=== PATIENT | male | born 1975 | race Caucasian/White ===

== ENCOUNTER 2021-07-21 09:05 | Emergency (ER) | payer SELFPAY ==
[2021-07-21 09:07] VITALS: BP 169/110; PULSE 72; RESP 16; TEMP 36.7; O2SAT 97; BMI 38.5
[2021-07-21 09:29] LABS: POC Glucose,Bedside 108 (70-110)
--- NOTE | 2021-07-21 09:37 | HMH.EDGENADL ---
ED Disposition Clinical Impression: Diabetes mellitus Qualifiers: Diabetes mellitus type: type 2 Diabetes mellitus intermediate insulin use: without intermediate use Diabetes mellitus complication status: without complication Qualified Code(s): E11.9 - Type 2 diabetes mellitus without complications Disposition: Home, Self-Care Condition on Discharge: Good Instructions: DI for Hyperglycemia -- Adult Additional Instructions: Obtain PCP for further diabetic management. Return emerge department for hypoglycemia, hyperglycemia, nausea vomiting Referrals: Provider,Referral, MD [Primary Care Provider] - 3 days Time of Disposition: 09:41 - Critical Care Critical Care Time: No Attestation: On , the high probability of a clinically significant, sudden or life threatening deterioration of the following system(s) required my full and direct attention, intervention and personal management. The time I documented below is in addition to time spent performing reported procedures but includes the following listed in this critical care notation. Medical Decision Making - Medical Records Medical records reviewed: Yes: I reviewed the patient's medical records. - Gomez Inquiry Pt receiving controlled substance: No Vital Signs: 07/21/21 09:07 Temperature 98.0 F Temperature Source Oral Pulse Rate [Right Radial] 72 Respiratory Rate 16 Blood Pressure [Right Arm] 169/110 H Blood Pressure Mean [Right Arm] 129 Blood Pressure Source [Right Arm] Automatic Cuff Blood Pressure Position [Right Arm] Sitting 02 Sat by Pulse Oximetry 97 Oxygen Delivery Method Room Air - Lab Data Lab results reviewed: Yes: I reviewed the patient's lab results. Lab Results 07/21/21 09:16: POC Glucose 108 Medical Decision Narrative: Discussed diabetic medications with the patient. Instructed him to hold his glyburide and continue frequent fingerstick glucose measurements. If he notices his blood sugar consistently 175 or higher, take half a glyburide daily. Patient reports he gets health insurance in August. Provided him with a list of PCPs upon discharge. General Adult HPI - General Chief complaint: Hyper/Hypoglycemia Stated complaint: diabetic, glucose low Time Seen by Provider: 07/21/21 09:38 Mode of Arrival: Ambulatory Limitations: No Limitations Description of Symptoms (Recalled from ER Triage Doc. by RN): pt reports his glucose has been dropping in the middle of night for approx 3 weeks. Pt reports he is a type 2 diabetic, take po medication. Pt reports he has been eating better and trying to lose weight for approx 4 weeks. pt reports he feels disoriented when his glucose drops. fsbs 108 upon presentation to ER - History of Present Illness HPI narrative: 46yo M past medical history of type 2 diabetes presents emergency department secondary to hypoglycemia. Patient reports his blood sugar drops while he is at work. He works [employer]. He reports his blood sugars have been as low as 45. He has had no blood sugars greater than 200 except for one time when his blood sugar dropped significantly he was trying to raise it. He reports he is significantly improved his diet and cut out all soft drinks. He reports he has lost weight with his dietary change. He has not been seen by a doctor to change his medications after his dietary change. He denies any other concerns at this time. - Related Data Allergies Allergy/AdvReac Type Severity Reaction Status Date / Time No Known Allergies Allergy Verified 07/21/21 09:28 [facility] History - Hepatitis A Screen Drug use history?: No High risk sexual behaviors?: No History of sexually transmitted infection?: No Currently employed?: No Childcare worker?: No Do you have indoor plumbing?: Yes Do you have electricity?: Yes Attestation statement:: This patient has been screened for Hepatitis A risk factors. I have reviewed the patient's past medical history: Yes Medical History: Reports:: Diabet
[2021-07-21 10:08] VITALS: BP 139/88; PULSE 69; RESP 16; TEMP 36.8; O2SAT 98
== END 2021-07-21 10:13 | disposition home or self-care (01) ==
LOC: ER 09:55
PROVIDERS: Emergency Provider Family Medicine
DX: E11.649 Type 2 diabetes mellitus with hypoglycemia without coma (principal); Z79.84 Long term (current) use of oral hypoglycemic drugs
CPT/HCPCS: 82962; 99281

== ENCOUNTER → 2022-07-16 11:49 | Outpatient (CLI) | payer BC, SELFPAY ==
[2022-07-16 12:28] LABS: Hemoglobin A1C 7.4 % (4.0-6.0)
[2022-07-16 12:38] LABS: Basophils # 0.1 K/mm3 (0-0.2); Basophils % 1.1 % (0.1-2.0); Eosinophils # 0.1 K/mm3 (0.0-0.4); Eosinophils % 0.9 % (0.1-12.0); Hematocrit 48.8 % (42.0-52.0); Hemoglobin 15.5 g/dL (14.1-18.0); Lymphocytes % 28.8 % (10-50); Mean Corpuscular HGB Conc 31.8 g/dL (31.8-35.4); Mean Corpuscular Hemoglobin 29.5 pg (27.0-31.2); Mean Corpuscular Volume 92.6 fl (80-94); Mean Platelet Volume 9.9 fl (7.4-10.4); Monocytes # 0.6 K/mm3 (0.1-1.0); Neutrophils # 6.7 K/mm3 (1.8-7.8); Neutrophils % 63.2 % (37.0-80.0); Platelet Count 242 K/mm3 (142-424); Red Blood Count 5.27 M/mm3 (4.60-6.20); Red Cell Distribution Width 14.4 % (11.5-17.5); White Blood Count 10.5 K/mm3 (4.8-10.8)
[2022-07-16 12:49] LABS: Alanine Aminotransferase 53 U/L (12-78); Albumin Level 4.1 g/dl (3.5-5.0); Albumin/Globulin Ratio 1.5 (1.1-1.8); Alkaline Phosphatase 95 U/L (38-126); Anion Gap 14.2 mEq/L (5-15); Aspartate Amino Transferase 41 U/L (17-59); Bilirubin,Total 0.3 mg/dl (0.2-1.3); Blood Urea Nitrogen 8 mg/dl (9-20); Calcium 8.9 mg/dl (8.4-10.2); Carbon Dioxide 28 mmol/L (22.0-30.0); Chloride 101 mmol/L (98-107); Chol/HDL Ratio 3.6 (1-3.5); Cholesterol 135 mg/dl (140-200); Estimated Glomerular Filt Rate 144 ml/min (>60); GFR (African American) 174 ML/MIN (>60); Globulin 2.8 g/dL (1.3-3.2); Glucose 112 mg/dl (74-100); HDL Cholesterol 38 mg/dl (40-60); Potassium 4.2 mmoL/L (3.5-5.1); Sodium 139 mmol/L (136-145); Total Protein,Serum 6.9 g/dl (6.3-8.2); Triglycerides 76 mg/dl (30-150); VLDL Cholesterol 15 mg/dL (0-40)
[2022-07-16 13:00] LABS: Direct LDL Cholesterol 85.23 mg/dL (100-129)
[2022-07-16 13:20] LABS: Prostate Specific Ag Screen 0.7 ng/ml (0.0-4.0)
== END ==
PROVIDERS: Family Medicine
DX: E11.9 Type 2 diabetes mellitus without complications (principal); Z12.5 Encounter for screening for malignant neoplasm of prostate
CPT/HCPCS: 36415; 80053; 80061; 82043; 83036; 85025; G0103

== ENCOUNTER → 2022-12-15 15:41 | Outpatient (CLI) | payer BC, SELFPAY ==
[2022-12-15 18:13] LABS: Hemoglobin A1C 8.3 % (4.0-6.0)
== END ==
PROVIDERS: Visit Provider Family Medicine
DX: E11.9 Type 2 diabetes mellitus without complications (principal)
CPT/HCPCS: 36415; 83036

== ENCOUNTER → 2023-01-04 16:50 | Outpatient (CLI) | payer BC, SELFPAY ==
[2023-01-04 18:40] LABS: Alanine Aminotransferase 73 U/L (12-78); Albumin Level 4.4 g/dl (3.5-5.0); Albumin/Globulin Ratio 1.4 (1.1-1.8); Alkaline Phosphatase 95 U/L (38-126); Anion Gap 14.1 mEq/L (5-15); Aspartate Amino Transferase 57 U/L (17-59); Bilirubin,Total 0.5 mg/dl (0.2-1.3); Blood Urea Nitrogen 12 mg/dl (9-20); Calcium 8.7 mg/dl (8.4-10.2); Carbon Dioxide 26 mmol/L (22.0-30.0); Chloride 102 mmol/L (98-107); Chol/HDL Ratio 3.7 (1-3.5); Cholesterol 146 mg/dl (140-200); Estimated Glomerular Filt Rate 144 ml/min (>60); GFR (African American) 174 ML/MIN (>60); Globulin 3.1 g/dL (1.3-3.2); Glucose 145 mg/dl (74-100); HDL Cholesterol 40 mg/dl (40-60); Potassium 4.1 mmoL/L (3.5-5.1); Sodium 138 mmol/L (136-145); Total Protein,Serum 7.5 g/dl (6.3-8.2); Triglycerides 132 mg/dl (30-150); VLDL Cholesterol 26 mg/dL (0-40)
[2023-01-04 18:41] LABS: Basophils # 0.1 K/mm3 (0-0.2); Basophils % 0.9 % (0.1-2.0); Eosinophils # 0.1 K/mm3 (0.0-0.4); Eosinophils % 0.8 % (0.1-12.0); Hematocrit 46.1 % (42.0-52.0); Hemoglobin 14.9 g/dL (14.1-18.0); Lymphocytes # 3.5 K/mm3 (0.7-4.5); Lymphocytes % 30.9 % (10-50); Mean Corpuscular HGB Conc 32.3 g/dL (31.8-35.4); Mean Corpuscular Hemoglobin 28.8 pg (27.0-31.2); Mean Corpuscular Volume 89.1 fl (80-94); Mean Platelet Volume 10.7 fl (7.4-10.4); Monocytes # 0.8 K/mm3 (0.1-1.0); Monocytes % 6.9 % (1.7-9.3); Neutrophils # 6.9 K/mm3 (1.8-7.8); Neutrophils % 60.4 % (37.0-80.0); Platelet Count 218 K/mm3 (142-424); Red Blood Count 5.18 M/mm3 (4.60-6.20); Red Cell Distribution Width 14.1 % (11.5-17.5); White Blood Count 11.4 K/mm3 (4.8-10.8)
[2023-01-04 18:50] LABS: Direct LDL Cholesterol 88.89 mg/dL (100-129)
[2023-01-06 11:13] LABS: Insulin Level Total 66.9 uIU/mL (2.6-24.9)
== END ==
PROVIDERS: PCP Family Medicine; Visit Provider Family Medicine
DX: E11.9 Type 2 diabetes mellitus without complications (principal); Z79.84 Long term (current) use of oral hypoglycemic drugs
CPT/HCPCS: 80053; 80061; 82043; 83525; 85025

== ENCOUNTER → 2023-01-25 23:17 | Outpatient (CLI) | payer BC, SELFPAY ==
[2023-01-25 19:37] LABS: Basophils # 0.1 K/mm3 (0-0.2); Basophils % 0.5 % (0.1-2.0); Eosinophils # 0.1 K/mm3 (0.0-0.4); Eosinophils % 0.7 % (0.1-12.0); Hematocrit 48.4 % (42.0-52.0); Hemoglobin 15.7 g/dL (14.1-18.0); Lymphocytes # 3.2 K/mm3 (0.7-4.5); Lymphocytes % 27.1 % (10-50); Mean Corpuscular HGB Conc 32.4 g/dL (31.8-35.4); Mean Corpuscular Hemoglobin 29.1 pg (27.0-31.2); Mean Corpuscular Volume 89.7 fl (80-94); Mean Platelet Volume 10.6 fl (7.4-10.4); Monocytes # 0.7 K/mm3 (0.1-1.0); Monocytes % 5.8 % (1.7-9.3); Neutrophils # 7.7 K/mm3 (1.8-7.8); Neutrophils % 65.9 % (37.0-80.0); Platelet Count 207 K/mm3 (142-424); Red Cell Distribution Width 13.8 % (11.5-17.5); White Blood Count 11.7 K/mm3 (4.8-10.8)
[2023-01-25 20:02] LABS: Alanine Aminotransferase 68 U/L (12-78); Albumin Level 4.5 g/dl (3.5-5.0); Albumin/Globulin Ratio 1.6 (1.1-1.8); Alkaline Phosphatase 93 U/L (38-126); Anion Gap 10.8 mEq/L (5-15); Aspartate Amino Transferase 54 U/L (17-59); Bilirubin,Total 0.5 mg/dl (0.2-1.3); Blood Urea Nitrogen 13 mg/dl (9-20); Calcium 9.1 mg/dl (8.4-10.2); Carbon Dioxide 29 mmol/L (22.0-30.0); Chloride 102 mmol/L (98-107); Estimated Glomerular Filt Rate 144 ml/min (>60); GFR (African American) 174 ML/MIN (>60); Globulin 2.8 g/dL (1.3-3.2); Glucose 85 mg/dl (74-100); Potassium 3.8 mmoL/L (3.5-5.1); Sodium 138 mmol/L (136-145); Total Protein,Serum 7.3 g/dl (6.3-8.2)
[2023-01-25 20:21] LABS: 25-OH Vitamin D, Total 20.4 ng/mL (30-100)
[2023-01-25 20:34] LABS: Thyroid Stimulating Hormone 1.46 uIU/mL (0.465-4.68)
[2023-01-27 10:33] LABS: Testosterone,Total 466 ng/dL (264-916)
== END ==
PROVIDERS: PCP Family Medicine; Visit Provider Family Medicine
DX: R53.83 Other fatigue (principal); E11.9 Type 2 diabetes mellitus without complications; I10 Essential (primary) hypertension; E55.9 Vitamin D deficiency, unspecified; Z79.84 Long term (current) use of oral hypoglycemic drugs
CPT/HCPCS: 80053; 82306; 84403; 84443; 85025

== ENCOUNTER → 2023-03-15 17:00 | Outpatient (CLI) | payer BC, SELFPAY ==
[2023-03-15 19:07] LABS: Hemoglobin A1C 7.2 % (4.0-6.0)
== END ==
PROVIDERS: PCP Family Medicine; Visit Provider Family Medicine
DX: E11.40 Type 2 diabetes mellitus with diabetic neuropathy, unspecified (principal); Z79.84 Long term (current) use of oral hypoglycemic drugs
CPT/HCPCS: 83036

== ENCOUNTER 2023-04-15 07:26 | Day surgery (SDC) | payer BC, SELFPAY ==
[2023-04-14 09:30] VITALS: BMI 39.4
[2023-04-15 07:46] VITALS: BP 129/63; PULSE 57; RESP 18; TEMP 36.1; O2SAT 96
--- NOTE | 2023-04-15 08:00 | P.PN_ITS ---
[facility] Disclaimer: The information contained in this section may have been updated after the patient was seen, as this information can be updated by other users. Medical History Carpal tunnel syndrome Diabetes mellitus, type 2 GERD (gastroesophageal reflux disease) History of cataract Hypertension Kidney disease Left shoulder pain Sleep apnea Surgical History History of surgery Family History Mother Diabetes Coronary artery disease Father Coronary artery disease Brother Coronary artery disease Bleeding disorder Family/Other Coronary artery disease Social History Smoking Status: Never smoker alcohol intake: current substance use type: denies use current occupational status: employed Travel in the last 8 weeks: None [facility] Anesthesia Checklist Patient Identification Patient Identification: Arm Band and Verbal (Name & ) Structural Data Admitted From: Home Planned Operative Procedure/s: Colonoscopy Consent for Planned Operative Procedure(s) Verified: Yes NPO Status Verified Time NPO: 00:00 Airway Assessment C-Spine Mobility Assessed: Yes TMJ Mobility Assessed: Yes Dentition: Good Dentition Neurological Assessment Level of Consciousness: Awake Hx Seizures: No Numbness or tingling in extremities: No Anesthesia Plan Anesthesia Risk discussed: Yes Anesthesia Plan: Verified ASA Class: III Anesthesia Type: MAC
--- NOTE | 2023-04-15 09:17 | HMH.SCOPE ---
Procedure: Date: 04/15/23 Patient Date of :: 1975 Procedure Performed:: Total colonoscopy to terminal ileum with biopsies and numerous polypectomy Indications:: Patient is a 48-year-old male. Primary care provider is Dr. Rome. Patient was scheduled for initial screening colonoscopy at his request. No family history. Reportedly no symptoms. Performing Provider:: Filippo Smiley MD Referring Provider:: Chris Rome MD Sedation:: MAC sedation Procedure:: Patient history was obtained and appropriate physical examination was performed. Patient's medications and allergies were reviewed. Informed consent was obtained after explaining the benefits, alternatives, and risks of the procedure including, but not limited to, bleeding, perforation, missed lesions, and adverse reaction to anesthesia medications. Patient was transported to endoscopy procedure room. Patient was connected to monitoring devices. Throughout the procedure the patient's blood pressure, pulse, and oxygen saturations were monitored continuously. Patient identification and planned procedure were verified by the staff. Patient was positioned in lateral decubitus position. Digital anorectal exam was performed. Variable stiffness Olympus colonoscope was inserted and advanced under direct visualization to the cecum. Adequacy of the colonic preparation was noted. The colonoscope was advanced a short distance into the terminal ileum. The colonoscope was then slowly withdrawn while carefully examining the color, texture, anatomy, and integrity of the mucosoa circumferentially. Within the rectum retroflexion was performed. Colonoscope was then withdrawn. . . . Colonoscope was advanced to the cecum. There was some particulate liquid stool which was cleared. Terminal ileum appeared unremarkable. Within the cecum there was an unusual appearing somewhat exudative indurated lesion which was very ill-defined. Consideration was given initially for piecemeal removal using hot snare and hot snare was used with some cautery but then this was aborted due to the fact that the lesion was rather ill-defined. Multiple biopsies were obtained. There were a couple of areas which bled rather easily and Hemoclip was deployed x3 at these areas for hemostasis assurance. The nature of the lesion was difficult to determine and could be inflammatory or neoplastic. . As the colonoscope was withdrawn through the remainder of the colon in the ascending colon there was a small polyp removed with biopsy. In the distal ascending colon there was a polyp removed with cold snare. Proximal transverse colon polyp removed with cold snare. Distal transverse polyp removed with cold snare with residual tissue removed with biopsy forceps. In the descending colon there was a small polyp removed with cold snare. The proximal sigmoid colon there were a couple polyps 1 removed with snare and 1 with a biopsy. In the sigmoid region there was a small polyp removed with cold snare. There were several hyperplastic appearing rectosigmoid polyps removed with cold biopsy forceps. Findings:: Polyps as noted above. Approximately 11 polyps removed via variety of technique Most notable cecal lesion, exudative and indurated, ill-defined, unclear etiology possible neoplastic or inflammatory, multiple biopsies obtained Recommendations:: Follow-up colonoscopy pending pathology. Most notable be results of the cecal lesion Complications:: None immediate Estimated blood obtained (mL): 5 Colonoscopy Component Colonoscopy Component Was a colonoscopy performed during today's procedure?: Yes Recommended follow up colonoscopy of at least 10 years?: No If no, follow up colonoscopy recommended in ___ years?: Unclear Reason for not recommending >/= 10 yr follow-up interval?: Pending pathology
[2023-04-15 09:18] VITALS: BP 122/75; PULSE 70; RESP 18; TEMP 36.5; O2SAT 94
--- NOTE | 2023-04-15 09:18 | SUR.PHASEII ---
Pt arrived to post-op with oral airway, VSS
[2023-04-15 09:28] VITALS: BP 135/80; PULSE 68; RESP 18; O2SAT 94
[2023-04-15 09:38] VITALS: BP 137/76; PULSE 68; RESP 18; O2SAT 95
[2023-04-15 09:44] VITALS: BP 134/73; PULSE 72; RESP 18; O2SAT 95
[2023-04-16 09:12] LABS: POC Glucose,Bedside 102 (70-110)
== END 2023-04-15 09:45 | disposition home or self-care (01) ==
PROVIDERS: PCP Family Medicine; Visit Provider Surgery
PROC: 0DJD8ZZ Inspection of Lower Intestinal Tract, Via Natural or Artificial Opening Endoscopic (ICD-10-PCS; CPT 45380; principal; 2023-04-15 08:30)
DX: Z12.11 Encounter for screening for malignant neoplasm of colon (principal); D12.0 Benign neoplasm of cecum; D12.2 Benign neoplasm of ascending colon; D12.3 Benign neoplasm of transverse colon; D12.4 Benign neoplasm of descending colon; D12.5 Benign neoplasm of sigmoid colon; E11.9 Type 2 diabetes mellitus without complications
CPT/HCPCS: 45380; 45385; 82962; J2704

== ENCOUNTER 2023-05-27 12:21 | Day surgery (SDC) | payer BC, SELFPAY ==
[2023-05-25 12:51] VITALS: BMI 39.4
[2023-05-27 12:36] VITALS: BP 145/67; PULSE 61; RESP 18; TEMP 36.2; O2SAT 97
--- NOTE | 2023-05-27 12:59 | EXP.GEN.HP ---
HPI HPI HPI: Patient presents for repeat colonoscopy. He underwent iinitial screening colonoscopy on 04/15/2023. Patient was found to have unusual appearing somewhat exudative indurated ill-defined lesion in the cecum. Consideration with given initially for possible piecemeal removal using hot snare but due to the indeterminate nature of the lesion and ill-defined nature multiple biopsies were obtained. Hemoclip was deployed for hemostasis assurance as the area was somewhat oozing. Additional polyps were removed and the remainder of the colon. He had a total of 6 additional tubular adenomas removed. Biopsy of the lesion in the cecum returned as tubular adenoma as well.I informed the patient of the biopsy findings. I did inform him however that this could be a sampling error and there could be possibly cancerous component. However, I would not advocate immediate colon resection. At this time I would advocate early follow-up colonoscopy in a few weeks to reassess this area and possibly remove these 2 areas in the cecum using hot snare. If no cancerous component noted then would merely need follow-up early interval colonoscopy. However, if there is cancerous component he could require resection. Also obviously if he develops perforation resection would be indicated as well. Plan will be for repeat colonoscopy [facility] Disclaimer: The information contained in this section may have been updated after the patient was seen, as this information can be updated by other users. Medical History Carpal tunnel syndrome Diabetes mellitus, type 2 GERD (gastroesophageal reflux disease) History of cataract Hypertension Kidney disease Left shoulder pain Sleep apnea Surgical History History of colonoscopy History of surgery Family History Mother Diabetes Coronary artery disease Father Coronary artery disease Brother Coronary artery disease Bleeding disorder Family/Other Coronary artery disease Social History Smoking Status: Never smoker alcohol intake: current substance use type: denies use current occupational status: employed Travel in the last 8 weeks: None caffeine: Yes Review of Systems Review of Systems Review of systems:: pertinent systems reviewed and negative unless documented below Meds Home Medications and Allergies Home Medications Medication Instructions Recorded Confirmed Type atorvastatin 10 mg tablet 10 mg PO DAILY Cholesterol 01/04/23 05/27/23 History blood sugar diagnostic (OneTouch #10 ea 01/04/23 05/27/23 History Verio test strips) glyburide micronized 3 mg tablet 3 mg PO BID Diabetes 01/04/23 05/27/23 History metformin 850 mg tablet 850 mg PO BID Diabetes 01/04/23 05/27/23 History metoprolol tartrate 100 mg tablet 100 mg PO BID bp 01/04/23 05/27/23 History naproxen 500 mg tablet (Naprosyn) 500 mg PO BID PRN pain #60 tabs 03/15/23 05/27/23 Rx losartan 25 mg tablet 25 mg PO DAILY bp 04/15/23 05/27/23 History omeprazole 20 mg capsule,delayed 20 mg PO DAILY gerd 04/15/23 05/27/23 History release New Prescriptions to Start Prescriptions: Allergies Allergy/AdvReac Type Severity Reaction Status Date / Time No Known Allergies Allergy Verified 05/27/23 12:30 Exam Data for Last 24 hours Vital signs and Labs for Last 24 Hours: Temp Pulse Resp BP Pulse Ox O2 Del Method 97.2 F L 61 18 145/67 H 97 Room Air 05/27/23 12:36 05/27/23 12:36 05/27/23 12:36 05/27/23 12:36 05/27/23 12:36 05/27/23 12:36 I & O for Last 24 hours: Intake & Output 05/25/23 05/26/23 05/27/23 05/28/23 11:59 11:59 11:59 11:59 Weight 275 lb Constitutional Constitutional: no acute distress *Routine HEENT Exam Head: Present n
[2023-05-27 13:10] VITALS: O2SAT 100
--- NOTE | 2023-05-27 13:48 | HMH.SCOPE ---
Procedure: Date: 05/27/23 Patient Date of :: 1975 Procedure Performed:: Colonoscopy to cecum with multiple biopsies of cecal mass using hot snare and biopsy forceps, polypectomy using biopsy forceps and cold snare, random biopsies Indications:: Patient presents for repeat colonoscopy. He underwent iinitial screening colonoscopy on 04/15/2023. Patient was found to have unusual appearing somewhat exudative indurated ill-defined lesion in the cecum. Consideration with given initially for possible piecemeal removal using hot snare but due to the indeterminate nature of the lesion and ill-defined nature multiple biopsies were obtained. Hemoclip was deployed for hemostasis assurance as the area was somewhat oozing. Additional polyps were removed and the remainder of the colon. He had a total of 6 additional tubular adenomas removed. Biopsy of the lesion in the cecum returned as tubular adenoma as well.I informed the patient of the biopsy findings. I did inform him however that this could be a sampling error and there could be possibly cancerous component. However, I would not advocate immediate colon resection. At this time I would advocate early follow-up colonoscopy in a few weeks to reassess this area and possibly remove these 2 areas in the cecum using hot snare. If no cancerous component noted then would merely need follow-up early interval colonoscopy. However, if there is cancerous component he could require resection. Also obviously if he develops perforation resection would be indicated as well. Plan will be for repeat colonoscopy Performing Provider:: Filippo Smiley MD Referring Provider:: Chris Rome Sedation:: MAC sedation Procedure:: Patient history was obtained and appropriate physical examination was performed. Patient's medications and allergies were reviewed. Informed consent was obtained after explaining the benefits, alternatives, and risks of the procedure including, but not limited to, bleeding, perforation, missed lesions, and adverse reaction to anesthesia medications. Patient was transported to endoscopy procedure room. Patient was connected to monitoring devices. Throughout the procedure the patient's blood pressure, pulse, and oxygen saturations were monitored continuously. Patient identification and planned procedure were verified by the staff. Patient was positioned in lateral decubitus position. Digital anorectal exam was performed. Variable stiffness Olympus colonoscope was inserted and advanced under direct visualization to the cecum. Adequacy of the colonic preparation was noted. The colonoscope was advanced a short distance into the terminal ileum. The colonoscope was then slowly withdrawn while carefully examining the color, texture, anatomy, and integrity of the mucosoa circumferentially. Within the rectum retroflexion was performed. Colonoscope was then withdrawn. . Within the cecum there was a rather large firm indurated somewhat ulcerated sessile mass almost within the appendiceal orifice. It was firm but he had friable. Several biopsies were taken using hot snare. Additional biopsies were obtained using cold biopsy forceps. This lesion was definitely not amenable to endoscopic removal. He did have some prominent mucosal folds throughout the colon and multiple right and left colon biopsies were obtained. In the descending colon there was a small polyp removed with cold snare. Rectosigmoid colon there was a hyperplastic appearing polyp removed with biopsy forceps. . Findings:: Cecal mass as described above Polyps Prominent mucosal folds Recommendations:: I will follow-up on the pathology. Will need right colon resection. I will discuss the options with him. Complications:: None immediately apparent Estimated blood obtained (mL): 5 Colonoscopy Component Colonoscopy Component Was a colonoscopy performed during today's procedure?: Yes Recommended follow up colonoscopy of at
[2023-05-27 13:52] VITALS: BP 164/98; PULSE 79; RESP 16; TEMP 36.6; O2SAT 97
[2023-05-27 14:02] VITALS: BP 159/97; PULSE 62; RESP 17; O2SAT 97
[2023-05-27 14:12] VITALS: BP 172/95; PULSE 63; RESP 18; O2SAT 98
[2023-05-28 05:02] LABS: POC Glucose,Bedside 82 (70-110)
== END 2023-05-27 14:24 | disposition home or self-care (01) ==
PROVIDERS: PCP Family Medicine; Visit Provider Surgery
PROC: 0DJD8ZZ Inspection of Lower Intestinal Tract, Via Natural or Artificial Opening Endoscopic (ICD-10-PCS; CPT 45385; principal; 2023-05-27 13:30)
DX: D12.6 Benign neoplasm of colon, unspecified (principal); D12.0 Benign neoplasm of cecum; D12.2 Benign neoplasm of ascending colon; K62.1 Rectal polyp; E11.9 Type 2 diabetes mellitus without complications
CPT/HCPCS: 45385; 45380; 82962; J2704

== ENCOUNTER 2023-06-30 11:21 | Inpatient (IN) | payer BC, SELFPAY ==
[2023-06-29 10:44] VITALS: BMI 39.4
[2023-06-30] VITALS (25 sets, daily range): BP systolic 119–177; BP diastolic 63–101; PULSE 61–101; RESP 13–18; TEMP 36.2–43; O2SAT 92–99
[2023-06-30 06:40] LABS: Basophils # 0.1 K/mm3 (0-0.2); Basophils % 0.7 % (0.1-2.0); Eosinophils # 0.1 K/mm3 (0.0-0.4); Eosinophils % 1.1 % (0.1-12.0); Hematocrit 48.3 % (42.0-52.0); Hemoglobin 15.3 g/dL (14.1-18.0); Lymphocytes # 2.8 K/mm3 (0.7-4.5); Lymphocytes % 27.2 % (10-50); Mean Corpuscular HGB Conc 31.7 g/dL (31.8-35.4); Mean Corpuscular Hemoglobin 28.5 pg (27.0-31.2); Mean Corpuscular Volume 89.9 fl (80-94); Mean Platelet Volume 9.2 fl (7.4-10.4); Monocytes # 0.8 K/mm3 (0.1-1.0); Monocytes % 7.4 % (1.7-9.3); Neutrophils # 6.6 K/mm3 (1.8-7.8); Neutrophils % 63.6 % (37.0-80.0); Platelet Count 205 K/mm3 (142-424); Red Blood Count 5.38 M/mm3 (4.60-6.20); Red Cell Distribution Width 14.4 % (11.5-17.5); White Blood Count 10.3 K/mm3 (4.8-10.8)
[2023-06-30 06:52] LABS: Alanine Aminotransferase 60 U/L (12-78); Albumin Level 4.3 g/dl (3.5-5.0); Albumin/Globulin Ratio 1.3 (1.1-1.8); Alkaline Phosphatase 90 U/L (38-126); Anion Gap 15.5 mEq/L (5-15); Aspartate Amino Transferase 45 U/L (17-59); Bilirubin,Total 0.7 mg/dl (0.2-1.3); Blood Urea Nitrogen 13 mg/dl (9-20); Calcium 8.7 mg/dl (8.4-10.2); Carbon Dioxide 26 mmol/L (22.0-30.0); Chloride 102 mmol/L (98-107); Creatinine Clearance Estimated 263 mL/min (50-200); Estimated Glomerular Filt Rate 143 ml/min (>60); GFR (African American) 173 ML/MIN (>60); Globulin 3.2 g/dL (1.3-3.2); Glucose 143 mg/dl (74-100); Potassium 3.5 mmoL/L (3.5-5.1); Sodium 140 mmol/L (136-145); Total Protein,Serum 7.5 g/dl (6.3-8.2)
--- NOTE | 2023-06-30 06:57 | EXP.GEN.HP ---
HPI HPI HPI: Patient presents for colon resection. He is a 48-year-old male whom I had seen and performed initial screening colonoscopy on him on 04/15/2023. Patient had no symptoms. Somewhat surprisingly he was noted to have multiple polyps. Approximately 11 polyps were noted. However most notable was a lesion in the cecum which was exudative and indurated and ill-defined. Numerous biopsies were obtained. It was friable and easily bled. He had a total of 6 tubular adenomas removed but most notable is his lesion in the cecum which biopsies revealed merely tubular adenoma. Patient was seen back in the office and the options were discussed with him. Plan was for a follow-up repeat colonoscopy which was done on 05/27/2023. He did have some additional polyps noted and this mass in the cecum was once again noted. This was a rather large firm indurated somewhat ulcerated sessile friable mass. Multiple biopsies were obtained using hot snare and cold biopsy forceps. This was not amenable to endoscopic removal. Interestingly once again results of the biopsy reveals tubular adenoma. He did have an additional tubular adenoma in the ascending colon as well as several hyperplastic polyps. Right and left biopsies were normal. I discussed the options with the patient. I felt that this was going to need resection given its nature on both colonoscopies. I discussed possible open procedure versus referral for laparoscopic procedure. I also explained to him that the final pathology may be precancerous. He wished to proceed with open procedure locally. Arrangements were made for open right hemicolectomy. [facility] Disclaimer: The information contained in this section may have been updated after the patient was seen, as this information can be updated by other users. Medical History Carpal tunnel syndrome Diabetes mellitus, type 2 GERD (gastroesophageal reflux disease) History of cataract Hypertension Kidney disease Left shoulder pain Sleep apnea Surgical History History of colonoscopy History of surgery RIGHT ELBOW Family History Mother Diabetes Coronary artery disease Father Coronary artery disease Brother Coronary artery disease Bleeding disorder Family/Other Coronary artery disease Social History (Updated 06/30/23 @ 06:17 by Umer E Brueggen, RN) Smoking Status: Never smoker alcohol intake: never substance use type: denies use current occupational status: employed Travel in the last 8 weeks: None caffeine: Yes Meds Home Medications and Allergies Home Medications Medication Instructions Recorded Confirmed Type atorvastatin 10 mg tablet 10 mg PO DAILY Cholesterol 01/04/23 06/02/23 History blood sugar diagnostic (ZabrinaTouch #10 ea 01/04/23 06/02/23 History Verio test strips) glyburide micronized 3 mg tablet 3 mg PO BID Diabetes 01/04/23 06/02/23 History metformin 850 mg tablet 850 mg PO BID Diabetes 01/04/23 06/02/23 History metoprolol tartrate 100 mg tablet 100 mg PO BID bp 01/04/23 06/02/23 History losartan 25 mg tablet 25 mg PO DAILY bp 04/15/23 06/02/23 History omeprazole 20 mg capsule,delayed 20 mg PO DAILY gerd 04/15/23 06/02/23 History release naproxen 500 mg tablet See Rx Instructions .Route 06/30/23 History .COMPLEX Pain New Prescriptions to Start Prescriptions: Allergies Allergy/AdvReac Type Severity Reaction Status Date / Time No Known Allergies Allergy Verified 06/30/23 06:33 Exam Data for Last 24 hours Vital signs and Labs for Last 24 Hours: Temp Pulse Resp BP Pulse Ox O2 Del Method 97.1 F L 61 18 119/68 99 Room Air 06/30/23 06:25 06/30/23 06:25 06/30/23 06:25 06/30/23 06:25 06/30/23 06:25 06/30/23 06:25 Laboratory Results - l
--- NOTE | 2023-06-30 07:07 | EXP.ANES.CKL ---
[facility] Disclaimer: The information contained in this section may have been updated after the patient was seen, as this information can be updated by other users. Medical History Carpal tunnel syndrome Diabetes mellitus, type 2 GERD (gastroesophageal reflux disease) History of cataract Hypertension Kidney disease Left shoulder pain Sleep apnea Surgical History History of colonoscopy History of surgery RIGHT ELBOW Family History Mother Diabetes Coronary artery disease Father Coronary artery disease Brother Coronary artery disease Bleeding disorder Family/Other Coronary artery disease Social History (Updated 06/30/23 @ 06:17 by Umer Smart RN) Smoking Status: Never smoker alcohol intake: never substance use type: denies use current occupational status: employed Travel in the last 8 weeks: None caffeine: Yes [facility] Anesthesia Checklist Patient Identification Patient Identification: Arm Band Structural Data Admitted From: Home Planned Operative Procedure/s: Right Hemicolectomy Consent for Planned Operative Procedure(s) Verified: Yes Verified Documents: Surgical Consent and History and Physical NPO Status Verified Time NPO: 00:00 Additional verifications Anesthesia Reactions: No Hx Blood Transfusions: No Blood Transfusion Reaction: No Airway Assessment Mallampati Score:: Class II C-Spine Mobility Assessed: Yes TMJ Mobility Assessed: Yes Dentition: Good Dentition Neurological Assessment Level of Consciousness: Awake and Alert Anesthesia Plan Anesthesia Risk discussed: Yes Anesthesia Plan: Verified ASA Class: III Anesthesia Type: General
--- NOTE | 2023-06-30 07:15 | ECG_ITS ---
APPROVED REPORT Exam: Resting ECG HR:58 bpm ECG Measurements Heart Rate 58 AXES NJ 156 P 23 QRSd 122 QRS 54 QT 480 T 34 QTc 476 Conclusion SINUS BRADYCARDIA MODERATE INTRAVENTRICULAR CONDUCTION DELAY [110+ ms QRS DURATION] PROLONGED QT INTERVAL ABNORMAL ECG UNCONFIRMED REPORT Electronically signed by : Chris Shaffer MD 07/01/2023 16:04:28
--- NOTE | 2023-06-30 09:57 | EXP.OP.NOTE ---
Date of procedure: 06/30/23 Pre-op Diagnosis:: Cecal mass Post-op Diagnosis:: Same Procedure performed:: Right colon resection with ileocolic anastomosis Surgeon:: Filippo Smiley MD POLICE ACADEMY INSTRUCTOR:: Dmitry Velásquez Anesthesia: GETA Estimated blood loss (mL): 50 Clinical Note:: Patient presents for colon resection. He is a 48-year-old male whom I had seen and performed initial screening colonoscopy on him on 04/15/2023. Patient had no symptoms. Somewhat surprisingly he was noted to have multiple polyps. Approximately 11 polyps were noted. However most notable was a lesion in the cecum which was exudative and indurated and ill-defined. Numerous biopsies were obtained. It was friable and easily bled. He had a total of 6 tubular adenomas removed but most notable is his lesion in the cecum which biopsies revealed merely tubular adenoma. Patient was seen back in the office and the options were discussed with him. Plan was for a follow-up repeat colonoscopy which was done on 05/27/2023. He did have some additional polyps noted and this mass in the cecum was once again noted. This was a rather large firm indurated somewhat ulcerated sessile friable mass. Multiple biopsies were obtained using hot snare and cold biopsy forceps. This was not amenable to endoscopic removal. Interestingly once again results of the biopsy reveals tubular adenoma. He did have an additional tubular adenoma in the ascending colon as well as several hyperplastic polyps. Right and left biopsies were normal. I discussed the options with the patient. I felt that this was going to need resection given its nature on both colonoscopies. I discussed possible open procedure versus referral for laparoscopic procedure. I also explained to him that the final pathology may be precancerous. He wished to proceed with open procedure locally. Arrangements were made for open right hemicolectomy. Operative findings:: Small but firm palpable mass in the cecum Operative note:: Patient was taken to the operating room. He was positioned in a supine position. Coreas catheter was placed. Abdomen was prepped and draped in the standard surgical fashion. Midline laparotomy incision was made. Dissection was carried down through subcutaneous tissues and fascia using electrocautery. Peritoneum was elevated and incised. Peritoneal cavity was entered. To allow for exposure incision was extended superiorly. Ultimately incision was approximately 29 cm. Exposure was achieved. The cecum was identified. The lesion was palpable in the cecum. Distal ileum was divided with a MARY KATE 75 type stapling device. Dissection was carried out mobilizing the right colon by incising the peritoneum along the white line of [place]. Hepatic flexure was taken down using electrocautery along with the Enseal device. Proximal transverse colon was divided with a MARY KATE 75 type linear cutting stapling device. Right colon was mobilized on its mesentery. Duodenum was observed to be without injury. Mesentery was scored with electrocautery for wide resection. The colonic mesentery was divided with the Enseal device and the larger branching vascular pedicles were doubly ligated with 0 Nurolon ties. Ultimately terminal ileum with colon was passed off as a specimen. A [id number] anastomosis was created with a MARY KATE 75 type stapling device. At the confluence of staple lines 3-0 Surgilon seromuscular suture was placed. Staple line was oversewn with a 3-0 Surgilon running locking suture. 3-0 Surgilon was placed at the anastomotic staple line angle. Anastomosis was patent and intact. Mesenteric defect was closed with a running 2-0 Vicryl. Enteric contents were returned to the normal anatomic position. Nasogastric tube was palpated to be in a good position. Peritoneal cavity was thoroughly irrigated and aspirated until clear. Fascia was closed with running #2 Novafil x2. Subcutaneous tissues were irrigated. Skin incision was closed with ailyn.
--- NOTE | 2023-06-30 10:09 | EXP.ANES.I ---
[facility] Anesthesia Record Part I Anesthesia Record I Intake, IV Amount: 2,200 Hydration: Adequate Estimated blood loss (mL): 50 Urine output (mL): 100 Blood Products used (#): none Blood Pressure: 150/63 SaO2: 95 Pulse Rate: 100 Airway Patency: Patent Respiratory Rate: 16 Temperature: 97.9 F Patient is:: Drowsy and Stable Stable to PACU at:: 10:00
[2023-06-30 10:23] LABS: POC Glucose,Bedside 194 (70-110)
--- NOTE | 2023-06-30 10:55 | SUR.PHASEI ---
1000- pt arrived in PACU- report from Lainey VILLA- OR nurse- pt has coude cath w/ 100ml out, NG tube left nare taped at 65-wall suction 20 cont pt dressing- ailyn, Telfa and tegaderm- CDI from sternum midline down to almost pubic symphysis . Pt would awaken and look at me then go back to sleep. VSS. 1030-changed patient into cotton gown . tolerated well 1045-empty cath bag 150ml out. 1050-called report to Janey Hedrick RN rm [phone] . Nurse to call me back after she passes report.
--- NOTE | 2023-06-30 11:30 | SUR.PHASEI ---
1125-pt transporting to floor myself and Rachana VILLA . pt in rm 219 monitor/O2/ wall suction attached. Catheter bag hung on bed frame below mattress. Family at BS, Janey Hedrick RN @ . Showed dressing. Pt stated he was comfortable and call light at right hand. Pain @ 12/24
--- NOTE | 2023-06-30 12:05 | HMH.PHAINT1 ---
Pharmacy Intervention Comments: Medication history complete, medications confirmed with fill history. - Hui Rodgers, PharmD Candidate 2023
[2023-06-30 14:38] LABS: Microscopic,Cath URINE MICROSCOPIC (MICROSCOPIC)
[2023-06-30 14:53] LABS: Appearance,Urine/Cath CLEAR (Clear); Bilirubin,Cath Negative (Negative); Blood, Urine/Cath Negative (Negative); Color,Urine/Cath YELLOW (Yellow); Glucose,Urine/Cath (UA) Negative (Negative); Ketones,Urine/Cath Negative (Negative); Leukocyte Esterase,Cath Negative (Negative); Nitrate,Cath Negative (Negative); PH,Urine/Cath 6.5 (5.0-8.5); Protein,Urine/Cath 2+ (Negative); Specific Gravity, Urine/Cath 1.025 (1.005-1.030); Urobilinogen,Cath 0.2 EU/dl (0.2)
[2023-06-30 16:09] LABS: POC Glucose,Bedside 218 (70-110)
[2023-06-30 16:13] LABS: Bacteria,Urine/Cath 1+ /lpf; RBC,Urine/Cath Occasional # /hpf (0-3); Squamous Epithelial Ur./Cath Occasional #/hpf (0-5)
--- NOTE | 2023-06-30 16:36 | EXP.MED.CON ---
History of Present Illness *Admission Date: 06/30/23 *Reason for visit:: Right hemicolectomy *History of present illness: Patient presents for colon resection. He is a 48-year-old male whom I had seen and performed initial screening colonoscopy on him on 04/15/2023. Patient had no symptoms. Somewhat surprisingly he was noted to have multiple polyps. Approximately 11 polyps were noted. However most notable was a lesion in the cecum which was exudative and indurated and ill-defined. Numerous biopsies were obtained. It was friable and easily bled. He had a total of 6 tubular adenomas removed but most notable is his lesion in the cecum which biopsies revealed merely tubular adenoma. Patient was seen back in the office and the options were discussed with him. Plan was for a follow-up repeat colonoscopy which was done on 05/27/2023. He did have some additional polyps noted and this mass in the cecum was once again noted. This was a rather large firm indurated somewhat ulcerated sessile friable mass. Multiple biopsies were obtained using hot snare and cold biopsy forceps. This was not amenable to endoscopic removal. Interestingly once again results of the biopsy reveals tubular adenoma. He did have an additional tubular adenoma in the ascending colon as well as several hyperplastic polyps. Right and left biopsies were normal. I discussed the options with the patient. I felt that this was going to need resection given its nature on both colonoscopies. I discussed possible open procedure versus referral for laparoscopic procedure. I also explained to him that the final pathology may be precancerous. He wished to proceed with open procedure locally. Arrangements were made for open right hemicolectomy. [facility] Medical History Carpal tunnel syndrome Diabetes mellitus, type 2 GERD (gastroesophageal reflux disease) History of cataract Hypertension Kidney disease Left shoulder pain Sleep apnea Surgical History History of colonoscopy History of surgery RIGHT ELBOW Family History Mother Diabetes Coronary artery disease Father Coronary artery disease Brother Coronary artery disease Bleeding disorder Family/Other Coronary artery disease Social History Smoking Status: Never smoker alcohol intake: never substance use type: denies use current occupational status: employed Travel in the last 8 weeks: None caffeine: Yes Review of Systems Review of Systems Review of systems:: pertinent systems reviewed and negative unless documented below Exam Data for Last 24 hours Vital signs and Labs for Last 24 Hours: Temp Pulse Resp BP Pulse Ox O2 Del Method O2 Flow Rate 98.0 F 94 H 14 177/95 H 93 L Nasal Cannula 2 06/30/23 13:40 06/30/23 15:10 06/30/23 15:10 06/30/23 15:10 06/30/23 15:10 06/30/23 15:10 06/30/23 15:10 Laboratory Results - last 24 hr 06/30/23 06:30: WBC 10.3, RBC 5.38, Hgb 15.3, Hct 48.3, MCV 89.9, MCH 28.5, MCHC 31.7 L, RDW 14.4, Plt Count 205, MPV 9.2, Neut % (Auto) 63.6, Lymph % (Auto) 27.2, [place] % (Auto) 7.4, Eos % (Auto) 1.1, Baso % (Auto) 0.7, Neut # (Auto) 6.6, Lymph # (Auto) 2.8, [place] # (Auto) 0.8, Eos # (Auto) 0.1, Baso # (Auto) 0.1, Sodium 140, Potassium 3.5, Chloride 102, Carbon Dioxide 26, Anion Gap 15.5 H, BUN 13, Creatinine 0.60 L, Estimated Creat Clear 263, Estimated GFR 143, Est GFR ( Amer) 173, Glucose 143 H, Calcium 8.7, Total Bilirubin 0.7, AST 45, ALT 60, Alkaline Phosphatase 90, Total Protein 7.5, Albumin 4.3, Globulin 3.2, Albumin/Globulin Ratio 1.3, Blood Type O Positive, Antibody Screen Negative 06/30/23 08:40: Urine Color Yellow, Urine Appearance Clear, Urine pH 6.5, Ur Specific [place] 1.025, Urine
--- NOTE | 2023-06-30 18:44 | PC.NURSE ---
7 mg cleared off of RURAL CARRIER ASSOCIATE pump
--- NOTE | 2023-06-30 19:13 | PC.NURSE ---
IS placed at bedside, pt educated on use and verbalized understanding
[2023-06-30 21:44] LABS: POC Glucose,Bedside 174 (70-110)
[2023-07-01] VITALS (14 sets, daily range): BP systolic 137–168; BP diastolic 67–124; PULSE 79–110; RESP 12–20; TEMP 36.4–37.2; O2SAT 93–97; BMI 42.0
[2023-07-01 04:20] LABS: POC Glucose,Bedside 144 (70-110)
[2023-07-01 06:09] LABS: Basophils % 0.2 % (0.1-2.0); Eosinophils % 0.2 % (0.1-12.0); Hematocrit 45.5 % (42.0-52.0); Hemoglobin 14.1 g/dL (14.1-18.0); Lymphocytes # 1.7 K/mm3 (0.7-4.5); Lymphocytes % 10.3 % (10-50); Mean Corpuscular HGB Conc 30.9 g/dL (31.8-35.4); Mean Corpuscular Hemoglobin 27.9 pg (27.0-31.2); Mean Corpuscular Volume 90.2 fl (80-94); Mean Platelet Volume 9.4 fl (7.4-10.4); Monocytes # 1.6 K/mm3 (0.1-1.0); Monocytes % 9.8 % (1.7-9.3); Neutrophils # 12.8 K/mm3 (1.8-7.8); Neutrophils % 79.6 % (37.0-80.0); Platelet Count 200 K/mm3 (142-424); Red Blood Count 5.04 M/mm3 (4.60-6.20); Red Cell Distribution Width 14.5 % (11.5-17.5); White Blood Count 16.1 K/mm3 (4.8-10.8)
[2023-07-01 06:12] LABS: MANUAL DIFFERENTIAL MANUAL DIFFERENTIAL (MANUAL DIFF)
[2023-07-01 06:19] LABS: Anion Gap 12.1 mEq/L (5-15); Blood Urea Nitrogen 10 mg/dl (9-20); Calcium 8.6 mg/dl (8.4-10.2); Carbon Dioxide 28 mmol/L (22.0-30.0); Chloride 101 mmol/L (98-107); Creatinine Clearance Estimated 154 mL/min (50-200); Estimated Glomerular Filt Rate 143 ml/min (>60); GFR (African American) 173 ML/MIN (>60); Glucose 150 mg/dl (74-100); Potassium 4.1 mmoL/L (3.5-5.1); Sodium 137 mmol/L (136-145)
--- NOTE | 2023-07-01 06:36 | EXP.SURG.PN ---
Subjective Narrative: Patient resting Exam Data for Last 24 hours Vital signs and Labs for Last 24 Hours: Temp Pulse Resp BP Pulse Ox O2 Del Method O2 Flow Rate 98.8 F 90 12 141/76 H 96 Nasal Cannula 2 07/01/23 04:00 07/01/23 04:00 07/01/23 02:00 07/01/23 02:00 07/01/23 04:00 07/01/23 05:00 07/01/23 05:00 Laboratory Results - last 24 hr 06/30/23 06:30: WBC 10.3, RBC 5.38, Hgb 15.3, Hct 48.3, MCV 89.9, MCH 28.5, MCHC 31.7 L, RDW 14.4, Plt Count 205, MPV 9.2, Neut % (Auto) 63.6, Lymph % (Auto) 27.2, [place] % (Auto) 7.4, Eos % (Auto) 1.1, Baso % (Auto) 0.7, Neut # (Auto) 6.6, Lymph # (Auto) 2.8, [place] # (Auto) 0.8, Eos # (Auto) 0.1, Baso # (Auto) 0.1, Sodium 140, Potassium 3.5, Chloride 102, Carbon Dioxide 26, Anion Gap 15.5 H, BUN 13, Creatinine 0.60 L, Estimated Creat Clear 263, Estimated GFR 143, Est GFR ( Amer) 173, Glucose 143 H, Calcium 8.7, Total Bilirubin 0.7, AST 45, ALT 60, Alkaline Phosphatase 90, Total Protein 7.5, Albumin 4.3, Globulin 3.2, Albumin/Globulin Ratio 1.3, Blood Type O Positive, Antibody Screen Negative 06/30/23 08:40: Urine Color Yellow, Urine Appearance Clear, Urine pH 6.5, Ur Specific [place] 1.025, Urine Protein 2+, Urine Glucose (UA) Negative, Urine Ketones Negative, Urine Blood Negative, Urine Nitrate Negative, Urine Bilirubin Negative, Urine Urobilinogen 0.2, Ur Leukocyte Esterase Negative, Urine RBC Occasional, Urine WBC 3-5, Ur Squamous Epith Cells Occasional, Urine Bacteria 1+ 06/30/23 10:16: POC Glucose 194 H 06/30/23 16:02: POC Glucose 218 H 06/30/23 21:37: POC Glucose 174 H 07/01/23 04:14: POC Glucose 144 H 07/01/23 05:43: WBC 16.1 H D, RBC 5.04, Hgb 14.1, Hct 45.5, MCV 90.2, MCH 27.9, MCHC 30.9 L, RDW 14.5, Plt Count 200, MPV 9.4, Neut % (Auto) 79.6, Lymph % (Auto) 10.3, [place] % (Auto) 9.8 H, Eos % (Auto) 0.2, Baso % (Auto) 0.2, Neut # (Auto) 12.8 H, Lymph # (Auto) 1.7, [place] # (Auto) 1.6 H, Eos # (Auto) 0.0, Baso # (Auto) 0.0, Sodium 137, Potassium 4.1, Chloride 101, Carbon Dioxide 28, Anion Gap 12.1, BUN 10, Creatinine 0.60 L, Estimated Creat Clear 154, Estimated GFR 143, Est GFR ( Amer) 173, Glucose 150 H, Calcium 8.6 I & O for Last 24 hours: Intake & Output 06/28/23 06/29/23 06/30/23 07/01/23 11:59 11:59 11:59 11:59 Intake Total 2200 / 2200 1901 / 1901 Output Total 1575 / 1575 Balance 2200 / 2200 326 / 326 Weight 275 lb 294 lb Constitutional Constitutional: no acute distress Progress Note: A&P Assessment and plan (1) Cecum mass: Status: Acute Assessment and plan: Will place NG tube to gravity and possibly DC later. Coreas catheter out today. (2) Tubular adenoma of colon: Status: Acute (3) Diabetes mellitus: Status: Acute (4) Hypertension: Status: Acute
[2023-07-01 06:51] LABS: POC Glucose,Bedside 153 (70-110)
--- NOTE | 2023-07-01 07:45 | PC.NURSE ---
pt FINANCIAL ADVISOR TRAINEE pump cleared, 10mg Morphine given throughout shift. Pt educated on importance of moving in bed and using IS to prevent pneumonia, pt states it hurts too much to move. Re educated every hour on IS, and every 2 hours on turning. Pt still refused.
[2023-07-01 07:50] LABS: Lymphocytes % 7 % (10-50); Monocytes % 14 % (2-9); Neutrophils % 79 % (42-76); Platelet Estimate Normal; RBC Morphology Normal; Total Cells Counted 100
--- NOTE | 2023-07-01 08:16 | EXP.ANES.II ---
[facility] Anesthesia Record Part II Anesthesia Record Part II Discharge Time: 11:00 Destination: Medical Surgical Department PACU nurse assessment reviewed?: Yes Patient Condition:: Good Anesthesia Complications:: None Swallowing reflex intact?: Yes Airway Patency: Patent Cyanosis?: No Blood Pressure: 160/84 SaO2: 95 Respiratory Rate: 18 Pulse Rate: 94 Temperature: 97.5 F Mental Status: Alert & Oriented Pain level:: 5 Nausea and/or vomitting:: None Intake, IV Amount: 0 Hydration: Adequate
[2023-07-01 11:55] LABS: CEA 3.2 ng/mL (0.0-4.7)
[2023-07-01 12:33] LABS: POC Glucose,Bedside 122 (70-110)
--- NOTE | 2023-07-01 13:49 | PC.NURSE ---
Spoke with yazmin Garcia to transfer pt out of stepdown
--- NOTE | 2023-07-01 15:09 | PC.NURSE ---
Dr. Baljit melo to remove NG tube.
[2023-07-01 16:43] LABS: POC Glucose,Bedside 142 (70-110)
--- NOTE | 2023-07-01 16:56 | PC.NURSE ---
went in to check on patient, patient stated that he feels like he has stuff in his chest that he could not cough up, Dr. Addison made aware, new order received, went back to bedside and educated patient on the importance of using the incentive spirometer, patient demonstrated appropriate use and verbalized understanding of the importance of using IS
--- NOTE | 2023-07-01 17:07 | EXP.PN ---
Subjective *Date: 07/01/23 *Time: 17:07 Interval history: The patient is seen and examined today. I am accompanied by nursing staff. They report that he remains afebrile with stable vital signs and saturating appropriately on supplemental oxygen 2 L via nasal cannula. His NG tube has been removed. He continues with EVENING OR NIGHT NURSE SUPERVISOR pump therapy for pain control. Incentive spirometry is at his bedside. His morning CBC identifies a postsurgical leukocytosis with normal hemoglobin and platelets and hematocrit. His morning electrolytes are normal as well as his BUN and creatinine. Exam Data for Last 24 hours Vital signs and Labs for Last 24 Hours: Temp Pulse Resp BP Pulse Ox O2 Del Method O2 Flow Rate 99.0 F 110 H 18 153/124 H 93 L Nasal Cannula 2 07/01/23 16:07 07/01/23 16:07 07/01/23 16:07 07/01/23 16:07 07/01/23 16:07 07/01/23 16:11 07/01/23 16:11 Laboratory Results - last 24 hr 06/30/23 06:30: POC Glucose 153 H, Carcinoembryonic Ag 3.2 06/30/23 21:37: POC Glucose 174 H 07/01/23 04:14: POC Glucose 144 H 07/01/23 05:43: WBC 16.1 H D, RBC 5.04, Hgb 14.1, Hct 45.5, MCV 90.2, MCH 27.9, MCHC 30.9 L, RDW 14.5, Plt Count 200, MPV 9.4, Neut % (Auto) 79.6, Lymph % (Auto) 10.3, [place] % (Auto) 9.8 H, Eos % (Auto) 0.2, Baso % (Auto) 0.2, Neut # (Auto) 12.8 H, Lymph # (Auto) 1.7, [place] # (Auto) 1.6 H, Eos # (Auto) 0.0, Baso # (Auto) 0.0, Total Counted 100, Neutrophils % (Manual) 79 H, Lymphocytes % (Manual) 7 L, Monocytes % (Manual) 14 H, Platelet Estimate Normal, RBC Morphology Normal, Sodium 137, Potassium 4.1, Chloride 101, Carbon Dioxide 28, Anion Gap 12.1, BUN 10, Creatinine 0.60 L, Estimated Creat Clear 154, Estimated GFR 143, Est GFR ( Amer) 173, Glucose 150 H, Calcium 8.6 07/01/23 11:58: POC Glucose 122 H 07/01/23 16:24: POC Glucose 142 H Temp Pulse Resp BP Pulse Ox O2 Del Method O2 Flow Rate 98.0 F 94 H 14 177/95 H 93 L Nasal Cannula 2 06/30/23 13:40 06/30/23 15:10 06/30/23 15:10 06/30/23 15:10 06/30/23 15:10 06/30/23 15:10 06/30/23 15:10 Laboratory Results - last 24 hr 06/30/23 06:30: WBC 10.3, RBC 5.38, Hgb 15.3, Hct 48.3, MCV 89.9, MCH 28.5, MCHC 31.7 L, RDW 14.4, Plt Count 205, MPV 9.2, Neut % (Auto) 63.6, Lymph % (Auto) 27.2, [place] % (Auto) 7.4, Eos % (Auto) 1.1, Baso % (Auto) 0.7, Neut # (Auto) 6.6, Lymph # (Auto) 2.8, [place] # (Auto) 0.8, Eos # (Auto) 0.1, Baso # (Auto) 0.1, Sodium 140, Potassium 3.5, Chloride 102, Carbon Dioxide 26, Anion Gap 15.5 H, BUN 13, Creatinine 0.60 L, Estimated Creat Clear 263, Estimated GFR 143, Est GFR ( Amer) 173, Glucose 143 H, Calcium 8.7, Total Bilirubin 0.7, AST 45, ALT 60, Alkaline Phosphatase 90, Total Protein 7.5, Albumin 4.3, Globulin 3.2, Albumin/Globulin Ratio 1.3, Blood Type O Positive, Antibody Screen Negative 06/30/23 08:40: Urine Color Yellow, Urine Appearance Clear, Urine pH 6.5, Ur Specific [place] 1.025, Urine Protein 2+, Urine Glucose (UA) Negative, Urine Ketones Negative, Urine Blood Negative, Urine Nitrate Negative, Urine Bilirubin Negative, Urine Urobilinogen 0.2, Ur Leukocyte Esterase Negative, Urine RBC Occasional, Urine WBC 3-5, Ur Squamous Epith Cells Occasional, Urine Bacteria 1+ 06/30/23 10:16: POC Glucose 194 H 06/30/23 16:02: POC Glucose 218 H I & O for Last 24 hours: Intake & Output 06/28/23 06/29/23 06/30/23 07/01/23 23:59 23:59 23:59 23:59 Intake Total 2932 / 4101 1169 / 1169 Output Total 950 / 950 1175 / 1175 Balance 1981 / 1 -6 / -6 Weight 124.738 kg 133 kg Intake & Output 06/27/23 06/28/23 06/29/23 06/30/23 23:59 23:59 23:59 23:59 Intake Total 2200 / 2200 Output Total 0 / 0 Balance 2200 / 2200 Weight 124.738 kg Constitutional Constitutional: no acute distress, morbidly obese and cooperative *Routine HEENT Exam Head: Present normocephalic Eye: Present EOMI and PERRL ENT: Present mucous membranes moist *Routine Neck Exam Neck: Present supple, full ROM and trachea midline *Routine Respiratory E
--- NOTE | 2023-07-01 18:51 | PC.NURSE ---
SUPERINTENDENT cleared at shift change. 16.9 mg delivered and zero denied.
[2023-07-01 20:35] LABS: POC Glucose,Bedside 170 (70-110)
[2023-07-02] VITALS (10 sets, daily range): BP systolic 127–166; BP diastolic 73–103; PULSE 96–120; RESP 16–20; TEMP 36.7–37.6; O2SAT 91–96; BMI 41.5
[2023-07-02 05:49] LABS: POC Glucose,Bedside 142 (70-110)
[2023-07-02 08:33] LABS: Basophils # 0.1 K/mm3 (0-0.2); Basophils % 0.3 % (0.1-2.0); Eosinophils % 0.3 % (0.1-12.0); Hematocrit 44.4 % (42.0-52.0); Hemoglobin 13.8 g/dL (14.1-18.0); Lymphocytes # 2.1 K/mm3 (0.7-4.5); Lymphocytes % 12.6 % (10-50); Mean Corpuscular HGB Conc 31.1 g/dL (31.8-35.4); Mean Corpuscular Hemoglobin 28.4 pg (27.0-31.2); Mean Corpuscular Volume 91.1 fl (80-94); Mean Platelet Volume 10.1 fl (7.4-10.4); Monocytes # 1.8 K/mm3 (0.1-1.0); Monocytes % 10.8 % (1.7-9.3); Neutrophils # 12.6 K/mm3 (1.8-7.8); Platelet Count 190 K/mm3 (142-424); Red Blood Count 4.87 M/mm3 (4.60-6.20); Red Cell Distribution Width 14.5 % (11.5-17.5); White Blood Count 16.6 K/mm3 (4.8-10.8)
[2023-07-02 08:41] LABS: MANUAL DIFFERENTIAL MANUAL DIFFERENTIAL (MANUAL DIFF)
[2023-07-02 12:02] LABS: POC Glucose,Bedside 158 (70-110)
--- NOTE | 2023-07-02 13:27 | EXP.PN ---
Subjective *Date: 07/02/23 *Time: 13:27 Interval history: Patient is seen and examined today. His spouse is at bedside. I am accompanied by his nurse who reports that he remains afebrile with some tachycardic heart rates and increasing blood pressure. He is saturating appropriately on 2 L of oxygen. He reports no flatus or bowel movement. His morning CBC identifies a stable hemoglobin. Exam Data for Last 24 hours Vital signs and Labs for Last 24 Hours: Temp Pulse Resp BP Pulse Ox O2 Del Method O2 Flow Rate 99.3 F 112 H 18 166/90 H 96 Nasal Cannula 2 07/02/23 11:44 07/02/23 12:30 07/02/23 11:44 07/02/23 11:44 07/02/23 12:30 07/02/23 12:30 07/02/23 12:30 Laboratory Results - last 24 hr 07/01/23 16:24: POC Glucose 142 H 07/01/23 20:28: POC Glucose 170 H 07/02/23 05:29: POC Glucose 142 H 07/02/23 07:21: WBC 16.6 H, RBC 4.87, Hgb 13.8 L, Hct 44.4, MCV 91.1, MCH 28.4, MCHC 31.1 L, RDW 14.5, Plt Count 190, MPV 10.1, Neut % (Auto) 76.0, Lymph % (Auto) 12.6, [place] % (Auto) 10.8 H, Eos % (Auto) 0.3, Baso % (Auto) 0.3, Neut # (Auto) 12.6 H, Lymph # (Auto) 2.1, [place] # (Auto) 1.8 H, Eos # (Auto) 0.0, Baso # (Auto) 0.1 07/02/23 11:53: POC Glucose 158 H Temp Pulse Resp BP Pulse Ox O2 Del Method O2 Flow Rate 98.0 F 94 H 14 177/95 H 93 L Nasal Cannula 2 06/30/23 13:40 06/30/23 15:10 06/30/23 15:10 06/30/23 15:10 06/30/23 15:10 06/30/23 15:10 06/30/23 15:10 Laboratory Results - last 24 hr 06/30/23 06:30: WBC 10.3, RBC 5.38, Hgb 15.3, Hct 48.3, MCV 89.9, MCH 28.5, MCHC 31.7 L, RDW 14.4, Plt Count 205, MPV 9.2, Neut % (Auto) 63.6, Lymph % (Auto) 27.2, [place] % (Auto) 7.4, Eos % (Auto) 1.1, Baso % (Auto) 0.7, Neut # (Auto) 6.6, Lymph # (Auto) 2.8, [place] # (Auto) 0.8, Eos # (Auto) 0.1, Baso # (Auto) 0.1, Sodium 140, Potassium 3.5, Chloride 102, Carbon Dioxide 26, Anion Gap 15.5 H, BUN 13, Creatinine 0.60 L, Estimated Creat Clear 263, Estimated GFR 143, Est GFR ( Amer) 173, Glucose 143 H, Calcium 8.7, Total Bilirubin 0.7, AST 45, ALT 60, Alkaline Phosphatase 90, Total Protein 7.5, Albumin 4.3, Globulin 3.2, Albumin/Globulin Ratio 1.3, Blood Type O Positive, Antibody Screen Negative 06/30/23 08:40: Urine Color Yellow, Urine Appearance Clear, Urine pH 6.5, Ur Specific [place] 1.025, Urine Protein 2+, Urine Glucose (UA) Negative, Urine Ketones Negative, Urine Blood Negative, Urine Nitrate Negative, Urine Bilirubin Negative, Urine Urobilinogen 0.2, Ur Leukocyte Esterase Negative, Urine RBC Occasional, Urine WBC 3-5, Ur Squamous Epith Cells Occasional, Urine Bacteria 1+ 06/30/23 10:16: POC Glucose 194 H 06/30/23 16:02: POC Glucose 218 H I & O for Last 24 hours: Intake & Output 06/29/23 06/30/23 07/01/23 07/02/23 23:59 23:59 23:59 23:59 Intake Total 2932 / 4101 1169 / 1169 1300 / 1300 Output Total 950 / 950 1175 / 1175 0 / 0 Balance 1981 -6 / -6 1300 / 1300 Weight 124.738 kg 133 kg 131.57 kg Intake & Output 06/27/23 06/28/23 06/29/23 06/30/23 23:59 23:59 23:59 23:59 Intake Total 2200 / 2199 Output Total 0 / 0 Balance 2199 / 2199 Weight 124.738 kg Constitutional Constitutional: no acute distress, morbidly obese and cooperative *Routine HEENT Exam Head: Present normocephalic Eye: Present EOMI and PERRL ENT: Present mucous membranes moist *Routine Neck Exam Neck: Present supple, full ROM and trachea midline *Routine Respiratory Exam Respiratory: Present CTA bilaterally, normal respiratory effort and symmetric chest movement *Routine Abdominal Exam Abdominal: Present soft and normoactive bowel sounds Comments: Surgical dressing *Routine Extremities Exam Extremities: Present full ROM, pulses intact and normal capillary refill; Absent edema *Routine Skin Exam Skin: Present warm; Absent rash *Routine Neurological Exam Neurological: Present alert, oriented X3, moving all extremities, vision grossly intact, hearing grossly intact and normal speech; Absent sensory deficit or motor d
--- NOTE | 2023-07-02 13:50 | EXP.SURG.PN ---
Subjective Patient reports: no new complaints, voiding w/o difficulty, no flatus and no bowel movement Narrative: He reports he is eager to try some ice chips or liquids.His pain is incompletely controlled with SALES MERCHANDISING SPECIALIST. He is ambulated in the room to the bathroom twice today, but has not ambulated in the halls. I observed incentive spirometry effort with encouragement, and he can only pull a volume of 750-1000 mL. Exam Data for Last 24 hours Vital signs and Labs for Last 24 Hours: Temp Pulse Resp BP Pulse Ox O2 Del Method O2 Flow Rate 99.3 F 112 H 18 166/90 H 96 Nasal Cannula 2 07/02/23 11:44 07/02/23 12:30 07/02/23 11:44 07/02/23 11:44 07/02/23 12:30 07/02/23 12:30 07/02/23 12:30 Laboratory Results - last 24 hr 07/01/23 16:24: POC Glucose 142 H 07/01/23 20:28: POC Glucose 170 H 07/02/23 05:29: POC Glucose 142 H 07/02/23 07:21: WBC 16.6 H, RBC 4.87, Hgb 13.8 L, Hct 44.4, MCV 91.1, MCH 28.4, MCHC 31.1 L, RDW 14.5, Plt Count 190, MPV 10.1, Neut % (Auto) 76.0, Lymph % (Auto) 12.6, [place] % (Auto) 10.8 H, Eos % (Auto) 0.3, Baso % (Auto) 0.3, Neut # (Auto) 12.6 H, Lymph # (Auto) 2.1, [place] # (Auto) 1.8 H, Eos # (Auto) 0.0, Baso # (Auto) 0.1 07/02/23 11:53: POC Glucose 158 H I & O for Last 24 hours: Intake & Output 06/29/23 06/30/23 07/01/23 07/02/23 23:59 23:59 23:59 23:59 Intake Total 2932 / 4101 1169 / 1169 1300 / 1300 Output Total 950 / 950 1175 / 1175 0 / 0 Balance 1982 / 3150 -6 / -6 1300 / 1300 Weight 275 lb 293 lb 3.437 oz 290 lb 1 oz Constitutional Constitutional: no acute distress *Routine Abdominal Exam Abdominal: Present soft, normoactive bowel sounds and obese; Absent tenderness, distended, rebound, guarding, firm or rigid Comments: Dressing of midline incision is clean and dry Progress Note: A&P Assessment and plan (1) Cecum mass: Status: Acute Assessment and plan: Postop day #2 status post right hemicolectomy for cecal mass. He has bowel sounds, and we will go ahead and try clear liquid diet. I educated the patient on importance of ambulation and pulmonary toilet to prevent postoperative complications of DVT and pneumonia. We will start Flexeril 10 mg every 8 hours scheduled, as well as IV Toradol every 6 hours scheduled. He did not have a CMP today, so we will get a stat 1. The Toradol will be held if his renal function has declined. We will order daily labs. Tomorrow, the plan is to discontinue SALES MERCHANDISING SPECIALIST and start oral narcotics with as needed IV narcotics. Continue Lovenox. (2) Tubular adenoma of colon: Status: Acute (3) Diabetes mellitus: Status: Acute (4) Hypertension: Status: Acute
[2023-07-02 14:10] LABS: Chloride 101 mmol/L (98-107); Potassium 3.6 mmoL/L (3.5-5.1); Sodium 138 mmol/L (136-145)
[2023-07-02 14:13] LABS: Alanine Aminotransferase 54 U/L (12-78); Albumin Level 3.8 g/dl (3.5-5.0); Albumin/Globulin Ratio 1.1 (1.1-1.8); Alkaline Phosphatase 91 U/L (38-126); Anion Gap 14.6 mEq/L (5-15); Aspartate Amino Transferase 73 U/L (17-59); Bilirubin,Total 1.2 mg/dl (0.2-1.3); Blood Urea Nitrogen 7 mg/dl (9-20); Calcium 8.5 mg/dl (8.4-10.2); Carbon Dioxide 26 mmol/L (22.0-30.0); Creatinine Clearance Estimated 154 mL/min (50-200); Estimated Glomerular Filt Rate 143 ml/min (>60); GFR (African American) 173 ML/MIN (>60); Globulin 3.4 g/dL (1.3-3.2); Glucose 138 mg/dl (74-100); Total Protein,Serum 7.2 g/dl (6.3-8.2)
[2023-07-02 15:42] LABS: Lymphocytes % 17 % (10-50); Monocytes % 10 % (2-9); Neutrophils % 73 % (42-76); Platelet Estimate Normal; RBC Morphology Normal; Total Cells Counted 100
[2023-07-02 20:52] LABS: POC Glucose,Bedside 127 (70-110)
[2023-07-02 22:14] LABS: POC Glucose,Bedside 127 (70-110)
[2023-07-03 04:00] VITALS: BP 130/79; PULSE 80; RESP 18; TEMP 36.8; O2SAT 96; BMI 40.6
[2023-07-03 05:06] LABS: POC Glucose,Bedside 134 (70-110)
--- NOTE | 2023-07-03 06:52 | PC.NURSE ---
DIGITAL COMMUNITY MANAGER with 7 units given throughout shift.
[2023-07-03 07:13] LABS: Basophils % 0.5 % (0.1-2.0); Eosinophils # 0.1 K/mm3 (0.0-0.4); Eosinophils % 1.4 % (0.1-12.0); Hematocrit 39.7 % (42.0-52.0); Lymphocytes # 1.9 K/mm3 (0.7-4.5); Lymphocytes % 21.1 % (10-50); Mean Corpuscular HGB Conc 31.1 g/dL (31.8-35.4); Mean Corpuscular Hemoglobin 28.4 pg (27.0-31.2); Mean Corpuscular Volume 91.2 fl (80-94); Mean Platelet Volume 9.4 fl (7.4-10.4); Monocytes # 0.8 K/mm3 (0.1-1.0); Monocytes % 8.6 % (1.7-9.3); Neutrophils # 6.2 K/mm3 (1.8-7.8); Neutrophils % 68.4 % (37.0-80.0); Platelet Count 148 K/mm3 (142-424); Red Blood Count 4.36 M/mm3 (4.60-6.20); Red Cell Distribution Width 14.3 % (11.5-17.5)
[2023-07-03 07:19] LABS: Hemoglobin 12.4 g/dL (14.1-18.0)
[2023-07-03 07:20] LABS: Alanine Aminotransferase 37 U/L (12-78); Albumin Level 3.1 g/dl (3.5-5.0); Alkaline Phosphatase 66 U/L (38-126); Anion Gap 10.5 mEq/L (5-15); Aspartate Amino Transferase 46 U/L (17-59); Bilirubin,Total 0.7 mg/dl (0.2-1.3); Blood Urea Nitrogen 10 mg/dl (9-20); Calcium 7.9 mg/dl (8.4-10.2); Carbon Dioxide 27 mmol/L (22.0-30.0); Chloride 105 mmol/L (98-107); Creatinine Clearance Estimated 325 mL/min (50-200); Estimated Glomerular Filt Rate 177 ml/min (>60); GFR (African American) 214 ML/MIN (>60); Glucose 131 mg/dl (74-100); Potassium 3.5 mmoL/L (3.5-5.1); Sodium 139 mmol/L (136-145); Total Protein,Serum 6.1 g/dl (6.3-8.2)
[2023-07-03 07:43] VITALS: BP 154/93; PULSE 94; RESP 19; TEMP 36.7; O2SAT 98
--- NOTE | 2023-07-03 09:02 | EXP.SURG.PN ---
Exam Data for Last 24 hours Vital signs and Labs for Last 24 Hours: Temp Pulse Resp BP Pulse Ox O2 Del Method O2 Flow Rate 98.1 F 94 H 19 154/93 H 98 Room Air 2 07/03/23 07:43 07/03/23 07:43 07/03/23 07:43 07/03/23 07:43 07/03/23 07:43 07/03/23 08:00 07/03/23 07:43 Laboratory Results - last 24 hr 07/02/23 07:21: Total Counted 100, Neutrophils % (Manual) 73, Lymphocytes % (Manual) 17, Monocytes % (Manual) 10 H, Platelet Estimate Normal, RBC Morphology Normal, Sodium 138, Potassium 3.6, Chloride 101, Carbon Dioxide 26, Anion Gap 14.6, BUN 7 L D, Creatinine 0.60 L, Estimated Creat Clear 154, Estimated GFR 143, Est GFR ( Amer) 173, Glucose 138 H, Calcium 8.5, Total Bilirubin 1.2, AST 73 H D, ALT 54, Alkaline Phosphatase 91, Total Protein 7.2, Albumin 3.8, Globulin 3.4 H, Albumin/Globulin Ratio 1.1 07/02/23 11:53: POC Glucose 158 H 07/02/23 16:46: POC Glucose 127 H 07/02/23 22:08: POC Glucose 127 H 07/03/23 04:59: POC Glucose 134 H 07/03/23 06:37: WBC 9.0 D, RBC 4.36 L, Hgb 12.4 L D, Hct 39.7 L, MCV 91.2, MCH 28.4, MCHC 31.1 L, RDW 14.3, Plt Count 148, MPV 9.4, Neut % (Auto) 68.4, Lymph % (Auto) 21.1, [place] % (Auto) 8.6, Eos % (Auto) 1.4, Baso % (Auto) 0.5, Neut # (Auto) 6.2, Lymph # (Auto) 1.9, [place] # (Auto) 0.8, Eos # (Auto) 0.1, Baso # (Auto) 0.0, Sodium 139, Potassium 3.5, Chloride 105, Carbon Dioxide 27, Anion Gap 10.5, BUN 10 D, Creatinine 0.50 L, Estimated Creat Clear 325 H, Estimated GFR 177, Est GFR ( Amer) 214 D, Glucose 131 H, Calcium 7.9 L, Total Bilirubin 0.7, AST 46 D, ALT 37 D, Alkaline Phosphatase 66, Total Protein 6.1 L, Albumin 3.1 L D, Globulin 3.0, Albumin/Globulin Ratio 1.0 L I & O for Last 24 hours: Intake & Output 06/30/23 07/01/23 07/02/23 07/03/23 23:59 23:59 23:59 23:59 Intake Total 2932 / 4101 1169 / 1169 1300 / 1300 940 / 940 Output Total 950 / 950 1175 / 1175 0 / 0 0 / 0 Balance 1981 / 1 -6 / -6 1300 / 1300 940 / 940 Weight 293 lb 3.437 oz 290 lb 1 oz 283 lb 6.4 oz Progress Note: A&P Assessment and plan (1) Cecum mass: Status: Acute (2) Tubular adenoma of colon: Status: Acute (3) Diabetes mellitus: Status: Acute (4) Hypertension: Status: Acute
--- NOTE | 2023-07-03 09:27 | EXP.SURG.PN ---
Subjective Narrative: No complaints. Toradol and Flexeril helped his pain. He ambulated in the ness yesterday. IS 1500, improved from yesterday. No BM or flatus. No n/v. Exam Data for Last 24 hours Vital signs and Labs for Last 24 Hours: Temp Pulse Resp BP Pulse Ox O2 Del Method O2 Flow Rate 98.1 F 94 H 19 154/93 H 98 Room Air 2 07/03/23 07:43 07/03/23 07:43 07/03/23 07:43 07/03/23 07:43 07/03/23 07:43 07/03/23 08:00 07/03/23 07:43 Laboratory Results - last 24 hr 07/02/23 07:21: Total Counted 100, Neutrophils % (Manual) 73, Lymphocytes % (Manual) 17, Monocytes % (Manual) 10 H, Platelet Estimate Normal, RBC Morphology Normal, Sodium 138, Potassium 3.6, Chloride 101, Carbon Dioxide 26, Anion Gap 14.6, BUN 7 L D, Creatinine 0.60 L, Estimated Creat Clear 154, Estimated GFR 143, Est GFR ( Amer) 173, Glucose 138 H, Calcium 8.5, Total Bilirubin 1.2, AST 73 H D, ALT 54, Alkaline Phosphatase 91, Total Protein 7.2, Albumin 3.8, Globulin 3.4 H, Albumin/Globulin Ratio 1.1 07/02/23 11:53: POC Glucose 158 H 07/02/23 16:46: POC Glucose 127 H 07/02/23 22:08: POC Glucose 127 H 07/03/23 04:59: POC Glucose 134 H 07/03/23 06:37: WBC 9.0 D, RBC 4.36 L, Hgb 12.4 L D, Hct 39.7 L, MCV 91.2, MCH 28.4, MCHC 31.1 L, RDW 14.3, Plt Count 148, MPV 9.4, Neut % (Auto) 68.4, Lymph % (Auto) 21.1, [place] % (Auto) 8.6, Eos % (Auto) 1.4, Baso % (Auto) 0.5, Neut # (Auto) 6.2, Lymph # (Auto) 1.9, [place] # (Auto) 0.8, Eos # (Auto) 0.1, Baso # (Auto) 0.0, Sodium 139, Potassium 3.5, Chloride 105, Carbon Dioxide 27, Anion Gap 10.5, BUN 10 D, Creatinine 0.50 L, Estimated Creat Clear 325 H, Estimated GFR 177, Est GFR ( Amer) 214 D, Glucose 131 H, Calcium 7.9 L, Total Bilirubin 0.7, AST 46 D, ALT 37 D, Alkaline Phosphatase 66, Total Protein 6.1 L, Albumin 3.1 L D, Globulin 3.0, Albumin/Globulin Ratio 1.0 L I & O for Last 24 hours: Intake & Output 06/30/23 07/01/23 07/02/23 07/03/23 23:59 23:59 23:59 23:59 Intake Total 2932 / 4101 1169 / 1169 1300 / 1300 940 / 940 Output Total 950 / 950 1175 / 1175 0 / 0 0 / 0 Balance 1981 -6 / -6 1300 / 1300 940 / 940 Weight 293 lb 3.437 oz 290 lb 1 oz 283 lb 6.4 oz Constitutional Constitutional: no acute distress and cooperative *Routine Abdominal Exam Abdominal: Present soft and normoactive bowel sounds; Absent tenderness or distended Comments: dressing removed, midline incision is clean and dry with ailyn and without erythema. Detailed Psychiatric Exam Comments: dysphoric Progress Note: A&P Assessment and plan (1) Cecum mass: Status: Acute Assessment and plan: POD#3. Recovery continues. Awaiting return of bowel function. Continue CLD. maintenance IVF. Replace hypokalemia IV. Continue pulmonary toilet, ambulation, Lovenox. D/c CIVIL STRUCTURAL DESIGNER, transition to Percocet 10 q4 hours with PRN IV morphine for breakthrough. Continue Toradol and Flexeril. (2) Tubular adenoma of colon: Status: Acute (3) Diabetes mellitus: Status: Acute (4) Hypertension: Status: Acute
--- NOTE | 2023-07-03 10:32 | PC.NURSE ---
VENEER DEPARTMENT MANAGER discontinued per . Wasted remaining morphine with Atul Pittman RN
--- NOTE | 2023-07-03 10:49 | EXP.PN ---
Subjective *Date: 07/03/23 *Time: 10:49 Interval history: Patient seen and examined at bedside today. I am accompanied by nursing staff. Nursing staff report that he remains afebrile with stable vital signs and saturating appropriately room air. His pain pump is being tapered. His diet has been advanced to clears. The patient reports no bowel movement but describes active bowel sounds with flatus. His morning labs have been reviewed, discussed and personally interpreted as follows: Normal electrolytes and creatinine. CBC with a normal white blood cell count and stable hemoglobin of 12. Exam Data for Last 24 hours Vital signs and Labs for Last 24 Hours: Temp Pulse Resp BP Pulse Ox O2 Del Method O2 Flow Rate 98.1 F 94 H 19 154/93 H 98 Room Air 2 07/03/23 07:43 07/03/23 07:43 07/03/23 07:43 07/03/23 07:43 07/03/23 07:43 07/03/23 08:00 07/03/23 07:43 Laboratory Results - last 24 hr 07/02/23 07:21: Total Counted 100, Neutrophils % (Manual) 73, Lymphocytes % (Manual) 17, Monocytes % (Manual) 10 H, Platelet Estimate Normal, RBC Morphology Normal, Sodium 138, Potassium 3.6, Chloride 101, Carbon Dioxide 26, Anion Gap 14.6, BUN 7 L D, Creatinine 0.60 L, Estimated Creat Clear 154, Estimated GFR 143, Est GFR ( Amer) 173, Glucose 138 H, Calcium 8.5, Total Bilirubin 1.2, AST 73 H D, ALT 54, Alkaline Phosphatase 91, Total Protein 7.2, Albumin 3.8, Globulin 3.4 H, Albumin/Globulin Ratio 1.1 07/02/23 11:53: POC Glucose 158 H 07/02/23 16:46: POC Glucose 127 H 07/02/23 22:08: POC Glucose 127 H 07/03/23 04:59: POC Glucose 134 H 07/03/23 06:37: WBC 9.0 D, RBC 4.36 L, Hgb 12.4 L D, Hct 39.7 L, MCV 91.2, MCH 28.4, MCHC 31.1 L, RDW 14.3, Plt Count 148, MPV 9.4, Neut % (Auto) 68.4, Lymph % (Auto) 21.1, [place] % (Auto) 8.6, Eos % (Auto) 1.4, Baso % (Auto) 0.5, Neut # (Auto) 6.2, Lymph # (Auto) 1.9, [place] # (Auto) 0.8, Eos # (Auto) 0.1, Baso # (Auto) 0.0, Sodium 139, Potassium 3.5, Chloride 105, Carbon Dioxide 27, Anion Gap 10.5, BUN 10 D, Creatinine 0.50 L, Estimated Creat Clear 325 H, Estimated GFR 177, Est GFR ( Amer) 214 D, Glucose 131 H, Calcium 7.9 L, Total Bilirubin 0.7, AST 46 D, ALT 37 D, Alkaline Phosphatase 66, Total Protein 6.1 L, Albumin 3.1 L D, Globulin 3.0, Albumin/Globulin Ratio 1.0 L Temp Pulse Resp BP Pulse Ox O2 Del Method O2 Flow Rate 98.0 F 94 H 14 177/95 H 93 L Nasal Cannula 2 06/30/23 13:40 06/30/23 15:10 06/30/23 15:10 06/30/23 15:10 06/30/23 15:10 06/30/23 15:10 06/30/23 15:10 Laboratory Results - last 24 hr 06/30/23 06:30: WBC 10.3, RBC 5.38, Hgb 15.3, Hct 48.3, MCV 89.9, MCH 28.5, MCHC 31.7 L, RDW 14.4, Plt Count 205, MPV 9.2, Neut % (Auto) 63.6, Lymph % (Auto) 27.2, [place] % (Auto) 7.4, Eos % (Auto) 1.1, Baso % (Auto) 0.7, Neut # (Auto) 6.6, Lymph # (Auto) 2.8, [place] # (Auto) 0.8, Eos # (Auto) 0.1, Baso # (Auto) 0.1, Sodium 140, Potassium 3.5, Chloride 102, Carbon Dioxide 26, Anion Gap 15.5 H, BUN 13, Creatinine 0.60 L, Estimated Creat Clear 263, Estimated GFR 143, Est GFR ( Amer) 173, Glucose 143 H, Calcium 8.7, Total Bilirubin 0.7, AST 45, ALT 60, Alkaline Phosphatase 90, Total Protein 7.5, Albumin 4.3, Globulin 3.2, Albumin/Globulin Ratio 1.3, Blood Type O Positive, Antibody Screen Negative 06/30/23 08:40: Urine Color Yellow, Urine Appearance Clear, Urine pH 6.5, Ur Specific [place] 1.025, Urine Protein 2+, Urine Glucose (UA) Negative, Urine Ketones Negative, Urine Blood Negative, Urine Nitrate Negative, Urine Bilirubin Negative, Urine Urobilinogen 0.2, Ur Leukocyte Esterase Negative, Urine RBC Occasional, Urine WBC 3-5, Ur Squamous Epith Cells Occasional, Urine Bacteria 1+ 06/30/23 10:16: POC Glucose 194 H 06/30/23 16:02: POC Glucose 218 H I & O for Last 24 hours: Intake & Output 06/30/23 07/01/23 07/02/23 07/03/23 23:59 23:59 23:59 23:59 Intake Total 2932 / 4101 1169 / 1169 1300 / 1300 940 / 940 Output Total 950 / 950 1175 / 1175 0 / 0 0 / 0 Balance 1981 3151 -6 / -6 130
[2023-07-03 11:21] VITALS: BP 164/84; PULSE 84; RESP 18; TEMP 37.1; O2SAT 97
[2023-07-03 12:02] LABS: POC Glucose,Bedside 124 (70-110)
[2023-07-03 15:13] VITALS: BP 137/73; PULSE 86; RESP 18; TEMP 36.8; O2SAT 95
[2023-07-03 17:15] LABS: POC Glucose,Bedside 110 (70-110)
--- NOTE | 2023-07-03 18:46 | PC.NURSE ---
pt refused shower. ambulated in ness with staff sba. encouraged increased participation with ADLS.
[2023-07-03 19:54] VITALS: BP 127/60; PULSE 94; RESP 16; TEMP 37; O2SAT 96
[2023-07-03 22:17] LABS: POC Glucose,Bedside 124 (70-110)
[2023-07-04 04:00] VITALS: BP 142/76; PULSE 68; RESP 20; TEMP 36.6; O2SAT 96; BMI 40.8
[2023-07-04 05:39] LABS: POC Glucose,Bedside 111 (70-110)
[2023-07-04 07:54] VITALS: BP 140/74; PULSE 75; RESP 18; TEMP 37; O2SAT 96
[2023-07-04 08:30] LABS: Basophils % 0.4 % (0.1-2.0); Eosinophils # 0.3 K/mm3 (0.0-0.4); Eosinophils % 3.2 % (0.1-12.0); Hematocrit 38.9 % (42.0-52.0); Lymphocytes # 1.8 K/mm3 (0.7-4.5); Lymphocytes % 22.4 % (10-50); Mean Corpuscular Hemoglobin 28.5 pg (27.0-31.2); Mean Platelet Volume 9.6 fl (7.4-10.4); Monocytes # 0.6 K/mm3 (0.1-1.0); Monocytes % 7.5 % (1.7-9.3); Neutrophils # 5.4 K/mm3 (1.8-7.8); Neutrophils % 66.5 % (37.0-80.0); Platelet Count 170 K/mm3 (142-424); Red Blood Count 4.23 M/mm3 (4.60-6.20); Red Cell Distribution Width 14.4 % (11.5-17.5); White Blood Count 8.1 K/mm3 (4.8-10.8)
[2023-07-04 08:35] LABS: Alanine Aminotransferase 41 U/L (12-78); Albumin Level 3.1 g/dl (3.5-5.0); Albumin/Globulin Ratio 1.1 (1.1-1.8); Alkaline Phosphatase 61 U/L (38-126); Anion Gap 11.6 mEq/L (5-15); Aspartate Amino Transferase 48 U/L (17-59); Bilirubin,Total 0.6 mg/dl (0.2-1.3); Blood Urea Nitrogen 8 mg/dl (9-20); Calcium 8.1 mg/dl (8.4-10.2); Carbon Dioxide 24 mmol/L (22.0-30.0); Chloride 108 mmol/L (98-107); Creatinine Clearance Estimated 327 mL/min (50-200); Estimated Glomerular Filt Rate 177 ml/min (>60); GFR (African American) 214 ML/MIN (>60); Globulin 2.9 g/dL (1.3-3.2); Glucose 118 mg/dl (74-100); Potassium 3.6 mmoL/L (3.5-5.1); Sodium 140 mmol/L (136-145)
[2023-07-04 11:15] VITALS: BP 125/74; PULSE 73; RESP 18; TEMP 36.4; O2SAT 99
[2023-07-04 11:51] LABS: POC Glucose,Bedside 166 (70-110)
--- NOTE | 2023-07-04 12:02 | EXP.ACUTE.PN ---
Subjective *Date: 07/04/23 *Time: 12:52 Interval history: Patient is afebrile and hemodynamically stable this morning. On room air. Tolerating full liquid diet. Denies any chest pain or shortness of breath. No drainage from incision site. Bowel movement last night and passing flatus this morning. Medical Exam Vital signs and Labs for Last 24 Hours: Vital Signs Temp Pulse Resp BP Pulse Ox O2 Del Method 07/04/23 11:00 Room Air 07/04/23 11:15 97.6 F 73 18 125/74 99 Room Air 07/04/23 09:00 Room Air 07/04/23 07:54 98.6 F 75 18 140/74 96 Room Air 07/04/23 07:00 Room Air 07/04/23 05:00 Room Air 07/04/23 04:00 97.8 F 68 20 142/76 H 96 Room Air 07/04/23 03:00 Room Air 07/04/23 01:00 Room Air 07/03/23 23:00 Room Air 07/03/23 20:00 Room Air 07/03/23 21:00 Room Air 07/03/23 19:00 Room Air 07/03/23 19:54 98.6 F 94 H 16 127/60 96 Room Air 07/03/23 17:00 Room Air 07/03/23 15:00 Room Air 07/03/23 13:00 Room Air 07/03/23 15:13 98.2 F 86 18 137/73 95 Room Air Intake and Output 07/03/23 07/04/23 07/04/23 23:59 07:59 15:59 Intake Total 240 / 1180 1000 / 1000 Output Total 0 / 350 350 / 350 Balance 240 / 1180 1000 / 650 -350 / 650 Intake: Intake, Oral Amount 240 / 480 Intake, Total IV Amount 1000 / 1000 0.9% NaCl w/20mEq KCL 1,000 ml 1000 / 1000 @ 100 mls/hr IV .Q10H [facility] Rx#: [id number] Output: Output, Urine Amount 0 / 350 350 / 350 Other: Number of Unmeasured Voids 0 0 Number of Bowel Movements 1 Weight 129.228 kg Patient Weight 07/04/23 23:59 Weight 129.228 kg Laboratory Results - last 24 hr 07/03/23 11:55: POC Glucose 124 H 07/03/23 17:05: POC Glucose 110 07/03/23 22:10: POC Glucose 124 H 07/04/23 05:17: POC Glucose 111 H 07/04/23 08:15: WBC 8.1, RBC 4.23 L, Hgb 12.0 L, Hct 38.9 L, MCV 92.0, MCH 28.5, MCHC 31.0 L, RDW 14.4, Plt Count 170, MPV 9.6, Neut % (Auto) 66.5, Lymph % (Auto) 22.4, [place] % (Auto) 7.5, Eos % (Auto) 3.2, Baso % (Auto) 0.4, Neut # (Auto) 5.4, Lymph # (Auto) 1.8, [place] # (Auto) 0.6, Eos # (Auto) 0.3, Baso # (Auto) 0.0, Sodium 140, Potassium 3.6, Chloride 108 H, Carbon Dioxide 24, Anion Gap 11.6, BUN 8 L, Creatinine 0.50 L, Estimated Creat Clear 327 H, Estimated GFR 177, Est GFR ( Amer) 214, Glucose 118 H, Calcium 8.1 L, Total Bilirubin 0.6, AST 48, ALT 41, Alkaline Phosphatase 61, Total Protein 6.0 L, Albumin 3.1 L, Globulin 2.9, Albumin/Globulin Ratio 1.1 07/04/23 11:45: POC Glucose 166 H I & O for Labs for Last 24 Hours: Intake & Output 07/01/23 07/02/23 07/03/23 07/04/23 23:59 23:59 23:59 23:59 Intake Total 1169 / 1169 1300 / 1300 1180 / 1180 1000 / 1000 Output Total 1175 / 1175 0 / 0 0 / 0 350 / 350 Balance -6 / -6 1300 / 1300 1180 / 1180 650 / 650 Weight 133 kg 131.57 kg 128.548 kg 129.228 kg Constitutional: Present no acute distress and morbidly obese Head: Present atraumatic and normocephalic Respiratory: Absent accessory muscle use, rhonchi, wheezes or crackles Cardiac: Present Reg Rate and Rhythm GI: Present soft and tenderness (Diffuse, worse along incision line. Midline incision clean dry and intact.); Absent distention Extremities: Present normal inspection Neuro: Present alert, awake, oriented x 3 and moves all extremities Assessment and Plan *Assessment and plan (1) Cecum mass: Status: Acute Category: Medical Code(s): K63.89 - Other specified diseases of intestine (2) Tubular adenoma of colon: Status: Acute Category: Medical Code(s): D12.6 - Benign neoplasm of colon, unspecified (3) Diabetes mellitus: Status: Acute Qualifiers: Diabetes mellitus complication status: without complication Diabetes mellitus assisted insulin use: without assisted use Diabetes mellitus type: type 2 Qualified Code(s): E11.9 - Type 2 diabetes mellitus without complications
--- NOTE | 2023-07-04 13:39 | EXP.SURG.PN ---
Subjective Narrative: Patient is taking some full liquids. He states that his pain is improving. He has had a bowel movement. Exam Data for Last 24 hours Vital signs and Labs for Last 24 Hours: Temp Pulse Resp BP Pulse Ox O2 Del Method O2 Flow Rate 97.6 F 73 18 125/74 99 Room Air 2 07/04/23 11:15 07/04/23 11:15 07/04/23 11:15 07/04/23 11:15 07/04/23 11:15 07/04/23 13:00 07/03/23 07:43 Laboratory Results - last 24 hr 07/03/23 17:05: POC Glucose 110 07/03/23 22:10: POC Glucose 124 H 07/04/23 05:17: POC Glucose 111 H 07/04/23 08:15: WBC 8.1, RBC 4.23 L, Hgb 12.0 L, Hct 38.9 L, MCV 92.0, MCH 28.5, MCHC 31.0 L, RDW 14.4, Plt Count 170, MPV 9.6, Neut % (Auto) 66.5, Lymph % (Auto) 22.4, [place] % (Auto) 7.5, Eos % (Auto) 3.2, Baso % (Auto) 0.4, Neut # (Auto) 5.4, Lymph # (Auto) 1.8, [place] # (Auto) 0.6, Eos # (Auto) 0.3, Baso # (Auto) 0.0, Sodium 140, Potassium 3.6, Chloride 108 H, Carbon Dioxide 24, Anion Gap 11.6, BUN 8 L, Creatinine 0.50 L, Estimated Creat Clear 327 H, Estimated GFR 177, Est GFR ( Amer) 214, Glucose 118 H, Calcium 8.1 L, Total Bilirubin 0.6, AST 48, ALT 41, Alkaline Phosphatase 61, Total Protein 6.0 L, Albumin 3.1 L, Globulin 2.9, Albumin/Globulin Ratio 1.1 07/04/23 11:45: POC Glucose 166 H I & O for Last 24 hours: Intake & Output 07/02/23 07/03/23 07/04/23 07/05/23 11:59 11:59 11:59 11:59 Intake Total 1300 / 1300 940 / 940 1240 / 1240 Output Total 300 / 300 0 / 0 350 / 350 Balance 1000 / 1000 940 / 940 890 / 890 Weight 290 lb 1 oz 283 lb 6.4 oz 284 lb 14.4 oz *Routine Abdominal Exam Comments: Slightly distended. Incision clean and intact. Incisional soreness. Progress Note: A&P Assessment and plan (1) Cecum mass: Status: Acute Assessment and plan: Advance diet. Continue Toradol for now. Hopeful discharge tomorrow morning. (2) Tubular adenoma of colon: Status: Acute (3) Diabetes mellitus: Status: Acute (4) Hypertension: Status: Acute
[2023-07-04 15:36] VITALS: BP 149/73; PULSE 78; RESP 18; TEMP 37.2; O2SAT 100
[2023-07-04 17:21] LABS: POC Glucose,Bedside 107 (70-110)
--- NOTE | 2023-07-04 17:41 | PC.NURSE ---
Pt is alert and oriented x4. He's been up to the chair and tolerated well. Treated x1 with prn pain meds with relief reported on reassessment. Midline incision with ailyn in place is open to air, no drainage noted. Diet advanced, pt tolerating well. Glucose was 166 and 107 at checks, treated per SSI. No questions or concerns at this tiime.
[2023-07-04 20:00] VITALS: BP 142/70; PULSE 76; RESP 18; TEMP 37.3; O2SAT 96
--- NOTE | 2023-07-04 20:05 | DIET.NUTRFU ---
Pt diet has been advanced to Soft. PO intake 50% at dinner. POC glucose 111, 166, 107. A1C 7.2%. Pt with BM last night per MD progress note. Will continue to monitor.
[2023-07-04 22:33] LABS: POC Glucose,Bedside 195 (70-110)
[2023-07-05 04:00] VITALS: BP 154/79; PULSE 74; TEMP 36.8; O2SAT 94; BMI 40.4
[2023-07-05 05:27] LABS: POC Glucose,Bedside 107 (70-110)
--- NOTE | 2023-07-05 06:31 | PC.NURSE ---
Localized rash noted to patient's abdomen, denies itching, not noted anywhere else on skin.
[2023-07-05 06:59] LABS: Basophils % 0.4 % (0.1-2.0); Eosinophils # 0.3 K/mm3 (0.0-0.4); Eosinophils % 3.4 % (0.1-12.0); Hematocrit 38.3 % (42.0-52.0); Hemoglobin 11.9 g/dL (14.1-18.0); Lymphocytes # 2.1 K/mm3 (0.7-4.5); Lymphocytes % 27.1 % (10-50); Mean Corpuscular HGB Conc 31.2 g/dL (31.8-35.4); Mean Corpuscular Hemoglobin 28.2 pg (27.0-31.2); Mean Corpuscular Volume 90.4 fl (80-94); Mean Platelet Volume 9.2 fl (7.4-10.4); Monocytes # 0.7 K/mm3 (0.1-1.0); Monocytes % 8.7 % (1.7-9.3); Neutrophils # 4.8 K/mm3 (1.8-7.8); Neutrophils % 60.3 % (37.0-80.0); Platelet Count 208 K/mm3 (142-424); Red Blood Count 4.24 M/mm3 (4.60-6.20); Red Cell Distribution Width 14.5 % (11.5-17.5); White Blood Count 7.9 K/mm3 (4.8-10.8)
[2023-07-05 07:08] LABS: Alanine Aminotransferase 45 U/L (12-78); Albumin Level 2.9 g/dl (3.5-5.0); Alkaline Phosphatase 68 U/L (38-126); Anion Gap 11.5 mEq/L (5-15); Aspartate Amino Transferase 41 U/L (17-59); Bilirubin,Total 0.5 mg/dl (0.2-1.3); Blood Urea Nitrogen 9 mg/dl (9-20); Carbon Dioxide 28 mmol/L (22.0-30.0); Chloride 105 mmol/L (98-107); Creatinine Clearance Estimated 270 mL/min (50-200); Estimated Glomerular Filt Rate 143 ml/min (>60); GFR (African American) 173 ML/MIN (>60); Globulin 2.8 g/dL (1.3-3.2); Glucose 114 mg/dl (74-100); Magnesium 1.6 mg/dl (1.6-2.3); Potassium 3.5 mmoL/L (3.5-5.1); Sodium 141 mmol/L (136-145); Total Protein,Serum 5.7 g/dl (6.3-8.2)
--- NOTE | 2023-07-05 07:26 | EXP.DC.SUM ---
General Admission date:: 06/30/23 HPI HPI HPI: Patient presents for colon resection. He is a 48-year-old male whom I had seen and performed initial screening colonoscopy on him on 04/15/2023. Patient had no symptoms. Somewhat surprisingly he was noted to have multiple polyps. Approximately 11 polyps were noted. However most notable was a lesion in the cecum which was exudative and indurated and ill-defined. Numerous biopsies were obtained. It was friable and easily bled. He had a total of 6 tubular adenomas removed but most notable is his lesion in the cecum which biopsies revealed merely tubular adenoma. Patient was seen back in the office and the options were discussed with him. Plan was for a follow-up repeat colonoscopy which was done on 05/27/2023. He did have some additional polyps noted and this mass in the cecum was once again noted. This was a rather large firm indurated somewhat ulcerated sessile friable mass. Multiple biopsies were obtained using hot snare and cold biopsy forceps. This was not amenable to endoscopic removal. Interestingly once again results of the biopsy reveals tubular adenoma. He did have an additional tubular adenoma in the ascending colon as well as several hyperplastic polyps. Right and left biopsies were normal. I discussed the options with the patient. I felt that this was going to need resection given its nature on both colonoscopies. I discussed possible open procedure versus referral for laparoscopic procedure. I also explained to him that the final pathology may be precancerous. He wished to proceed with open procedure locally. Arrangements were made for open right hemicolectomy. Hospital Course Hospital Course Hospital Course: Patient was taken to the operating room on 06/30/2023 at which time he underwent a right colon resection with ileocolic anastomosis. He was found to have a small but firm palpable mass in the cecum. Please see operative dictation for complete details. Postoperatively he was initially admitted to the stepdown unit. He did have a nasogastric tube in place. Consultation was obtained with the hospitalist service for medical management. His nasogastric tube was removed the following morning on postoperative day #1. He did have some issues with abdominal pain which was partially controlled with morphine MANAGER INVENTORY. Incentive spirometry and ambulation was encouraged. Patient was given a clear liquid diet. He was started on Toradol and muscle relaxants. This did help his pain and allow for increased ambulation and better use of incentive spirometer. His MANAGER INVENTORY was discontinued on postoperative day #3 and he was given Percocet and morphine for breakthrough. He began to pass flatus and later in the day he was advanced to a full liquid diet which she tolerated. He had a bowel movement. His IV fluids were discontinued. He was advanced to a soft diet. Exam Data for Last 24 hours Vital signs and Labs for Last 24 Hours: Temp Pulse Resp BP Pulse Ox O2 Del Method O2 Flow Rate 98.3 F 74 18 154/79 H 94 L Room Air 2 07/05/23 04:00 07/05/23 04:00 07/04/23 20:00 07/05/23 04:00 07/05/23 04:00 07/05/23 04:37 07/03/23 07:43 Laboratory Results - last 24 hr 07/04/23 08:15: WBC 8.1, RBC 4.23 L, Hgb 12.0 L, Hct 38.9 L, MCV 92.0, MCH 28.5, MCHC 31.0 L, RDW 14.4, Plt Count 170, MPV 9.6, Neut % (Auto) 66.5, Lymph % (Auto) 22.4, [place] % (Auto) 7.5, Eos % (Auto) 3.2, Baso % (Auto) 0.4, Neut # (Auto) 5.4, Lymph # (Auto) 1.8, [place] # (Auto) 0.6, Eos # (Auto) 0.3, Baso # (Auto) 0.0, Sodium 140, Potassium 3.6, Chloride 108 H, Carbon Dioxide 24, Anion Gap 11.6, BUN 8 L, Creatinine 0.50 L, Estimated Creat Clear 327 H, Estimated GFR 177, Est GFR ( Amer) 214, Glucose 118 H, Calcium 8.1 L, Total Bilirubin 0.6, AST 48, ALT 41, Alkaline Phosphatase 61, Total Protein 6.0 L, Albumin 3.1 L, Globulin 2.9, Albumin/Globulin Ratio 1.1 07/04/23 11:45: POC Glucose 166 H 07/04/23 17:14: POC Glucose 107 0
--- NOTE | 2023-07-05 07:50 | P.PN_ITS ---
Subjective Patient reports: no new complaints Narrative: Tolerating soft diet. Exam Data for Last 24 hours Vital signs and Labs for Last 24 Hours: Temp Pulse Resp BP Pulse Ox O2 Del Method O2 Flow Rate 98.3 F 74 18 154/79 H 94 L Room Air 2 07/05/23 04:00 07/05/23 04:00 07/04/23 20:00 07/05/23 04:00 07/05/23 04:00 07/05/23 04:37 07/03/23 07:43 Laboratory Results - last 24 hr 07/04/23 08:15: WBC 8.1, RBC 4.23 L, Hgb 12.0 L, Hct 38.9 L, MCV 92.0, MCH 28.5, MCHC 31.0 L, RDW 14.4, Plt Count 170, MPV 9.6, Neut % (Auto) 66.5, Lymph % (Auto) 22.4, [place] % (Auto) 7.5, Eos % (Auto) 3.2, Baso % (Auto) 0.4, Neut # (Auto) 5.4, Lymph # (Auto) 1.8, [place] # (Auto) 0.6, Eos # (Auto) 0.3, Baso # (Auto) 0.0, Sodium 140, Potassium 3.6, Chloride 108 H, Carbon Dioxide 24, Anion Gap 11.6, BUN 8 L, Creatinine 0.50 L, Estimated Creat Clear 327 H, Estimated GFR 177, Est GFR ( Amer) 214, Glucose 118 H, Calcium 8.1 L, Total Bilirubin 0.6, AST 48, ALT 41, Alkaline Phosphatase 61, Total Protein 6.0 L, Albumin 3.1 L , Globulin 2.9, Albumin/Globulin Ratio 1.1 07/04/23 11:45: POC Glucose 166 H 07/04/23 17:14: POC Glucose 107 07/04/23 22:24: POC Glucose 195 H 07/05/23 05:15: POC Glucose 107 07/05/23 06:20: WBC 7.9, RBC 4.24 L, Hgb 11.9 L, Hct 38.3 L, MCV 90.4, MCH 28.2, MCHC 31.2 L, RDW 14.5, Plt Count 208, MPV 9.2, Neut % (Auto) 60.3, Lymph % (Auto) 27.1, [place] % (Auto) 8.7, Eos % (Auto) 3.4, Baso % (Auto) 0.4, Neut # (Auto) 4.8, Lymph # (Auto) 2.1, [place] # (Auto) 0.7, Eos # (Auto) 0.3, Baso # (Auto) 0.0, Sodium 141, Potassium 3.5, Chloride 105, Carbon Dioxide 28, Anion Gap 11.5, BUN 9, Creatinine 0.60 L, Estimated Creat Clear 270, Estimated GFR 143, Est GFR ( Amer) 173, Glucose 114 H, Calcium 8.0 L, Magnesium 1.6, Total Bilirubin 0.5, AST 41, ALT 45, Alkaline Phosphatase 68, Total Protein 5.7 L, Albumin 2.9 L, Globulin 2.8, Albumin/Globulin Ratio 1.0 L I & O for Last 24 hours: Intake & Output 07/02/23 07/03/23 07/04/23 07/05/23 11:59 11:59 11:59 11:59 Intake Total 1300 / 1300 940 / 940 1240 / 1240 960 / 960 Output Total 300 / 300 0 / 0 350 / 350 0 / 0 Balance 1000 / 1000 940 / 940 890 / 890 960 / 960 Weight 290 lb 1 oz 283 lb 6.4 oz 284 lb 14.4 oz 282 lb 11.074 oz *Routine Abdominal Exam Abdominal: Present soft Comments: Somewhat of a rash in distribution of original tape. Progress Note: A&P Assessment and plan (1) Cecum mass: Status: Acute Assessment and plan: Discharge home. (2) Tubular adenoma of colon: Status: Acute (3) Diabetes mellitus: Status: Acute (4) Hypertension: Status: Acute
[2023-07-05 07:57] VITALS: BP 162/84; PULSE 93; RESP 16; TEMP 36.7; O2SAT 95
[2023-07-05 10:58] LABS: POC Glucose,Bedside 180 (70-110)
--- NOTE | 2023-07-05 13:54 | PC.NURSE ---
Every other staple removed per communication order.
--- NOTE | 2023-07-06 13:20 | CARE MANAGER ---
Contacted patient related to hospital discharge. He states he is doing well. He picked up his medication and is aware of follow up appointment. DAISY Johnson
== END 2023-07-05 15:42 | disposition home or self-care (01) | DRG 330 ==
LOC: 2ND 11:21
PROVIDERS: Family Medicine; Internal Medicine Adolescent Medicine; Surgery; Admitting Provider Surgery; PCP Family Medicine; Visit Provider Surgery
PROC: 0DBF0ZZ Excision of Right Large Intestine, Open Approach (ICD-10-PCS; principal; 2023-06-30 07:30)
DX: C18.2 Malignant neoplasm of ascending colon (principal); E66.2 Morbid (severe) obesity with alveolar hypoventilation; Z68.41 Body mass index [BMI] 40.0-44.9, adult; E11.9 Type 2 diabetes mellitus without complications; I10 Essential (primary) hypertension; K21.9 Gastro-esophageal reflux disease without esophagitis; Z79.84 Long term (current) use of oral hypoglycemic drugs
CPT/HCPCS: 44140; 36415; 80048; 80053; 81001; 82378; 82962; 83735; 85007; 85025; 86850; 93005; 94640; 94761; 96372; 96374; J0131; J2405

== ENCOUNTER → 2023-08-18 14:22 | Outpatient (CLI) | payer BC, SELFPAY ==
[2023-08-18 14:39] LABS: Basophils # 0.1 K/mm3 (0-0.2); Basophils % 0.5 % (0.1-2.0); Eosinophils # 0.1 K/mm3 (0.0-0.4); Eosinophils % 1.1 % (0.1-12.0); Hematocrit 41.1 % (42.0-52.0); Hemoglobin 13.9 g/dL (14.1-18.0); Lymphocytes % 27.1 % (10-50); Mean Corpuscular HGB Conc 33.8 g/dL (31.8-35.4); Mean Corpuscular Hemoglobin 29.6 pg (27.0-31.2); Mean Corpuscular Volume 87.6 fl (80-94); Mean Platelet Volume 9.5 fl (7.4-10.4); Monocytes # 0.8 K/mm3 (0.1-1.0); Monocytes % 6.7 % (1.7-9.3); Neutrophils # 7.2 K/mm3 (1.8-7.8); Neutrophils % 64.6 % (37.0-80.0); Platelet Count 237 K/mm3 (142-424); Red Cell Distribution Width 14.4 % (11.5-17.5); White Blood Count 11.2 K/mm3 (4.8-10.8)
[2023-08-18 15:19] LABS: Alanine Aminotransferase 74 U/L (12-78); Albumin Level 4.1 g/dl (3.5-5.0); Albumin/Globulin Ratio 1.4 (1.1-1.8); Alkaline Phosphatase 88 U/L (38-126); Anion Gap 13.4 mEq/L (5-15); Aspartate Amino Transferase 57 U/L (17-59); Bilirubin,Total 0.2 mg/dl (0.2-1.3); Blood Urea Nitrogen 13 mg/dl (9-20); Carbon Dioxide 27 mmol/L (22.0-30.0); Chloride 102 mmol/L (98-107); Estimated Glomerular Filt Rate 143 ml/min (>60); GFR (African American) 173 ML/MIN (>60); Globulin 2.9 g/dL (1.3-3.2); Glucose 177 mg/dl (74-100); Potassium 4.4 mmoL/L (3.5-5.1); Sodium 138 mmol/L (136-145)
[2023-08-18 15:30] VITALS: BMI 39.7
[2023-08-18 15:38] LABS: Creatinine Clearance Estimated 265 mL/min (50-200)
[2023-08-18 15:46] LABS: Iron 34 ug/dL (49-181)
[2023-08-18 15:56] LABS: Total Iron Binding Capacity 363 ug/dL (261-462)
[2023-08-19 10:17] LABS: CEA 3.8 ng/mL (0.0-4.7)
== END ==
PROVIDERS: PCP Family Medicine; Visit Provider Internal Medicine Medical Oncology
DX: C18.9 Malignant neoplasm of colon, unspecified (principal)
CPT/HCPCS: 36415; 80053; 82378; 82728; 83540; 83550; 85025

== ENCOUNTER → 2023-08-23 09:57 | Outpatient (CLI) | payer BC, SELFPAY ==
--- NOTE | 2023-08-23 10:02 | CT_ITS ---
FINAL REPORT TECHNIQUE: Thin section axial images were obtained from the thoracic inlet through the upper abdomen after intravenous contrast injection. Reconstruction images were obtained from the axial data. Exam was performed using dose reduction technique. CLINICAL HISTORY: colon ca, staging FINDINGS: There is no mediastinal, hilar, or axillary lymphadenopathy. There is no pleural or pericardial effusion. The lungs are clear. No acute osseous abnormality. IMPRESSION: No evidence of metastatic disease to the chest. Reviewed, Interpreted and Dictated by Caryn Singh MD Transcribed by Brianna Diaz Authenticated and [facility]
--- NOTE | 2023-08-23 10:02 | CT_ITS ---
FINAL REPORT TECHNIQUE: Thin section axial images were obtained through the abdomen after intravenous contrast. Reconstruction images were obtained from the axial data. Exam was performed using dose reduction techniques. CLINICAL HISTORY: COLON CANCER FINDINGS: There is diffuse fatty infiltration of the liver. There is no focal lesion. The gallbladder is present. The spleen, adrenal glands, and pancreas are unremarkable. There is no hydronephrosis or solid renal mass. There are postoperative changes from partial right colectomy. There are mildly prominent lymph nodes in the right upper quadrant mesentery. The largest measures 19 mm and is seen on series 5 image 62. There is no ascites. There is no retroperitoneal lymphadenopathy.. Prostate and bladder are unremarkable. The pelvic GI tract is without acute abnormality. There is no pelvic lymphadenopathy or ascites. There is abnormal attenuation within the omentum of the right lower quadrant which may be postoperative. No acute osseous abnormalities identified. IMPRESSION: Mildly enlarged right upper quadrant mesentery lymph nodes adjacent to the surgical site from right hemicolectomy. Findings could be reactive. Metastatic disease is not excluded. Close interval follow-up or PET/CT is recommended if indicated. Abnormal attenuation in the omentum of the right lower quadrant could be postoperative. Close follow-up is recommended. Reviewed, Interpreted and Dictated by Caryn Singh MD Transcribed by Brianna Diaz Authenticated and [facility]
== END ==
PROVIDERS: PCP Family Medicine; Visit Provider Internal Medicine
DX: C18.9 Malignant neoplasm of colon, unspecified (principal); Z03.89 Encounter for observation for other suspected diseases and conditions ruled out
CPT/HCPCS: 71260; 74177; Q9967

== ENCOUNTER 2024-02-07 12:34 | Outpatient (CLI) | payer BC, SELFPAY ==
--- NOTE | 2024-02-07 12:38 | XR_ITS ---
FINAL REPORT CLINICAL HISTORY: right clavicle COMPARISON: None FINDINGS: Two views of the right clavicle were obtained. There is posterior fusion hardware bridging the upper and midthoracic spine. There is a sideplate and screws securing the 3rd, 4th, and 5th right ribs. There is a sideplate and screws securing the distal right clavicle. There is no acute fracture or dislocation. There are moderate hypertrophic changes of the AC joint. There is a well corticated density measuring 1.9 cm distal to the clavicle. The shoulder appears intact without subluxation or dislocation. There is no acute soft tissue abnormality. IMPRESSION: Chronic changes without acute abnormality identified. Reviewed, Interpreted and Dictated by Antonio Franklin MD Transcribed by Sho Bennett Authenticated and . [facility]
== END 2024-02-07 23:59 | disposition home or self-care (01) ==
LOC: RAD 12:34
PROVIDERS: PCP Family Medicine; Visit Provider Orthopaedic Surgery
DX: M89.8X1 Other specified disorders of bone, shoulder (principal)
CPT/HCPCS: 73000

== ENCOUNTER 2024-04-03 12:11 | Outpatient (CLI) | payer BC, SELFPAY ==
--- NOTE | 2024-04-03 12:17 | XR_ITS ---
FINAL REPORT CLINICAL HISTORY: AFTER CARE FOLLOWING SURGERY FINDINGS: LUMBAR SPINE Three views demonstrate no acute fracture. There are postoperative changes from fixation in the entire lumbar spine extending from L1-S1. There is mild compression deformity of L4 which appears chronic. There is no malalignment. IMPRESSION: Postsurgical changes as detailed above. Reviewed, Interpreted and Dictated by Millicent Calabrese MD Transcribed by Carol Sands Authenticated and [facility]
--- NOTE | 2024-04-03 12:17 | XR_ITS ---
FINAL REPORT CLINICAL HISTORY: AFTERCARE FOLLOWING SURGERY FINDINGS: THORACIC SPINE Three views demonstrate no acute fracture. There are postoperative changes from spinal fixation in the upper thoracic spine from T2-T8. There is no malalignment. IMPRESSION: Postsurgical changes as above. Reviewed, Interpreted and Dictated by Millicent Calabrese MD Transcribed by Carol Sands Authenticated and [facility]
== END 2024-04-03 23:59 | disposition home or self-care (01) ==
LOC: RAD 12:12
PROVIDERS: PCP Family Medicine; Visit Provider Neurological Surgery
DX: Z48.89 Encounter for other specified surgical aftercare (principal)
CPT/HCPCS: 72072; 72110

== ENCOUNTER 2024-05-14 15:14 | Outpatient (CLI) | payer BC, SELFPAY ==
--- NOTE | 2024-05-14 15:15 | MR_ITS ---
FINAL REPORT CLINICAL HISTORY: pain in left shoulder joint COMPARISON: None FINDINGS: Multi planar MR imaging of the left shoulder was performed. There is heterogeneous abnormal signal in the distal supraspinatus tendon insertion, consistent with a partial full-thickness tear of the anterior aspect of the tendon insertion. There is a small amount of fluid present in the subacromial subdeltoid bursa. The anterior and posterior glenoid kale appear intact. The biceps tendon appears intact. Moderate degenerative changes present in the acromioclavicular joint. IMPRESSION: Partial full-thickness tear anterior insertion supraspinatus tendon. Small amount of fluid in the subacromial subdeltoid bursa and moderate acromioclavicular degenerative change. Reviewed, Interpreted and Dictated by Antonio Franklin MD Transcribed by Mary Blankenship Authenticated and [facility]
== END 2024-05-14 23:59 | disposition home or self-care (01) ==
LOC: RAD 15:15
PROVIDERS: PCP Family Medicine; Visit Provider Family Medicine
DX: M25.512 Pain in left shoulder (principal)
CPT/HCPCS: 73221

== ENCOUNTER 2024-05-24 08:34 | Outpatient (CLI) | payer BC, SELFPAY ==
--- NOTE | 2024-05-24 08:37 | XR_ITS ---
FINAL REPORT CLINICAL HISTORY: LT Shoulder Pain COMPARISON: None FINDINGS: LEFT SHOULDER 3 views demonstrate no acute fracture or dislocation. There is mild AC joint degenerative change. The visualized bony structures are well aligned. No soft tissue abnormality is seen. IMPRESSION: Degenerative change without acute process. Reviewed, Interpreted and Dictated by Filippo Blackwell III, MD Transcribed by Sho Bennett Authenticated and [facility]
== END 2024-05-24 23:59 | disposition home or self-care (01) ==
LOC: RAD 08:35
PROVIDERS: PCP Family Medicine; Visit Provider Physician Assistant Surgical
DX: M25.512 Pain in left shoulder (principal)
CPT/HCPCS: 73030

== ENCOUNTER 2024-08-17 10:30 | Day surgery (SDC) | payer BC, SELFPAY ==
[2024-08-14 11:51] VITALS: BMI 36.6
[2024-08-17 10:55] VITALS: BP 124/65; PULSE 57; RESP 18; TEMP 36.2; O2SAT 96
[2024-08-17] MEDS: LACTATED RINGERS 1000ML 1,000 ML 25 ML IV (11:03)
--- NOTE | 2024-08-17 11:17 | EXP.ANES.CKL ---
[facility] Disclaimer: The information contained in this section may have been updated after the patient was seen, as this information can be updated by other users. Medical History (Updated 08/17/24 @ 11:01 by Kadie Foreman RN) Hx of fracture of clavicle Hx of back injury Kidney disease Sleep apnea Diabetes mellitus, type 2 History of cataract GERD (gastroesophageal reflux disease) Left shoulder pain Carpal tunnel syndrome Hypertension Surgical History (Updated 08/17/24 @ 11:01 by Kadie Foreman RN) Hx of fracture of rib History of colonoscopy History of surgery Family History Mother Diabetes Coronary artery disease Father Coronary artery disease Brother Coronary artery disease Bleeding disorder Family/Other Coronary artery disease Social History (Updated 08/17/24 @ 11:02 by Kadie Foreman RN) Smoking Status: Never smoker alcohol intake: never substance use type: denies use current occupational status: employed Travel in the last 8 weeks: None caffeine: Yes [facility] Anesthesia Checklist Patient Identification Patient Identification: Arm Band Structural Data Admitted From: Home Planned Operative Procedure/s: Colonoscopy Consent for Planned Operative Procedure(s) Verified: Yes Verified Documents: Surgical Consent and History and Physical NPO Status Verified Time NPO: 00:00 Additional verifications Anesthesia Reactions: No Hx Blood Transfusions: No Blood Transfusion Reaction: No Airway Assessment Mallampati Score:: Class III C-Spine Mobility Assessed: Yes TMJ Mobility Assessed: Yes Dentition: Good Dentition Neurological Assessment Level of Consciousness: Awake, Alert and Appropriate Anesthesia Plan Anesthesia Risk discussed: Yes Anesthesia Plan: Verified ASA Class: II Anesthesia Type: MAC
[2024-08-17 11:18] LABS: POC Glucose,Bedside 103 (70-110)
--- NOTE | 2024-08-17 11:46 | P.PCN_ITS ---
Procedure: Date: 08/17/24 Patient Date of :: 1975 Procedure Performed:: Complete colonoscopy to ileocolonic anastomosis Indications:: Patient is a 49-year-old male. 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 It appears as though his last office appointment with oncology was August 2023. Performing Provider:: Filippo Smiley MD Referring Provider:: Chris Rome MD Sedation:: MAC sedation Procedure:: Patient history was obtained and appropriate physical examination was performed. Patient's medications and allergies were reviewed. Informed consent was obt ained after explaining the benefits, alternatives, and risks of the procedure including, but not limited to, bleeding, perforation, missed lesions, and adverse reaction to anesthesia medications. Patient was transported to endoscopy procedure room. Patient was connected to monitoring devices. Throughout the procedure the patient's blood pressure, pulse, and oxygen saturations were monitored continuously. Patient identification and planned procedure were verified by the staff. Patient was positioned in lateral decubitus position. Digital anorectal exam was performed. Variable stiffness Olympus colonoscope was inserted and advanced under direct visualization to the ileocolonic anastomosis. Adequacy of the colonic preparation was noted. The colonoscope was advanced a short distance into the terminal ileum. The colonoscope was then slowly withdrawn while carefully examining the color, texture, anatomy, and integrity of the mucosoa circumferentially. Within the rectum retroflexion was performed. Colonoscope was then withdrawn. Impression: There was a subtle possible polyp in the transverse colon removed with biopsy forceps. In the rectum there was a hyperplastic appearing polyp. Attempt was made to remove this using snare with retroflexion. However it was ultimately removed with cold biopsy forceps. Findings:: Subtle diminutive polyps as noted above Recommendations:: Repeat colonoscopy pending pathology and oncology recommendations given history of colon cancer Complications:: None immediately apparent Estimated blood obtained (mL): 1 Colonoscopy Component Colonoscopy Component Was a colonoscopy performed during today's procedure?: Yes Recommended follow up colonoscopy of at least 10 years?: No If no, follow up colonoscopy recommended in ___ years?: See above Reason for not recommending >/= 10 yr follow-up interval?: See above
[2024-08-17 11:55] VITALS: O2SAT 100
[2024-08-17 12:30] VITALS: BP 102/64; PULSE 61; RESP 18; TEMP 36.1; O2SAT 97
[2024-08-17 12:40] VITALS: BP 127/79; PULSE 65; RESP 18; O2SAT 94
[2024-08-17 12:50] VITALS: BP 126/73; PULSE 63; RESP 18; O2SAT 94
[2024-08-17 13:00] VITALS: BP 123/77; PULSE 65; RESP 18; O2SAT 97
== END 2024-08-17 13:00 | disposition home or self-care (01) ==
PROVIDERS: PCP Family Medicine; Visit Provider Surgery
PROC: 0DJD8ZZ Inspection of Lower Intestinal Tract, Via Natural or Artificial Opening Endoscopic (ICD-10-PCS; CPT 45380; principal; 2024-08-17 11:30)
DX: K63.5 Polyp of colon (principal); Z08 Encounter for follow-up examination after completed treatment for malignant neoplasm; Z85.030 Personal history of malignant carcinoid tumor of large intestine
CPT/HCPCS: 45380; 82962; J7120

== ENCOUNTER 2024-09-04 11:54 | Outpatient (CLI) | payer BC, SELFPAY ==
[2024-09-04 12:45] LABS: Basophils # 0.1 K/mm3 (0-0.2); Basophils % 0.6 % (0.1-2.0); Eosinophils # 0.1 K/mm3 (0.0-0.4); Eosinophils % 0.9 % (0.1-12.0); Lymphocytes # 2.5 K/mm3 (0.7-4.5); Lymphocytes % 24.4 % (10-50); Mean Corpuscular HGB Conc 32.5 g/dL (31.8-35.4); Mean Corpuscular Hemoglobin 28.2 pg (27.0-31.2); Mean Corpuscular Volume 86.9 fl (80-94); Mean Platelet Volume 8.9 fl (7.4-10.4); Monocytes # 0.8 K/mm3 (0.1-1.0); Monocytes % 7.5 % (1.7-9.3); Neutrophils # 6.8 K/mm3 (1.8-7.8); Neutrophils % 66.5 % (37.0-80.0); Platelet Count 215 K/mm3 (142-424); Red Blood Count 4.96 M/mm3 (4.60-6.20); White Blood Count 10.2 K/mm3 (4.8-10.8)
[2024-09-04 13:49] LABS: Alanine Aminotransferase 34 U/L (12-78); Albumin Level 4.1 g/dl (3.5-5.0); Albumin/Globulin Ratio 1.5 (1.1-1.8); Alkaline Phosphatase 83 U/L (38-126); Anion Gap 15.3 mEq/L (5-15); Aspartate Amino Transferase 32 U/L (17-59); Bilirubin,Total 0.6 mg/dl (0.2-1.3); Blood Urea Nitrogen 10 mg/dl (9-20); Carbon Dioxide 25 mmol/L (22.0-30.0); Chloride 106 mmol/L (98-107); Estimated Glomerular Filt Rate 143 ml/min (>60); GFR (African American) 173 ML/MIN (>60); Globulin 2.7 g/dL (1.3-3.2); Glucose 99 mg/dl (74-100); Potassium 4.3 mmoL/L (3.5-5.1); Sodium 142 mmol/L (136-145); Total Protein,Serum 6.8 g/dl (6.3-8.2)
[2024-09-05 13:12] LABS: CEA 3.3 ng/mL (0.0-4.7)
== END 2024-09-04 23:59 | disposition home or self-care (01) ==
LOC: LAB 11:54
PROVIDERS: PCP Family Medicine; Visit Provider Internal Medicine Medical Oncology
DX: C18.0 Malignant neoplasm of cecum (principal)
CPT/HCPCS: 36415; 80053; 82378; 85025

== ENCOUNTER 2024-09-07 10:58 | Outpatient (CLI) | payer BC, SELFPAY ==
--- NOTE | 2024-09-07 10:59 | CT_ITS ---
FINAL REPORT TECHNIQUE: Routine axial images were obtained from the lung apices to below the diaphragm following IV contrast administration. Individualized dose reduction techniques using automated exposure control or adjustment of the mA and/or kV according to the patient size were employed. CLINICAL HISTORY: colorectal cancer COMPARISON: 08/23/2023 FINDINGS: Scarring is seen in the right upper lobe. No acute lung disease is present. No pleural or pericardial effusion is seen. No adenopathy or mass lesion is present. Sideplate and screws are seen in multiple right ribs. There is also posterior fusion of the mid thoracic spine. IMPRESSION: No acute process or evidence of metastatic disease. Reviewed, Interpreted and Dictated by Antonio Franklin MD Transcribed by Julianne Frey Authenticated and [facility]
--- NOTE | 2024-09-07 10:59 | CT_ITS ---
FINAL REPORT TECHNIQUE: After the administration of intravenous contrast, axial images were obtained through the abdomen and pelvis by computed tomography. This study was performed with technique to keep radiation doses as low as reasonably achievable, (ALARA). Individualized dose reduction techniques using automated exposure control or adjustment of the MA and/or KV according to the patient's size were employed. CLINICAL HISTORY: colorectal cancer COMPARISON: 08/23/2023 FINDINGS: Abdomen: The liver is normal in size and attenuation. Gallbladder is mildly distended. The spleen is unremarkable. The adrenals are normal. The pancreas is unremarkable. The kidneys enhance appropriately. The aorta is normal in caliber. There are small mesenteric lymph nodes in the right hemiabdomen which have decreased in size from prior exam now measuring up to 9 mm. These are likely reactive. There has been interval posterior fusion from L1-S1. There is a new 50% compression deformity of L4. Pelvis: The appendix is not identified. The urinary bladder is decompressed. There is no free fluid or adenopathy. Previously seen hazy opacity in the omentum of the right lower quadrant has resolved. IMPRESSION: Interval fusion with new compression fracture at L4. Otherwise, no acute process. Reviewed, Interpreted and Dictated by Antonio Franklin MD Transcribed by Julianne Frey Authenticated and . [facility]
[2024-09-07] MEDS: IOPAMIDOL-370 (76%);100ML BOTTLE 75 ML IV (11:26)
[2024-09-07] MEDS: SODIUM CHLORIDE 0.9% 10ML SYR (RAD ONLY) 10 ML IV (11:26)
[2024-09-07] MEDS: BARIUM SULFATE(READI-CAT2);450ML BOTTLE 450 ML PO (11:27)
== END 2024-09-07 23:59 | disposition home or self-care (01) ==
LOC: RAD 10:59
PROVIDERS: PCP Family Medicine; Visit Provider Internal Medicine Medical Oncology
DX: C18.0 Malignant neoplasm of cecum (principal)
CPT/HCPCS: 71260; 74177; Q9967

== ENCOUNTER 2024-10-11 10:00 | Outpatient (RCR) | payer BC, SELFPAY ==
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
--- NOTE | 2024-03-29 14:20 | HMH.RHREAS ---
Rehab Reassessment Rehab OP Re-assessment Start: 03/02/24 10:01 Freq: Status: Active Protocol: Document 03/29/24 14:14 BEE (Rec: 03/29/24 14:19 PHORLUÍS [id number]) E-signed By Rafael Moscoso PT Dynamic Gait Index Test Protocol Gait Level Surface Mild Impairment Query Text: Instructions: Walk at your normal speed from here to the next brain (20'). Grading: Brain the lowest category that applies. Change in Gait Speed Normal Query Text: Instructions: Begin walking at your normal pace (for 5'), when I tell you go , walk as fast as you can (for 5'). When I tell you slow , walk as slowly as you can (for 5'). Grading: Brain the lowest category that applies. Gait with Horizontal Head Turns Mild Impairment Query Text: Instructions: Begin walking at your normal pace. When I tell you to look right , keep walking straight, but turn you head to the right. Keep looking to the right unit I tell you look left , then keep walking straight and turn your head to the left. Keep your head to the left until I tell you look straight , then keep walking straight, but return you head to the center. Grading: Brain the lowest category that applies. Gait with Vertical Head Turns Mild Impairment Query Text: Instructions: Begin walking at your normal pace. When I tell you to look up , keep walking staight, but tip your head up. Keep looking up until I tell you to look down , then keep walking straight and tip your head down. Keep your head down until I tell you look straight , then keep walking straight, but return your head to the center. Grading: Brain the lowest category that applies. Gait and Pivot Turn Mild Impairment Query Text: Instructions: Begin walking at your normal pace. When I tell you turn and stop , turn as quickly as you can to face the opposite direction and stop. Grading: Brain the lowest category that applies. Step Over Obstacle Mild Impairment Query Text: Instructions: Begin walking at your normal speed. When you come to the shoebox, step over it, not around it and keep walking. Grading: Brain the lowest category that applies. Step Around Obstacles Mild Impairment Query Text: Instructions: Begin walking at normal speed. When you come to the first cone (about 6' away), walk around the right side of it. When you come to the second cone (6' past first cone), walk around it to the left. Grading: Brain the lowest category that applies. Steps Mild Impairment Query Text: Instructions: Walk up these stairs as you would at home. At the top, turn around and walk down. Grading: Brain the lowest category that applies. Scoring Dynamic Gait Index Score 17 Rehab Re-assessment Subjective Subjective Pt reports, I don't feel too bad today, I'm not as stiff. I over slept and missed my appointment on Tuesday. Pain at worst 05/26. Objective Objective Notes B SHLD PROM: FLEX= 0-110, ABD= 0-95, ER= 0-35 B SHLD MMT: FLEX 3/5, ABD 3/5, ER 3/5, IR 4+/5 B LE MMT: HIP FLEX 4/5, ABD 4/ 5, KNEE FLEX 4/5, KNEE EXT 4/5 DGI: vs on IE. Assessment Progress Assessment Progressing as Expected Assessment Notes Pt has continued to steadily improve his gait ability and B UE and LE strength. He continues to have difficulty with pain and endurance to all ADL activities. He continues to need skilled therapy to return to prior level of function. Patient goals met ST/[address]/7 LT/9 Plan Plan Continue per initial POC, transition to cane for AD during ambulation. Frequency of Therapy 2 x/wk Duration of therapy 4 wks Time and Billing Re-Eval Time 12 PHYSICIAN CERTIFICATION: I certify the specified therapy services for Sang Motley are required, authorized, and reviewed every 30 days.
--- NOTE | 2024-05-01 17:44 | HMH.RHREAS ---
Rehab Reassessment Rehab OP Re-assessment Start: 03/02/24 10:01 Freq: Status: Active Protocol: Document 05/01/24 17:33 BEE (Rec: 05/01/24 17:44 PHORLUÍS [id number]) E-signed By Rafael Moscoso PT Dynamic Gait Index Test Protocol Gait Level Surface Mild Impairment Query Text: Instructions: Walk at your normal speed from here to the next brain (20'). Grading: Brain the lowest category that applies. Change in Gait Speed Normal Query Text: Instructions: Begin walking at your normal pace (for 5'), when I tell you go , walk as fast as you can (for 5'). When I tell you slow , walk as slowly as you can (for 5'). Grading: Brain the lowest category that applies. Gait with Horizontal Head Turns Mild Impairment Query Text: Instructions: Begin walking at your normal pace. When I tell you to look right , keep walking straight, but turn you head to the right. Keep looking to the right unit I tell you look left , then keep walking straight and turn your head to the left. Keep your head to the left until I tell you look straight , then keep walking straight, but return you head to the center. Grading: Brain the lowest category that applies. Gait with Vertical Head Turns Mild Impairment Query Text: Instructions: Begin walking at your normal pace. When I tell you to look up , keep walking staight, but tip your head up. Keep looking up until I tell you to look down , then keep walking straight and tip your head down. Keep your head down until I tell you look straight , then keep walking straight, but return your head to the center. Grading: Brain the lowest category that applies. Gait and Pivot Turn Mild Impairment Query Text: Instructions: Begin walking at your normal pace. When I tell you turn and stop , turn as quickly as you can to face the opposite direction and stop. Grading: Brain the lowest category that applies. Step Over Obstacle Mild Impairment Query Text: Instructions: Begin walking at your normal speed. When you come to the shoebox, step over it, not around it and keep walking. Grading: Brain the lowest category that applies. Step Around Obstacles Normal Query Text: Instructions: Begin walking at normal speed. When you come to the first cone (about 6' away), walk around the right side of it. When you come to the second cone (6' past first cone), walk around it to the left. Grading: Brain the lowest category that applies. Steps Mild Impairment Query Text: Instructions: Walk up these stairs as you would at home. At the top, turn around and walk down. Grading: Brain the lowest category that applies. Scoring Dynamic Gait Index Score 18 Rehab Re-assessment Subjective Subjective Pt reports he feels his overall mobility is much improved, but pain in his low back and L shoulder limit his ability to perform more strenuous activities. He states, I can walk pretty well for short distances, but then my back gets tired and before you know it I'm all hunched over. Objective Objective Notes B SHLD PROM: FLEX= 0-165, ABD= 0-110, ER= 0-45 ( L SHLD remains painful during ROM, but R is not) B SHLD MMT: FLEX 4/5, ABD 4/5, ER 3+/5, IR 5/5 (all within available ROM) B LE MMT: HIP FLEX 4+/5, ABD 4 +/5, KNEE FLEX 5/5, KNEE EXT 4 +/5 DGI: vs on IE. Assessment Progress Assessment Progressing as Expected Assessment Notes Pt has continued to steadily improve his gait ability and B UE and LE strength. Using straight cane almost exclusively for ambulation AD now. He continues to have difficulty with pain and endurance to all ADL activities. L shld pain anteriorly limits his ability to lift and reach. He continues to need skilled therapy to return to prior level of function. Patient goals met ST/7 LT Goals Not Met LT/9 Plan Plan Continue per initial POC, transition to cane for AD during ambulation. Frequency of Therapy 2 x/wk Duration of therapy 4 wks Time and Billing Re-Eval Time 11 Re-Eval Billing Units 1 PHYSICIAN CERTIFICATION: I certify the specified therapy services for Sang Motley are required, authorized, and reviewed every 30 days.
--- NOTE | 2024-05-29 11:49 | HMH.RHREAS ---
Rehab Reassessment Rehab OP Re-assessment Start: 03/02/24 10:01 Freq: Status: Active Protocol: Document 05/29/24 11:41 BEE (Rec: 05/29/24 11:49 PHORLUÍS [id number]) E-signed By Rafael Moscoso PT Dynamic Gait Index Test Protocol Gait Level Surface Mild Impairment Query Text: Instructions: Walk at your normal speed from here to the next brain (20'). Grading: Brain the lowest category that applies. Change in Gait Speed Normal Query Text: Instructions: Begin walking at your normal pace (for 5'), when I tell you go , walk as fast as you can (for 5'). When I tell you slow , walk as slowly as you can (for 5'). Grading: Brain the lowest category that applies. Gait with Horizontal Head Turns Normal Query Text: Instructions: Begin walking at your normal pace. When I tell you to look right , keep walking straight, but turn you head to the right. Keep looking to the right unit I tell you look left , then keep walking straight and turn your head to the left. Keep your head to the left until I tell you look straight , then keep walking straight, but return you head to the center. Grading: Brain the lowest category that applies. Gait with Vertical Head Turns Normal Query Text: Instructions: Begin walking at your normal pace. When I tell you to look up , keep walking staight, but tip your head up. Keep looking up until I tell you to look down , then keep walking straight and tip your head down. Keep your head down until I tell you look straight , then keep walking straight, but return your head to the center. Grading: Brain the lowest category that applies. Gait and Pivot Turn Mild Impairment Query Text: Instructions: Begin walking at your normal pace. When I tell you turn and stop , turn as quickly as you can to face the opposite direction and stop. Grading: Brain the lowest category that applies. Step Over Obstacle Normal Query Text: Instructions: Begin walking at your normal speed. When you come to the shoebox, step over it, not around it and keep walking. Grading: Brain the lowest category that applies. Step Around Obstacles Normal Query Text: Instructions: Begin walking at normal speed. When you come to the first cone (about 6' away), walk around the right side of it. When you come to the second cone (6' past first cone), walk around it to the left. Grading: Brain the lowest category that applies. Steps Mild Impairment Query Text: Instructions: Walk up these stairs as you would at home. At the top, turn around and walk down. Grading: Brain the lowest category that applies. Scoring Dynamic Gait Index Score 21 Rehab Re-assessment Subjective Subjective Pt reports improvement in L shoulder pain after ortho performed steroid injection. He continues to report feelings of fluid built up on R flank and between scapula . He also reports pain in B posterior hips with walking for even short distances, maybe 5 minutes and I have to stop because it hurts too much . Objective Objective Notes B SHLD PROM: FLEX= 0-165, ABD= 0-150, ER= 0-60 B SHLD MMT: FLEX 4+/5, ABD 4+/ 5, ER 4+/5, IR 5/5 (all within available ROM) B LE MMT: HIP FLEX 4+/5, ABD 4 +/5, KNEE FLEX 5/5, KNEE EXT 5 /5 DGI: vs on IE Lumbar AROM: FLEX WFL, EXT 0 DEG, R SB 0-2 DEG, L SB 0-2 DEG. Assessment Progress Assessment Progressing as Expected Assessment Notes Pt continues to steadily improve all strength in B UE and LE steadily, Lumbar AROM is significantly limited and likely source of increased stiffness and pain with functional mobility. Skilled therapy remains indicated to improve overall endurance to standing and walking activities and increase lumbar AROM to return pt to PLOF. Patient goals met ST/7 LT/9 Plan Plan Continue per initial POC, transition to gait without AD. Frequency of Therapy 2 x/wk Duration of therapy 4 wks Time and Billing Re-Eval Time 13 Re-Eval Billing Units 1 PHYSICIAN CERTIFICATION: I certify the specified therapy services for Sang Motley are required, authorized, and reviewed every 30 days.
--- NOTE | 2024-06-28 12:44 | HMH.RHREAS ---
Rehab Reassessment Rehab OP Re-assessment Start: 03/02/24 10:01 Freq: Status: Active Protocol: Document 06/28/24 12:41 BEE (Rec: 06/28/24 12:44 PHORLUÍS [id number]) E-signed By Rafael Moscoso PT Dynamic Gait Index Test Protocol Gait Level Surface Mild Impairment Query Text: Instructions: Walk at your normal speed from here to the next brain (20'). Grading: Brain the lowest category that applies. Change in Gait Speed Normal Query Text: Instructions: Begin walking at your normal pace (for 5'), when I tell you go , walk as fast as you can (for 5'). When I tell you slow , walk as slowly as you can (for 5'). Grading: Brain the lowest category that applies. Gait with Horizontal Head Turns Normal Query Text: Instructions: Begin walking at your normal pace. When I tell you to look right , keep walking straight, but turn you head to the right. Keep looking to the right unit I tell you look left , then keep walking straight and turn your head to the left. Keep your head to the left until I tell you look straight , then keep walking straight, but return you head to the center. Grading: Brain the lowest category that applies. Gait with Vertical Head Turns Normal Query Text: Instructions: Begin walking at your normal pace. When I tell you to look up , keep walking staight, but tip your head up. Keep looking up until I tell you to look down , then keep walking straight and tip your head down. Keep your head down until I tell you look straight , then keep walking straight, but return your head to the center. Grading: Brain the lowest category that applies. Gait and Pivot Turn Mild Impairment Query Text: Instructions: Begin walking at your normal pace. When I tell you turn and stop , turn as quickly as you can to face the opposite direction and stop. Grading: Brain the lowest category that applies. Step Over Obstacle Normal Query Text: Instructions: Begin walking at your normal speed. When you come to the shoebox, step over it, not around it and keep walking. Grading: Brain the lowest category that applies. Step Around Obstacles Normal Query Text: Instructions: Begin walking at normal speed. When you come to the first cone (about 6' away), walk around the right side of it. When you come to the second cone (6' past first cone), walk around it to the left. Grading: Brain the lowest category that applies. Steps Mild Impairment Query Text: Instructions: Walk up these stairs as you would at home. At the top, turn around and walk down. Grading: Brain the lowest category that applies. Scoring Dynamic Gait Index Score 21 Rehab Re-assessment Subjective Subjective Pt reports he has been unable to attend therapy this week due to illness but states he feels well overall. Pt states he feels his shoulders have greatly improved but is still limited due to tightness and some pain in his low back. Objective Objective Notes B SHLD PROM: FLEX= 0-170, ABD= 0-165, ER= 0-70 B SHLD MMT: FLEX 4+/5, ABD 4+/ 5, ER 5/5, IR 5/5 (all within available ROM) B LE MMT: HIP FLEX 4+/5, ABD 4 +/5, KNEE FLEX 5/5, KNEE EXT 5 /5 DGI: vs on IE Lumbar AROM: FLEX WFL, EXT 0-3 DEG, R SB 0-5 DEG, L SB 0-5 DEG. Assessment Progress Assessment Progressing as Expected Assessment Notes Pt continues to steadily improve all strength in B UE and LE steadily, Lumbar AROM is significantly limited and likely source of increased stiffness and pain with functional mobility. Skilled therapy remains indicated to improve overall endurance to standing and walking activities and increase lumbar AROM to return pt to PLOF. Patient goals met ST/7 LT/9 Plan Plan Continue per initial POC, transition to gait without AD. Frequency of Therapy 2 x/wk Duration of therapy 4 wks Time and Billing Re-Eval Time 11 Re-Eval Billing Units 1 PHYSICIAN CERTIFICATION: I certify the specified therapy services for Sang Motley are required, authorized, and reviewed every 30 days.
--- NOTE | 2024-07-31 13:34 | HMH.RHREAS ---
Rehab Reassessment Rehab OP Re-assessment Start: 03/02/24 10:01 Freq: Status: Active Protocol: Document 07/31/24 13:30 PHOELODIA (Rec: 07/31/24 13:34 PHORNE [id number]) E-signed By Rafael Moscoso PT Dynamic Gait Index Test Protocol Gait Level Surface Normal Query Text: Instructions: Walk at your normal speed from here to the next brain (20'). Grading: Brain the lowest category that applies. Change in Gait Speed Normal Query Text: Instructions: Begin walking at your normal pace (for 5'), when I tell you go , walk as fast as you can (for 5'). When I tell you slow , walk as slowly as you can (for 5'). Grading: Brain the lowest category that applies. Gait with Horizontal Head Turns Normal Query Text: Instructions: Begin walking at your normal pace. When I tell you to look right , keep walking straight, but turn you head to the right. Keep looking to the right unit I tell you look left , then keep walking straight and turn your head to the left. Keep your head to the left until I tell you look straight , then keep walking straight, but return you head to the center. Grading: Brain the lowest category that applies. Gait with Vertical Head Turns Normal Query Text: Instructions: Begin walking at your normal pace. When I tell you to look up , keep walking staight, but tip your head up. Keep looking up until I tell you to look down , then keep walking straight and tip your head down. Keep your head down until I tell you look straight , then keep walking straight, but return your head to the center. Grading: Brain the lowest category that applies. Gait and Pivot Turn Mild Impairment Query Text: Instructions: Begin walking at your normal pace. When I tell you turn and stop , turn as quickly as you can to face the opposite direction and stop. Grading: Brain the lowest category that applies. Step Over Obstacle Normal Query Text: Instructions: Begin walking at your normal speed. When you come to the shoebox, step over it, not around it and keep walking. Grading: Brain the lowest category that applies. Step Around Obstacles Normal Query Text: Instructions: Begin walking at normal speed. When you come to the first cone (about 6' away), walk around the right side of it. When you come to the second cone (6' past first cone), walk around it to the left. Grading: Brain the lowest category that applies. Steps Mild Impairment Query Text: Instructions: Walk up these stairs as you would at home. At the top, turn around and walk down. Grading: Brain the lowest category that applies. Scoring Dynamic Gait Index Score 22 Rehab Re-assessment Subjective Subjective Pt states he's feeling pretty good today. I have bad days and I have good days. Today's a good day. Reports he still feels that the fluid that wraps around R rib cage severely limits his ROM. Objective Objective Notes B SHLD PROM: FLEX= 0-170, ABD= 0-170, ER= 0-80 B SHLD MMT: FLEX 5/5, ABD 4+/5 , ER 5/5, IR 5/5 (all within available ROM) B LE MMT: HIP FLEX 4+/5, ABD 4 +/5, KNEE FLEX 5/5, KNEE EXT 5 /5 DGI: vs on IE Lumbar AROM: FLEX WFL, EXT 0-5 DEG, R SB 0-10 DEG, L SB 0-5 DEG. Palpable MILD edema this date in a ridge from inferior scapula around the R flank to the R breast area. Assessment Progress Assessment Progressing as Expected Assessment Notes Pt continues to steadily improve all strength in B UE and LE steadily, Lumbar AROM remains significantly limited and likely source of increased stiffness and pain with functional mobility. Pt continues to be limited with his ADLs using the R UE due to increased feelings of fluid along that R flank. Skilled therapy remains indicated to improve overall endurance to standing and walking activities and increase lumbar AROM to return pt to PLOF. Patient goals met ST/7 LT/9 Plan Plan Continue per initial POC, transition to gait without AD. Frequency of Therapy 2 x/wk Duration of therapy 4 wks Time and Billing Re-Eval Time 13 Re-Eval Billing Units 1 PHYSICIAN CERTIFICATION: I certify the specified therapy services for Sang Motley are required, authorized, and reviewed every 30 days.
--- NOTE | 2024-08-28 10:46 | HMH.RHREAS ---
Rehab Reassessment Rehab OP Re-assessment Start: 03/02/24 10:01 Freq: Status: Active Protocol: Document 08/28/24 10:41 BEE (Rec: 08/28/24 10:46 PHOELODIA [id number]) E-signed By Rafael Moscoso PT Dynamic Gait Index Test Protocol Gait Level Surface Normal Query Text: Instructions: Walk at your normal speed from here to the next brain (20'). Grading: Brain the lowest category that applies. Change in Gait Speed Normal Query Text: Instructions: Begin walking at your normal pace (for 5'), when I tell you go , walk as fast as you can (for 5'). When I tell you slow , walk as slowly as you can (for 5'). Grading: Brain the lowest category that applies. Gait with Horizontal Head Turns Normal Query Text: Instructions: Begin walking at your normal pace. When I tell you to look right , keep walking straight, but turn you head to the right. Keep looking to the right unit I tell you look left , then keep walking straight and turn your head to the left. Keep your head to the left until I tell you look straight , then keep walking straight, but return you head to the center. Grading: Brain the lowest category that applies. Gait with Vertical Head Turns Normal Query Text: Instructions: Begin walking at your normal pace. When I tell you to look up , keep walking staight, but tip your head up. Keep looking up until I tell you to look down , then keep walking straight and tip your head down. Keep your head down until I tell you look straight , then keep walking straight, but return your head to the center. Grading: Brain the lowest category that applies. Gait and Pivot Turn Normal Query Text: Instructions: Begin walking at your normal pace. When I tell you turn and stop , turn as quickly as you can to face the opposite direction and stop. Grading: Brain the lowest category that applies. Step Over Obstacle Normal Query Text: Instructions: Begin walking at your normal speed. When you come to the shoebox, step over it, not around it and keep walking. Grading: Brain the lowest category that applies. Step Around Obstacles Normal Query Text: Instructions: Begin walking at normal speed. When you come to the first cone (about 6' away), walk around the right side of it. When you come to the second cone (6' past first cone), walk around it to the left. Grading: Brain the lowest category that applies. Steps Mild Impairment Query Text: Instructions: Walk up these stairs as you would at home. At the top, turn around and walk down. Grading: Brain the lowest category that applies. Scoring Dynamic Gait Index Score 23 Rehab Re-assessment Subjective Subjective Pt reports no pain at this time, but he continues to have increased pain with prolonged standing activities >10 mins. He states, I cleaned my bathroom the other day and about 10 minutes of that really had my back hurting. Pain at worst is 5/10. He continues to c/o stiffness which is worse on the R side and worse in the evening. He also reports recent increase of L shoulder pain, I think I might need another injection in that shoulder, it's been over 3 months since the last one. Objective Objective Notes B SHLD PROM: FLEX= 0-180, ABD= 0-170, ER= 0-80 B SHLD MMT: FLEX 5/5, ABD 4+/5 , ER 5/5, IR 5/5 (all within available ROM) B LE MMT: HIP FLEX 4+/5, ABD 5 /5, KNEE FLEX 5/5, KNEE EXT 5/ 5 DGI: vs on IE Lumbar AROM: FLEX WFL, EXT 0-5 DEG, R SB 0-10 DEG, L SB 0-10 DEG. Assessment Progress Assessment Progressing as Expected Assessment Notes Pt continues to steadily improve all strength in B UE and LE steadily, Lumbar AROM remains significantly limited and likely source of increased stiffness and pain with functional mobility. Pt continues to be limited with his ADLs using the R UE due to increased feelings of fluid along that R flank. Skilled therapy remains indicated to improve overall endurance to standing and walking activities and increase lumbar AROM to return pt to PLOF. Patient goals met ST/7 LT/9 Plan Plan Continue per initial POC, transition to gait without AD. Frequency of Therapy 2 x/wk Duration of therapy 4 wks Time and Billing Re-Eval Time 11 Re-Eval Billing Units 1 Charge for PT reassessment? Yes PHYSICIAN CERTIFICATION: I certify the specified therapy services for Sang Nuno Motley are required, authorized, and reviewed every 30 days.
--- NOTE | 2024-09-25 10:56 | HMH.RHREAS ---
Rehab Reassessment Rehab OP Re-assessment Start: 03/02/24 10:01 Freq: Status: Active Protocol: Document 09/25/24 10:46 BEE (Rec: 09/25/24 10:55 PHOELODIA [id number]) E-signed By Rafael Moscoso PT Dynamic Gait Index Test Protocol Gait Level Surface Normal Query Text: Instructions: Walk at your normal speed from here to the next brain (20'). Grading: Brain the lowest category that applies. Change in Gait Speed Normal Query Text: Instructions: Begin walking at your normal pace (for 5'), when I tell you go , walk as fast as you can (for 5'). When I tell you slow , walk as slowly as you can (for 5'). Grading: Brain the lowest category that applies. Gait with Horizontal Head Turns Normal Query Text: Instructions: Begin walking at your normal pace. When I tell you to look right , keep walking straight, but turn you head to the right. Keep looking to the right unit I tell you look left , then keep walking straight and turn your head to the left. Keep your head to the left until I tell you look straight , then keep walking straight, but return you head to the center. Grading: Brain the lowest category that applies. Gait with Vertical Head Turns Normal Query Text: Instructions: Begin walking at your normal pace. When I tell you to look up , keep walking staight, but tip your head up. Keep looking up until I tell you to look down , then keep walking straight and tip your head down. Keep your head down until I tell you look straight , then keep walking straight, but return your head to the center. Grading: Brain the lowest category that applies. Gait and Pivot Turn Normal Query Text: Instructions: Begin walking at your normal pace. When I tell you turn and stop , turn as quickly as you can to face the opposite direction and stop. Grading: Brain the lowest category that applies. Step Over Obstacle Normal Query Text: Instructions: Begin walking at your normal speed. When you come to the shoebox, step over it, not around it and keep walking. Grading: Brain the lowest category that applies. Step Around Obstacles Normal Query Text: Instructions: Begin walking at normal speed. When you come to the first cone (about 6' away), walk around the right side of it. When you come to the second cone (6' past first cone), walk around it to the left. Grading: Brain the lowest category that applies. Steps Mild Impairment Query Text: Instructions: Walk up these stairs as you would at home. At the top, turn around and walk down. Grading: Brain the lowest category that applies. Scoring Dynamic Gait Index Score 23 Rehab Re-assessment Subjective Subjective Pt reports he feels he is somewhat better with his walking and standing ability. He reports minimal use of the cane throughout the day now. He continues to c/o increased stiffness and pain on the R side of the flank. Objective Objective Notes B SHLD PROM: FLEX= 0-180, ABD= 0-170, ER= 0-80 B SHLD MMT: FLEX 5/5, ABD 4+/5 , ER 5/5, IR 5/5 (all within available ROM) B LE MMT: HIP FLEX 4+/5, ABD 5 /5, KNEE FLEX 5/5, KNEE EXT 5/ 5 DGI: vs on IE Lumbar AROM: FLEX WFL, EXT 0-7 DEG, R SB 0-12 DEG, L SB 0-10 DEG. Standing: Pt can stand effectively for ~20 mins without much discomfort, but after that time he suffers increased pain in the lower back and begins to slump forward to relieve the pain. Assessment Progress Assessment Progressing as Expected Assessment Notes Pt with Lumbar AROM remaining significantly limited and likely source of increased stiffness and pain with functional mobility. Gait is overall improved, but endurance to pain-free upright activity. Pt continues to be limited with his ADLs using the R UE due to increased feelings of fluid along that R flank. Skilled therapy remains indicated to improve overall endurance to standing and walking activities and increase lumbar AROM to return pt to PLOF. Patient goals met ST/7 LT/9 Plan Plan Continue per initial POC, transition to gait without AD. Frequency of Therapy 2 x/wk Duration of therapy 4 wks Time and Billing Re-Eval Time 13 Re-Eval Billing Units 1 Charge for PT reassessment? Yes PHYSICIAN CERTIFICATION: I certify the specified therapy services for Sang Motley are required, authorized, and reviewed every 30 days.
== END 2024-10-11 23:59 | disposition home or self-care (01) ==
LOC: PT 10:00
PROVIDERS: Visit Provider Family Medicine
DX: R53.1 Weakness (principal)
CPT/HCPCS: 97010; 97014; 97110; 97140; 97163; 97164; 97530; G0283

== ENCOUNTER 2024-10-16 11:00 | Outpatient (RCR) | payer BC, SELFPAY ==
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
--- NOTE | 2024-09-18 14:12 | HMH.RHREAS ---
Rehab Reassessment Rehab OP Re-assessment Start: 08/14/24 10:41 Freq: Status: Active Protocol: Document 09/18/24 14:05 BEE (Rec: 09/18/24 14:12 PHOKassieLUÍS [id number]) E-signed By Rafael Moscoso, PT Rehab Re-assessment Subjective Subjective Pt reports he feels less stiff on his right side overall. He does note, If I miss my medicine at night, I am more stiff when I wake up. But as long as I take my meds, I feel a lot better. Objective Objective Notes Edema: R axilla edema is MILDLY fibrotic at this point. Visual appearance and palpation show generally reduced R axilla and periscapular edema. Pain: Pain with activity of the R UE is 3/10 at this time. TTP: 1/4 R axilla. Assessment Progress Assessment Progressing as Expected Assessment Notes Pt has shown improvement in overall edema throughout the R flank at this time based on palpation of tissues. Skilled therapy remains indicated to reduce overall edema and pain and return pt to PLOF. Patient goals met ST/4 LT/5 Plan Plan Continue per initial POC. Frequency of Therapy 2-3 x/wk Duration of therapy 4 wks Time and Billing Re-Eval Time 11 Re-Eval Billing Units 1 Charge for PT reassessment? Yes PHYSICIAN CERTIFICATION: I certify the specified therapy services for Sang Motley are required, authorized, and reviewed every 30 days.
== END 2024-10-16 23:59 | disposition home or self-care (01) ==
LOC: PT 11:00
PROVIDERS: PCP Family Medicine; Visit Provider Nurse Practitioner Family
DX: R60.9 Edema, unspecified (principal); M54.6 Pain in thoracic spine; R07.81 Pleurodynia
CPT/HCPCS: 97140; 97163; 97164

== ENCOUNTER 2024-10-18 10:04 | Outpatient (RCR) | payer BC, SELFPAY | END 2024-10-18 23:59 | disposition home or self-care (01) | LOC: PT 10:04 | PROVIDERS: PCP Family Medicine; Visit Provider Nurse Practitioner Family | DX: S22.41XG Multiple fractures of ribs, right side, subsequent encounter for fracture with delayed healing (principal); S22.009G Unspecified fracture of unspecified thoracic vertebra, subsequent encounter for fracture with delayed healing ==

== ENCOUNTER 2024-10-30 10:00 | Outpatient (RCR) | payer BC, SELFPAY ==
--- NOTE | 2024-10-30 11:48 | HMH.RHREAS ---
Rehab Reassessment Rehab OP Re-assessment Start: 10/18/24 10:16 Freq: Status: Active Protocol: Document 10/30/24 11:26 PHORLUÍS (Rec: 10/30/24 11:47 PHORNE [id number]) E-signed By Rafael Moscoso, PT Rehab Re-assessment Subjective Subjective Pt reports he feels much more comfortable with all ambulation and standing activity and he no longer uses his cane for assistance. He does report stiffness with increased activity, but less pain overall. He desires to return to work at his prior activity level, but is unsure if he can perform a full 8 hour day at this time. Objective Objective Notes B SHLD PROM: FLEX= 0-180, ABD= 0-170, ER= 0-80 B SHLD MMT: FLEX 5/5, ABD 4+/5 , ER 5/5, IR 5/5 (all within available ROM) B LE MMT: HIP FLEX 5/5, ABD 5/ 5, KNEE FLEX 5/5, KNEE EXT 5/5 DGI: vs on IE Lumbar AROM: FLEX WFL, EXT 0- 10 DEG, R SB 0-15 DEG, L SB 0- 15 DEG. Standing: Pt can stand effectively for ~30 mins without much discomfort. He does continue to show increased forward flexion in the lumbar spine when fatigued at times. Assessment Progress Assessment Progressing as Expected Assessment Notes Pt has shown significant improvement in all strength via MMT and ROM of both shoulders and lumbar spine. He has increased his activity levels significantly since initial evaluation. 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 Pt has met all goals set forth for therapy on his initial evaluation at this time. Patient goals met ST/7 LT/9 Plan Plan Will d/c pt to wellness program to be performed independently. Definitely recommend further work conditioning/work hardening if pt does desire to return to his previous employment. Frequency of Therapy 0 Duration of therapy 0 Time and Billing Re-Eval Time 32 Re-Eval Billing Units 1 Charge for PT reassessment? Yes PHYSICIAN CERTIFICATION: I certify the specified therapy services for Sang Nuno Motley are required, authorized, and reviewed every 30 days.
== END 2024-10-30 23:59 | disposition home or self-care (01) ==
LOC: PT 10:00
PROVIDERS: Visit Provider Family Medicine
DX: R53.1 Weakness (principal)
CPT/HCPCS: 97110; 97164

== ENCOUNTER 2024-10-31 15:54 | Outpatient (RCR) | payer BC, SELFPAY | END 2024-10-31 23:59 | disposition home or self-care (01) | LOC: PT 15:54 | PROVIDERS: Visit Provider Family Medicine | DX: M54.50 Low back pain, unspecified (principal); G89.29 Other chronic pain; S22.009G Unspecified fracture of unspecified thoracic vertebra, subsequent encounter for fracture with delayed healing; S32.009G Unspecified fracture of unspecified lumbar vertebra, subsequent encounter for fracture with delayed healing; Z87.828 Personal history of other (healed) physical injury and trauma | CPT/HCPCS: 97760 ==

== ENCOUNTER 2024-11-12 10:58 | Outpatient (CLI) | payer SELFPAY ==
[2024-11-12 18:30] LABS: Basophils # 0.1 K/mm3 (0-0.2); Basophils % 0.8 % (0.1-2.0); Eosinophils # 0.1 K/mm3 (0.0-0.4); Eosinophils % 0.9 % (0.1-12.0); Hematocrit 45.6 % (42.0-52.0); Lymphocytes # 2.6 K/mm3 (0.7-4.5); Lymphocytes % 21.4 % (10-50); Mean Corpuscular HGB Conc 30.7 g/dL (31.8-35.4); Mean Corpuscular Hemoglobin 27.1 pg (27.0-31.2); Mean Corpuscular Volume 88.4 fl (80-94); Mean Platelet Volume 12.8 fl (7.4-10.4); Monocytes # 0.9 K/mm3 (0.1-1.0); Monocytes % 7.6 % (1.7-9.3); Neutrophils # 8.2 K/mm3 (1.8-7.8); Neutrophils % 68.9 % (37.0-80.0); Platelet Count 123 K/mm3 (142-424); Red Blood Count 5.16 M/mm3 (4.60-6.20); Red Cell Distribution Width 15.9 % (11.5-17.5); White Blood Count 11.9 K/mm3 (4.8-10.8)
[2024-11-12 19:16] LABS: Albumin Level 4.2 g/dl (3.5-5.0); Chloride 101 mmol/L (98-107); Potassium 4.4 mmoL/L (3.5-5.1); Sodium 137 mmol/L (136-145)
[2024-11-12 19:18] LABS: Blood Urea Nitrogen 9 mg/dl (9-20); Estimated Glomerular Filt Rate 176 ml/min (>60); GFR (African American) 213 ML/MIN (>60)
[2024-11-12 19:19] LABS: Alanine Aminotransferase 50 U/L (12-78); Albumin/Globulin Ratio 1.5 (1.1-1.8); Alkaline Phosphatase 99 U/L (38-126); Anion Gap 16.4 mEq/L (5-15); Aspartate Amino Transferase 36 U/L (17-59); Bilirubin,Total 0.5 mg/dl (0.2-1.3); Calcium 9.1 mg/dl (8.4-10.2); Carbon Dioxide 24 mmol/L (22.0-30.0); Chol/HDL Ratio 4.5 (1-3.5); Cholesterol 134 mg/dl (140-200); Globulin 2.8 g/dL (1.3-3.2); Glucose 152 mg/dl (74-100); HDL Cholesterol 30 mg/dl (40-60); Triglycerides 107 mg/dl (30-150); VLDL Cholesterol 21 mg/dL (0-40)
[2024-11-12 19:37] LABS: Direct LDL Cholesterol 84.68 mg/dL (100-129)
[2024-11-12 20:23] LABS: Hepatitis C Ab Qual. W/ RFX NEGATIVE (Negative)
[2024-11-12 20:28] LABS: HIV Combo NEGATIVE (Negative)
[2024-11-12 21:26] LABS: Hemoglobin A1C 6.6 % (4.0-6.0)
== END 2024-11-12 23:59 | disposition home or self-care (01) ==
LOC: LAB.DROPOF 11-13 12:06
PROVIDERS: PCP Family Medicine; Visit Provider Family Medicine
DX: E11.29 Type 2 diabetes mellitus with other diabetic kidney complication (principal); R80.9 Proteinuria, unspecified; I10 Essential (primary) hypertension; Z11.59 Encounter for screening for other viral diseases; Z11.4 Encounter for screening for human immunodeficiency virus [HIV]; Z79.899 Other long term (current) drug therapy
CPT/HCPCS: 80053; 80061; 83036; 85025; 86803; 87389

== ENCOUNTER 2024-11-15 07:52 | Outpatient (CLI) | payer BC, SELFPAY ==
--- NOTE | 2024-11-15 07:52 | US_ITS ---
FINAL REPORT CLINICAL HISTORY: poss Fluid collection rt lat chest under axillary region FINDINGS: Limited sonographic images of the right lateral chest were obtained. No anechoic structures are seen at the level of the abnormality. Fat lobules are noted, may represent a lipoma however the prior CT dated 08/23/2023 do not demonstrate lipomas. IMPRESSION: Fat lobules, may represent lipomas. Consider CT or MRI. Reviewed, Interpreted and Dictated by Antonio Franklin MD Transcribed by Carol Sands Authenticated and [facility]
== END 2024-11-15 23:59 | disposition home or self-care (01) ==
LOC: RAD 07:52
PROVIDERS: PCP Family Medicine; Visit Provider Family Medicine
DX: R18.8 Other ascites (principal)
CPT/HCPCS: 76604

== ENCOUNTER 2024-12-05 09:43 | Outpatient (CLI) | payer BC, SELFPAY ==
[2024-12-05 09:58] LABS: Basophils # 0.1 K/mm3 (0-0.2); Eosinophils # 0.1 K/mm3 (0.0-0.4); Eosinophils % 0.8 % (0.1-12.0); Hematocrit 46.8 % (42.0-52.0); Hemoglobin 14.8 g/dL (14.1-18.0); Lymphocytes # 2.6 K/mm3 (0.7-4.5); Lymphocytes % 22.3 % (10-50); Mean Corpuscular HGB Conc 31.6 g/dL (31.8-35.4); Mean Corpuscular Hemoglobin 27.3 pg (27.0-31.2); Mean Corpuscular Volume 86.3 fl (80-94); Monocytes # 0.8 K/mm3 (0.1-1.0); Monocytes % 6.8 % (1.7-9.3); Neutrophils # 8.1 K/mm3 (1.8-7.8); Neutrophils % 68.2 % (37.0-80.0); Platelet Count 270 K/mm3 (142-424); Red Blood Count 5.42 M/mm3 (4.60-6.20); Red Cell Distribution Width 15.6 % (11.5-17.5); White Blood Count 11.9 K/mm3 (4.8-10.8)
[2024-12-05 10:17] LABS: Albumin Level 4.8 g/dl (3.5-5.0); Chloride 101 mmol/L (98-107); Sodium 142 mmol/L (136-145)
[2024-12-05 10:18] LABS: Potassium 4.2 mmoL/L (3.5-5.1)
[2024-12-05 10:20] LABS: Alanine Aminotransferase 47 U/L (12-78); Anion Gap 14.2 mEq/L (5-15); Aspartate Amino Transferase 34 U/L (17-59); Blood Urea Nitrogen 7 mg/dl (9-20); Carbon Dioxide 31 mmol/L (22.0-30.0); Estimated Glomerular Filt Rate 143 ml/min (>60); GFR (African American) 173 ML/MIN (>60)
[2024-12-05 10:21] LABS: Albumin/Globulin Ratio 1.5 (1.1-1.8); Alkaline Phosphatase 104 U/L (38-126); Bilirubin,Total 0.4 mg/dl (0.2-1.3); Calcium 9.3 mg/dl (8.4-10.2); Globulin 3.2 g/dL (1.3-3.2); Glucose 178 mg/dl (74-100)
[2024-12-06 08:15] LABS: CEA 4.6 ng/mL (0.0-4.7)
== END 2024-12-05 23:59 | disposition home or self-care (01) ==
LOC: LAB 09:44
PROVIDERS: PCP Family Medicine; Visit Provider Internal Medicine Medical Oncology
DX: C18.0 Malignant neoplasm of cecum (principal)
CPT/HCPCS: 36415; 80053; 82378; 85025

== ENCOUNTER 2025-03-07 15:47 | Outpatient (CLI) | payer BC, SELFPAY ==
[2025-03-07 16:10] LABS: Basophils # 0.1 K/mm3 (0-0.2); Basophils % 0.7 % (0.1-2.0); Eosinophils # 0.1 Kmm3 (0.0-0.4); Eosinophils % 0.7 % (0.1-12.0); Hematocrit 40.2 % (42.0-52.0); Immature Granulocytes # 0.07 10^3uL; Immature Granulocytes % 0.6 %; Lymphocytes # 2.4 K/mm3 (0.7-4.5); Lymphocytes % 19.6 % (10-50); Mean Corpuscular HGB Conc 32.3 g/dL (31.8-35.4); Mean Corpuscular Hemoglobin 28.2 pg (27.0-31.2); Mean Corpuscular Volume 87.2 fl (80-94); Mean Platelet Volume 11.2 fl (7.4-10.4); Monocytes % 8.4 % (1.7-9.3); Neutrophils # 8.5 K/mm3 (1.8-7.8); Nucleated Red Blood Cells # 0 10^3/uL; Nucleated Red Blood Cells % 0 %; Platelet Count 240 K/mm3 (142-424); Red Blood Count 4.61 M/mm3 (4.60-6.20); Red Cell Distribution Width 14.8 % (11.5-17.5); Red Cell Distribution Width-SD 47.5 fL; White Blood Count 12.1 K/mm3 (4.8-10.8)
[2025-03-07 16:49] LABS: Alanine Aminotransferase 32 U/L (12-78); Albumin Level 4.1 g/dl (3.5-5.0); Albumin/Globulin Ratio 1.5 (1.1-1.8); Alkaline Phosphatase 94 U/L (38-126); Anion Gap 10.9 mEq/L (5-15); Aspartate Amino Transferase 30 U/L (17-59); Bilirubin,Total 0.5 mg/dl (0.2-1.3); Blood Urea Nitrogen 11 mg/dl (9-20); Carbon Dioxide 29 mmol/L (22.0-30.0); Chloride 102 mmol/L (98-107); Estimated Glomerular Filt Rate 175 ml/min (>60); GFR (African American) 212 ML/MIN (>60); Globulin 2.7 g/dL (1.3-3.2); Glucose 128 mg/dl (74-100); Potassium 3.9 mmoL/L (3.5-5.1); Sodium 138 mmol/L (136-145); Total Protein,Serum 6.8 g/dl (6.3-8.2)
[2025-03-08 08:13] LABS: CEA 4.9 ng/mL (0.0-4.7)
== END 2025-03-07 23:59 | disposition home or self-care (01) ==
LOC: LAB 15:47
PROVIDERS: PCP Family Medicine; Visit Provider Internal Medicine Medical Oncology
DX: C18.0 Malignant neoplasm of cecum (principal)
CPT/HCPCS: 36415; 80053; 82378; 85025

== ENCOUNTER 2025-04-22 16:00 | Outpatient (CLI) | payer BC, SELFPAY ==
--- OUTSIDE RECORDS SUMMARY | 2025-04-23 07:30 | XMS_ITS | Clinical Summary ---
Author Organization Healthcare Address [address] [place] [address] Care Team Providers Care Auto Transmission Specialist Name Role Phone Edvin Rome MD Primary Care Provider [phone] Social History Tobacco Use Types Packs/Day Years Used Date Smoking Tobacco: Never Assessed Sex and Gender Information Value Date Recorded Sex Assigned at Male 05/23/2024 4:59 PM EDT Legal Sex Male 9:01 AM EST Gender Identity Male 05/23/2024 4:59 PM EDT Sexual Orientation Straight 05/23/2024 4: 59 PM EDT Plan of Treatment Health Maintenance Due Date Last Done Comments [facility]-Depression Screening 1974 [facility]-/Child/Adol SDOH Screenings 1974 [facility]- SDOH Screenings 01/28/1992 [facility]-Adult SDOH Screenings 01/28/1992 [facility]-DTaP,Tdap,and Td Vaccine s (1 - Tdap) 1993 [facility]-Hepatitis B Vaccines (1 of 3 - 19+ 3-dose series) 1993 CT Colonography 2019 Colonoscopy 2019 FIT-DNA 2019 FIT 2019 FOBT 2019 Sigmoidoscopy 2019 [facility]-Colorectal Cancer Screening 2019 [facility]-Pneumococcal Vaccine: 50 + Years (1 of 1 - PCV) 01/28/2024 [facility]-Zoster Vaccines (1 of 2) 01/28/2024 [id number] Vaccine (1 - 20 24-25 season) 2024 [facility]-Influenza Vaccine (#1) 2025 HPV Vaccines Aged Out No longer eligi ble based on patient's age to complete this topic [facility]-HIB Vaccines Aged Out No longer e ligible based on patient's age to complete this topic [facility]-Hepatitis A Vaccines Aged Out No longer eligible based on patient's age to complete this topic [facility]-IPV Vaccines Aged Out No longer e ligible based on patient's age to complete this topic [facility]-Rotavirus Vaccines Aged Out No lo nger eligible based on patient's age to complete this topic Insurance ANTH Care Teams Auto Transmission Specialist Relationship Specialty Start Date End Date Edvin Rome MD PCP - General 08/31/23
--- OUTSIDE RECORDS SUMMARY | 2025-04-23 07:30 | XMS_ITS | Patient Health Record ---
Author Organization [facility] Jet Mart[facility]nez Address [address] [place] [address] Care Team Providers Care Reinforcing Steel Worker Wire Mesh Name Role Phone Luigi Howard Primary Care Provider Reason For Referral No Information Problems Problem Type SNOMED Code ICD Code Onset Dates Problem Status W/U Status Risk Notes Problem Cough (62617613) Cough (786.2) 04/07/2012 Active confirmed Problem BENIGN ESSENTIAL HYPERTENSION (401.1) 04/07/2012 Active confirmed Plan Of Treatment No Information Insurance Providers Payer Name Payer Address Payer Phone Subscriber Number Group Number Insured Name Patient Relationship to Insured Coverage Start Date Coverage End Date [facility] [place] [address] [address] [place] [phone] [id number] HELDER ALTAMIRANO Self - patient is the insured
--- OUTSIDE RECORDS SUMMARY | 2025-04-23 07:30 | XMS_ITS | Patient Health Record ---
Author Organization [place] [facility] Address [address] [facility] [place] [address] Care Team Providers Care Production Machine Computer Operator Name Role Phone Siddhartha Huddleston D.O. Primary Care Provider Unavail able Siddhartha Huddleston Unavailable Unavailable Reason For Referral No Information Problems Problem Type SNOMED Code ICD Code Onset Dates Problem Status W/U Status Risk Notes Problem Type II diabetes mellitus without complication (454456696) Type 2 diabetes mellitus without complications (E11.9) 8 Active confirmed Problem Essential (primary) hypertension (I10) 8 Active confirmed Plan Of Treatment No Information
== END 2025-04-22 23:59 | disposition home or self-care (01) ==
LOC: LAB.DROPOF 04-23 07:28
PROVIDERS: PCP Family Medicine; Visit Provider Family Medicine
DX: Z12.5 Encounter for screening for malignant neoplasm of prostate (principal)
CPT/HCPCS: G0103

== ENCOUNTER 2025-06-06 15:44 | Outpatient (CLI) | payer BC, SELFPAY ==
--- OUTSIDE RECORDS SUMMARY | 2025-06-06 15:46 | XMS_ITS | Clinical Summary ---
Author Organization Healthcare Address [address] [place] [address] Care Team Providers Care Title Curative Specialist Name Role Phone Edvin Rome MD Primary Care Provider [phone] Social History Tobacco Use Types Packs/Day Years [...] 01/28/2024 [facility]-Zoster Vaccines (1 of 2) 01/28/2024 [id number] Vaccine (1 - 20 24-25 season) 2024 [...] complete this topic Insurance ANTH Care Teams Title Curative Specialist Relationship Specialty Start Date End Date Edvin Rome MD PCP - General 08/31/23
[2025-06-06 16:46] LABS: Hematocrit 40.0 % (42.0-52.0); Hemoglobin 13.0 g/dL (14.1-18.0); Immature Granulocytes % 0.4 %; Mean Corpuscular HGB Conc 32.5 g/dL (31.8-35.4); Mean Corpuscular Hemoglobin 28.3 pg (27.0-31.2); Mean Corpuscular Volume 87.0 fl (80-94); Nucleated Red Blood Cells % 0 %; Platelet Count 136 K/mm3 (142-424); Red Blood Count 4.60 M/mm3 (4.60-6.20); Red Cell Distribution Width-SD 46.9 fL; White Blood Count 8.4 K/mm3 (4.8-10.8)
[2025-06-06 18:38] LABS: Albumin Level 4.2 g/dl (3.5-5.0); Chloride 105 mmol/L (98-107); Potassium 4.0 mmoL/L (3.5-5.1); Sodium 142 mmol/L (136-145)
[2025-06-06 18:40] LABS: Blood Urea Nitrogen 10 mg/dl (9-20); Creatinine,Serum 0.50 mg/dl (0.66-1.25); Estimated Glomerular Filt Rate 175 ml/min (>60); GFR (African American) 212 ML/MIN (>60)
[2025-06-06 18:41] LABS: Alanine Aminotransferase 40 U/L (12-78); Albumin/Globulin Ratio 1.6 (1.1-1.8); Alkaline Phosphatase 90 U/L (38-126); Anion Gap 14.0 mEq/L (5-15); Aspartate Amino Transferase 37 U/L (17-59); Bilirubin,Total 0.4 mg/dl (0.2-1.3); Calcium 8.9 mg/dl (8.4-10.2); Carbon Dioxide 27 mmol/L (22.0-30.0); Globulin 2.7 g/dL (1.3-3.2); Glucose 121 mg/dl (74-100); Total Protein,Serum 6.9 g/dl (6.3-8.2)
[2025-06-08 04:23] LABS: CEA 4.0 ng/mL (0.0-4.7)
== END 2025-06-06 23:59 | disposition home or self-care (01) ==
LOC: LAB 15:44
PROVIDERS: PCP Family Medicine; Visit Provider Internal Medicine Medical Oncology
DX: C18.0 Malignant neoplasm of cecum (principal)
CPT/HCPCS: 36415; 80053; 82378; 85025

== ENCOUNTER 2025-06-19 17:36 | Emergency (ER) | payer BC, SELFPAY ==
[2025-06-19] VITALS (7 sets, daily range): BP systolic 108–168; BP diastolic 72–90; PULSE 76–86; RESP 16; TEMP 36.4–36.7; O2SAT 93–100; BMI 36.6
--- OUTSIDE RECORDS SUMMARY | 2025-06-19 17:53 | XMS_ITS | Patient Health Record ---
Author Organization [place] [facility] Address [address] [place] [address] Care Team Providers Care Assembler Finger Buffs Name Role Phone Siddhartha Huddleston D.O. Primary Care Provider Unavail able Siddhartha Huddleston Unavailable Unavailable Reason For Referral No Information Problems Problem Type SNOMED Code ICD Code Onset Dates Problem Status W/U Status Risk Notes Problem Type II diabetes mellitus without complication (163825466) Type 2 diabetes mellitus without complications (E11.9) 8 Active confirmed Problem Essential hypertension (11592395) Essential (primary) hypertension (I10) 8 Active confirmed Plan Of Treatment No Information
--- OUTSIDE RECORDS SUMMARY | 2025-06-19 17:53 | XMS_ITS | Patient Health Record ---
Author Organization [facility] Jet Martínez Address [address] [place] [address] Care Team Providers Care Public Information Specialist Name Role Phone Luigi Howard Primary Care Provider [phone] Reason For Referral No Information Problems Problem Type SNOMED Code ICD Code Onset Dates Problem Status W/U Status Risk Notes Problem Cough (48280638) Cough (786.2) 2 Active confirmed Problem Benign essential hypertension (5178836) BENIGN ESSENTIAL HYPERTENSION (401.1) 2 Active confirmed Plan Of Treatment No Information Insurance Providers Payer Name Payer Address Payer Phone Subscriber Number Group Number Insured Name Patient Relationship to Insured Coverage Start Date Coverage End Date [facility] [address] [address] [place] [phone] [id number] HELDER ALTAMIRANO Self - patient is the insured
--- OUTSIDE RECORDS SUMMARY | 2025-06-19 17:53 | XMS_ITS | Clinical Summary ---
Author Organization Healthcare Address [address] [place] [address] Care Team Providers Care Production Team Advisor Name Role Phone Edvin Rome MD Primary Care Provider [phone] Social History Tobacco Use Types Packs/Day Years Used Date Smoking Tobacco: Never Assessed Sex and Gender Information Value Date Recorded Sex Assigned at Male 05/23/2024 4:59 PM EDT Legal Sex Male 9:01 AM EST Gender Identity Male 05/23/2024 4:59 PM EDT Sexual Orientation Straight 05/23/2024 4: 59 PM EDT Plan of Treatment Health Maintenance Due Date Last Done Comments [facility]-Depression Screening 1974 [facility]-Infant/Child/Adol SDOH Screenings 1974 [facility]- SDOH Screenings 01/28/1992 [...] 01/28/2024 [facility]-Zoster Vaccines (1 of 2) 01/28/2024 [id number] Vaccine (1 - 20 24-25 season) 2024 [...] complete this topic Insurance ANTH Care Teams Production Team Advisor Relationship Specialty Start Date End Date Edvin Rome MD PCP - General 08/31/23
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
--- NOTE | 2025-06-19 19:03 | CT_ITS ---
PROCEDURE INFORMATION: Exam: CT Thoracic Spine Without Contrast Exam date and time: 06/19/2025 7:39 PM Age: 50 years old Clinical indication: Injury or trauma; Fall; Blunt trauma (contusions or hematomas); Additional info: Pain with trauma TECHNIQUE: Imaging protocol: Computed tomography of the thoracic spine without contrast. Radiation optimization: All CT scans at this facility use at least one of these dose optimization techniques: automated exposure control; mA and/or kV adjustment per patient size (includes targeted exams where dose is matched to clinical indication); or iterative reconstruction. COMPARISON: CR XR THORACIC SPINE 3V 04/03/2024 12:23 PM FINDINGS: Bones/joints: There is bilateral posterior mendoza and transpedicular screw stabilization of T2 through T8 that appears intact. Normal bony alignment of the thoracic spine with mild spondylosis. No acute compression fracture identified. Right posterior osteophyte formation at T9-T10. The mendoza and screw stabilization of the lumbar spine that is visualized on the medical insurance claims specialist images partially demonstrated at L1. There also is plate and screw stabilization of the right clavicle and 3 right lateral ribs demonstrated on the medical insurance claims specialist image. Soft tissues: Unremarkable. IMPRESSION: No acute thoracic spine fracture. No significant change in the appearance of the thoracic spine compared to the CT chest September 07, 2024.
--- NOTE | 2025-06-19 19:03 | CT_ITS ---
PROCEDURE INFORMATION: Exam: CT Lumbar Spine Without Contrast Exam date and time: 06/19/2025 7:42 PM Age: 50 years old Clinical indication: Injury or trauma; Fall; Blunt trauma (contusions or hematomas); Additional info: Pain with trauma TECHNIQUE: Imaging protocol: Computed tomography of the lumbar spine without contrast. Radiation optimization: All CT scans at this facility use at least one of these dose optimization techniques: automated exposure control; mA and/or kV adjustment per patient size (includes targeted exams where dose is matched to clinical indication); or iterative reconstruction. COMPARISON: CR XR LUMBAR SPINE MIN 4V 04/03/2024 12:23 PM FINDINGS: Tubes, catheters and devices: There is intact posterior mendoza and transpedicular screw stabilization bilaterally from L1 through S1. Bones/joints: There is a moderate old L4 superior vertebral body endplate compression fracture. There is a mild old L2 superior vertebral body endplate compression fracture. No acute bony abnormality is identified. The lumbar vertebral bodies are grossly aligned. There is posterior osteophyte formation that is most prominent at L1-L2. Soft tissues: Unremarkable. IMPRESSION: No acute lumbar spine fracture. Stable spinal stabilization. No significant change from the CT abdomen and pelvis September 07, 2024 or the lumbar spine series April 03, 2024 appreciated.
[2025-06-19] MEDS: ONDANSETRON 4MG/2ML VIAL 4 MG IV (19:23)
[2025-06-19] MEDS: HYDROMORPHONE 2MG/ML SYRINGE 1 MG IV (19:25)
[2025-06-19 19:30] LABS: Hematocrit 40.1 % (42.0-52.0); Hemoglobin 13.1 g/dL (14.1-18.0); Immature Granulocytes % 0.2 %; Mean Corpuscular HGB Conc 32.7 g/dL (31.8-35.4); Mean Corpuscular Hemoglobin 27.9 pg (27.0-31.2); Mean Corpuscular Volume 85.3 fl (80-94); Nucleated Red Blood Cells % 0 %; Platelet Count 177 K/mm3 (142-424); Red Blood Count 4.70 M/mm3 (4.60-6.20); Red Cell Distribution Width-SD 44.9 fL; White Blood Count 8.0 K/mm3 (4.8-10.8)
[2025-06-19 19:45] LABS: Albumin Level 4.3 g/dl (3.5-5.0); Chloride 107 mmol/L (98-107)
[2025-06-19 19:46] LABS: Potassium 3.3 mmoL/L (3.5-5.1); Sodium 142 mmol/L (136-145)
[2025-06-19 19:48] LABS: Activated Partial Thrombo Time 24.5 seconds (22.8-30.6); Alanine Aminotransferase 38 U/L (12-78); Alkaline Phosphatase 81 U/L (38-126); Anion Gap 12.3 mEq/L (5-15); Aspartate Amino Transferase 41 U/L (17-59); Bilirubin,Total 0.6 mg/dl (0.2-1.3); Blood Urea Nitrogen 9 mg/dl (9-20); Carbon Dioxide 26 mmol/L (22.0-30.0); Creatinine Clearance Estimated 357 mL/min (50-200); Creatinine,Serum 0.40 mg/dl (0.66-1.25); Estimated Glomerular Filt Rate 227 ml/min (>60); GFR (African American) 274 ML/MIN (>60); INR 1.06 (0.9-1.1); Prothrombin Time 11.7 seconds (10.1-12.5)
[2025-06-19 19:49] LABS: Albumin/Globulin Ratio 1.3 (1.1-1.8); Calcium 9.5 mg/dl (8.4-10.2); Globulin 3.4 g/dL (1.3-3.2); Glucose 139 mg/dl (74-100); Total Protein,Serum 7.7 g/dl (6.3-8.2)
--- NOTE | 2025-06-19 20:18 | PC.NURSE ---
Spoke with , awaiting a call back at this time
--- NOTE | 2025-06-19 20:46 | PC.NURSE ---
Urinal given and instructed to attempt to void for bladder scan after for post void residual.
--- NOTE | 2025-06-19 21:00 | PC.NURSE ---
Paola PA speaking with at this time.
== END 2025-06-19 21:44 | disposition short-term general hospital (02) ==
PROVIDERS: Nurse Practitioner Family; Emergency Provider Student in an Organized Health Care Education/Training Program; PCP Family Medicine
DX: N39.498 Other specified urinary incontinence (principal); S39.012A Strain of muscle, fascia and tendon of lower back, initial encounter; E87.6 Hypokalemia; W01.198A Fall on same level from slipping, tripping and stumbling with subsequent striking against other object, initial encounter; Z98.1 Arthrodesis status
CPT/HCPCS: 51798; 72128; 72131; 80053; 85025; 85610; 85730; 96374; 96375; 99284; 99285; J1171; J2405

== ENCOUNTER 2025-08-12 12:25 | Outpatient (CLI) | payer BC, SELFPAY ==
--- OUTSIDE RECORDS SUMMARY | 2025-06-19 22:20 | XMS_ITS | Encounter Summary ---
Author Organization Healthcare Address [address] [place] [address] Care Team Providers Care Charhouse Worker Name Role Phone Edvin Rome MD Primary Care Provider [phone] Reason for Referral * Consultation (Routine) - Closed Specialty Diagnoses / Procedures Referred By Contac t Referred To Contact Neurosurgery Diagnoses Closed fracture of eleventh thoracic vertebra, unspecified fracture morphology, initial encounter ([facility]) Nury Leo MD [address] [address] Phone: tel: fax: Referral ID Status Reason Start Date Expiration Date V isits Requested Visits Authorized [id number] Closed Specialty Services Required 06/20/2025 12/20/2026 1 1 Scheduling Instructions With Canelo Miner MD Reason for Visit * Reason Comments Trauma Alert Fall * Auth/Cert (Routine) Specialty Diagnoses / Procedures Referred By Contac t Referred To Contact Diagnoses Fall from slip, trip, or stumble, initial encounter cauda equina Nury Leo MD [address] [address] Phone: tel: fax: [facility] [address] [place] [address] Phone: tel: Referral ID Status Reason Start Date Expiration Date Visits Re quested Visits Authorized [id number] 1 1 Encounter Details Date Type Department Care Team (Latest Contact Info) Description 06/19/2025 10:20 PM EDT - 06/21/2025 6:20 PM EDT Hospital Encounter [facility] [address] [phone] Amy Argueta MD [address] [place] [address] Amy Cespedes MD [address] [place] [address] Nury Leo MD [address] [facility] [address] [place] [address] Fall, initial encounter (Primary Dx); Acute midline low back pain without sciatica; Closed fracture of eleventh thoracic vertebra, unspecified fracture morphology, initial encounter (CMS/HCC); Other closed fracture of eleventh thoracic vertebra, initial encounter (CMS/HCC); Other closed fracture of tenth thoracic vertebra, initial encounter (CMS/HCC) Discharge Disposition: Home or Self Care Social History Tobacco Use Types Packs/Day Years Used Date Smoking Tobacco: Never Assessed Sex and Gender Information Value Date Recorded Sex Assigned at Male 05/23/2024 4:59 PM EDT Legal Sex Male 9:01 AM EST Gender Identity Male 05/23/2024 4:59 PM EDT Sexual Orientation Straight 05/23/2024 4: 59 PM EDT documented as of this encounter Last Filed Vital Signs Vital Sign Reading Time Taken Comments Blood Pressure 127/51 06/21/2025 3:43 PM EDT Pulse 70 06/21/2025 3:43 PM EDT Temperature 36.3 C (97.4 F) 06/21/2025 3:43 PM EDT Respiratory Rate 17 06/21/2025 12:00 PM EDT Oxygen Saturation 96% 06/21/2025 3:43 PM EDT Inhaled Oxygen Concentration - - Weight 114 kg (251 lb 5.2 oz) 06/20/2025 12:49 A M EDT Height 177.8 cm (5' 10 ) 06/20/2025 12:49 AM EDT Body Mass Index 36.06 06/20/2025 12:49 AM EDT documented in this encounter Functional Status * Calculated C-SSRS Risk Score (Lifetime/Recent) Answer Date of Assessment Author No Risk Indicated 06/20/2025 7:00 AM EDT Massimo Marinelli RN * Question Answer Date of Assessment Author 1. Wish to be (Past 1 Month) No 025 7:00 AM EDT Tiny Marinelli RN 2. Non-Specific Active Suici yuli Thoughts (Past 1 Month) No 06/20/2025 7:00 AM EDT Tiny Marinelli RN 6. Suicidal Behavior (Lifetime) No 7:00 AM EDT Tiny Marinelli RN documented as of this encounter Discharge Instructions * Discharge Instructions* Hui Canales, CLIENT PROFESSIONAL, DNP - 06/21/2025 3:48 PM EDT DVT prophylaxis: None on discharge Restrictions: TLSO when out of bed x12 weeks (09/19), fit supine Incidental Findings: Age-indeterminate compression fracture of L4, likely chronic L DDD with moderate to severe neural foraminal narrowing Follow up appointments: Follow up with PCP within one week after discharge for post hospitalization visit, chronic medical conditions and incidental findings. NSGY: Please follow up in the Neurosurgery Clinic in ~4 weeks with repeat thoracic spine xrays. Referred on discharge, will be contacted on appointment date/time. Follow up with Trauma clinic as needed. [address] [place] [address] Clinic First Floor, [address] [address] [address], #[phone]. Questions or Concerns and Appointments If there are questions or concerns after discharge from the hospital, please call [phone] and ask for Blue Surgery Nurse. Working hours are Tuesday - Tuesday 8:00 AM to 4:00 PM. After hours, weekends and holidays please call [phone] and ask for the resident environmental scientists for Blue Surgery. For appointments please call [phone]. Medication requests should be made between the hours of 9:00 AM to 3:00 PM Tuesday thru Tuesday. Please note that based upon recent changes to [place] law related to prescribing opioid pain medications, our providers will not provide refills on controlled medications after your hospital discharge following a major surgery or trauma. [place], [place] 201 [id number]:260. documented in this encounter Medications at Time of Discharge atorvastatin (Lipitor) 10 MG tablet Take 1 tablet by mouth daily. gabapentin (Neurontin) 300 MG capsule Take 1 capsule by mouth daily. gabapentin (Neurontin) 600 MG tablet Take 1 tablet by mouth nightly. glyBURIDE micronized (Glynase) 3 MG tablet Take 1 tablet by mouth 2 times a day. losartan (Cozaar) 25 MG tablet Take 1 tablet by mouth daily. metFORMIN (Glucophage) 850 MG tablet Take 1 tablet by mouth 2 times a day. methocarbamol (Robaxin) 500 MG tablet Take 2 tablets by mouth 4 times a day for 14 days. 112 tablet 06/21/2025 metoprolol succinate XL (Toprol-XL) 100 MG 24 hr tablet Take 1 tablet by mouth daily. Do not crush or chew. oxyCODONE-acetam inophen (Percocet) 10-325 MG tablet Take 1 tablet by mouth every 12 hours as needed for severe pain. tolterodine LA (Detrol LA) 2 MG 24 hr capsule Take 1 capsule by mouth daily. Do not crush, chew, or split. acetaminophen (Tylenol) 325 MG tablet Take 2 tablets by mouth every 6 hours for 14 days. Under [place] law, monthly prescriptions (30 days) can be refilled at 25 days and three-month prescriptions (90 days) at 80 days. Please contact the insurance company with questions if refills are denied. 100 tablet 06/21/2025 5 ibuprofen 600 MG tablet Take 1 tablet by mouth every 6 hours for 14 days. 56 tablet 06/21/2025 5 oxyCODONE (Roxicodone) 15 MG immediate release tablet Take 1 tablet by mouth every 4 hours as needed for severe pain for up to 3 days. 18 tablet 06/21/2025 5 senna-docusate (Madyson-Colace) 8.6-50 MG tablet Take 1 tablet by mouth nightly for 7 days. 7 tablet 06/21/2025 5 documented as of this encounter Miscellaneous Notes * Discharge Summary - Hui Canales, CLIENT PROFESSIONAL, DNP - 06/21/2025 3:48 PM EDT Images from the original note were not included. Hospitalization Admit Date/Time: 06/19/2025 10:20 PM Admitting Attending: Nury Leo Discharge Date: 06/21/25 Discharge Attending Physician: Nury Leo MD PCP name and Address: Edvin Rome MD [address] [address] Referring provider name and address: Xavier Le MD [address] [place] [address] Chief Concern, Brief History of Present Illness, and Hospital Course HPI: Sang Motley is a 50 y.o. male with PMH of HTN, DM2, urge incontinence, colon cancer s/p partial colectomy ('23), prior T spine fx s/p T2-8 fusion/L1-S1 fusion presents from OSH on 06/20 after fallin grass 5 days prior. +ETOH. Injuries include: T10-11 fx Physical therapy and occupational therapy evaluated the patient during hospitalization and recommends home with assist. Past 24 hours: Patient sitting up in bed A&O. VSS. NAD. On RA, no SOA. Tolerating PO diet, no N/V, abd pain. 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 TLSO delivered today. Patient worked with PT/OT who recommend home with assist. Discussed mobility and driving/work precautions. Fax number and providers' names were also provided for possible FMLA paperwork. Will provide patient with work excuse. Pain well controlled on current regimen. Patient lives alone, has friends who can help him in the first couple days after discharge and transportation for follow up appointments. Denies tobacco use and ETOH use. Discussed plan of care with patient, who is in understanding. No further concerns per patient or nursing. At the time of discharge the patient was hemodynamically stable, tolerating PO, voiding spontaneously, normal bowel function, mobilizing appropriately, with their pain controlled with PO medication. At this time, the patient has obtained the maximum benefit from the present hospital stay, and so will be discharged home. DVT prophylaxis: None on discharge Restrictions: TLSO when out of bed x12 weeks (09/19), fit supine Incidental Findings: Age-indeterminate compression fracture of L4, likely chronic L DDD with moderate to severe neural foraminal narrowing Follow up appointments: Follow up with PCP within one week after discharge for post hospitalization visit, chronic medical conditions and incidental findings. NSGY: Please follow up in the Neurosurgery Clinic in ~4 weeks with repeat thoracic spine xrays. Referred on discharge, will be contacted on appointment date/time. Follow up with Trauma clinic as needed. [address] [place] [address] First Floor, Wing [address] [place] [address], #[phone]. Questions or Concerns and Appointments If there are questions or concerns after discharge from the hospital, please call [phone] and ask for Blue Surgery Nurse. Working hours are Tuesday - Tuesday 8:00 AM to 4:00 PM. After hours, weekends and holidays please call [phone] and ask for the resident environmental scientists for Blue Surgery. For appointments please call [phone]. Medication requests should be made between the hours of 9:00 AM to 3:00 PM Tuesday thru Tuesday. Please note that based upon recent changes to [place] law related to prescribing opioid pain medications, our providers will not provide refills on controlled medications after your hospital discharge following a major surgery or trauma. [place], [place] 201 [place]:260. TRAUMA SURGERY TERTIARY SURVEY I performed a complete tertiary exam, reviewed patient history, lab studies and all available imaging. All traumatic or incidental findings have been documented as below: Past Medical History: Active Ambulatory Problems Diagnosis Date Noted No Active Ambulatory Problems Resolved Ambulatory Problems Diagnosis Date Noted No Resolved Ambulatory Problems No Additional Past Medical History Past Surgical History: Surgical History[1] Home Medications: Prior to Admission medications Medication Sig Start Date End Date Taking? Authorizing Provider acetaminophen (Tylenol) 325 MG tablet Take 2 tablets by mouth every 6 hours for 14 days. Under [place] law, monthly prescriptions (30 days) can be refilled at 25 days and three-month prescriptions (90 days) at 80 days. Please contact the insurance company with questions if refills are denied. 06/21/25 07/05/25 Yes Hui Canales, CLIENT PROFESSIONAL, DNP atorvastatin (Lipitor) 10 MG tablet Take 1 tablet by mouth daily. Yes Provider, Historical gabapentin (Neurontin) 300 MG capsule Take 1 capsule by mouth daily. Yes Provider, Historical gabapentin (Neurontin) 600 MG tablet Take 1 tablet by mouth nightly. Yes Provider, Historical glyBURIDE micronized (Glynase) 3 MG tablet Take 1 tablet by mouth 2 times a day. Yes Provider, Historical ibuprofen 600 MG tablet Take 1 tablet by mouth every 6 hours for 14 days. 06/21/25 07/05/25 Yes Hui Canales APRN, DNP losartan (Cozaar) 25 MG tablet Take 1 tablet by mouth daily. Yes Provider, Historical metFORMIN (Glucophage) 850 MG tablet Take 1 tablet by mouth 2 times a day. Yes Provider, Historical metoprolol succinate XL (Toprol-XL) 100 MG 24 hr tablet Take 1 tablet by mouth daily. Do not crush or chew. Yes Provider, Historical oxyCODONE (Roxicodone) 15 MG immediate release tablet Take 1 tablet by mouth every 4 hours as needed for severe pain for up to 3 days. 06/21/25 06/24/25 Yes Hui Canales APRN, DNP [Paused] oxyCODONE-acetaminophen (Percocet) 10-325 MG tablet Take 1 tablet by mouth every 12 hours as needed for severe pain. Wait to take this until: June 24, 2025 Yes Provider, Historical senna-docusate (Madyson-Colace) 8.6-50 MG tablet Take 1 tablet by mouth nightly for 7 days. 06/21/25 06/28/25 Yes Hui Canales APRN, DNP tolterodine LA (Detrol LA) 2 MG 24 hr capsule Take 1 capsule by mouth daily. Do not crush, chew, orsplit. Yes Provider, Historical methocarbamol (Robaxin) 750 MG tablet Take 1 tablet by mouth 4 times a day as needed for muscle spasms. 06/21/25 Yes Provider, Historical methocarbamol (Robaxin) 500 MG tablet Take 2 tablets by mouth 4 times a day for 14 days. 06/21/25 07/05/25 Hui Canales APRN, DNP Social History: Pt has has no history on file for tobacco use, alcohol use, and drug use. (details as available below) Social History Substance and Sexual Activity Alcohol Use Not on file Social History Substance and Sexual Activity Drug Use Not on file Tobacco Use History[2] Audit-C for Alcohol Misuse Screening No results found for: ETOH Q1: How often did you have a drink containing alcohol in the past year? Never = 0 Q2: How many drinks did you have on a typical day when you were drinking in the past year? None = 0 Q3: How often did you have six or more drinks on one occasion in the past year? Never = 0 The AUDIT-C is scored on a scale of 0-12 (scores of 0 reflect no alcohol use). In men, a score of 4or more is considered positive; in women, a score of 3 or more is considered positive. Generally, the higher the AUDIT-C score, the more likely it is that the patient's drinking is affecting his/her health and safety. If screening positive (men = 4 women = 3), proceed with referral for alcohol misuse. TOTAL SCORE: 0 Brief Intervention Performed: Not indicated Referral to Treatment Made: Not indicated Tertiary exam as documented above. Are there limits on this patient's care or advanced wishes/documents available? No Medication List PAUSE taking these medications oxyCODONE-acetaminophen 10-325 MG tablet Wait to take this until: June 24, 2025 Commonly known as: Percocet Take 1 tablet by mouth every 12 hours as needed for severe pain. .. acetaminophen 325 MG tablet Commonly known as: Tylenol Take 2 tablets by mouth every 6 hours for 14 days. Under [place] law, monthly prescriptions (30 days) can be refilled at 25 days and three-month prescriptions (90 days) at 80 days. Please contact the insurance company with questions if refills are denied. atorvastatin 10 MG tablet Commonly known as: Lipitor Take 1 tablet by mouth daily. * gabapentin 300 MG capsule Commonly known as: Neurontin Take 1 capsule by mouth daily. * gabapentin 600 MG tablet Commonly known as: Neurontin Take 1 tablet by mouth nightly. glyBURIDE micronized 3 MG tablet Commonly known as: Glynase Take 1 tablet by mouth 2 times a day. ibuprofen 600 MG tablet Take 1 tablet by mouth every 6 hours for 14 days. losartan 25 MG tablet Commonly known as: Cozaar Take 1 tablet by mouth daily. metFORMIN 850 MG tablet Commonly known as: Glucophage Take 1 tablet by mouth 2 times a day. methocarbamol 500 MG tablet Commonly known as: Robaxin Take 2 tablets by mouth 4 times a day for 14 days. metoprolol succinate XL 100 MG 24 hr tablet Commonly known as: Toprol-XL Take 1 tablet by mouth daily. Do not crush or chew. oxyCODONE 15 MG immediate release tablet Commonly known as: Roxicodone Take 1 tablet by mouth every 4 hours as needed for severe pain for up to 3 days. senna-docusate 8.6-50 MG tablet Commonly known as: Madyson-Colace Take 1 tablet by mouth nightly for 7 days. tolterodine LA 2 MG 24 hr capsule Commonly known as: Detrol LA Take 1 capsule by mouth daily. Do not crush, chew, or split. * This list has 2 medication(s) that are the same as other medications prescribed for you. Read thedirections carefully, and ask your doctor or other care provider to review them with you. Where to Get Your Medications These medications were sent to [facility] - [place], [place] - [address] [facility] [address] acetaminophen 325 MG tablet ibuprofen 600 MG tablet methocarbamol 500 MG tablet oxyCODONE 15 MG immediate release tablet senna-docusate 8.6-50 MG tablet Discharge Diagnosis Medical Problems Active and Resolved Hospital Problems Hospital * (Principal) Fall from slip, trip, or stumble Current Assessment & Plan 06/19/2025 Hospital Encounter Written 06/20/2025 2:38 PM by Hui Canales APRN, DNP 06/15 while in grass Admit to [facility] Tertiary 06/21 Hypertension Diabetes type 2 Current Assessment & Plan 06/19/2025 Hospital Encounter Written 06/20/2025 2:37 PM by Hui Canales APRN, DNP [facility] finger sticks SSI Thoracic vertebral fracture (CMS/HCC) Current Assessment & Plan 06/19/2025 Hospital Encounter Edited 06/20/2025 2:48 PM by Hui Canales APRN, DNP T10 and T11 with possible disc space injury Neurosurgery consulted Nonop, pending TLSO brace Follow up in 2 to 4 week clinic with repeat imaging Obesity (BMI 30-39.9) Lumbar compression fracture (CMS/HCC) Current Assessment & Plan 06/19/2025 Hospital Encounter Written 06/20/2025 2:53 PM by Hui Canales APRN, DNP Incidental finding on imaging Age-indeterminate compression fracture of L4, likely chronic DDD (degenerative disc disease), lumbar Current Assessment & Plan 06/19/2025 Hospital Encounter Written 06/20/2025 2:53 PM by Hui Canales APRN, DNP Incidental finding on imaging L DDD with moderate to severe neural foraminal narrowing Electrolyte imbalance Current Assessment & Plan 06/19/2025 Hospital Encounter Written 06/20/2025 3:12 PM by Hui Canales APRN, DNP Replace PRN CTM Chronic back pain Current Assessment & Plan 06/19/2025 Hospital Encounter Written 06/20/2025 3:16 PM by Hui Canales APRN, DNP Previous T2-T8, L1-S1 fusions On chronic narcotics Complicates pain control Urge incontinence Current Assessment & Plan 06/19/2025 Hospital Encounter Written 06/20/2025 3:25 PM by Hui Canales APRN, DNP Bladder scan PRN Resume home meds Colon cancer ([facility]/HCC) Current Assessment & Plan 06/19/2025 Hospital Encounter Written 06/20/2025 3:26 PM by Hui Canales APRN, DNP S/p partial colectomy in 2022 Fall Outpatient Follow-Up No future appointments. Pertinent Physical Exam At Time of Discharge Physical Exam Vitals reviewed. Constitutional: General: He is not in acute distress. Appearance: He is obese. HENT: Head: Normocephalic. Nose: Nose normal. Mouth/Throat: Mouth: Mucous membranes are moist. Eyes: Extraocular Movements: Extraocular movements intact. Pupils: Pupils are equal, round, and reactive to light. Neck: Comments: No midline C spine tenderness with ROM or palpation T spine tenderness, TLSO in place Cardiovascular: Rate and Rhythm: Normal rate. Pulses: Normal pulses. Pulmonary: Effort: Pulmonary effort is normal. No respiratory distress. Abdominal: General: There is no distension. Palpations: Abdomen is soft. Tenderness: There is no abdominal tenderness. Musculoskeletal: General: No tenderness or signs of injury. Normal range of motion. Cervical back: Normal range of motion. Comments: No bony tenderness to bilateral upper/lower extremities with ROM or palpation Skin: General: Skin is warm. Capillary Refill: Capillary refill takes less than 2 seconds. Neurological: General: No focal deficit present. Mental Status: He is alert and oriented to person, place, and time. Mental status is at baseline. Sensory: No sensory deficit. Motor: No weakness. Psychiatric: Mood and Affect: Mood normal. Behavior: Behavior normal. Discharge Disposition/Condition Disposition: Home Condition: Stable (s/sx potential problems absent or manageable) I spent >30 minutes of patient care and instruction time in preparation for this discharge. [1] No past surgical history on file. [2] Social History Tobacco Use Smoking Status Not on file Smokeless Tobacco Not on file Cosigned by Nury Leo MD at 06/22/2025 7:37 AM EDT * Progress Notes - Jess Frost - 06/21/2025 2:56 PM EDT PHYSICAL THERAPY EVALUATION Patient Name Sang Motley Session Date 06/21/2025 Total Treatment Time 38 min PT Discharge Recommendations Home with assistance Equipment Recommendations Patient owns appropriate equipment HISTORY Sang Motley is 50 y.o. male admitted 06/19/2025 for work-up of Fall from slip, trip, or stumble. Hospital Course 1. Fall, initial encounter 2. Acute midline low back pain without sciatica 3. Closed fracture of eleventh thoracic vertebra, unspecified fracture morphology, initial encounter ([facility]) 4. Other closed fracture of eleventh thoracic vertebra, initial encounter ([facility]) 5. Other closed fracture of tenth thoracic vertebra, initial encounter ([facility]) Procedures (if applicable) Past Medical History Patient has no past medical history on file. Past Surgical History Patient has no past surgical history on file. PRECAUTIONS Weight Bearing Precautions (if applicable) ROM Restrictions (if applicable) Medical Precautions Medical Precautions: Spinal Spinal Precautions : TLSO >30 degrees , No bending, lifting, twisting SUBJECTIVE PARTICIPANTS IN CARE Patient/Caregiver Comments Pt agreeable to session, eager to d/c home. Visitors Present Family/Caregiver Present: No Metalsmith Apprentice (if applicable) PRESENTATION Oxygen None (Room air) (removed supplemental O2 at beginning of session and pt maintained saturations. Per pt, for sleep apnea. Left close to pt at conclusion of session to don if he was going to sleep) Lines and Tubes Peripheral IV 06/19/25 Left Antecubital (Active) Pre-Session Supine, Head of bed elevated, Lines intact Post-Session Sitting in chair, Call light in reach, RN notified, Lines intact Bracing (if applicable) Orthoses: TLSO HOME LIVING/SET-UP Lives With Alone Home Type Mobile home Home Equipment Rolling walker Home Layout Stairs to enter with rails (1 stair up to the bathroom) Number of Stairs: 2 Bathroom Layout Bathroom: Tub/Shower: Walk-in shower Additional Comments PRIOR LEVEL OF FUNCTION Assist at Home No assist required prior to admission Level of Mobility Ambulatory- community Mobility [place] Independent gait without device History of Falls No Overall ADL Performance Independent Additional ADL Performance Detail PATIENT/FAMILY GOALS to return home OBJECTIVE PAIN Pt reports mild back pain, not formally rated. Positioned for comfort at end of session. DELIRIUM SCREENING RASS: Alert and calm Confusion Assessment Method-ICU (CAM-ICU/PCAM-ICU) Feature 3: Altered Level of Consciousness: Negative COGNITION Overall Cognitive Status Within Functional Limits Arousal/Alertness Appropriate responses to stimuli Mood/Behavior Alert Orientation Oriented x4 Command Following Single Step Commands: Consistently Method of Communication Verbal Additional Observations VISION Baseline Vision Current Vision (if different) Patient Visual Report: wearing glasses throughout session- no acute vision changes RIGHT UPPER EXTREMITY EXAMINATION Range of Motion Within Functional Limits Manual Muscle Testing Within functional limits Light Touch Sensation Intact LEFT UPPER EXTREMITY EXAMINATION Range of Motion Within Functional Limits Manual Muscle Testing Within functional limits Light Touch Sensation Intact RIGHT LOWER EXTREMITY EXAMINATION Range of Motion Within Functional Limits Manual Muscle Testing Within functional limits Light Touch Sensation Intact LEFT LOWER EXTREMITY EXAMINATION Range of Motion Within Functional Limits Manual Muscle Testing Within functional limits Light Touch Sensation Intact BED MOBILITY Level of [place] Physical/Non- physical Assist Adaptive Equipment Utilized Rolling/ Turning Stand-by assist Supervision, Verbal Cues Scooting/ Bridging Stand-by assist Supine to Sit Stand-by assist Verbal Cues, Supervision Sit to Supine Interventions Rolled R<>L x1 each direction to adjust TLSO to improve overall fit. Cued to bend LE and reach across midline with UE to initiate roll. Pt required verbal cues for initiation and sequencing of sup>sit transfer utilizing log roll technique to maintain spinal precautions with transitional movement, good carry over. Denies dizziness with positional change. TRANSFERS Level of [place] Physical/Non- physical Assist Adaptive Equipment Utilized Sit to Stand Stand-by assist (no AD) Stand to sit Stand-by assist (No AD) BALANCE Postural Appearance Posture: Within Functional Limits Level of [place] Balance Support Interventions Static Sit Independent Feet supported Dynamic Sit Independent Feet supported Dynamic Sitting-Balance: Lateral weight shifts, Anterior/Posterior weight shifts Static Stand Standby assist No upper extremity supported Dynamic Stand Standby assist No upper extremity support Lateral weight shifts, Anterior/Posterior weight shifts THERAPEUTIC ACTIVITY Treatment Minutes 8 Interventions Pt participated in bed mobility, transfers, and balance tasks as seen above to improve tolerance to upright activity and increase overall independence with functional mobility. Vitals stable throughout session. Pt educated on TLSO wear schedule, appropriate donning/doffing technique, spinal precautions, and general safety tips. Pt with questions regarding return to work and driving,educated within PT protocol, but deferred to CM and 1st call provider to provide more extensive education. GAIT TRAINING Treatment Minutes 15 Interventions Pt demonstrates ability to perform higher level dynamic balance tasks such as stop/go, changes in gait speed, horizontal/vertical head turns, backwards steps, and obstacle navigation without LOB throughout. Educated pt on energy conservation techniques and home safety tips to maximizesafety at d/c. Level of [place] Distance Adaptive Equipment Utilized Gait Standby assist >350 ft without rest No device Gait Analysis Pt demonstrates slow gait speed, but otherwise normal gait mechanics. Stairs SBA 3 steps Bilateral No device Stair Training Pt ascended/descended x3 steps with BUE support to hand rails. Pt demonstrates recipricol gait pattern to ascend and step to gait pattern with LLE leading to descend. Verbal cues for self pacing and sequencing. No LOB throughout. STANDARDIZED ASSESSMENTS [facility] 6-Clicks Mobility Assessment Difficulty patient has turning over in bed (including adjusting bedclothes, sheets, and blankets)?:None Difficulty patient has sitting down on and standing up from a chair with arms (wheelchair, bedside commode, etc.)?: None Difficulty patient has moving from lying on back to sitting on the side of the bed?: None How much help does the patient need moving to and from a bed to a chair (including a wheelchair)?: None How much help does the patient need to walk in hospital room?: None How much help does the patient need climbing 3-5 steps with a railing?: None [facility] 6-Clicks Mobility Assessment Total : 24 ASSESSMENT Pt demonstrated ability to safely perform all functional mobility this date independently/SBA for safety 2/2 to unfamiliar environment and new brace. Due to patient's current presentation and lack ofimpairments, pt no longer requires skilled PT throughout hospital stay. PT will sign off at this time. Please re- consult if there is a change in medical status or a physical decline. Pt reports feeling comfortable about going home and has no further concerns. PT FINDINGS Impairments (if identified) Decreased endurance, ventilation, and/or gas exchange, Pain Activity Limitations (if identified) Participation Restrictions (if identified) Work Barriers to Discharge (if identified) Lack of family support Additional Observations Activity Tolerance: Walking Evaluation/Treatment Tolerance: (n/a) EVAL COMPLEXITY History Profile 1 - 2 personal factors and/or comorbidities Clinical Presentation Stable and/or uncomplicated characteristics Clinical Decision Making Low complexity PT RECOMMENDATIONS Discharge Destination Home with assistance Discharge Equipment Patient owns appropriate equipment Additional Recommendations (if applicable) PLAN Patient no longer demonstrates need for inpatient physical therapy services. Patient to be discharged from physical therapy. Written by Jess Frost on 06/21/25 at 3:08 PM. * Progress Notes - Lexii Zayas - 06/21/2025 2:53 PM EDT Occupational Therapy Evaluation Patient Name: Sang Motley Today's Date: 06/21/2025 OT Discharge Recommendations: Home with assistance Equipment Recommended: None History Sang Motley is 50 y.o. male admitted 06/19/2025 for work-up of Fall from slip, trip, or stumble. Problem List Active Hospital Problems Diagnosis Date Noted Fall 06/21/2025 Fall from slip, trip, or stumble 06/20/2025 Hypertension 06/20/2025 Diabetes type 2 06/20/2025 Thoracic vertebral fracture (CMS/HCC) 06/20/2025 Obesity (BMI 30-39.9) 06/20/2025 Lumbar compression fracture (CMS/HCC) 06/20/2025 DDD (degenerative disc disease), lumbar 06/20/2025 Electrolyte imbalance 06/20/2025 Chronic back pain 06/20/2025 Urge incontinence 06/20/2025 Colon cancer (CMS/HCC) 06/20/2025 Past Medical History Patient has no past medical history on file. Past Surgical History Patient has no past surgical history on file. Precautions Medical Precautions: Spinal Spinal Precautions : TLSO >30 degrees , No bending, lifting, twisting Subjective Pt reports that per materials supervisor he is able to don/doff brace without assistance needed. Encouraged ptto find assistance with brace donning/doffing to improve adherence to bending/lifting/twisting precautions. Participants in Care Family/Caregiver Present: No Metalsmith Apprentice: Not Applicable Presentation Oxygen Therapy: None (Room air) (removed supplemental O2 at beginning of session and pt maintained saturations. Per pt, for sleep apnea. Left close to pt at conclusion of session to don if he was going to sleep) Pre-Session: Supine, Head of bed elevated, Lines intact Post-Session: Sitting in chair, Call light in reach, RN notified, Lines intact Orthoses: TLSO Home Living/Set-up Lives With: Alone Home Type: Mobile home Home Adaptive Equipment: Rolling walker Home Layout: Stairs to enter with rails (1 stair up to the bathroom) Number of Stairs: 2 Bathroom: Tub/Shower: Walk-in shower Prior Level of Function Receives Help From: No assist required prior to admission Level of Mobility: Ambulatory- community Mobility [place]: Independent gait without device History of Falls: No ADL Performance: Independent Patient/Family Goals Statement To discharge home. Objective Pain Pt without reports of pain. Positioned for comfort at conclusion of session. Delirium Screening RASS: Alert and calm Confusion Assessment Method-ICU (CAM-ICU/PCAM-ICU) Feature 3: Altered Level of Consciousness: Negative Cognition Overall Cognitive Status: Within Functional Limits Arousal/Alertness: Appropriate responses to stimuli Mood/Behavior: Alert Orientation Level: Oriented X4 Single Step Commands: Consistently Multi-Step Commands: Consistently Method of Communication: Verbal Vision - Basic Assessment Patient Visual Report: wearing glasses throughout session- no acute vision changes Right Upper Extremity Examination RUE ROM Assessment RUE Assessment: Within Functional Limits Manual Muscle Testing - RUE: Within functional limits Sensation Light Touch: Right Upper Extremity: Intact Left Upper Extremity Examination LUE ROM Assessment LUE Assessment: Within Functional Limits Manual Muscle Testing - LUE: Within functional limits Sensation Light Touch: Left Upper Extremity: Intact Bed Mobility Bed Mobility Exam: Rolling/Turning Level of [place]: Stand-by assist Bed Mobility Exam: Scooting/Bridging Level of [place]: Stand-by assist (in sitting to scoot to EOB) Bed Mobility Exam: Supine to Sit Level of [place]: Stand-by assist Transfers Transfer Exam: Sit to stand Level of [place]: Stand-by assist Transfer Exam: Stand to Sit Level of [place]: Stand-by assist Balance Postural Appearance Posture: Within Functional Limits Static Sitting Balance Static Sitting-Balance Support: Feet supported Static Sitting-Level of Assistance: Independent Dynamic Sitting Balance Dynamic Sitting-Balance Support: Feet supported Level of Assistance: Independent Static Standing Balance Static Standing-Balance Support: No upper extremity supported Static Standing-Level of Assistance: Standby assist Dynamic Standing Balance Dynamic Standing-Balance Support: No upper extremity support Dynamic Standing Level of Assistance: Standby assist Self-Care Interventions Self Care/Home Management (ADLs) Time Entry: 28 While seated EOB, pt was able to don shoes when they were placed in front of him. Shoes were slip-on and no additional assistance needed. In addition to self-care completion, pt functionally mobilized household distance with CGA x1. Thiswas encouraged to simulate sequential activity tolerance which is often present during functional tasks (I.e. bathing followed by dressing). Throughout functional mobility performance pt provided information regarding UB dressing in supine prior to TLSO donning while adhering to b/l/t including donning over his head and UE while in supine and then completing log roll to pull shirt down. In sitting, pt encouraged to demonstrate functional reach to b/l distal LE in which he was unable to reach distal to knees. Pt prompted to purchase finisher tailor apprentice and sock aide as per rehabilitation departmental guidelines they cannot be provided while inpatient unless no other option exists. Pt reported that he was already familiar with finisher tailor apprentice and sock aide and did not need demonstration. Lower Extremity Dressing Sock Level of Assistance: Setup LE Dressing Where Assessed: Edge of bed Standardized Assessments Sandra Index Feeding: Independent Bathing: Independent (or in Shower) Grooming: Independent face/hair/teeth/shaving (implements provided) Dressing: Needs help but can do about half unaided (encouraged pt to purchase finisher tailor apprentice/sock aide) Bowels: Continent Bladder: Continent Toilet Use: Independent (on and off, dressing, wiping) Transfers (Bed to Chair and Back): Independent Mobility (on Level Surfaces): Independent (but may use any aid - for example, stick) > 50 yards Stairs: Independent Total Score: 95 Assessment Pt on this date presents with reduced activity tolerance and spinal precautions s/p fall. Although these factors impact independence and efficiency with self- care completion, pt was able to complete household+ distance functional mobility and components of LB dressing largely unassisted. At this time, pt is appropriate for discharge home with assistance but would benefit from finisher tailor apprentice, sock aide, and tub bench to optimize independence. Pt provided education regarding purchasing these items. Pt is appropriate for discharge home with assistance. Pt reported his home environment is conducivewith current functional status and he will aim to find assistance upon discharge. As limitations are due to brace wear with pt understanding compensatory techniques- no additional skilled OT needs have been identified. OT will sign off at this time. OT Findings: Impaired ADL performance, Impaired IADL performance, Impaired functional mobility Barriers to Discharge: Comorbidities Eval Complexity Occupational Profile: Expanded review of medical/therapy records and additional review of physical,cognitive, or psychosocial history Performance Deficits: Activities of daily living (ADLs), Instrumental activities of daily living (IADLs), Work, Leisure, Body functions, Body structures, Motor skills, Process skills, Habits, Routines, Roles, Personal, Physical Clinical Decision Making: Moderate Overall Eval complexity: Moderate OT Recommendations Discharge Destination: Home with assistance Discharge Equipment: None Plan Patient no longer demonstrates need for inpatient occupational therapy services. Patient to be discharged from occupational therapy. Written by Lexii Zayas on 06/21/25 at 3:11 PM. * Consults - Vicki Acevedo - 06/21/2025 1:53 PM EDT TLSO Brace: Rigid Bi-valve TLSO - Custom (L0486) Bracing Notes: I fit the patient with a custom rigid bi-valve TLSO (L0486) as ordered by [facility]/Heidi/Kelly. I fit the patient in the supine position. I educated the patient and family on compliance and use, donning and doffing. The patient must wear the TLSO at all times when up and out of bed for the next 3 months. The brace is for spine stabilization, comfort and pain control. The patient must sponge bathe either laying flat in bed or standing up in front of a sink while wearing the brace. The patient'slifting restrictions are 10 pounds or until the rules are changed by the Neurosurgery Team. Please contact me with questions or concerns. ROOPA Mendes [place] Licensed Mortgage Protection Sales [facility] [phone] * Care Plan - Xavier Arrington RN - 06/21/2025 10:56 AM EDT Problem: Fall Injury Risk Goal: Absence of Fall and Fall-Related Injury Outcome: Ongoing, Progressing Intervention: Identify and Manage Contributors Flowsheets (Taken 06/21/2025 034 by Trisha Jones, RN) Medication Review/Management: medications reviewed Self-Care Promotion: independence encouraged BADL personal objects within reach adaptive equipment use encouraged Intervention: Promote Injury-Free Environment Flowsheets (Taken 06/21/2025 034 by Trisha Jones, RN) Safety Promotion/Fall Prevention: activity supervised Problem: Adult Inpatient Plan of Care Goal: Plan of Care Review Outcome: Ongoing, Progressing Flowsheets (Taken 06/21/2025 034 by Trisha Jones, RN) Progress: no change Plan of Care Reviewed With: patient Goal: Patient-Specific Goal (Individualized) Outcome: Ongoing, Progressing Flowsheets (Taken 06/21/2025 0700) Patient/Family-Specific Goals (Include Timeframe): pt will remain free of injury during shift Individualized Care Needs: safety Anxieties, Fears or Concerns: pain control Goal: Absence of Hospital-Acquired Illness or Injury Outcome: Ongoing, Progressing Intervention: Identify and Manage Fall Risk Flowsheets (Taken 06/21/2025 034 by Trisha Jones, RN) Safety Promotion/Fall Prevention: activity supervised Intervention: Prevent Skin Injury Flowsheets Taken 06/21/2025 1054 Skin Protection: transparent dressing maintained Taken 06/21/2025 0700 Body Position: supine, legs elevated Intervention: Prevent and Manage VTE (Venous Thromboembolism) Risk Flowsheets (Taken 06/21/2025 0800) VTE Prevention/Management: bilateral SCDs (sequential compression devices) off education provided Intervention: Prevent Infection Flowsheets (Taken 06/21/2025 1054) Infection Prevention: hand hygiene promoted Goal: Optimal Comfort and Wellbeing Outcome: Ongoing, Progressing Intervention: Monitor Pain and Promote Comfort Flowsheets (Taken 06/21/2025 0740) Pain Management Interventions: rest Intervention: Provide Person-Centered Care Flowsheets (Taken 06/21/2025 1054) Trust Relationship/Rapport: care explained Problem: Mobility Impairment Goal: Optimal Mobility Outcome: Ongoing, Progressing Intervention: Optimize Mobility Flowsheets Taken 06/21/20251053 by Xavier Arrington RN Assistive Device Utilized: (none) other (see comments) Taken 06/21/2025 07 by Xavier Arrington RN Activity Management: activity adjusted per tolerance activity encouraged Taken 06/21/2025341 by Trisha Jones RN Positioning/Transfer Devices: pillows repositioning sheet in use Problem: Self-Care Deficit Goal: Improved Ability to Complete Activities of Daily Living Outcome: Ongoing, Progressing Intervention: Promote Activity and Functional [place] Flowsheets Taken 06/21/20251053 by Xavier Arrington RN Activity Assistance Provided: assistance, stand-by Adaptive Equipment Use: (none) other (see comments) Taken 06/21/2025341 by Trisha Jones RN Self-Care Promotion: independence encouraged BADL personal objects within reach adaptive equipment use encouraged Problem: Pain Acute Goal: Optimal Pain Control and Function Outcome: Ongoing, Progressing Intervention: Optimize Psychosocial Wellbeing Flowsheets Taken 06/21/20251053 by Xavier Arrington RN Spiritual Activities Assistance: personal rituals encouraged Taken 06/21/2025341 by Trisha Jones RN Supportive Measures: active listening utilized Diversional Activities: television smartphone Intervention: Develop Pain Management Plan Flowsheets (Taken 06/21/2025 0740) Pain Management Interventions: rest Intervention: Prevent or Manage Pain Flowsheets Taken 06/21/20251053 by Xavier Arrington RN Sensory Stimulation Regulation: auditory stimulation minimized Complementary Therapy: (none) other (see comments) Bowel Elimination Promotion: privacy promoted Sleep/Rest Enhancement: awakenings minimized Taken 06/21/2025341 by Trisha Jones estimating manager Review/Management: medications reviewed Problem: Infection Goal: Absence of Infection Signs and Symptoms Outcome: Ongoing, Progressing Intervention: Prevent or Manage Infection Flowsheets Taken 06/21/2025 1054 Infection Management: aseptic technique maintained Fever Reduction/Comfort Measures: lightweight bedding lightweight clothing Taken 06/21/2025 0700 Isolation Precautions: precautions maintained protective * Care Plan - Trisha Jones RN - 06/21/2025 3:44 AM EDT Problem: Fall Injury Risk Goal: Absence of Fall and Fall-Related Injury Intervention: Identify and Manage Contributors Flowsheets (Taken 06/21/2025341) Medication Review/Management: medications reviewed Self-Care Promotion: independence encouraged BADL personal objects within reach adaptive equipment use encouraged Problem: Adult Inpatient Plan of Care Goal: Plan of Care Review Flowsheets (Taken 06/21/2025341) Progress: no change Plan of Care Reviewed With: patient Goal: Patient-Specific Goal (Individualized) Flowsheets (Taken 06/21/2025341) Patient/Family-Specific Goals (Include Timeframe): pt will report adequate pain control throughout shift Individualized Care Needs: pain Anxieties, Fears or Concerns: pain control Goal: Absence of Hospital-Acquired Illness or Injury Intervention: Identify and Manage Fall Risk Flowsheets (Taken 06/21/2025341) Safety Promotion/Fall Prevention: activity supervised Goal: Optimal Comfort and Wellbeing Intervention: Monitor Pain and Promote Comfort Flowsheets (Taken 06/21/2025341) Pain Management Interventions: position adjusted pillow support provided Problem: Mobility Impairment Goal: Optimal Mobility Intervention: Optimize Mobility Flowsheets (Taken 06/21/2025341) Activity Management: activity adjusted per tolerance Positioning/Transfer Devices: pillows repositioning sheet in use Problem: Self-Care Deficit Goal: Improved Ability to Complete Activities of Daily Living Intervention: Promote Activity and Functional [place] Flowsheets (Taken 06/21/2025341) Self-Care Promotion: independence encouraged BADL personal objects within reach adaptive equipment use encouraged Problem: Pain Acute Goal: Optimal Pain Control and Function Intervention: Optimize Psychosocial Wellbeing Flowsheets (Taken 06/21/2025 1129) Supportive Measures: active listening utilized Diversional Activities: television smartphone * Assessment & Plan Note - Hui Canales APRN, DNP - 06/20/2025 3:26 PM EDT Associated Problem(s): Colon cancer (CMS/HCC) S/p partial colectomy in 2022 * Assessment & Plan Note - Hui Canales APRN, DNP - 06/20/2025 3:25 PM EDT Associated Problem(s): Urge incontinence Bladder scan PRN Resume home meds * Consults - Vicki Acevedo - 06/20/2025 3:19 PM EDT TLSO Brace: Rigid Bi-valve TLSO - Custom (L0486) Bracing Notes: I received an order for a custom bi-valve rigid TLSO from [facility]/Heidi/Kelly. The patient fell and has increasing back pain, s/p T2-8 thoracic fusion and L1- S1 fusions a year ago. I measured the patient in the supine position for a custom brace because the patient is obese with a measurable belly, which precludes the patient from wearing a prefabricated brace. [facility] [employer] will deliver the patient's custom brace tomorrow morning. Please contact me with questions or concerns. ROOPA Mendes [place] Licensed Mortgage Protection Sales [employer] [phone] * Assessment & Plan Note - Hui Canales APRN, DNP - 06/20/2025 3:16 PM EDT Associated Problem(s): Chronic back pain Previous T2-T8, L1-S1 fusions On chronic narcotics Complicates pain control * Assessment & Plan Note - Hui Canales APRN, DNP - 06/20/2025 3:12 PM EDT Associated Problem(s): Electrolyte imbalance Replace PRN CTM * Assessment & Plan Note - Hui Canales APRN, DNP - 06/20/2025 2:53 PM EDT Associated Problem(s): DDD (degenerative disc disease), lumbar Incidental finding on imaging L DDD with moderate to severe neural foraminal narrowing * Assessment & Plan Note - Hui Canales APRN, DNP - 06/20/2025 2:53 PM EDT Associated Problem(s): Lumbar compression fracture (CMS/HCC) Incidental finding on imaging Age-indeterminate compression fracture of L4, likely chronic * Hospital Course - Hui Canales APRN, DNP - 06/20/2025 2:52 PM EDT HPI: Sang Motley is a 50 y.o. male with PMH of HTN, DM2, urge incontinence, colon cancer s/p partial colectomy ('23), prior T spine fx s/p T2-8 fusion/L1-S1 fusion presents from OSH on 06/20 after fallin grass 5 days prior. +ETOH. Injuries include: T10-11 fx Physical therapy and occupational therapy evaluated the patient during hospitalization and recommends home with assist. Past 24 hours: Patient sitting up in bed A&O. VSS. NAD. On RA, no SOA. Tolerating PO diet, no N/V, abd pain. 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 TLSO delivered today. Patient worked with PT/OT who recommend home with assist. Discussed mobility and driving/work precautions. Fax number and providers' names were also provided for possible FMLA paperwork. Will provide patient with work excuse. Pain well controlled on current regimen. Patient lives alone, has friends who can help him in the first couple days after discharge and transportation for follow up appointments. Denies tobacco use and ETOH use. Discussed plan of care with patient, who is in understanding. No further concerns per patient or nursing. At the time of discharge the patient was hemodynamically stable, tolerating PO, voiding spontaneously, normal bowel function, mobilizing appropriately, with their pain controlled with PO medication. At this time, the patient has obtained the maximum benefit from the present hospital stay, and so will be discharged home. DVT prophylaxis: None on discharge Restrictions: TLSO when out of bed x12 weeks (09/19), fit supine Incidental Findings: Age-indeterminate compression fracture of L4, likely chronic L DDD with moderate to severe neural foraminal narrowing Follow up appointments: Follow up with PCP within one week after discharge for post hospitalization visit, chronic medical conditions and incidental findings. NSGY: Please follow up in the Neurosurgery Clinic in ~4 weeks with repeat thoracic spine xrays. Referred on discharge, will be contacted on appointment date/time. Follow up with Trauma clinic as needed. [address] [place] [address] Clinic First Floor, Wing [address] [place] [address], #[phone]. Questions or Concerns and Appointments If there are questions or concerns after discharge from the hospital, please call [phone] and ask for [facility] Nurse. Working hours are Tuesday - Tuesday 8:00 AM to 4:00 PM. After hours, weekends and holidays please call [phone] and ask for the resident environmental scientists for [facility]. For appointments please call [phone]. Medication requests should be made between the hours of 9:00 AM to 3:00 PM Tuesday thru Tuesday. Please note that based upon recent changes to [place] law related to prescribing opioid pain medications, our providers will not provide refills on controlled medications after your hospital discharge following a major surgery or trauma. [place], [place] 201 [id number]. * Assessment & Plan Note - Hui Canales APRN, DNP - 06/20/2025 2:39 PM EDT Associated Problem(s): Thoracic vertebral fracture (CMS/HCC) T10 and T11 with possible disc space injury Neurosurgery consulted Nonop, pending TLSO brace Follow up in 2 to 4 week clinic with repeat imaging * Assessment & Plan Note - Hui Canales APRN, DNP - 06/20/2025 2:38 PM EDT Associated Problem(s): Fall from slip, trip, or stumble 06/15 while in grass Admit to SGT Tertiary 06/21 * Assessment & Plan Note - Hui Canales APRN, DNP - 06/20/2025 2:37 PM EDT Associated Problem(s): Diabetes type 2 ACHS finger sticks SSI * Assessment & Plan Note - Tanner Crowley MD - 06/20/2025 2:06 PM EDTAssociated Problem(s): Fall from slip, trip, or stumble 06/15 while in grass * Assessment & Plan Note - Tanner Crowley MD - 06/20/2025 2:06 PM EDTAssociated Problem(s): Hypertension Restart home meds as able * Assessment & Plan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 attest that I have personally reviewed the images/data for the above examination(s) and agree with the final edited report. Drafted by Moses Pollock MD on 06/20/2025 8:38 AM Final report signed by Rachele Hollis on 06/20/2025 11:26 AM Narrative 06/20/2025 11:26 AM EDT CLINICAL INDICATION: Severe low back pain, urinary changes, fall, previous spinal surgery TECHNIQUE: Multiplanar multiecho sequences were obtained through the thoracic spine utilizing T1 and T2 weighting without the administration of intravenous contrast. 9 series were obtained including localizer series. Multiplanar multiecho sequences were obtained through the lumbar spine utilizing T1 and T2 weighting without the administration of intravenous contrast. 9 series were obtained including localizer series. COMPARISON: Outside facility CT thoracic and lumbar spine, 06/19/2025 FINDINGS: Thoracic Spine: Diagnostic Quality: Adequate. Alignment: Redemonstrated posterior spinal stabilization hardware spanning T2 through T8. Mild straightening of the thoracic kyphosis. Marrow, Vertebrae and Intervertebral Discs: Increased STIR hyperintensity with linear T1 hypointensity within the superior portion of the T11 vertebral body with edema that extends into the bilateral pedicles. Similar T1 hypointense, STIR hyperintense signal within the anterior inferior portion of the T10 vertebral body. Irregularity and cortical discontinuity of the inferior endplate of T10 and superior endplate of T11. No retropulsion into the spinal canal at T10-T11. Discontinuity of the bridging osteophyte at T10-T11. Increased T2/STIR signal within the anterior disc space at T10-T11. Small effusions of the bilateral facet joints at T10-T11. Multilevel body height loss of the remaining vertebrae, less than 25%. Type I changes of the right inferior endplate of T12. Multilevel disc desiccation. Ligaments: Suspected discontinuity or thinning of the anterior longitudinal ligament at T10-T11. Remaining anterior and posterior longitudinal ligaments are intact. Abnormal signal throughout the interspinous ligament at T10-T11. Thinning and STIR hyperintensity within the ligamentum flavum at T10-T11 without definite discontinuity. Spinal Cord: Flattening of the right spinal cord at T9-T10 secondary to right paramedian disc herniation with paired central cord signal changes. No edema in the T9-T10 intervertebral disc, suggesting this could be a chronic herniation. Mild to moderate spinal canal stenosis at T9-T10 and T10-T11. Minimal multilevel facet joint arthrosis without significant neural foraminal narrowing. Prevertebral and Paraspinal Soft Tissues: Heterogeneous stranding and STIR hyperintensity within the prevertebral and paravertebral space spanning T10-T12 levels. Lumbar Spine: Diagnostic Quality: Adequate. Anatomic Variants: 5 lumbar vertebrae. Alignment: Redemonstrated posterior spinal stabilization hardware spanning L5 through S1. Straightening of the lumbar lordosis. Marrow, Vertebrae and Intervertebral Discs: Age indeterminate compression deformity of the L4 vertebral body, probably chronic, with 50% vertebral body height loss. Mild L2 vertebral body height loss (less than 25%). Multilevel disc desiccation and height loss. Ligaments: Anterior and posterior longitudinal ligaments are intact. Artifact surrounding the posterior spinal fusion hardware limits evaluation. Conus: No abnormal intrinsic signal of the conus. The conus terminates at the L1-L2 level. Significant findings by level: T12-L1: Minimal facet joint arthrosis. Broad-based disc bulge. No significant neural foraminal or spinal canal narrowing. L1-L2: Minimal facet joint arthrosis. Left disc herniation with narrowing of the lateral recess. No significant neural foraminal narrowing. Mild spinal canal narrowing. L2-L3: Minimal facet joint arthrosis. Broad-based disc bulge. No significant neural foraminal or spinal canal narrowing. L3-L4: Minimal facet joint arthrosis. Broad-based disc bulge with central protrusion at L3-L4. Moderate bilateral neural foraminal narrowing. Mild spinal canal narrowing. L4-L5: Facet joint arthrosis. Moderate bilateral neural foraminal narrowing. No significant spinal canal stenosis. L5-S1: Facet joint arthrosis. Moderate right and severe left neural foraminal narrowing. Lateral recesses are patent. Prevertebral and Paraspinal Soft Tissues: Increased T2 signal within the subcutaneous tissue along the length of the lumbar spine. Procedure Note Rachele Hollis MD - 06/20/2025 CLINICAL INDICATION: Severe low back pain, urinary changes, fall, previous spinal surgery TECHNIQUE: Multiplanar multiecho sequences were obtained through the thoracic spineutilizing T1 and T2 weighting without the administration of intravenouscontrast. 9 series were obtained including localizer series. Multiplanar multiecho sequences were obtained through the lumbar spineutilizing T1 and T2 weighting without the administration of intravenouscontrast. 9 series were obtained including localizer series. COMPARISON: Outside facility CT thoracic and lumbar spine, 06/19/2025 FINDINGS: Thoracic Spine: Diagnostic Quality: Adequate. Alignment: Redemonstrated posterior spinal stabilization hardware spanningT2 through T8. Mild straightening of the thoracic kyphosis. Marrow, Vertebrae and Intervertebral Discs: Increased STIR hyperintensitywith linear T1 hypointensity within the superior portion of the [id number] body with edema that extends into the bilateral pedicles.Similar T1 hypointense, STIR hyperintense signal within the anteriorinferior portion of the T10 vertebral body. Irregularity and corticaldiscontinuity of the inferior endplate of T10 and superior endplate ofT11. No retropulsion into the spinal canal at T10-T11. Discontinuity ofthe bridging osteophyte at T10-T11. Increased T2/STIR signal within theanterior disc space at T10-T11. Small effusions of the bilateral facetjoints at T10-T11. Multilevel body height loss of the remaining vertebrae, less than 25%.Type I changes of the right inferior endplate of T12. Multilevel discdesiccation. Ligaments: Suspected discontinuity or thinning of the anteriorlongitudinal ligament at T10-T11. Remaining anterior and posteriorlongitudinal ligaments are intact. Abnormal signal throughout theinterspinous ligament at T10-T11. Thinning and STIR hyperintensity withinthe ligamentum flavum at T10-T11 without definite discontinuity. Spinal Cord: Flattening of the right spinal cord at T9-T10 secondary toright paramedian disc herniation with paired central cord signal changes.No edema in the T9-T10 intervertebral disc, suggesting this could be achronic herniation. Mild to moderate spinal canal stenosis at T9-T10 [id number]. Minimal multilevel facet joint arthrosis without significantneural foraminal narrowing. Prevertebral and Paraspinal Soft Tissues: Heterogeneous stranding and STIRhyperintensity within the prevertebral and paravertebral space [id number]- T12 levels. Lumbar Spine: Diagnostic Quality: Adequate. Anatomic Variants: 5 lumbar vertebrae. Alignment: Redemonstrated posterior spinal stabilization hardware spanningL5 through S1. Straightening of the lumbar lordosis. Marrow, Vertebrae and Intervertebral Discs: Age indeterminate compressiondeformity of the L4 vertebral body, probably chronic, with 50% vertebralbody height loss. Mild L2 vertebral body height loss (less than 25%).Multilevel disc desiccation and height loss. Ligaments: Anterior and posterior longitudinal ligaments are intact.Artifact surrounding the posterior spinal fusion hardware limitsevaluation. Conus: No abnormal intrinsic signal of the conus. The conus terminates atthe L1- L2 level. Significant findings by level: T12-L1: Minimal facet joint arthrosis. Broad-based disc bulge. Nosignificant neural foraminal or spinal canal narrowing. L1-L2: Minimal facet joint arthrosis. Left disc herniation with narrowingof the lateral recess. No significant neural foraminal narrowing. Mildspinal canal narrowing. L2-L3: Minimal facet joint arthrosis. Broad-based disc bulge. Nosignificant neural foraminal or spinal canal narrowing. L3-L4: Minimal facet joint arthrosis. Broad-based disc bulge with centralprotrusion at L3-L4. Moderate bilateral neural foraminal narrowing. Mildspinal canal narrowing. L4-L5: Facet joint arthrosis. Moderate bilateral neural foraminalnarrowing. No significant spinal canal stenosis. L5-S1: Facet joint arthrosis. Moderate right and severe left neuralforaminal narrowing. Lateral recesses are patent. Prevertebral and Paraspinal Soft Tissues: Increased T2 signal within thesubcutaneous tissue along the length of the lumbar spine. IMPRESSION: 1.Acute fracture of the T11 vertebral body involving the anterior andposterior columns. Additional fracture of the inferior portion of the [id number] endplate. 2.Suspected injury of the anterior longitudinal ligament at T10-T11. 3.Age-indeterminate compression fracture of L4, likely chronic.Comparison with outside imaging would be beneficial to assess stability. 4.Flattening of the right spinal cord secondary to right paramedian discherniation with faint central cord signal changes at T9-T10. Mild tomoderate spinal canal stenosis at T9-T10 and T10-T11. Comparison withoutside imaging would be beneficial to assess stability. 5.Multilevel spondylotic changes within the lumbar spine, most prominentfrom L3 to S1 with moderate to severe neural foraminal narrowing. CRITICAL RESULT: Yes COMMUNICATION: The critical findings were discussed via secure chat with AMY CESPEDES on06/20/2025 10:30 AM by Moses Pollock with acknowledgment of the results. By electronically signing this report, I, the attending physician, attestthat I have personally reviewed the images/data for the aboveexamination(s) and agree with the final edited report. Drafted by Moses Pollock MD on 06/20/2025 8:38 AM Final report signed by Rachele Hollis on 06/20/2025 11:26 AM Jabari Zuleta MD IMG MRI PROCEDURES Final Result * MR Thoracic Spine wo IV Contrast (06/20/2025 6:20 AM EDT) Anatomical Region Laterality Modality T-spine Magnetic Resonan ce Impressions 06/20/2025 11:26 AM EDT 1. Acute fracture of the T11 vertebral body involving the anterior and posterior columns. Additional fracture of the inferior portion of the T10 inferior endplate. 2. Suspected injury of the anterior longitudinal ligament at T10-T11. 3. Age-indeterminate compression fracture of L4, likely chronic. Comparison with outside imaging would be beneficial to assess stability. 4. Flattening of the right spinal cord secondary to right paramedian disc herniation with faint central cord signal changes at T9-T10. Mild to moderate spinal canal stenosis at T9-T10 and T10-T11. Comparison with outside imaging would be beneficial to assess stability. 5. Multilevel spondylotic changes within the lumbar spine, most prominent from L3 to S1 with moderate to severe neural foraminal narrowing. CRITICAL RESULT: Yes COMMUNICATION: The critical findings were discussed via secure chat with AMY CESPEDES on 06/20/2025 10:30 AM by Moses Pollock with acknowledgment of the results. By electronically signing this report, I, the attending physician, attest that I have personally reviewed the images/data for the above examination(s) and agree with the final edited report. Drafted by Moses Pollock MD on 06/20/2025 8:38 AM Final report signed by Rachele Hollis on 06/20/2025 11:26 AM Narrative 06/20/2025 11:26 AM EDT CLINICAL INDICATION: Severe low back pain, urinary changes, fall, previous spinal surgery TECHNIQUE: Multiplanar multiecho sequences were obtained through the thoracic spine utilizing T1 and T2 weighting without the administration of intravenous contrast. 9 series were obtained including localizer series. Multiplanar multiecho sequences were obtained through the lumbar spine utilizing T1 and T2 weighting without the administration of intravenous contrast. 9 series were obtained including localizer series. COMPARISON: Outside facility CT thoracic and lumbar spine, 06/19/2025 FINDINGS: Thoracic Spine: Diagnostic Quality: Adequate. Alignment: Redemonstrated posterior spinal stabilization hardware spanning T2 through T8. Mild straightening of the thoracic kyphosis. Marrow, Vertebrae and Intervertebral Discs: Increased STIR hyperintensity with linear T1 hypointensity within the superior portion of the T11 vertebral body with edema that extends into the bilateral pedicles. Similar T1 hypointense, STIR hyperintense signal within the anterior inferior portion of the T10 vertebral body. Irregularity and cortical discontinuity of the inferior endplate of T10 and superior endplate of T11. No retropulsion into the spinal canal at T10-T11. Discontinuity of the bridging osteophyte at T10-T11. Increased T2/STIR signal within the anterior disc space at T10-T11. Small effusions of the bilateral facet joints at T10-T11. Multilevel body height loss of the remaining vertebrae, less than 25%. Type I changes of the right inferior endplate of T12. Multilevel disc desiccation. Ligaments: Suspected discontinuity or thinning of the anterior longitudinal ligament at T10-T11. Remaining anterior and posterior longitudinal ligaments are intact. Abnormal signal throughout the interspinous ligament at T10-T11. Thinning and STIR hyperintensity within the ligamentum flavum at T10-T11 without definite discontinuity. Spinal Cord: Flattening of the right spinal cord at T9-T10 secondary to right paramedian disc herniation with paired central cord signal changes. No edema in the T9-T10 intervertebral disc, suggesting this could be a chronic herniation. Mild to moderate spinal canal stenosis at T9-T10 and T10-T11. Minimal multilevel facet joint arthrosis without significant neural foraminal narrowing. Prevertebral and Paraspinal Soft Tissues: Heterogeneous stranding and STIR hyperintensity within the prevertebral and paravertebral space spanning T10-T12 levels. Lumbar Spine: Diagnostic Quality: Adequate. Anatomic Variants: 5 lumbar vertebrae. Alignment: Redemonstrated posterior spinal stabilization hardware spanning L5 through S1. Straightening of the lumbar lordosis. Marrow, Vertebrae and Intervertebral Discs: Age indeterminate compression deformity of the L4 vertebral body, probably chronic, with 50% vertebral body height loss. Mild L2 vertebral body height loss (less than 25%). Multilevel disc desiccation and height loss. Ligaments: Anterior and posterior longitudinal ligaments are intact. Artifact surrounding the posterior spinal fusion hardware limits evaluation. Conus: No abnormal intrinsic signal of the conus. The conus terminates at the L1-L2 level. Significant findings by level: T12-L1: Minimal facet joint arthrosis. Broad-based disc bulge. No significant neural foraminal or spinal canal narrowing. L1-L2: Minimal facet joint arthrosis. Left disc herniation with narrowing of the lateral recess. No significant neural foraminal narrowing. Mild spinal canal narrowing. L2-L3: Minimal facet joint arthrosis. Broad-based disc bulge. No significant neural foraminal or spinal canal narrowing. L3-L4: Minimal facet joint arthrosis. Broad-based disc bulge with central protrusion at L3-L4. Moderate bilateral neural foraminal narrowing. Mild spinal canal narrowing. L4-L5: Facet joint arthrosis. Moderate bilateral neural foraminal narrowing. No significant spinal canal stenosis. L5-S1: Facet joint arthrosis. Moderate right and severe left neural foraminal narrowing. Lateral recesses are patent. Prevertebral and Paraspinal Soft Tissues: Increased T2 signal within the subcutaneous tissue along the length of the lumbar spine. Procedure Note Rachele Hollis MD - 06/20/2025 CLINICAL INDICATION: Severe low back pain, urinary changes, fall, previous spinal surgery TECHNIQUE: Multiplanar multiecho sequences were obtained through the thoracic spineutilizing T1 and T2 weighting without the administration of intravenouscontrast. 9 series were obtained including localizer series. Multiplanar multiecho sequences were obtained through the lumbar spineutilizing T1 and T2 weighting without the administration of intravenouscontrast. 9 series were obtained including localizer series. COMPARISON: Outside facility CT thoracic and lumbar spine, 06/19/2025 FINDINGS: Thoracic Spine: Diagnostic Quality: Adequate. Alignment: Redemonstrated posterior spinal stabilization hardware spanningT2 through T8. Mild straightening of the thoracic kyphosis. Marrow, Vertebrae and Intervertebral Discs: Increased STIR hyperintensitywith linear T1 hypointensity within the superior portion of the [id number] body with edema that extends into the bilateral pedicles.Similar T1 hypointense, STIR hyperintense signal within the anteriorinferior portion of the T10 vertebral body. Irregularity and corticaldiscontinuity of the inferior endplate of T10 and superior endplate ofT11. No retropulsion into the spinal canal at T10-T11. Discontinuity ofthe bridging osteophyte at T10-T11. Increased T2/STIR signal within theanterior disc space at T10-T11. Small effusions of the bilateral facetjoints at T10-T11. Multilevel body height loss of the remaining vertebrae, less than 25%.Type I changes of the right inferior endplate of T12. Multilevel discdesiccation. Ligaments: Suspected discontinuity or thinning of the anteriorlongitudinal ligament at T10-T11. Remaining anterior and posteriorlongitudinal ligaments are intact. Abnormal signal throughout theinterspinous ligament at T10-T11. Thinning and STIR hyperintensity withinthe ligamentum flavum at T10-T11 without definite discontinuity. Spinal Cord: Flattening of the right spinal cord at T9-T10 secondary toright paramedian disc herniation with paired central cord signal changes.No edema in the T9-T10 intervertebral disc, suggesting this could be achronic herniation. Mild to moderate spinal canal stenosis at T9-T10 [id number]. Minimal multilevel facet joint arthrosis without significantneural foraminal narrowing. Prevertebral and Paraspinal Soft Tissues: Heterogeneous stranding and STIRhyperintensity within the prevertebral and paravertebral space [id number]- T12 levels. Lumbar Spine: Diagnostic Quality: Adequate. Anatomic Variants: 5 lumbar vertebrae. Alignment: Redemonstrated posterior spinal stabilization hardware spanningL5 through S1. Straightening of the lumbar lordosis. Marrow, Vertebrae and Intervertebral Discs: Age indeterminate compressiondeformity of the L4 vertebral body, probably chronic, with 50% vertebralbody height loss. Mild L2 vertebral body height loss (less than 25%).Multilevel disc desiccation and height loss. Ligaments: Anterior and posterior longitudinal ligaments are intact.Artifact surrounding the posterior spinal fusion hardware limitsevaluation. Conus: No abnormal intrinsic signal of the conus. The conus terminates atthe L1- L2 level. Significant findings by level: T12-L1: Minimal facet joint arthrosis. Broad-based disc bulge. Nosignificant neural foraminal or spinal canal narrowing. L1-L2: Minimal facet joint arthrosis. Left disc herniation with narrowingof the lateral recess. No significant neural foraminal narrowing. Mildspinal canal narrowing. L2-L3: Minimal facet joint arthrosis. Broad-based disc bulge. Nosignificant neural foraminal or spinal canal narrowing. L3-L4: Minimal facet joint arthrosis. Broad-based disc bulge with centralprotrusion at L3-L4. Moderate bilateral neural foraminal narrowing. Mildspinal canal narrowing. L4-L5: Facet joint arthrosis. Moderate bilateral neural foraminalnarrowing. No significant spinal canal stenosis. L5-S1: Facet joint arthrosis. Moderate right and severe left neuralforaminal narrowing. Lateral recesses are patent. Prevertebral and Paraspinal Soft Tissues: Increased T2 signal within thesubcutaneous tissue along the length of the lumbar spine. IMPRESSION: 1.Acute fracture of the T11 vertebral body involving the anterior andposterior columns. Additional fracture of the inferior portion of the [id number] endplate. 2.Suspected injury of the anterior longitudinal ligament at T10-T11. 3.Age-indeterminate compression fracture of L4, likely chronic.Comparison with outside imaging would be beneficial to assess stability. 4.Flattening of the right spinal cord secondary to right paramedian discherniation with faint central cord signal changes at T9-T10. Mild tomoderate spinal canal stenosis at T9-T10 and T10-T11. Comparison withoutside imaging would be beneficial to assess stability. 5.Multilevel spondylotic changes within the lumbar spine, most prominentfrom L3 to S1 with moderate to severe neural foraminal narrowing. CRITICAL RESULT: Yes COMMUNICATION: The critical findings were discussed via secure chat with AMY CESPEDES on06/20/2025 10:30 AM by Moses Pollock with acknowledgment of the results. By electronically signing this report, I, the attending physician, leydaat I have personally reviewed the images/data for the aboveexamination(s) and agree with the final edited report. Drafted by Moses Pollock MD on 06/20/2025 8:38 AM Final report signed by Rachele Hollis on 06/20/2025 11:26 AM us Jabari Zuleta MD IMG MRI PROCEDURES Final Result * (ABNORMAL) POCT glucose meter (06/20/2025 5:26 AM EDT) POCT Glucose 109(H) 74 - 99 mg/dL 06/20/2025 5:27 AM EDT [facility] Comment:Accuracy of a glucos e result obtained from a capillary whole blood specimen relies upon adequate, non-compromised capillary blood flow. If the capillary glucose result is not consistent with the patient's clinical signs and symptoms, glucose testing should be repeated with either an arterial or venous sample on the glucometer or sent to the main labortory for testing. Comment 06/20/2025 5:27 AM EDT [facility] Fire Alarm Technician ID Martha Byrne 06/20/2025 5:27 AM EDT [facility] Device ID [id number] 06/20/2025 5:27 AM EDT [facility] Specimen Type POC Capillary 06/20/2025 5:27 AM EDT [facility] Blood Capillary blood specimen / Unknown 06/20/2025 5:26 AM EDT 06/20/2025 5:27 AM EDT Amy Argueta MD LAB POINT OF CARE TE ST DOCKED DEVICE UNSOLICITED RESULTS Final Result [facility] [address] [place] [address] * POCT glucose meter (06/20/2025 5:02 AM EDT) POCT Glucose 84 74 - 99 mg/dL 06/20/2025 5:05 AM EDT [facility] Comment:Accuracy of a glucos e result obtained from a capillary whole blood specimen relies upon adequate, non-compromised capillary blood flow. If the capillary glucose result is not consistent with the patient's clinical signs and symptoms, glucose testing should be repeated with either an arterial or venous sample on the glucometer or sent to the main labortory for testing. Comment 06/20/2025 5:05 AM EDT [facility] Fire Alarm Technician ID Cal Collins 06/20/2025 5:05 AM EDT [facility] Device ID [id number] 06/20/2025 5:05 AM EDT [facility] Specimen Type POC Capillary 06/20/2025 5:05 AM EDT [facility] Blood Capillary blood specimen / Unknown 06/20/2025 5:02 AM EDT 06/20/2025 5:05 AM EDT Amy Argueta MD LAB POINT OF CARE TE ST DOCKED DEVICE UNSOLICITED RESULTS Final Result [facility] [address] [place] [address] * (ABNORMAL) POCT glucose meter (06/20/2025 12:57 AM EDT) [facility] POCT Glucose 104(H) 74 - 99 mg/dL 06/20/2025 12:59 AM EDT [facility] Comment:Accuracy of a glucos e result obtained from a capillary whole blood specimen relies upon adequate, non-compromised capillary blood flow. If the capillary glucose result is not consistent with the patient's clinical signs and symptoms, glucose testing should be repeated with either an arterial or venous sample on the glucometer or sent to the main labortory for testing. Comment 06/20/2025 12:59 AM EDT [facility] Fire Alarm Technician ID Cal Collins 06/20/2025 12:59 AM EDT [facility] Device ID [id number] 06/20/2025 12:59 AM EDT [facility] Specimen Type POC Capillary 06/20/2025 12:59 AM EDT [facility] Blood Capillary blood specimen / Unknown 06/20/2025 12:57 AM EDT 06/20/2025 12:59 AM EDT us Amy Argueta MD LAB POINT OF CARE TE ST DOCKED DEVICE UNSOLICITED RESULTS Final Result [facility] [address] [place] [address] * CT Bony Pelvis (06/20/2025 12:16 AM EDT) Anatomical Region Laterality Modality Pelvis Computed Tomogra phy Impressions 06/20/2025 1:13 AM EDT Pubic diastases. No other evidence of traumatic injury to the pelvis. CRITICAL RESULT: No. COMMUNICATION: Per this written report. By electronically signing this report, I, the attending physician, attest that I have personally reviewed the images/data for the above examination(s) and agree with the final edited report. Drafted by Eduar Cartagena MD on 06/20/2025 12:48 AM Final report signed by He Allison MD on 06/20/2025 1:13 AM Narrative 06/20/2025 1:13 AM EDT CLINICAL INDICATION: widened symphysis TECHNIQUE: Multiple axial CT images were obtained through level of pelvis per CT Bony Pelvis protocol. The axial CT data set was used to generate high resolution reformatted images in the coronal and sagittal planes to facilitate diagnostic accuracy and treatment planning. Total DLP (Dose-Length Product): 428.17 mGy.cm. Please note: The reported value represents the total of one or more individual components during the CT acquisition on this date and at this time, and as such, the same value may appear in more than one CT report depending on the interpreting/reporting physicians. COMPARISON: Pelvic radiograph from 06/19/2025. Outside CT of the thoracic and lumbar spine from 06/19/2025. FINDINGS: Widening of the pubic symphysis to approximately 1.0 cm. Hypodensity between the pubic bones may represent a small underlying fluid collection. No bony erosive change. No pelvic fracture. Mild degenerative changes of the sacroiliac joints, which are otherwise intact. Partially visualized posterior lumbosacral fusion hardware. No evidence of acute process within the partially visualized soft tissues of the abdomen or pelvis. Procedure Note He Allison MD - 06/20/2025 CLINICAL INDICATION: widened symphysis TECHNIQUE: Multiple axial CT images were obtained through level of pelvis per CT BonyPelvis protocol. The axial CT data set was used to generate highresolution reformatted images in the coronal and sagittal planes tofacilitate diagnostic accuracy and treatment planning. Total DLP (Dose-Length Product): 428.17 mGy.cm. Please note: The reportedvalue represents the total of one or more individual components during theCT acquisition on this date and at this time, and as such, the same valuemay appear in more than one CT report depending on theinterpreting/reporting physicians. COMPARISON: Pelvic radiograph from 06/19/2025. Outside CT of the thoracic and lumbarspine from 06/19/2025. FINDINGS: Widening of the pubic symphysis to approximately 1.0 cm. Hypodensitybetween the pubic bones may represent a small underlying fluid collection.No bony erosive change. No pelvic fracture. Mild degenerative changes ofthe sacroiliac joints, which are otherwise intact. Partially visualizedposterior lumbosacral fusion hardware. No evidence of acute process withinthe partially visualized soft tissues of the abdomen or pelvis. IMPRESSION: Pubic diastases. No other evidence of traumatic injury to the pelvis. CRITICAL RESULT: No. COMMUNICATION: Per this written report. By electronically signing this report, I, the attending physician, attestthat I have personally reviewed the images/data for the aboveexamination(s) and agree with the final edited report. Drafted by Eduar Cartagena MD on 06/20/2025 12:48 AM Final report signed by He Allison MD on 06/20/2025 1:13 AM us Amy Argueta MD IMG CT PROCEDURES Final Resul t * Morphology (06/19/2025 10:40 PM EDT) RBC Morphology Slide Reviewed LAB HEMATOLOGY METHOD 06/19/2025 11:52 PM EDT [facility] Clumped Platelets Present LAB HEMATOLOGY METHOD 06/19/2025 11:52 PM EDT [facility] Blood Venous blood specimen / Unknown Venipuncture / Unknown 06/19/2025 10:40 PM EDT 06/19/2025 11:03 PM EDT us Jabari Zuleta MD LAB BLOOD ORDERABLES Final Resul t Performing Organization Address City/[facility]/ZIP Co de Phone Number [facility] [address] [place] [address] * ED HIV 1/2 Antibody/Antigen Screen w/Reflex to HIV 1/2 Differentiation (06/19/2025 10:40 PM EDT) HIV 1 & 2 Antibody/Antigen Screen Non Reactive Non Reactive 06/19/2025 11:44 PM EDT [facility] Comment:Screening for HIV 1 & 2 antibodies, and P24 antigen is NONREACTIVE. No confirmatory testing is required. Blood Venous blood specimen / Unknown Venipuncture / Unknown 06/19/2025 10:40 PM EDT 06/19/2025 11:02 PM EDT us Jabari Zuleta MD LAB BLOOD ORDERABLES Final Resul t Performing Organization Address City/[facility]/ZIP Co de Phone Number [facility] [address] [place] [address] * Hepatitis C Antibody - ED (06/19/2025 10:40 PM EDT) Hepatitis C Antibody Negative Negative 06/19/2025 11:44 PM EDT [facility] Blood Venous blood specimen / Unknown Venipuncture / Unknown 06/19/2025 10:40 PM EDT 06/19/2025 11:03 PM EDT us Jabari Zuleta MD LAB BLOOD ORDERABLES Final Resul t Performing Organization Address City/[facility]/ZIP Co de Phone Number [facility] [address] [place] [address] * Type and screen (06/19/2025 10:40 PM EDT) ABO/Rh O Positive 06/19/2025 10:33 PM EDT [facility] Antibody Screen Negative 06/19/2025 10:33 PM EDT [facility] Specimen Expiration 06/22/2025 23:59 06/19/2025 10:33 PM EDT [facility] Blood Venous blood specimen / Unknown Venipuncture / Unknown 06/19/2025 10:40 PM EDT 06/19/2025 10:48 PM EDT us Jabari Zuleta MD LAB BLOOD BANK TEST ORDERABLES F inal Result Performing Organization Address [facility]/ZIP Co de Phone Number BLOOD BANK [address] [place] [address], * PT-INR (06/19/2025 10:40 PM EDT) Prothrombin Time 13.7 12.0 - 14.3 sec 06/19/2025 11:01 PM EDT [facility] INR 1.1 0.9 - 1.1 06/19/2025 11:01 PM EDT [facility] Blood Venous blood specimen / Unknown Venipuncture / Unknown 06/19/2025 10:40 PM EDT 06/19/2025 10:46 PM EDT Narrative [facility] - 06/19/2025 11:01 PM EDT OPTIMAL INR RANGES FOR PATIENT ON ORAL ANTICOAGULANT THERAPY Prevention of venous thromboembolism INR 2.0 to 3.0 In patients with heart disease: Atrial fibrillation INR 2.0 to 3.0 Valvular heart disease INR 2.0 to 3.0 Tissue heart valves INR 2.0 to 3.0 Mechanical prosthetic valves INR 2.5 to 3.5 Prevention of recurrent OH INR 2.5 to 3.5 us Jabari Zuleta MD LAB BLOOD ORDERABLES Final Resul t Performing Organization Address City/[facility]/ZIP Co de Phone Number [facility] [address] [place] [address] * (ABNORMAL) CBC w/diff (06/19/2025 10:40 PM EDT) WBC Count 9.12 3.70 - 10.30 10*3/uL LAB HEMATOLOGY METHOD 06/19/2025 11:52 PM EDT [facility] RBC Count 4.65 4.60 - 6.10 10*6/uL LAB HEMATOLOGY METHOD 06/19/2025 11:52 PM EDT [facility] HGB 13.0(L) 13.7 - 17.5 g/dL LAB HEMATOLOGY METHOD 06/19/2025 11:52 PM EDT [facility] HCT 39.6(L) 40.0 - 51.0 % LAB HEMATOLOGY METHOD 06/19/2025 11:52 PM EDT [facility] Platelet Count 151(L) 155 - 369 10*3/uL LAB HEMATOLOGY METHOD 06/19/2025 11:52 PM EDT [facility] MCV 85 79 - 98 fL LAB HEMATOLOGY METHOD 06/19/2025 11:52 PM EDT [facility] MCH 28.0 26.0 - 32.0 pg LAB HEMATOLOGY METHOD 06/19/2025 11:52 PM EDT [facility] MCHC 32.8 30.7 - 35.5 g/dL LAB HEMATOLOGY METHOD 06/19/2025 11:52 PM EDT [facility] RDW 14.6(H) 11.5 - 14.5 % LAB HEMATOLOGY METHOD 06/19/2025 11:52 PM EDT [facility] MPV LAB HEMATOLOGY METHOD 06/19/2025 11:52 PM EDT [facility] Comment:Not Measured nRBC 0.0 <=0.0 per 100 WBCs LAB HEMATOLOGY METHOD 06/19/2025 11:52 PM EDT [facility] Differential Type Automated LAB HEMATOLOGY METHOD 06/19/2025 11:52 PM EDT [facility] Neutrophils % 64 % LAB HEMATOLOGY METHOD 06/19/2025 11:52 PM EDT [facility] Lymphocytes % 23 % LAB HEMATOLOGY METHOD 06/19/2025 11:52 PM EDT [facility] Monocytes % 10 % LAB HEMATOLOGY METHOD 06/19/2025 11:52 PM EDT [facility] Eosinophils % 1 % LAB HEMATOLOGY METHOD 06/19/2025 11:52 PM EDT [facility] Basophils % 1 % LAB HEMATOLOGY METHOD 06/19/2025 11:52 PM EDT [facility] Immature Granulocytes % 1 % LAB HEMATOLOGY METHOD 06/19/2025 11:52 PM EDT [facility] Neutrophils Absolute 5.93 1.60 - 6.10 10*3/uL LAB HEMATOLOGY METHOD 06/19/2025 11:52 PM EDT [facility] Lymphocytes Absolute 2.08 1.20 - 3.90 10*3/uL LAB HEMATOLOGY METHOD 06/19/2025 11:52 PM EDT [facility] Monocytes Absolute 0.89 0.30 - 0.90 10*3/uL LAB HEMATOLOGY METHOD 06/19/2025 11:52 PM EDT [facility] Eosinophils Absolute 0.10 0.00 - 0.50 10*3/uL LAB HEMATOLOGY METHOD 06/19/2025 11:52 PM EDT [facility] Basophils Absolute 0.07 0.00 - 0.10 10*3/uL LAB HEMATOLOGY METHOD 06/19/2025 11:52 PM EDT [facility] Immature Granulocytes Absolute 0.05 0.00 - 0.06 10*3/uL LAB HEMATOLOGY METHOD 06/19/2025 11:52 PM EDT [facility] Blood Venous blood specimen / Unknown Venipuncture / Unknown 06/19/2025 10:40 PM EDT 06/19/2025 11:03 PM EDT Narrative [facility] - 06/19/2025 11:52 PM EDT Therapeutic decision making should be based on absolute values, rather than percentages. Jabari Zuleta MD LAB BLOOD ORDERABLES Final Resul t [facility] [address] [place] [address] * (ABNORMAL) Blood gas panel, venous (06/19/2025 10:40 PM EDT) pH, Venous 7.51(H) 7.32 - 7.43 LAB HEMATOLOGY METHOD 06/19/2025 10:55 PM EDT [facility] pCO2, Venous 34(L) 40 - 55 mmHg LAB HEMATOLOGY METHOD 06/19/2025 10:55 PM EDT [facility] pO2, Venous 46(H) 25 - 40 mmHg LAB HEMATOLOGY METHOD 06/19/2025 10:55 PM EDT [facility] SO2, Measured, Venous 87(H) 65 - 80 % LAB HEMATOLOGY METHOD 06/19/2025 10:55 PM EDT [facility] Base Excess, Venous 3.7(H) -2.0 - 3.0 mmol/L LAB HEMATOLOGY METHOD 06/19/2025 10:55 PM EDT [facility] Bicarbonate, Calculated, Venous 27(H) 22 - 26 mmol/L LAB HEMATOLOGY METHOD 06/19/2025 10:55 PM EDT [facility] Hematocrit, Whole Blood 40.3 40.0 - 51.0 % LAB HEMATOLOGY METHOD 06/19/2025 10:55 PM EDT [facility] Sodium, Whole Blood 143 136 - 145 mmol/L LAB HEMATOLOGY METHOD 06/19/2025 10:55 PM EDT [facility] Potassium, Whole Blood 3.0(L) 3.6 - 4.9 mmol/L LAB HEMATOLOGY METHOD 06/19/2025 10:55 PM EDT [facility] Chloride, Whole Blood 106 97 - 107 mmol/L LAB HEMATOLOGY METHOD 06/19/2025 10:55 PM EDT [facility] Glucose, Whole Blood 71(L) 74 - 99 mg/dL LAB HEMATOLOGY METHOD 06/19/2025 10:55 PM EDT [facility] Lactate, Venous, Whole Blood 1.8 0.5 - 2.2 mmol/L LAB HEMATOLOGY METHOD 06/19/2025 10:55 PM EDT [facility] Ionized Calcium, Whole Blood 4.4(L) 4.6 - 5.1 mg/dL LAB HEMATOLOGY METHOD 06/19/2025 10:55 PM EDT [facility] Blood Venous blood specimen / Unknown Venipuncture / Unknown 06/19/2025 10:40 PM EDT 06/19/2025 10:52 PM EDT us Jabari Zuleta MD LAB BLOOD ORDERABLES Final Resul t [facility] [address] [place] [address] * Lactic acid, venous (06/19/2025 10:40 PM EDT) Lactate, Venous, Whole Blood 1.8 0.5 - 2.2 mmol/L LAB HEMATOLOGY METHOD 06/19/2025 10:55 PM EDT [facility] Blood Venous blood specimen / Unknown Venipuncture / Unknown 06/19/2025 10:40 PM EDT 06/19/2025 10:52 PM EDT us Jabari Zuleta MD LAB BLOOD ORDERABLES Final Resul t Performing Organization Address City/[facility]/ZIP Co de Phone Number [facility] [address] [place] [address] * (ABNORMAL) Magnesium (06/19/2025 10:40 PM EDT) Magnesium, Plasma 1.6(L) 1.9 - 2.4 mg/dL 06/19/2025 11:08 PM EDT [facility] Blood Venous blood specimen / Unknown Venipuncture / Unknown 06/19/2025 10:40 PM EDT 06/19/2025 10:46 PM EDT us Jabari Zuleta MD LAB BLOOD ORDERABLES Final Resul t Performing Organization Address City/[facility]/ZIP Co de Phone Number [facility] [address] [place] [address] * (ABNORMAL) CMP (06/19/2025 10:40 PM EDT) Glucose, Plasma 72(L) 74 - 99 mg/dL 06/19/2025 11:08 PM EDT [facility] BUN, Plasma 9 7 - 21 mg/dL 06/19/2025 11:08 PM EDT [facility] Creatinine, Plasma 0.52(L) 0.70 - 1.20 mg/dL 06/19/2025 11:08 PM EDT [facility] BUN/Creatinine Ratio 17 06/19/2025 11:08 PM EDT [facility] Sodium, Plasma 140 136 - 145 mmol/L 06/19/2025 11:08 PM EDT [facility] Potassium, Plasma 3.1(L) 3.6 - 4.9 mmol/L 06/19/2025 11:08 PM EDT [facility] Chloride, Plasma 103 97 - 107 mmol/L 06/19/2025 11:08 PM EDT [facility] CO2, Plasma 25 22 - 29 mmol/L 06/19/2025 11:08 PM EDT [facility] Anion Gap 12 6 - 16 mmol/L 06/19/2025 11:08 PM EDT [facility] Total Calcium, Plasma 9.2 8.9 - 10.2 mg/dL 06/19/2025 11:08 PM EDT [facility] Total Protein 7.4 6.3 - 7.9 g/dL 06/19/2025 11:08 PM EDT [facility] Albumin, Plasma 3.9 3.5 - 5.2 g/dL 06/19/2025 11:08 PM EDT [facility] AST, Plasma 28 10 - 50 U/L 06/19/2025 11:08 PM EDT [facility] ALT, Plasma 30 10 - 50 U/L 06/19/2025 11:08 PM EDT [facility] Alkaline Phosphatase, Plasma 94 40 - 115 U/L 06/19/2025 11:08 PM EDT [facility] Total Bilirubin, Plasma 0.4 0.2 - 1.1 mg/dL 06/19/2025 11:08 PM EDT [facility] eGFRcr 122.0 mL/min/1.7 3m*2 06/19/2025 11:08 PM EDT [facility] Comment:Reported eGFRcr in m L/min/1.73m2 is based the CKD-EPI 2020 equation that does not use a race coefficient. Blood Venous blood specimen / Unknown Venipuncture / Unknown 06/19/2025 10:40 PM EDT 06/19/2025 10:46 PM EDT us Jabari Zuleta MD LAB BLOOD ORDERABLES Final Resul t [facility] [address] [place] [address] * XR Pelvis 1 or 2 Views (06/19/2025 10:30 PM EDT) Anatomical Region Laterality Modality Body, Pelvis Digital Radiogra phy Impressions 06/19/2025 11:25 PM EDT 1. No evidence of acute injury in the chest. 2. Age-indeterminate pubic symphysis widening. CRITICAL RESULT: No. COMMUNICATION: Per this written report. Drafted by He Allison MD on 06/19/2025 11:23 PM Final report signed by He Allison MD on 06/19/2025 11:25 PM Narrative 06/19/2025 11:25 PM EDT CLINICAL INDICATION: fall TECHNIQUE: Single AP view of the chest. Single view of the pelvis. COMPARISON: None. FINDINGS: Plate and screw fixation of multiple right-sided ribs as well as the right clavicle. Spinal fixation hardware also present. Low lung volumes without focal consolidation. No pneumothorax. No pleural effusion. Cardiac silhouette within normal limits. No acute fracture appreciated. Widening of the pubic symphysis measuring 10 mm. No convincing pelvic fracture identified. Lumbosacral spinal fixation hardware noted. Procedure Note He Allison MD - 06/19/2025 CLINICAL INDICATION: fall TECHNIQUE: Single AP view of the chest. Single view of the pelvis. COMPARISON: None. FINDINGS: Plate and screw fixation of multiple right-sided ribs as well as the rightclavicle. Spinal fixation hardware also present. Low lung volumes withoutfocal consolidation. No pneumothorax. No pleural effusion. Cardiacsilhouette within normal limits. No acute fracture appreciated. Widening of the pubic symphysis measuring 10 mm. No convincing pelvicfracture identified. Lumbosacral spinal fixation hardware noted. IMPRESSION: 1. No evidence of acute injury in the chest. 2. Age-indeterminate pubic symphysis widening. CRITICAL RESULT: No. COMMUNICATION: Per this written report. Drafted by He Allison MD on 06/19/2025 11:23 PM Final report signed by He Allison MD on 06/19/2025 11:25 PM Jabari Zuleta MD IMG XR PROCEDURES Final Result * XR Chest 1 View (06/19/2025 10:30 PM EDT) Anatomical Region Laterality Modality Chest Digital Radiogra phy Impressions 06/19/2025 11:25 PM EDT 1. No evidence of acute injury in the chest. 2. Age-indeterminate pubic symphysis widening. CRITICAL RESULT: No. COMMUNICATION: Per this written report. Drafted by He Allison MD on 06/19/2025 11:23 PM Final report signed by He Allison MD on 06/19/2025 11:25 PM Narrative 06/19/2025 11:25 PM EDT CLINICAL INDICATION: fall TECHNIQUE: Single AP view of the chest. Single view of the pelvis. COMPARISON: None. FINDINGS: Plate and screw fixation of multiple right-sided ribs as well as the right clavicle. Spinal fixation hardware also present. Low lung volumes without focal consolidation. No pneumothorax. No pleural effusion. Cardiac silhouette within normal limits. No acute fracture appreciated. Widening of the pubic symphysis measuring 10 mm. No convincing pelvic fracture identified. Lumbosacral spinal fixation hardware noted. Procedure Note He Allison MD - 06/19/2025 CLINICAL INDICATION: fall TECHNIQUE: Single AP view of the chest. Single view of the pelvis. COMPARISON: None. FINDINGS: Plate and screw fixation of multiple right-sided ribs as well as the rightclavicle. Spinal fixation hardware also present. Low lung volumes withoutfocal consolidation. No pneumothorax. No pleural effusion. Cardiacsilhouette within normal limits. No acute fracture appreciated. Widening of the pubic symphysis measuring 10 mm. No convincing pelvicfracture identified. Lumbosacral spinal fixation hardware noted. IMPRESSION: 1. No evidence of acute injury in the chest. 2. Age-indeterminate pubic symphysis widening. CRITICAL RESULT: No. COMMUNICATION: Per this written report. Drafted by He Allison MD on 06/19/2025 11:23 PM Final report signed by He Allison MD on 06/19/2025 11:25 PM Jabari Zuleta MD IMG XR PROCEDURES Final Result documented in this encounter Visit Diagnoses Diagnosis Fall from slip, trip, or stumble- Primary Fall from other slipping, tripping, or stumbling Fall, initial encounter Acute midline low back pain without sciatica Closed fracture of eleventh thoracic vertebra, unspecified fracture morphology, initial encounter (CMS/[facility]) Other closed fracture of eleventh thoracic vertebra, initial encounter ([facility]) Other closed fracture of tenth thoracic vertebra, initial encounter (CMS/[facility]) Hypertension Unspecified essential hypertension Diabetes type 2 Thoracic vertebral fracture (CMS/HCC) Closed fracture of dorsal (thoracic) vertebra without mention of spinal cord injury Obesity (BMI 30-39.9) Lumbar compression fracture (CMS/HCC) Closed fracture of lumbar vertebra without mention of spinal cord injury DDD (degenerative disc disease), lumbar Degeneration of lumbar or lumbosacral intervertebral disc Electrolyte imbalance Electrolyte and fluid disorders not elsewhere classified Chronic back pain Unspecified backache Urge incontinence Colon cancer (CMS/HCC) Malignant neoplasm of colon, unspecified site Fall Unspecified fall documented in this encounter Admitting Diagnoses Diagnosis Fall from slip, trip, or stumble, initial encounter documented in this encounter Administered Medications Inactive Administered Medications - up to 3 most recent administrations Medication Order MAR Action Action Date Dose Rate Site acetaminophen (Tylenol) tablet 1,000 mg 1,000 mg, Oral, Once, 1 dose, On Tue06/19/25 at 2235, STAT Given 06/19/2025 10:59 PM EDT 1,000 mg acetaminophen (Tylenol) tablet 650 mg 650 mg, Oral, Every 6 hours scheduled, First dose (after last modification) on Tue06/20/25 at 1800, Until Discontinued, STAT Given 06/21/2025 5:35 PM EDT 650 mg Given 06/21/2025 12:17 PM EDT 650 mg Given 06/20/2025 11:37 PM EDT 650 mg dextrose 10 % (D10W) bolus 125 mL 125 mL, Intravenous, Every 15 min PRN, Starting on Tue06/20/25 at 0830, Until Tue06/21/25 at 2020, Administer over 15 Minutes, Routine, low blood sugar BG 51-89 mg/dL dextrose 10 % (D10W) bolus 250 mL 250 mL, Intravenous, Every 15 min PRN, Starting on Tue06/20/25 at 0830, Until Tue06/21/25 at 2020, Administer over 15 Minutes, Routine, PRN low blood sugar BG =/<50 mg/dL fentaNYL (Sublimaze) 50 mcg/mL injection - Pyxis Override Pull 1 dose, Starting on Tue06/19/25 at 2232, Until Tue06/19/25 at 2234 fentaNYL (Sublimaze) injection 75 mcg 75 mcg, Intravenous, Once, 1 dose, On Tue06/19/25 at 2240, Routine Given 06/19/2025 10:34 PM EDT 75 mcg glucagon (human recombinant) injection 1 mg 1 mg, Intramuscular, Every 15 min PRN, Starting on Tue06/20/25 at 0830, Until Tue06/21/25 at 2020, Routine, low blood sugar per Hypoglycemia Prevention and Treatment protocol glucose (Glutose) 40 % oral gel 15-30 grams of glucose 15-30 grams of glucose, Sublingual, Every 15 min PRN, Starting on Tue06/20/25 at 0830, Until Tue06/21/25 at 2020, Routine, low blood sugar, per Hypoglycemia Prevention and Treatment protocol HYDROmorphone (Dilaudid) injection 0.5 mg 0.5 mg, Intravenous, Every 2 hour PRN, Starting on Tue06/19/25 at 2234, Until Tue06/20/25 at 1518, Routine, mild - moderate pain Given 06/20/2025 10:29 AM EDT 0.5 mg Given 06/20/2025 8:39 AM EDT 0.5 mg HYDROmorphone (Dilaudid) injection 1 mg 1 mg, Intravenous, Every 2 hour PRN, Starting on Tue06/19/25 at 2234, Until Tue06/20/25 at 1518, Routine, severe pain Given 06/20/2025 6:43 AM EDT 1 mg Given 06/20/2025 12:55 AM EDT 1 mg ibuprofen tablet 600 mg 600 mg, Oral, Every 6 hours scheduled, First dose (after last modification) on Tue06/20/25 at 1800, Until Discontinued, STAT Given 06/21/2025 5:35 PM EDT 600 mg Given 06/21/2025 12:16 PM EDT 600 mg Given 06/20/2025 11:37 PM EDT 600 mg insulin lispro (Admelog) 100 units/mL injection - Correction - Standard Dose 0-5 Units, Subcutaneous, 3 times daily with meals, First dose on Tue06/21/25 at 1230, Until Discontinued, Routine insulin lispro (Admelog) injection - Correction - Nighttime Dose 0-3 Units, Subcutaneous, 2 times nightly (2100 & 0300), First dose on Tue06/21/25 at 2100, Until Discontinued, Routine losartan (Cozaar) tablet 25 mg 25 mg, Oral, Daily, First dose on Tue06/21/25 at 1130, Until Discontinued, Routine Given 06/21/2025 12:17 PM EDT 25 mg magnesium sulfate IVPB 2 g 2 g, Intravenous, Once, 1 dose, On Tue06/20/25 at 0835, STAT New Bag 06/20/2025 8:40 AM EDT 2 g 25 mL/hr methocarbamol (Robaxin) tablet 1,000 mg 1,000 mg, Oral, 4 times daily, First dose on Tue06/19/25 at 2235, Until Discontinued, STAT Given 06/20/2025 1:10 PM EDT 1,000 mg Given 06/20/2025 8:37 AM EDT 1,000 mg Given 06/19/2025 10:59 PM EDT 1,000 mg methocarbamol (Robaxin) tablet 1,500 mg 1,500 mg, Oral, 3 times daily, First dose on Tue06/20/25 at 1600, Until Discontinued, STAT Given 06/21/2025 5:35 PM EDT 1,500 mg Given 06/21/2025 8:12 AM EDT 1,500 mg Given 06/20/2025 8:48 PM EDT 1,500 mg oxyCODONE (Roxicodone) immediate release tablet 10 mg 10 mg, Oral, Every 4 hours PRN, Starting on Tue06/20/25 at 1521, Until Tue06/21/25 at 2020, Routine, moderate pain Given 06/21/2025 5:34 PM EDT 10 mg Given 06/21/2025 12:16 PM EDT 10 mg oxyCODONE (Roxicodone) immediate release tablet 15 mg 15 mg, Oral, Every 4 hours PRN, Starting on Tue06/20/25 at 1521, Until Tue06/21/25 at 2020, Routine, severe pain Given 06/20/2025 4:07 PM EDT 15 mg polyethylene glycol (Miralax) packet 17 g 17 g, Oral, Daily, First dose on Tue06/20/25 at 1520, Until Discontinued, Routine Given 06/21/2025 8:12 AM EDT 17 g potassium chloride CR (Klor-Con) ER tablet 40 mEq 40 mEq, Oral, Every 2 hours, 2 doses, First dose on Tue06/20/25 at 0835, Last dose on Tue06/20/25 at 1035, Routine Given 06/20/2025 10:29 AM EDT 40 mEq Given 06/20/2025 8:37 AM EDT 40 mEq senna-docusate (Madyson-Colace) 8.6-50 MG per tablet 1 tablet 1 tablet, Oral, Nightly, First dose on Tue06/20/25 at 2100, Until Discontinued, Routine sodium chloride 0.9 % flush 10 mL 10 mL, Intravenous, Every 12 hours, First dose on Tue06/20/25 at 0145, Until Discontinued, Routine Given 06/21/2025 1:19 AM EDT 10 mL Given 06/20/2025 11:49 AM EDT 10 mL Given 06/20/2025 1:45 AM EDT 10 mL sodium chloride 0.9 % flush 10 mL 10 mL, Intravenous, As needed, Starting on Tue06/20/25 at 0141, Until Tue06/21/25 at 2020, Routine, line care sodium chloride 0.9 % flush 10 mL 10 mL, Intravenous, Every 12 hours, First dose on Tue06/20/25 at 1415, Until Discontinued, Routine Given 06/21/2025 1:20 AM EDT 10 mL Given 06/20/2025 2:42 PM EDT 10 mL sodium chloride 0.9 % flush 10 mL 10 mL, Intravenous, As needed, Starting on Tue06/20/25 at 1407, Until Tue06/21/25 at 2020, Routine, line care documented in this encounter Active and Recently Administered Medications Times are shown in EDT. Scheduled Medication Order 06/19/2025 06/20/2025 06/21/2025 acetaminophen (Tylenol) tablet 1,000 mg (COMPLETED) 1,000 mg, Oral, Once, 1 dose, On Tue06/19/25 at 2235, STAT 2259 (Given - Provider: Chloe Nichols RN) acetaminophen (Tylenol) tablet 650 mg 650 mg, Oral, Every 6 hours scheduled, First dose (after last modification) on Tue06/20/25 at 1800, Until Discontinued, STAT 1713 (Given - Provider: Tiny Marinelli RN)2337 (Given - Provider: Trisha Jones RN) 0612 (Not Given - Provider: Trisha Jones RN - Reason: Patient/family refused)1217 (Given - Provider: Xavier Arrington RN)1735 (Given - Provider: Xavier Arrington RN) fentaNYL (Sublimaze) injection 75 mcg (COMPLETED) 75 mcg, Intravenous, Once, 1 dose, On Tue06/19/25 at 2240, Routine 2234 (Given - Provider: Eron Parks, Nadine) ibuprofen tablet 600 mg 600 mg, Oral, Every 6 hours scheduled, First dose (after last modification) on Tue06/20/25 at 1800, Until Discontinued, STAT 1713 (Given - Provider: Tiny Marinelli RN)2337 (Given - Provider: Trisha Jones RN) 0612 (Not Given - Provider: Trisha Jones RN - Reason: Patient/family refused)1216 (Given - Provider: Xavier Arrington RN)1735 (Given - Provider: Xavier Arrington RN) insulin lispro (Admelog) 100 units/mL injection - Correction - Standard Dose 0-5 Units, Subcutaneous, 3 times daily with meals, First dose on Tue06/21/25 at 1230, Until Discontinued, Routine 1254 (Not Given - Provider: Xavier Arrington RN - Reason: Patient/family refused)1745 (Not Given - Provider: Xavier Arrington RN - Reason: Order parameters not met) insulin lispro (Admelog) injection - Correction - Nighttime Dose 0-3 Units, Subcutaneous, 2 times nightly (2100 & 0300), First dose on Tue06/21/25 at 2100, Until Discontinued, Routine losartan (Cozaar) tablet 25 mg 25 mg, Oral, Daily, First dose on Tue06/21/25 at 1130, Until Discontinued, Routine 1217 (Given - Provid er: Xavier Arrington RN) magnesium sulfate IVPB 2 g (COMPLETED) 2 g, Intravenous, Once, 1 dose, On Tue06/20/25 at 0835, STAT 0840 (New Bag - Provider: Tiny Marinelli, RN)1148 (Stopped - Provider: Tiny Marinelli, RN) methocarbamol (Robaxin) tablet 1,000 mg (CANCELED) 1,000 mg, Oral, 4 times daily, First dose on Tue06/19/25 at 2235, Until Discontinued, STAT 2259 (Given - Provider: Chloe Nichols RN) 0837 (Given - Provider: Tiny Marinelli RN)1310 (Given - Provider: Tiny Marinelli RN) methocarbamol (Robaxin) tablet 1,500 mg 1,500 mg, Oral, 3 times daily, First dose on Tue06/20/25 at 1600, Until Discontinued, STAT 1527 (Given - Provider: Tiny Marinelli RN)2048 (Given - Provider: Trisha Jones, DAISY) 0812 (Given - Provider: Xavier Arrington, DAISY)1735 (Given - Provider: Xavier Arrington RN) polyethylene glycol (Miralax) packet 17 g 17 g, Oral, Daily, First dose on Tue06/20/25 at 1520, Until Discontinued, Routine 1559 (Not Given - Provider: Tiny Marinelli RN - Reason: Patient/family refused) 0812 (Given - Provider: Xavier Arrington RN) potassium chloride CR (Klor-Con) ER tablet 40 mEq (COMPLETED) 40 mEq, Oral, Every 2 hours, 2 doses, First dose on Tue06/20/25 at 0835, Last dose on Tue06/20/25 at 1035, Routine 0837 (Given - Provider: Tiny Marinelli RN)1029 (Given - Provider: Tiny Marinelli RN) senna-docusate (Madyson-Colace) 8.6-50 MG per tablet 1 tablet 1 tablet, Oral, Nightly, First dose on Tue06/20/25 at 2100, Until Discontinued, Routine 205 (Not Given - Provider: Trisha Jones RN - Reason: Patient/family refused) sodium chloride 0.9 % flush 10 mL(Linked Group 1) 10 mL, Intravenous, Every 12 hours, First dose on Tue06/20/25 at 0145, Until Discontinued, Routine 0145 (Given - Provider: Martha Byrne RN)1149 (Given - Provider: Tiny Marinelli RN) 0119 (Given - Provider: Trisha Jones, DAISY)1700 (Canceled Entry - Provider: Automatic Discharge Provider - Comment: Automatically canceled at discontinue of medication order) sodium chloride 0.9 % flush 10 mL(Linked Group 2) 10 mL, Intravenous, Every 12 hours, First dose on Tue06/20/25 at 1415, Until Discontinued, Routine 1442 (Given - Provider: Tiny Marinelli, RN) 0120 (Given - Provider: Trisha Jones RN)1700 (Canceled Entry - Provider: Automatic Discharge Provider - Comment: Automatically canceled at discontinue of medication order) PRN Medication Order 06/19/2025 06/20/2025 06/21/2025 dextrose 10 % (D10W) bolus 125 mL(Linked Group 3) 125 mL, Intravenous, Every 15 min PRN, Starting on Tue06/20/25 at 0830, Until Tue06/21/25 at 2019, Administer over 15 Minutes, Routine, low blood sugar BG 51-89 mg/dL dextrose 10 % (D10W) bolus 250 mL(Linked Group 3) 250 mL, Intravenous, Every 15 min PRN, Starting on Tue06/20/25 at 0830, Until Tue06/21/25 at 2019, Administer over 15 Minutes, Routine, PRN low blood sugar BG =/<50 mg/dL glucagon (human recombinant) injection 1 mg(Linked Group 3) 1 mg, Intramuscular, Every 15 min PRN, Starting on Tue06/20/25 at 0830, Until Tue06/21/25 at 2019, Routine, low blood sugar per Hypoglycemia Prevention and Treatment protocol glucose (Glutose) 40 % oral gel 15-30 grams of glucose(Linked Group 3) 15-30 grams of glucose, Sublingual, Every 15 min PRN, Starting on Tue06/20/25 at 0830, Until Tue06/21/25 at 2019, Routine, low blood sugar, per Hypoglycemia Prevention and Treatment protocol HYDROmorphone (Dilaudid) injection 0.5 mg (CANCELED)(Linked Group 4) 0.5 mg, Intravenous, Every 2 hour PRN, Starting on Tue06/19/25 at 2234, Until Tue06/20/25 at 1518, Routine, mild - moderate pain 0055 (See Alternative - Provider: Martha Byrne RN)0643 (See Alternative - Provider: Martha Byrne RN)0839 (Given - Provider: Tiny Marinelli RN)1029 (Given - Provider: Tiny Marinelli RN) HYDROmorphone (Dilaudid) injection 1 mg (CANCELED)(Linked Group 4) 1 mg, Intravenous, Every 2 hour PRN, Starting on Tue06/19/25 at 2234, Until Tue06/20/25 at 1518, Routine, severe pain 0055 (Given - Provider: Martha Byrne, RN)0643 (Given - Provider: Martha Byrne RN)0839 (See Alternative - Provider: Tiny Marinelli RN)1029 (See Alternative - Provider: Tiny Marinelli RN) oxyCODONE (Roxicodone) immediate release tablet 10 mg(Linked Group 5) 10 mg, Oral, Every 4 hours PRN, Starting on Tue06/20/25 at 1521, Until Tue06/21/25 at 2020, Routine, moderate pain 1607 (See Alternative - Provider: Tiny Marinelli RN) 1216 (Given - Provider: Xavier Arrington RN)1734 (Given - Provider: Xavier Arrington RN) oxyCODONE (Roxicodone) immediate release tablet 15 mg(Linked Group 5) 15 mg, Oral, Every 4 hours PRN, Starting on Tue06/20/25 at 1521, Until Tue06/21/25 at 2020, Routine, severe pain 1607 (Given - Provider: Tiny Marinelli RN) 1216 (See Alternative - Provider: Xavier Arrington RN)1734 (See Alternative - Provider: Xavier Arrington RN) sodium chloride 0.9 % flush 10 mL(Linked Group 1) 10 mL, Intravenous, As needed, Starting on Tue06/20/25 at 0141, Until Tue06/21/25 at 2020, Routine, line care sodium chloride 0.9 % flush 10 mL(Linked Group 2) 10 mL, Intravenous, As needed, Starting on Tue06/20/25 at 1407, Until Tue06/21/25 at 2020, Routine, line care Linked Groups Order Group 1: Insert peripheral IV (COMPLETED) Once, On Tue06/20/25 at 0142, For 1 occurrence And Saline lock IV (COMPLETED) Once, On Tue06/20/25 at 0142, For 1 occurrence And sodium chloride 0.9 % flush 10 mLJump to med 10 mL, Intravenous, Every 12 hours, First dose on Tue06/20/25 at 0145, Until Discontinued, Routine And sodium chloride 0.9 % flush 10 mLJump to med 10 mL, Intravenous, As needed, Starting on Tue06/20/25 at 0141, Until Tue06/21/25 at 2020, Routine, line care Group 2: Insert peripheral IV (CANCELED) Once, On Tue06/20/25 at 1408, For 1 occurrence And Saline lock IV (CANCELED) Once, On Tue06/20/25 at 1408, For 1 occurrence And sodium chloride 0.9 % flush 10 mLJump to med 10 mL, Intravenous, Every 12 hours, First dose on Tue06/20/25 at 1415, Until Discontinued, Routine And sodium chloride 0.9 % flush 10 mLJump to med 10 mL, Intravenous, As needed, Starting on Tue06/20/25 at 1407, Until Tue06/21/25 at 2020, Routine, line care Group 3: glucose (Glutose) 40 % oral gel 15-30 grams of glucoseJump to med 15-30 grams of glucose, Sublingual, Every 15 min PRN, Starting on Tue06/20/25 at 0830, Until Tue06/21/25 at 2019, Routine, low blood sugar, per Hypoglycemia Prevention and Treatment protocol Or dextrose 10 % (D10W) bolus 125 mLJump to med 125 mL, Intravenous, Every 15 min PRN, Starting on Tue06/20/25 at 0830, Until Tue06/21/25 at 2019, Administer over 15 Minutes, Routine, low blood sugar BG 51-89 mg/dL Or dextrose 10 % (D10W) bolus 250 mLJump to med 250 mL, Intravenous, Every 15 min PRN, Starting on Tue06/20/25 at 0830, Until Tue06/21/25 at 2019, Administer over 15 Minutes, Routine, PRN low blood sugar BG =/<50 mg/dL Or glucagon (human recombinant) injection 1 mgJump to med 1 mg, Intramuscular, Every 15 min PRN, Starting on Tue06/20/25 at 0830, Until Tue06/21/25 at 2020, Routine, low blood sugar per Hypoglycemia Prevention and Treatment protocol Group 4: HYDROmorphone (Dilaudid) injection 0.5 mg (CANCELED)Jump to med 0.5 mg, Intravenous, Every 2 hour PRN, Starting on Tue06/19/25 at 2234, Until Tue06/20/25 at 1518, Routine, mild - moderate pain Or HYDROmorphone (Dilaudid) injection 1 mg (CANCELED)Jump to med 1 mg, Intravenous, Every 2 hour PRN, Starting on Tue06/19/25 at 2234, Until Tue06/20/25 at 1518, Routine, severe pain Group 5: oxyCODONE (Roxicodone) immediate release tablet 10 mgJump to med 10 mg, Oral, Every 4 hours PRN, Starting on Tue06/20/25 at 1521, Until Tue06/21/25 at 2020, Routine, moderate pain Or oxyCODONE (Roxicodone) immediate release tablet 15 mgJump to med 15 mg, Oral, Every 4 hours PRN, Starting on Tue06/20/25 at 1521, Until Tue06/21/25 at 2020, Routine, severe pain documented in this encounter Care Teams Charhouse Worker Relationship Specialty Start Date End Date Edvin Rome MD PCP - General 08/31/23 documented as of this encounter
--- OUTSIDE RECORDS SUMMARY | 2025-07-23 10:24 | XMS_ITS | Encounter Summary ---
Author Organization Healthcare Address [address] [place] [address] Care Team Providers Care Digital Cartographer Name Role Phone Edvin Rome MD Primary Care Provider [phone] Encounter Details Date Type Department Care Team (Latest Contact Info) Description 07/23/2025 10:24 AM EDT - 07/23/2025 11:59 PM EDT Hospital Encounter [place] [facility] [address], [address] [place] [address] Closed unstable burst fracture of tenth thoracic [...] by mouth 2 times a day. ibuprofen 800 MG tabletIndications :Closed unstable burst fracture of tenth thoracic vertebra with routine healing, subsequent encounter Take 1 tablet by mouth every 8 hours as needed for mild pain. 90 tablet 07/23/2025 08/22/2025 losartan (Cozaar) 25 MG tablet Take 1 [...] daily. Do not crush, chew, or split. documented as of this encounter Plan of Treatment Upcoming Encounters Date Type Department Care Team (Late st Contact Info) Description 09/06/2025 8:20 AM EST Office Visit [place] [facility] [address] [place] [address] Canelo Gordon MD [address] [place] [address] documented as of this encounter [...] documented as of this encounter Care Teams Digital Cartographer Relationship Specialty Start Date End Date Edvin Rome MD PCP - General 08/31/23 documented as of this encounter
--- OUTSIDE RECORDS SUMMARY | 2025-07-23 10:40 | XMS_ITS | Encounter Summary ---
Author Organization Healthcare Address [address] [place] [address] Care Team Providers Care Piece Presser Name Role Phone Edvin Rome MD Primary Care Provider [phone] Reason for Visit * Consultation (Routine) - Closed Specialty Diagnoses / Procedures Referred By Contac t Referred To Contact Neurosurgery Diagnoses Closed fracture of eleventh thoracic vertebra, unspecified fracture morphology, initial encounter ([facility]) Nury Leo MD [address] [facility] [address] [place] [address] Phone: tel: fax: Referral ID Status Reason Start Date Expiration Date V isits Requested Visits Authorized [id number] Closed Specialty Services Required 06/20/2025 12/20/2026 1 1 Encounter Details Date Type Department Care Team (Late st Contact Info) Description 07/23/2025 10:40 AM EDT Office Visit [place] [facility] [address] [place] [address] Makayal Green, CLINIC DIRECTOR [address] [facility] [address] [place] [address] Closed unstable burst fracture of [...] Notes * Progress Notes - Makayla Green, CLINIC DIRECTOR - 07/23/2025 10:40 AM EDT We had the pleasure of seeing your patient in our clinic today for continued Neurosurgical evaluation. Chief Complaint: Fracture follow up Chronic L4 compression fracture T10-T11 anterior inferior endplate fracture through bridging osteophyte History Of Present Illness Sang Motley is a 50 y.o. male with history of previous thoracic and lumbar injuries requiring T2-[id number] as well as L1-S1 fusion completed at [...] concerns. Assessment & Plan Makayla Green APRN [facility] Department of Neurosurgery This note was dictated [...] Visit [place] [facility] [address] [place] [address] Canelo Gordon MD [address] [place] [address] documented as of this encounter [...] MD on 07/23/2025 12:27 PM Makayla Green CLINIC DIRECTOR IMG XR PROCEDURES Final Re sult documented [...] documented as of this encounter Care Teams Piece Presser Relationship Specialty Start Date End Date Edvin Rome MD PCP - General 08/31/23 documented as of this encounter
[2025-08-12 16:21] LABS: Hematocrit 44.2 % (42.0-52.0); Hemoglobin 13.8 g/dL (14.1-18.0); Immature Granulocytes % 0.4 %; Mean Corpuscular HGB Conc 31.2 g/dL (31.8-35.4); Mean Corpuscular Hemoglobin 27.8 pg (27.0-31.2); Mean Corpuscular Volume 88.9 fl (80-94); Nucleated Red Blood Cells % 0 %; Platelet Count 124 K/mm3 (142-424); Red Blood Count 4.97 M/mm3 (4.60-6.20); Red Cell Distribution Width-SD 45.6 fL; White Blood Count 8.2 K/mm3 (4.8-10.8)
[2025-08-12 17:41] LABS: Albumin Level 3.2 g/dl (3.5-5.0); Chloride 104 mmol/L (98-107); Potassium 4.1 mmoL/L (3.5-5.1); Sodium 137 mmol/L (136-145)
[2025-08-12 17:43] LABS: Blood Urea Nitrogen 11 mg/dl (9-20); Creatinine,Serum 0.50 mg/dl (0.66-1.25); Estimated Glomerular Filt Rate 175 ml/min (>60); GFR (African American) 212 ML/MIN (>60)
[2025-08-12 17:44] LABS: Alanine Aminotransferase 47 U/L (12-78); Albumin/Globulin Ratio 0.8 (1.1-1.8); Alkaline Phosphatase 116 U/L (38-126); Anion Gap 14.1 mEq/L (5-15); Aspartate Amino Transferase 39 U/L (17-59); Bilirubin,Total 0.4 mg/dl (0.2-1.3); Calcium 8.8 mg/dl (8.4-10.2); Carbon Dioxide 23 mmol/L (22.0-30.0); Cholesterol 162 mg/dl (140-200); Globulin 4.0 g/dL (1.3-3.2); Glucose 219 mg/dl (74-100); HDL Cholesterol 35 mg/dl (40-60); Total Protein,Serum 7.2 g/dl (6.3-8.2); Triglycerides 141 mg/dl (30-150)
--- OUTSIDE RECORDS SUMMARY | 2025-08-13 11:21 | XMS_ITS | Encounter Summary ---
Author Organization Healthcare Address [address] [place] [address] Care Team Providers Care Gear Repairer Name Role Phone Edvin Rome MD Primary Care Provider [phone] Encounter Details Date Type Department Care Team (Latest Contact Info) Description 07/22/2025 Travel Social History Tobacco Use Types Packs/Day Years Used Date Smoking Tobacco: Never Assessed Sex and Gender Information Value Date Recorded Sex Assigned at Male 05/23/2024 4:59 PM EDT Legal Sex Male 9:01 AM EST Gender Identity Male 05/23/2024 4:59 PM EDT Sexual Orientation Straight 05/23/2024 4: 59 PM EDT documented as of this encounter Plan of Treatment Upcoming Encounters Date Type Department Care Team (Late st Contact Info) Description 09/06/2025 8:20 AM EST Office Visit [place] [facility] [address] [place] [address] Canelo Gordon MD [address] [place] [address] documented as of this encounter Visit Diagnoses Not on filedocumented in this encounter Care Teams Gear Repairer Relationship Specialty Start Date End Date Edvin Rome MD PCP - General 08/31/23 documented as of this encounter
--- OUTSIDE RECORDS SUMMARY | 2025-08-13 11:21 | XMS_ITS | Encounter Summary ---
Author Organization Healthcare Address [address] [place] [address] Care Team Providers Care Vp Care Management Name Role Phone Edvin Rome MD Primary Care Provider [phone] Encounter Details Date Type Department Care Team (Latest Contact Info) Description 07/23/2025 Travel Social History Tobacco Use Types Packs/Day [...] Visit [place] [facility] [address] [place] [address] Canelo Gordon MD [address] [place] [address] documented as of this encounter Visit Diagnoses Not on filedocumented in this encounter Additional Health Concerns Assessment Noted Time A fall risk assessment has been complete d for the patient 07/23/2025 10:52 AM EDT A Body Mass Index follow-up plan has been documented for the patient 07/23/2025 1:21 PM EDT documented as of this encounter Care Teams Vp Care Management Relationship Specialty Start Date End Date Edvin Rome MD PCP - General 08/31/23 documented as of this encounter
--- OUTSIDE RECORDS SUMMARY | 2025-08-13 11:22 | XMS_ITS | Encounter Summary ---
Author Organization Healthcare Address [address] [place] [address] Care Team Providers Care Line Painting Machine Operator Name Role Phone Edvin Rome MD Primary Care Provider [phone] Encounter Details Date Type Department Care Team (Latest Contact Info) Description 06/20/2025 Travel Social History Tobacco Use Types Packs/Day Years Used Date Smoking Tobacco: Never Assessed Sex and Gender Information Value Date Recorded Sex Assigned at Male 05/23/2024 4:59 PM EDT Legal Sex Male 9:01 AM EST Gender Identity Male 05/23/2024 4:59 PM EDT Sexual Orientation Straight 05/23/2024 4: 59 PM EDT documented as of this encounter Functional Status * Calculated C-SSRS Risk Score (Lifetime/Recent) Answer Date of Assessment Author No Risk Indicated 06/20/2025 7:00 AM EDT Massimo Marinelli RN * Question Answer Date of Assessment Author 1. Wish to be (Past 1 Month) No 025 7:00 AM EDT Tiny Mairnelli RN 2. Non-Specific Active Suici yuli Thoughts (Past 1 Month) No 06/20/2025 7:00 AM EDT Tiny Marinelli RN 6. Suicidal Behavior (Lifetime) No 7:00 AM EDT Tiny Marinelli RN documented as of this encounter Plan of Treatment Upcoming Encounters Date Type Department Care Team (Late st Contact Info) Description 09/06/2025 8:20 AM EST Office Visit [place] [facility] [address] [place] [address] Canelo Gordon MD [address] [place] [address] documented as of this encounter Visit Diagnoses Not on filedocumented in this encounter Care Teams Line Painting Machine Operator Relationship Specialty Start Date End Date Edvin Rome MD PCP - General 08/31/23 documented as of this encounter
--- OUTSIDE RECORDS SUMMARY | 2025-08-13 11:22 | XMS_ITS | Encounter Summary ---
Author Organization Healthcare Address [address] [place] [address] Care Team Providers Care Solar Pool Heating Installer Name Role Phone Edvin Rome MD Primary Care Provider [phone] Encounter Details Date Type Department Care Team (Late st Contact Info) Description 06/19/2025 Orders Only External Location [address] [place] [address] [place] [address] Social History Tobacco Use Types Packs/Day Years [...] Visit [place] [facility] [address] [place] [address] Canelo Gordon MD [address] [place] [address] documented as of this encounter Procedures Procedure Name Priority Date/Time Associated Diagnosis Comments CT OUTSIDE IMAGES 06/19/2025 7:39 PM EDT documented in this encounter Results * CT OUTSIDE IMAGES (06/19/2025 7:39 PM EDT) Anatomical Region Laterality Modality Computed Tomogra phy 06/19/2025 7:39 PM EDT Paola Dow IM CT PROCEDURES Final Result documented in this encounter Visit Diagnoses Not on filedocumented in this encounter Care Teams Solar Pool Heating Installer Relationship Specialty Start Date End Date Edvin Rome MD PCP - General 08/31/23 documented as of this encounter
--- OUTSIDE RECORDS SUMMARY | 2025-08-13 11:22 | XMS_ITS | Encounter Summary ---
Author Organization Healthcare Address [address] [place] [address] Care Team Providers Care Staff Mine Warfare Officer Name Role Phone Edvin Rome MD Primary Care Provider [phone] Encounter Details Date Type Department Care Team (Late st Contact Info) Description 06/19/2025 Orders Only External Location [address] [place] [address] [place] [address] Social History Tobacco Use Types Packs/Day Years [...] Visit [place] [facility] [address] [place] [address] Canelo Gordon MD [address] [place] [address] documented as of this encounter Procedures Procedure Name Priority Date/Time Associated Diagnosis Comments CT NEURO OUTSIDE IMAGES 06/19/2025 7:42 PM EDT documented in this encounter Results * CT NEURO OUTSIDE IMAGES (06/19/2025 7:42 PM EDT) Anatomical Region Laterality Modality Computed Tomogra phy 06/19/2025 7:42 PM EDT [place] [facility] [place]EDURES Final Result documented in this encounter Visit Diagnoses Not on filedocumented in this encounter Care Teams Staff Mine Warfare Officer Relationship Specialty Start Date End Date Edvin Rome MD PCP - General 08/31/23 documented as of this encounter
--- OUTSIDE RECORDS SUMMARY | 2025-08-13 11:22 | XMS_ITS | Patient Health Record ---
Author Organization [place] [facility] Address [address] [facility] [place] [address] Care Team Providers Care Glass Processing Worker Name Role Phone Siddhartha Huddleston D.O. Primary Care Provider Unavail able Siddhartha Huddleston Unavailable Unavailable Reason For Referral No Information Problems Problem Type SNOMED Code ICD Code Onset Dates Problem Status W/U Status Risk Notes Problem Type II diabetes mellitus without complication (747835183) Type 2 diabetes mellitus without complications (E11.9) 8 Active confirmed Problem Essential hypertension (80179189) Essential (primary) hypertension (I10) 8 Active confirmed Plan Of Treatment No Information
--- OUTSIDE RECORDS SUMMARY | 2025-08-13 11:22 | XMS_ITS | Encounter Summary ---
Author Organization Healthcare Address [address] [place] [address] Care Team Providers Care Scabbler Name Role Phone Edvin Rome MD Primary Care Provider [phone] Encounter Details Date Type Department Care Team (Latest Contact Info) Description 06/19/2025 Travel Social History Tobacco Use Types Packs/Day [...] Date of Assessment Author No Risk Indicated 06/19/2025 11:00 PM EDT Chloe Nichols RN * Question Answer Date of Assessment Author 1. Wish to be (Past 1 Month) No 025 11:00 PM EDT Chloe Nichols, RN 2. Non-Specific Active Suici yuli Thoughts (Past 1 Month) No 06/19/2025 11:00 PM EDT Carmen Nichols, RN 6. Suicidal Behavior (Lifetime) No 11:00 PM EDT Chloe Nichols, RN documented as of this encounter Plan of Treatment Upcoming Encounters Date Type Department Care Team (Late st Contact Info) Description 09/06/2025 8:20 AM EST Office Visit [place] [facility] [address] [place] [address] Canelo Gordon MD [address] [place] [address] documented as of this encounter Visit Diagnoses Not on filedocumented in this encounter Care Teams Scabbler Relationship Specialty Start Date End Date Edvin Rome MD PCP - General 08/31/23 documented as of this encounter
--- OUTSIDE RECORDS SUMMARY | 2025-08-13 11:22 | XMS_ITS | Clinical Summary ---
Author Organization Healthcare Address [address] [id number] Care Team Providers Care Basket Maker Name Role Phone Edvin Rome MD Primary Care Provider [phone] Allergies No known active allergies Medications atorvastatin (Lipitor) 10 MG tablet Take 1 tablet by mouth daily. Active gabapentin (Neurontin) 300 MG capsule Take 1 capsule by mouth daily. Active gabapentin (Neurontin) 600 MG tablet Take 1 tablet by mouth nightly. Active glyBURIDE micronized (Glynase) 3 MG tablet Take 1 tablet by mouth 2 times a day. Active losartan (Cozaar) 25 MG tablet Take 1 tablet by mouth daily. Active metFORMIN (Glucophage) 850 MG tablet Take 1 tablet by mouth 2 times a day. Active metoprolol succinate XL (Toprol-XL) 100 MG 24 hr tablet Take 1 tablet by mouth daily. Do not crush or chew. Active oxyCODONE-aceta minophen (Percocet) 10-325 MG tablet Take 1 tablet by mouth every 12 hours as needed for severe pain. Active tolterodine LA (Detrol LA) 2 MG 24 hr capsule Take 1 capsule by mouth daily. Do not crush, chew, or split. Active methocarbamol (Robaxin) 500 MG tablet Take 2 tablets by mouth 4 times a day for 14 days. 112 tablet Active Additional Information Patient taking differently:1,000 mg Oral4 times daily PRN, Reported on 07/23/2025 ibuprofen 800 MG tabletIndicatio ns:Closed unstable burst fracture of tenth thoracic vertebra with routine healing, subsequent encounter Take 1 tablet by mouth every 8 hours as needed for mild pain. 90 tablet 5 08/22/20 25 Active Active Problems Problem Noted Date Diagnosed Date Fall 06/21/2025 Fall from slip, trip, or stumble 06/20/2025 Assessment & Plan (06/20/2025 2:38 PM EDT): 06/15 while in [facility] Admit to SGT Tertiary 06/21 Assessment & Plan (06/20/2025 2:06 PM EDT): 06/15 while in [facility] Hypertension 06/20/2025 Assessment & Plan (06/20/2025 2:06 PM EDT): Restart home meds as able Diabetes type 2 06/20/2025 Assessment & Plan (06/20/2025 2:37 PM EDT): ACHS finger sticks SSI Assessment & Plan (06/20/2025 2:06 PM EDT): Unknown last A1c SSI if appropriate Thoracic vertebral fracture 06/20/2025 Assessment & Plan (06/20/2025 6:41 PM EDT): -Spine/neurosurgery consulted after MRI results -admitted to trauma surgery -admission for brace fitting Assessment & Plan (06/20/2025 2:48 PM EDT): T10 and T11 with possible disc space injury Neurosurgery consulted Nonop, pending TLSO brace Follow up in 2 to 4 week clinic with repeat imaging Assessment & Plan (06/20/2025 2:06 PM EDT): Of T10 and T11 with possible disc space injury Neurosurgery consulted, recommending admission for bracing - recs appreciated Obesity (BMI 30-39.9) 06/20/2025 Assessment & Plan (06/20/2025 2:06 PM EDT): Complicates all aspects of care Lumbar compression fracture 06/20/2025 Assessment & Plan (06/20/2025 2:53 PM EDT): Incidental finding on imaging Age-indeterminate compression fracture of L4, likely chronic DDD (degenerative disc disease), lumbar 06/20/20 25 Assessment & Plan (06/20/2025 2:53 PM EDT): Incidental finding on imaging L DDD with moderate to severe neural foraminal narrowing Electrolyte imbalance 06/20/2025 Assessment & Plan (06/20/2025 3:12 PM EDT): Replace PRN CTM Chronic back pain 06/20/2025 Assessment & Plan (06/20/2025 3:16 PM EDT): Previous T2-T8, L1-S1 fusions On chronic narcotics Complicates pain control Urge incontinence 06/20/2025 Assessment & Plan (06/20/2025 3:25 PM EDT): Bladder scan PRN Resume home meds Colon cancer 06/20/2025 Assessment & Plan (06/20/2025 3:26 PM EDT): S/p partial colectomy in 2022 Encounters Date Type Department Care Team Description 07/23/2025 10:40 AM EDT Office Visit [facility] [address] [place] [address] Makayla Green, SPECIALIST WOUND CARE Closed unstable burst fracture of tenth thoracic vertebra with routine healing, subsequent encounter (Primary Dx); Fall on same level from slipping, tripping or stumbling, subsequent encounter; Compression fracture of L4 vertebra with routine healing, subsequent encounter 07/23/2025 10:24 AM EDT - 07/23/2025 11:59 PM EDT Hospital Encounter [facility] [address] [place] [address] Closed unstable burst fracture of tenth thoracic vertebra with routine healing, subsequent encounter Discharge Disposition: Home or Self Care 07/23/2025 Travel 07/22/2025 Travel 07/08/2025 Telephone [facility] Surgery [address] [place] [address] Makayla Green APRN HCN Clinical Concern/Question 06/20/2025 Travel 06/19/2025 10:20 PM EDT - 06/21/2025 6:20 PM EDT Hospital Encounter [facility] [address] [place] [address] Amy Pyle MD Dejohn, MD Felipa Perkins, Nury Willoughby MD Fall, initial encounter (Primary Dx); Acute midline low back pain without sciatica; Closed fracture of eleventh thoracic vertebra, unspecified fracture morphology, initial encounter (CMS/HCC); Other closed fracture of eleventh thoracic vertebra, initial encounter (CMS/[facility]); Other closed fracture of tenth thoracic vertebra, initial encounter ([facility]) Discharge Disposition: Home or Self Care 06/19/2025 Travel 06/19/2025 Orders Only External Location [address] [place] [id number] Paola Dow 06/19/2025 Orders Only External Location [address] [place] [phone] Paola Dow from Last 3 Months Social History Tobacco Use Types Packs/Day Years Used Date Smoking Tobacco: Never Smokeless Tobacco: Never Tobacco Cessation:Counseling Given: Not Answered Sex and Gender Information Value Date Recorded Sex Assigned at Male 05/23/2024 4:59 PM EDT Legal Sex Male 9:01 AM EST Gender Identity Male 05/23/2024 4:59 PM EDT Sexual Orientation Straight 05/23/2024 4: 59 PM EDT Last Filed Vital Signs Vital Sign Reading Time Taken Comments Blood Pressure 122/88 07/23/2025 10:48 AM EDT Pulse 70 06/21/2025 3:43 PM EDT [...] Mass Index 36.12 07/23/2025 10:48 AM EDT Plan of Treatment Upcoming Encounters Date Type Department Care Team (Late st Contact Info) Description 09/06/2025 8:20 AM EST Office Visit [place] [facility] [address] [place] [address] Canelo Gordon MD [address] [place] [address] Health Maintenance Due Date Last Done Comments [facility]-Depression Screening 1974 [facility]-Diabetes: Hemoglobin A1C 1974 [facility]-/Child/Adol SDOH Screenings 1974 [id number] Vaccine (#1) 1979 Diabetes: Dental Exam 01/28/1984 [facility]- SDOH Screenings 01/28/1992 [facility]-Adult SDOH Screenings 01/28/1992 [facility]-DTaP,Tdap,and Td Vaccine s (1 - Tdap) 1993 [facility]-Hepatitis B Vaccines (1 of 3 - 19+ 3-dose series) 1993 [facility]-Pneumococcal Vaccine: 50 + Years (1 of 2 - PCV) 1993 [facility]-Zoster Vaccines (1 of 2) 1993 CT Colonography 2019 Colonoscopy 2019 FIT-DNA 2019 FIT 2019 FOBT 2019 Sigmoidoscopy 2019 [facility]-Colorectal Cancer Screening 2019 [facility]-Influenza Vaccine (#1) 2025 [facility]-HIV Screening Completed 06/19/2025 [facility]-Hepatitis C Screening Completed 06/19/2025 [facility]-Obesity Intervention Completed 07/23/2025 HPV Vaccines Aged Out No longer eligi [...] on patient's age to complete this topic Procedures Procedure Name Priority Date/Time Associated Diagnosis Comments XR SCOLIOSIS ENTIRE SPINE 2 OR 3 VIEWS Routine 07/23/2025 10:37 AM EDT Closed unstable burst fracture of tenth thoracic vertebra with routine healing, subsequent encounter POCT GLUCOSE METER UNSOLICITED RESULTS Routine 06/21/2025 [...] BONY PELVIS STAT 06/20/2025 12:16 AM EDT MORPHOLOGY STAT 06/19/2025 10:40 PM EDT ED HIV 1/2 ANTIBODY/ANTIGEN SCREEN WITH REFLEX TO HIV I/II DIFFERENTIATION STAT 06/19/2025 10:40 PM EDT ED PROTOCOL HIV 1/2 ANTIBODY/ANTIGEN SCREEN W/REFLEX TO HIV 1/2 ANTIBODY DIFFERENTIATION STAT 06/19/2025 10:40 PM EDT HEPATITIS C ANTIBODY - ED W/REFLEX TO HCV QUANT PCR STAT 06/19/2025 10:40 PM EDT TYPE AND SCREEN STAT 06/19/2025 10:40 PM EDT PROTHROMBIN TIME(PT) / INR STAT 06/19/2025 10:40 PM EDT CBC WITH AUTO DIFFERENTIAL STAT 06/19/2025 10:40 PM EDT BLOOD GAS PANEL, VENOUS STAT 06/19/20 10:40 PM EDT LACTATE, VENOUS STAT 06/19/2025 10:40 PM EDT MAGNESIUM, PLASMA STAT 06/19/2025 10: 40 PM EDT COMPREHENSIVE METABOLIC PANEL, PLASMA STAT 06/19/2025 10:40 PM EDT XR PELVIS 1 OR 2 VIEWS STAT 10:30 PM EDT XR CHEST 1 VIEW STAT 06/19/2025 10:[address] NEURO OUTSIDE IMAGES 06/19/20 7:[address] OUTSIDE IMAGES 06/19/2025 7:3 9 PM EDT from Last 3 Months Results * XR Scoliosis Entire Spine 2 [...] MD on 07/23/2025 12:27 PM Makayla Green SPECIALIST WOUND CARE IMG XR PROCEDURES Final Re sult * (ABNORMAL) POCT glucose meter (06/21/2025 4:43 PM EDT) Only the most recent of7 resultswithin the time period is included. POCT Glucose 142(H) 74 - 99 mg/dL [...] for testing. Comment 06/21/2025 4:45 PM EDT [facility]ALTH[facility]ARE [facility] Shank Maker ID Micheline Deshpande 4:45 PM EDT HEALTHCARE LAB Device ID [id number] 06/21/2025 4:45 PM EDT HEALTHCARE LAB Specimen Type POC Capillary 06/21/2025 4:45 PM EDT [facility] Blood Capillary blood specimen / Unknown 06/21/2025 4:43 PM EDT 06/21/2025 4:45 PM EDT Nury Leo MD LAB POINT OF CARE TE ST DOCKED DEVICE UNSOLICITED RESULTS Final Result Performing Organization Address [facility] de Phone Number [facility] [address] [place] [address] * Urinalysis Microscopic Examination (06/20/2025 6:40 AM EDT) Urine Urine specimen obtained by clean catch procedure / Unknown Non-blood Collection / Unknown 06/20/2025 6:40 AM EDT 06/20/2025 6:48 AM EDT us Jabari Zuleta MD LAB URINE ORDERABLES Final Resul t Performing Organization Address City/[facility]/ZIP Co de Phone Number [facility] [address] [place] [address] * (ABNORMAL) Urinalysis with reflex microscopic (Culture NOT Included) (06/20/2025 6:40 AM EDT) Pathologist [facility] Color, Urine Dark Yellow LAB URINALYSIS - AUTOMATED METHOD 06/20/2025 7:49 AM EDT [facility] Clarity, Urine Cloudy LAB URINALYSIS - AUTOMATED METHOD 06/20/2025 7:49 AM EDT [facility] Spec [place], Urine >1.030(H) 1.005 - 1.030 LAB URINALYSIS - AUTOMATED METHOD 06/20/2025 7:49 AM EDT [facility] pH, Urine 6.0 5.0 - 8.0 LAB URINALYSIS - AUTOMATED METHOD 06/20/2025 7:49 AM EDT [facility] Protein, Urine 30(A) Negative mg/dL LAB URINALYSIS - AUTOMATED METHOD 06/20/2025 7:49 AM EDT [facility] Glucose, Urine Negative Negative mg/dL LAB URINALYSIS - AUTOMATED METHOD 06/20/2025 7:49 AM EDT [facility] Ketones, Urine Trace(A) Negative mg/dL LAB URINALYSIS - AUTOMATED METHOD 06/20/2025 7:49 AM EDT [facility] Blood, Urine Negative Negative LAB URINALYSIS - AUTOMATED METHOD 06/20/2025 7:49 AM EDT [facility] Bilirubin, Urine Small(A) Negative LAB URINALYSIS - AUTOMATED METHOD 06/20/2025 7:49 AM EDT [facility] Urobilinogen, Urine 2.0(A) 0.2 to 1.0 mg/dL LAB URINALYSIS - AUTOMATED METHOD 06/20/2025 7:49 AM EDT [facility] Leukocytes, Urine Trace(A) Negative LAB URINALYSIS - AUTOMATED METHOD 06/20/2025 7:49 AM EDT [facility] Nitrite, Urine Negative Negative LAB URINALYSIS - AUTOMATED METHOD 06/20/2025 7:49 AM EDT [facility] RBC, Urine 1 0 to 3 /HPF 06/20/2025 7:49 AM EDT [facility] Comment:This result was prev iously suppressed from the chart. WBC, Urine 0 - 5 0 to 5 /HPF 06/20/2025 7:49 AM EDT [facility] Comment:This result was prev iously suppressed from the chart. Squamous Epithelial Cells 0 - 2 0 to 5 /HPF 06/20/2025 7:49 AM EDT [facility] Comment:This result was prev iously suppressed from the chart. Hyaline Casts 0 - 2 0 to 5 /LPF 06/20/2025 7:49 AM EDT [facility] Comment:This result was prev iously suppressed from the chart. Bacteria, Urine Negative Negative 06/20/2025 7:49 AM EDT [facility] Comment:This result was prev iously suppressed from the chart. Calcium Oxalate Crystals Present Absent 06/20/2025 7:49 AM EDT [facility] Comment:This result was prev iously suppressed from the chart. Mucus Present 06/20/2025 7:49 AM EDT [facility] Comment:This result was prev iously suppressed from the chart. Urine Urine specimen obtained by clean catch procedure / Unknown Non-blood Collection / Unknown 06/20/2025 6:40 AM EDT 06/20/2025 6:48 AM EDT Narrative [facility] - 06/20/2025 7:49 AM EDT Performed by manual method us Jabari Zuleta MD LAB URINE ORDERABLES Final Resul t [facility] [address] [place] [address] * MR Lumbar Spine wo IV Contrast [...] findings were discussed via secure chat with FRANKO HAY on 06/20/2025 10:30 AM by Moses Pollock [...] hypointensity within the superior portion of the [id number] body with edema that extends into the [...] to moderate spinal canal stenosis at T9-T10 [id number]. Minimal multilevel facet joint arthrosis without significantneural foraminal narrowing. Prevertebral and Paraspinal Soft Tissues: Heterogeneous stranding and STIRhyperintensity within the prevertebral and paravertebral space [id number]- T12 levels. Lumbar Spine: Diagnostic Quality: Adequate. [...] fracture of the inferior portion of the [id number] endplate. 2.Suspected injury of the anterior longitudinal [...] findings were discussed via secure chat with FRANKO HAY on06/20/2025 10:30 AM by Moses Pollock with [...] findings were discussed via secure chat with FRANKO HAY on 06/20/2025 10:30 AM by Moses Pollock [...] hypointensity within the superior portion of the [id number] body with edema that extends into the [...] to moderate spinal canal stenosis at T9-T10 [id number]. Minimal multilevel facet joint arthrosis without significantneural foraminal narrowing. Prevertebral and Paraspinal Soft Tissues: Heterogeneous stranding and STIRhyperintensity within the prevertebral and paravertebral space [id number]- T12 levels. Lumbar Spine: Diagnostic Quality: Adequate. [...] fracture of the inferior portion of the [id number] endplate. 2.Suspected injury of the anterior longitudinal [...] findings were discussed via secure chat with FRANKO HAY on06/20/2025 10:30 AM by Moses Pollock with [...] MD IMG MRI PROCEDURES Final Result * CT Bony Pelvis (06/20/2025 12:16 AM [...] MD on 06/20/2025 1:13 AM us Amy Pyle MD IM CT PROCEDURES Final Resul t * ED HIV 1/2 Antibody/Antigen Screen w/Reflex to HIV 1/2 Differentiation (06/19/2025 10:40 PM EDT) HIV 1 & 2 Antibody/Antigen Screen Non Reactive Non Reactive 06/19/2025 11:44 PM EDT [facility] Comment:Screening for HIV 1 & 2 antibodies, and P24 antigen is NONREACTIVE. No confirmatory testing is required. Blood Venous blood specimen / Unknown Venipuncture / Unknown 06/19/2025 10:40 PM EDT 06/19/2025 11:02 PM EDT us Jabari Zuleta MD LAB BLOOD ORDERABLES Final Resul t Performing Organization Address City/[facility]/ZIP Co de Phone Number [facility] [address] [place] [address] * Morphology (06/19/2025 10:40 PM EDT) Pathologist [facility] RBC Morphology Slide Reviewed LAB HEMATOLOGY METHOD 06/19/2025 11:52 PM EDT [facility] Clumped Platelets Present LAB HEMATOLOGY METHOD 06/19/2025 11:52 PM EDT [facility] Blood Venous blood specimen / Unknown Venipuncture / Unknown 06/19/2025 10:40 PM EDT 06/19/2025 11:03 PM EDT us Jabari Zuleta MD LAB BLOOD ORDERABLES Final Resul t Performing Organization Address City/[facility]/ZIP Co de Phone Number [facility] [address] [place] [address] * Lactic acid, venous (06/19/2025 10:40 PM EDT) [facility] Lactate, Venous, Whole Blood 1.8 0.5 - 2.2 mmol/L LAB HEMATOLOGY METHOD 06/19/2025 10:55 PM EDT [facility] Blood Venous blood specimen / Unknown Venipuncture / Unknown 06/19/2025 10:40 PM EDT 06/19/2025 10:52 PM EDT us Jabari Zuleta MD LAB BLOOD ORDERABLES Final Resul t [facility] [address] [place] [address] * Hepatitis C Antibody - ED (06/19/2025 10:40 PM EDT) Hepatitis C Antibody Negative Negative 06/19/2025 11:44 PM EDT [facility] Blood Venous blood specimen / Unknown Venipuncture / Unknown 06/19/2025 10:40 PM EDT 06/19/2025 11:03 PM EDT us Jabari Zuleta MD LAB BLOOD ORDERABLES Final Resul t Performing Organization Address [facility]/ZIP Co de Phone Number [facility] [address] [place] [address] * PT-INR (06/19/2025 10:40 PM EDT) Prothrombin Time 13.7 12.0 - 14.3 sec 06/19/2025 11:01 PM EDT [facility] INR 1.1 0.9 - 1.1 06/19/2025 11:01 PM EDT [facility] Blood Venous blood specimen / Unknown Venipuncture / Unknown 06/19/2025 10:40 PM EDT 06/19/2025 10:46 PM EDT Narrative [facility] - 06/19/2025 11:01 PM EDT OPTIMAL INR RANGES FOR PATIENT ON ORAL ANTICOAGULANT THERAPY Prevention of venous thromboembolism INR 2.0 to 3.0 In patients with heart disease: Atrial fibrillation INR 2.0 to 3.0 Valvular heart disease INR 2.0 to 3.0 Tissue heart valves INR 2.0 to 3.0 Mechanical prosthetic valves INR 2.5 to 3.5 Prevention of recurrent OK INR 2.5 to 3.5 us Jabari Zuleta MD LAB BLOOD ORDERABLES Final Resul t Performing Organization Address City/[facility]/ZIP Co de Phone Number [facility] [address] [place] [address] * (ABNORMAL) CBC w/diff (06/19/2025 10:40 PM EDT) WBC Count 9.12 3.70 - 10.30 10*3/uL LAB HEMATOLOGY METHOD 06/19/2025 11:52 PM EDT [facility] RBC Count 4.65 4.60 - 6.10 10*6/uL LAB HEMATOLOGY METHOD 06/19/2025 11:52 PM EDT [facility] HGB 13.0(L) 13.7 - 17.5 g/dL LAB HEMATOLOGY METHOD 06/19/2025 11:52 PM EDT [facility] HCT 39.6(L) 40.0 - 51.0 % LAB HEMATOLOGY METHOD 06/19/2025 11:52 PM EDT [facility] Platelet Count 151(L) 155 - 369 10*3/uL LAB HEMATOLOGY METHOD 06/19/2025 11:52 PM EDT [facility] MCV 85 79 - 98 fL LAB HEMATOLOGY METHOD 06/19/2025 11:52 PM EDT [facility] MCH 28.0 26.0 - 32.0 pg LAB HEMATOLOGY METHOD 06/19/2025 11:52 PM EDT [facility] MCHC 32.8 30.7 - 35.5 g/dL LAB HEMATOLOGY METHOD 06/19/2025 11:52 PM EDT [facility] RDW 14.6(H) 11.5 - 14.5 % LAB HEMATOLOGY METHOD 06/19/2025 11:52 PM EDT [facility] MPV LAB HEMATOLOGY METHOD 06/19/2025 11:52 PM EDT [facility] Comment:Not Measured nRBC 0.0 <=0.0 per 100 WBCs LAB HEMATOLOGY METHOD 06/19/2025 11:52 PM EDT [facility] Differential Type Automated LAB HEMATOLOGY METHOD 06/19/2025 11:52 PM EDT [facility] Neutrophils % 64 % LAB HEMATOLOGY METHOD 06/19/2025 11:52 PM EDT [facility] Lymphocytes % 23 % LAB HEMATOLOGY METHOD 06/19/2025 11:52 PM EDT [facility] Monocytes % 10 % LAB HEMATOLOGY METHOD 06/19/2025 11:52 PM EDT [facility] Eosinophils % 1 % LAB HEMATOLOGY METHOD 06/19/2025 11:52 PM EDT [facility] Basophils % 1 % LAB HEMATOLOGY METHOD 06/19/2025 11:52 PM EDT [facility] Immature Granulocytes % 1 % LAB HEMATOLOGY METHOD 06/19/2025 11:52 PM EDT [facility] Neutrophils Absolute 5.93 1.60 - 6.10 10*3/uL LAB HEMATOLOGY METHOD 06/19/2025 11:52 PM EDT [facility] Lymphocytes Absolute 2.08 1.20 - 3.90 10*3/uL LAB HEMATOLOGY METHOD 06/19/2025 11:52 PM EDT [facility] Monocytes Absolute 0.89 0.30 - 0.90 10*3/uL LAB HEMATOLOGY METHOD 06/19/2025 11:52 PM EDT [facility] Eosinophils Absolute 0.10 0.00 - 0.50 10*3/uL LAB HEMATOLOGY METHOD 06/19/2025 11:52 PM EDT [facility] Basophils Absolute 0.07 0.00 - 0.10 10*3/uL LAB HEMATOLOGY METHOD 06/19/2025 11:52 PM EDT [facility] Immature Granulocytes Absolute 0.05 0.00 - 0.06 10*3/uL LAB HEMATOLOGY METHOD 06/19/2025 11:52 PM EDT [facility] Blood Venous blood specimen / Unknown Venipuncture / Unknown 06/19/2025 10:40 PM EDT 06/19/2025 11:03 PM EDT Narrative [facility] - 06/19/2025 11:52 PM EDT Therapeutic decision making should be based on absolute values, rather than percentages. us Jabari Zuleta MD LAB BLOOD ORDERABLES Final Resul t [facility] [address] [place] [address] * Type and screen (06/19/2025 10:40 PM EDT) ABO/Rh O Positive 06/19/2025 10:33 PM EDT [facility] Antibody Screen Negative 06/19/2025 10:33 PM EDT [facility] Specimen Expiration 06/22/2025 23:59 06/19/2025 10:33 PM EDT BLOOD BANK Blood Venous blood specimen / Unknown Venipuncture / Unknown 06/19/2025 10:40 PM EDT 06/19/2025 10:48 PM EDT us Jabari Zuleta MD LAB BLOOD BANK TEST ORDERABLES F inal Result BLOOD BANK [address] * (ABNORMAL) Magnesium (06/19/2025 10:40 PM EDT) [facility] Magnesium, Plasma 1.6(L) 1.9 - 2.4 mg/dL 06/19/2025 11:08 PM EDT [facility] Blood Venous blood specimen / Unknown Venipuncture / Unknown 06/19/2025 10:40 PM EDT 06/19/2025 10:46 PM EDT Jabari Zuleta MD LAB BLOOD ORDERABLES Final Resul t [facility] [address] [place] [address] * (ABNORMAL) Blood gas panel, venous (06/19/2025 10:40 PM EDT) [facility] pH, Venous 7.51(H) 7.32 - 7.43 LAB HEMATOLOGY METHOD 06/19/2025 10:55 PM EDT [facility] pCO2, Venous 34(L) 40 - 55 mmHg LAB HEMATOLOGY METHOD 06/19/2025 10:55 PM EDT [facility] pO2, Venous 46(H) 25 - 40 mmHg LAB HEMATOLOGY METHOD 06/19/2025 10:55 PM EDT [facility] SO2, Measured, Venous 87(H) 65 - 80 % LAB HEMATOLOGY METHOD 06/19/2025 10:55 PM EDT [facility] Base Excess, Venous 3.7(H) -2.0 - 3.0 mmol/L LAB HEMATOLOGY METHOD 06/19/2025 10:55 PM EDT [facility] Bicarbonate, Calculated, Venous 27(H) 22 - 26 mmol/L LAB HEMATOLOGY METHOD 06/19/2025 10:55 PM EDT [facility] Hematocrit, Whole Blood 40.3 40.0 - 51.0 % LAB HEMATOLOGY METHOD 06/19/2025 10:55 PM EDT [facility] Sodium, Whole Blood 143 136 - 145 mmol/L LAB HEMATOLOGY METHOD 06/19/2025 10:55 PM EDT [facility] Potassium, Whole Blood 3.0(L) 3.6 - 4.9 mmol/L LAB HEMATOLOGY METHOD 06/19/2025 10:55 PM EDT [facility] Chloride, Whole Blood 106 97 - 107 mmol/L LAB HEMATOLOGY METHOD 06/19/2025 10:55 PM EDT [facility] Glucose, Whole Blood 71(L) 74 - 99 mg/dL LAB HEMATOLOGY METHOD 06/19/2025 10:55 PM EDT [facility] Lactate, Venous, Whole Blood 1.8 0.5 - 2.2 mmol/L LAB HEMATOLOGY METHOD 06/19/2025 10:55 PM EDT [facility] Ionized Calcium, Whole Blood 4.4(L) 4.6 - 5.1 mg/dL LAB HEMATOLOGY METHOD 06/19/2025 10:55 PM EDT [facility] Blood Venous blood specimen / Unknown Venipuncture / Unknown 06/19/2025 10:40 PM EDT 06/19/2025 10:52 PM EDT us Jabari Zuleta MD LAB BLOOD ORDERABLES Final Resul t [facility] [address] [place] [address] * (ABNORMAL) CMP (06/19/2025 10:40 PM EDT) Glucose, Plasma 72(L) 74 - 99 mg/dL 06/19/2025 11:08 PM EDT [facility] BUN, Plasma 9 7 - 21 mg/dL 06/19/2025 11:08 PM EDT [facility] Creatinine, Plasma 0.52(L) 0.70 - 1.20 mg/dL 06/19/2025 11:08 PM EDT [facility] BUN/Creatinine Ratio 17 06/19/2025 11:08 PM EDT [facility] Sodium, Plasma 140 136 - 145 mmol/L 06/19/2025 11:08 PM EDT [facility] Potassium, Plasma 3.1(L) 3.6 - 4.9 mmol/L 06/19/2025 11:08 PM EDT [facility] Chloride, Plasma 103 97 - 107 mmol/L 06/19/2025 11:08 PM EDT [facility] CO2, Plasma 25 22 - 29 mmol/L 06/19/2025 11:08 PM EDT [facility] Anion Gap 12 6 - 16 mmol/L 06/19/2025 11:08 PM EDT [facility] Total Calcium, Plasma 9.2 8.9 - 10.2 mg/dL 06/19/2025 11:08 PM EDT [facility] Total Protein 7.4 6.3 - 7.9 g/dL 06/19/2025 11:08 PM EDT [facility] Albumin, Plasma 3.9 3.5 - 5.2 g/dL 06/19/2025 11:08 PM EDT [facility] AST, Plasma 28 10 - 50 U/L 06/19/2025 11:08 PM EDT [facility] ALT, Plasma 30 10 - 50 U/L 06/19/2025 11:08 PM EDT [facility] Alkaline Phosphatase, Plasma 94 40 - 115 U/L 06/19/2025 11:08 PM EDT [facility] Total Bilirubin, Plasma 0.4 0.2 - 1.1 mg/dL 06/19/2025 11:08 PM EDT [facility] eGFRcr 122.0 mL/min/1.7 3m*2 06/19/2025 11:08 PM EDT [facility] Comment:Reported eGFRcr in m L/min/1.73m2 is based the CKD-EPI 2020 equation that does not use a race coefficient. Blood Venous blood specimen / Unknown Venipuncture / Unknown 06/19/2025 10:40 PM EDT 06/19/2025 10:46 PM EDT us Jabari Zuleta MD LAB BLOOD ORDERABLES Final Resul t [facility] [address] [place] [address] * XR Pelvis 1 or 2 Views [...] COMMUNICATION: Per this written report. Drafted by eH Allison MD on 06/19/2025 11:23 PM Final report signed by He Allison MD on 06/19/2025 11:25 PM Jabari Zuleta MD IMG XR PROCEDURES Final Result * CT NEURO OUTSIDE IMAGES (06/19/2025 7:42 PM EDT) Anatomical Region Laterality Modality Computed Tomogra phy 06/19/2025 7:42 PM EDT [place] [facility] IMG CT PROCEDURES Final Result * CT OUTSIDE IMAGES (06/19/2025 7:39 PM EDT) Anatomical Region Laterality Modality Computed Tomogra phy 06/19/2025 7:39 PM EDT [facility] IMG CT PROCEDURES Final Result from Last 3 Months Insurance ANTHEM Advance Directives * Full Code (Latest Code Status on File) Date Activated Date Inactivated Comments 06/20/2025 1:42 AM 06/21/2025 8:25 PM Question Answer Comments I have reviewed the capacity from the link above and, if needed, have updated to appropriate status: Yes Care Teams Basket Maker Relationship Specialty Start Date End Date Edvin Rome MD PCP - General 08/31/23
--- OUTSIDE RECORDS SUMMARY | 2025-08-13 11:23 | XMS_ITS | Patient Health Record ---
Author Organization [facility] Jet Mart[facility]nez Address [address] [place] [address] Care Team Providers Care Curtain Mender Name Role Phone Luigi Howard Primary Care Provider Reason For Referral No Information Problems Problem Type SNOMED Code ICD Code Onset Dates Problem Status W/U Status Risk Notes Problem Cough (96374625) Cough (786.2) 2 Active confirmed Problem Benign essential hypertension (7494321) BENIGN ESSENTIAL HYPERTENSION (401.1) 2 Active confirmed Plan Of Treatment No Information Insurance Providers Payer Name Payer Address Payer Phone Subscriber Number Group Number Insured Name Patient Relationship to Insured Coverage Start Date Coverage End Date [facility] [address] [address] [place] [address] [id number] HELDER ALTAMIRANO Self - patient is the insured
--- OUTSIDE RECORDS SUMMARY | 2025-08-13 11:23 | XMS_ITS | Encounter Summary ---
Author Organization Healthcare Address [address] [place] [address] Care Team Providers Care Optical Glass Etcher Name Role Phone Edvin Rome MD Primary Care Provider [phone] Reason for Visit * Reason Onset Date Comments [facility] Clinical Concern/Question 07/08/2025 Encounter Details Date Type Department Care Team (Late st Contact Info) Description 07/08/2025 Telephone [facility] [address] [place] [address] Makayla Green M, HYDRAULIC RIVETER [address] [place] [address] [facility] Clinical Concern/Question Social History Tobacco Use Types Packs/Day Years Used Date Smoking Tobacco: Never Assessed Sex and Gender Information Value Date Recorded Sex Assigned at Male 05/23/2024 4:59 PM EDT Legal Sex Male 9:01 AM EST Gender Identity Male 05/23/2024 4:59 PM EDT Sexual Orientation Straight 05/23/2024 4: 59 PM EDT documented as of this encounter Miscellaneous Notes * Telephone Encounter - Scientologist, Mohini F - 07/08/2025 1:46 PM EDT Clinical Concern/Question Reason for Call: Patient asking to talk to nurse about after care and xray questions Best contact number: [phone] (mobile) Optimal time of day to reach caller: ANYTIME Additional comments/information from caller: None Note: Please do not reply to this message. Follow-up communication and further actions as a result of this message need to be communicated with the patient directly, if the patient is not active onMyChart. If the patient is active on MyChart, they will receive notification of the communication/outcome via [email or web address]. documented in this encounter Plan of Treatment Upcoming Encounters Date Type Department Care Team (Late st Contact Info) Description 09/06/2025 8:20 AM EST Office Visit [place] [facility] [address] [place] [address] Canelo Gordon MD [address] [place] [address] documented as of this encounter Visit Diagnoses Not on filedocumented in this encounter Care Teams Optical Glass Etcher Relationship Specialty Start Date End Date Edvin Rome MD PCP - General 08/31/23 documented as of this encounter
== END 2025-08-12 23:59 ==
LOC: LAB.DROPOF 08-13 11:18
PROVIDERS: PCP Family Medicine; Visit Provider Family Medicine
DX: I10 Essential (primary) hypertension (principal); E11.9 Type 2 diabetes mellitus without complications
CPT/HCPCS: 80053; 80061; 82043; 82570; 85025

== ENCOUNTER 2025-08-27 08:55 | Outpatient (CLI) | payer BC, SELFPAY ==
--- OUTSIDE RECORDS SUMMARY | 2025-07-23 09:24 | XMS_ITS | Encounter Summary ---
Author Organization Healthcare Address [address] [place] [address] Care Team Providers Care Creative Recruiter Name Role Phone Edvin Rome MD Primary Care Provider [phone] Encounter Details Date Type Department Care Team (Latest Contact Info) Description 07/23/2025 10:24 AM EDT - 07/23/2025 11:59 PM EDT Hospital En[facility] [address] [place] [address] Closed unstable burst fracture of tenth thoracic vertebra with routine healing, subsequent encounter Discharge Disposition: Home or Self Care Social History Tobacco Use Types Packs/Day Years Used Date Smoking Tobacco: Never Smokeless Tobacco: Never Sex and Gender Information Value Date Recorded Sex Assigned at Male 05/23/2024 4:59 PM EDT Legal Sex Male 9:01 AM EST Gender Identity Male 05/23/2024 4:59 PM EDT Sexual Orientation Straight 05/23/2024 4: 59 PM EDT documented as of this encounter Medications at Time of Discharge [...] tablet by mouth 2 times a day. metoprolol succinate XL (Toprol-XL) 100 MG 24 hr tablet Take 1 tablet by mouth daily. Do not crush or chew. oxyCODONE-acetami nophen (Percocet) 10-325 MG tablet Take 1 tablet by mouth every 12 hours as needed for severe pain. tolterodine LA (Detrol LA) 2 MG 24 hr capsule Take 1 capsule by mouth daily. Do not crush, chew, or split. ibuprofen 800 MG tabletIndications :Closed unstable burst fracture of tenth thoracic vertebra with routine healing, subsequent encounter Take 1 tablet by mouth every 8 hours as needed for mild pain. 90 tablet 07/23/2025 08/22/2025 documented as of this encounter Plan of Treatment Upcoming Encounters Date Type Department Care Team (Late st Contact Info) Description 09/06/2025 8:20 AM EST Office Visit [facility] [address] [place] [address] Canelo Gordon MD [address] [place] [address] documented as of this encounter Procedures Procedure Name Priority Date/Time Associated Diagnosis Comments XR SCOLIOSIS ENTIRE SPINE 2 OR 3 VIEWS Routine 07/23/2025 10:37 AM EDT Closed unstable burst fracture of tenth thoracic vertebra with routine healing, subsequent encounter documented in this encounter Results * XR Scoliosis Entire Spine 2 or 3 Views (07/23/2025 10:37 AM EDT) Anatomical Region Laterality Modality Spine Digital Radiogra phy Impressions 07/23/2025 12:27 PM EDT Posterior fusion from T2-T8 and L1-S1 without hardware complication. Compression deformity at L2 and L4 with unchanged loss of vertebral body height. Known fracture at the anterior aspect of T10-T11 is not perceptible on this exam. CRITICAL RESULT: No. COMMUNICATION: Per this written report. Drafted by Giuliano Olvera MD on 07/23/2025 12:19 PM Final report signed by Giuliano Olvera MD on 07/23/2025 12:27 PM Narrative 07/23/2025 12:27 PM EDT CLINICAL INDICATION: Fracture TECHNIQUE: XR SCOLIOSIS ENTIRE SPINE 2 OR 3 VIEWS COMPARISON: MRI of the thoracic and lumbar spine dated June 20, 2025 FINDINGS: 2 views of the spine show posterior fusion from T2-T8 and L1-S1. Plate and screw fixation of right clavicle fracture. Plate and screw fixation of right third, fourth and fifth rib fractures. No hardware complication. Compression deformity at L2 and L4 with unchanged loss of vertebral body height. Coronal balance projects slightly to the left of midline. Sagittal balance is positive. Sequelae of diffuse idiopathic skeletal hyperostosis in the thoracic spine. Sacroiliac joints are normal. Hip joint space and alignment are normal. Pubic symphysis is normal. Procedure Note Giuliano Olvera MD - 07/23/2025 CLINICAL INDICATION: Fracture TECHNIQUE: XR SCOLIOSIS ENTIRE SPINE 2 OR 3 VIEWS COMPARISON: MRI of the thoracic and lumbar spine dated June 20, 2025 FINDINGS: 2 views of the spine show posterior fusion from T2-T8 and L1-S1. Plate andscrew fixation of right clavicle fracture. Plate and screw fixation ofright third, fourth and fifth rib fractures. No hardware complication.Compression deformity at L2 and L4 with unchanged loss of vertebral bodyheight. Coronal balance projects slightly to the left of midline. Sagittalbalance is positive. Sequelae of diffuse idiopathic skeletal hyperostosisin the thoracic spine. Sacroiliac joints are normal. Hip joint space andalignment are normal. Pubic symphysis is normal. IMPRESSION: Posterior fusion from T2-T8 and L1-S1 without hardware complication. Compression deformity at L2 and L4 with unchanged loss of vertebral bodyheight. Known fracture at the anterior aspect of T10-T11 is not perceptible onthis exam. CRITICAL RESULT: No. COMMUNICATION: Per this written report. Drafted by Giuliano Olvera MD on 07/23/2025 12:19 PM Final report signed by Giuliano Olvera MD on 07/23/2025 12:27 PM Makayla Green APRN IMG XR PROCEDURES Final Re sult documented in this encounter Visit Diagnoses Diagnosis Closed unstable burst fracture of tenth thoracic vertebra with routine healing, subsequent encounter documented in this encounter Additional Health Concerns Assessment Noted Time A fall risk assessment has been complete d for the patient 07/23/2025 10:52 AM EDT A Body Mass Index follow-up plan has been documented for the patient 07/23/2025 1:21 PM EDT documented as of this encounter Care Teams Creative Recruiter Relationship Specialty Start Date End Date Edvin Rome MD PCP - General 08/31/23 documented as of this encounter
--- OUTSIDE RECORDS SUMMARY | 2025-07-23 09:40 | XMS_ITS | Encounter Summary ---
Author Organization Healthcare Address [address] [place] [address] Care Team Providers Care Archivist Political History Name Role Phone Edvin Rome MD Primary Care Provider [phone] Reason for Visit * Consultation (Routine) - Closed Specialty Diagnoses / Procedures Referred By Contac t Referred To Contact Neurosurgery Diagnoses Closed fracture of eleventh thoracic vertebra, unspecified fracture morphology, initial encounter ([facility]) Nury Leo MD [address] [facility] [address] [place] [address] Phone: tel: fax: Referral ID Status Reason Start Date Expiration Date V isits Requested Visits Authorized [id number] Closed Specialty Services Required 06/20/2025 12/20/2026 1 1 Encounter Details Date Type Department Care Team (Late st Contact Info) Description 07/23/2025 10:40 AM EDT Office Visit [place] [facility] [address] [place] [address] Makayla Green, SUPERVISOR ROLLING ROOM [address] [facility] [address] [place] [address] Closed unstable burst fracture of tenth thoracic vertebra with routine healing, subsequent encounter (Primary Dx); Fall on same level from slipping, tripping or stumbling, subsequent encounter; Compression fracture of L4 vertebra with routine healing, subsequent encounter Social History Tobacco Use Types Packs/Day Years Used Date Smoking Tobacco: Never Smokeless Tobacco: Never Tobacco Cessation:Counseling Given: Not Answered Sex and Gender Information Value Date Recorded Sex Assigned at Male 05/23/2024 4:59 PM EDT Legal Sex Male 9:01 AM EST Gender Identity Male 05/23/2024 4:59 PM EDT Sexual Orientation Straight 05/23/2024 4: 59 PM EDT documented as of this encounter Last Filed Vital Signs Vital Sign Reading Time Taken Comments Blood Pressure 122/88 07/23/2025 10:48 AM EDT Pulse - - Temperature - - Respiratory Rate - - Oxygen Saturation - - Inhaled Oxygen Concentration - - Weight 114 kg (251 lb 12.3 oz) 07/23/2025 10:48 AM EDT Height 177.8 cm (5' 10 ) 07/23/2025 10:48 AM EDT Body Mass Index 36.12 07/23/2025 10:48 AM EDT documented in this encounter Miscellaneous Notes * Progress Notes - Makayla Green, SUPERVISOR ROLLING ROOM - 07/23/2025 10:40 AM EDT We had the pleasure of seeing your patient in our clinic today for continued Neurosurgical evaluation. Chief Complaint: Fracture follow up Chronic L4 compression fracture T10-T11 anterior inferior endplate fracture through bridging osteophyte History Of Present Illness Sang Motley is a 50 y.o. male with history of previous thoracic and lumbar injuries requiring T2-[id number] as well as L1-S1 fusion completed at outside hospital. The patient originally presented to emergency department on 06/19/2025 after reporting to outside facility following a fall with worsening back pain and concern of urinary incontinence. The patient was evaluated by Neurosurgery while inpatient and found to have chronic L4 compression fracture as well as concern for T10-T11 anterior inferior endplate fracture through the bridging osteophyte with concern of involvement of the disc space. After evaluation with Neurosurgery, patient was ordered TLSO brace with plans for outpatient follow up. He returns to the clinic today for further evaluation. At today's visit, he overall is doing okay following his fractures. He states that he has been having some mild back pain especially when lying on his back. His pain is well-controlled with medications. He has been wearing TLSO brace most of the time while out of bed. He has been off work for recovery. He states that his job is unable to accommodate a return to work plan with restrictions. He denies having any lower extremity complaints today. Denies any significant balance concerns for myelopathy concerns today. No recent falls, incontinence, or saddle anesthesia. His previously experienced incontinence episodes have improved. He denies any other acute concerns today. History of Present Illness Past Medical History[1] Surgical History[2] Family History[3] Social History[4] Current Outpatient Medications Medication Instructions atorvastatin (LIPITOR) 10 mg, Daily gabapentin (NEURONTIN) 300 mg, Daily gabapentin (NEURONTIN) 600 mg, Nightly glyBURIDE micronized (GLYNASE) 3 mg, 2 times daily ibuprofen 800 mg, Oral, Every 8 hours PRN losartan (COZAAR) 25 mg, Daily metFORMIN (GLUCOPHAGE) 850 mg, 2 times daily methocarbamol (ROBAXIN) 1,000 mg, Oral, 4 times daily metoprolol succinate XL (TOPROL-XL) 100 mg, Daily oxyCODONE-acetaminophen (Percocet) 10-325 MG tablet 1 tablet, Every 12 hours PRN tolterodine LA (DETROL LA) 2 mg, Daily Allergies Patient has no known allergies. Review of Systems 14 point review of systems was performed and was negative except as noted per HPI. Visit Vitals BP 122/88 Ht 1.778 m (5' 10 ) Wt 114 kg (251 lb 12.3 oz) BMI 36.12 kg/m?? Smoking Status Never BSA 2.37 m?? General Physical Exam Constitutional No acute distress. Patient is appropriate historian and cooperative throughout exam.Well nourished, well groomed. Alert and oriented x4. Head Normocephalic and atraumatic. Eyes Pupils are equal, round, and reactive to light. Neck No tracheal deviation or JVD noted. No previous surgical scars Cardiovascular Minimal to no peripheral edema, intact distal pulses Pulmonary/Chest No increased effort noted, no shortness of breath Neurological Alert and oriented to person, place, and time Skin Skin is warm and dry Psychiatric Normal mood and affect, behavior and judgment MUSCULOSKELETAL EXAM: Lower Extremity Motor Strength Right Left L2: Hip flexion (Iliopsoas) 55 5/5 L3: Knee extension (Quad) 5 5/5 L4: Ankle DF (TA) 5 5/5 L5: Great Toe DF (EHL) 5/ 55 S1: Ankle Pf, Foot Eversion (Peroneal longus/brevis) 02/18 55 S2: Great toe flexion (FHL), Knee flexion 5/ 5/5 Sensation Right Left L2: Proximal anterior thigh Normal Normal L3: Mid anterior thigh Normal Normal L4: Medial leg/foot, great toe (Saphenous n.) Normal Normal L5: Dorsum of mid foot Normal Normal S1: Lateral leg/foot, little toe, Back of leg (Sural n.) Normal Normal Reflexes Right Left C5: Biceps 2/4 2/4 C6: Brachialis 2/4 2/4 C7: Triceps 2/4 2/4 L4: Patellar 2/4 2/4 S1: Achilles 2/4 2/4 SLR Negative Negative Clonus Negative Negative Hoffmans Negative Negative Imaging I personally reviewed CT thoracic and lumbar spine completed 06/19/2025. Imaging demonstrates priorhardware from L1-S1 with chronic L4 compression fracture, hardware appears stable without obvious fracture loosening. Also evidence of T10-T11 anterior inferior endplate fracture through anterior bridging osteophyte possibly extending into the disc space. Patient also has noted fusion from T2- T8 with hardware appropriate and intact. 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 Scoliosis films completed today 07/23/2025. Imaging is unable to fully visualize osteophyte fracture at T10-T11, though vertebral body height remains appropriate. Chronic L4 compression deformity noted. Imaging is similar to previous alignment. Assessment and Plan Sang Motley is a 50 y.o. male with history of T10-T11 anterior inferior endplate fracture through the anterior bridging osteophyte who returns to the clinic today for continued surveillance. Imaging has been reviewed and noted as above. Fracture appears stable during today's visit. We will have thepatient continue with TLSO when out of bed for the next several weeks. He will return to clinic forfollow up for continued fracture surveillance in several weeks. He will have AP/lateral films completed at that visit as well. We will then discuss weaning out of the brace if appropriate. The patient will remain at a work until his next follow up, letter provided to the patient today. He is advised to contact the clinic with any new or worsening symptoms. The patient was given the opportunity toask questions all of which were answered to their satisfaction and is agreeable to the plan of care. The patient was instructed to contact us with any issues or concerns. Assessment & Plan Makayla Green APRN [facility] Department of Neurosurgery This note was dictated with voice to text software and may contain minor errors [1] History reviewed. No pertinent past medical history. [2] History reviewed. No pertinent surgical history. [3] History reviewed. No pertinent family history. [4] Social History Tobacco Use Smoking status: Never Smokeless tobacco: Never documented in this encounter Plan of Treatment Upcoming Encounters Date Type Department Care Team (Late st Contact Info) Description 09/06/2025 8:20 AM EST Office Visit [place] [facility] [address], [address] [place] [address] Canelo Gordon MD [address] [place] [address] documented as of this encounter Results * XR Scoliosis Entire [...] MD on 07/23/2025 12:27 PM Makayla Green SUPERVISOR ROLLING ROOM IMG XR PROCEDURES Final Re sult documented in this encounter Visit Diagnoses Diagnosis Closed unstable burst fracture of tenth thoracic vertebra with routine healing, subsequent encounter- Primary Fall on same level from slipping, tripping or stumbling, subsequent encounter Compression fracture of L4 vertebra with routine healing, subsequent encounter Closed unstable burst fracture of tenth thoracic vertebra with routine healing, subsequent encounter documented in this encounter Additional Health Concerns Assessment Noted Time A fall risk assessment has been complete d for the patient 07/23/2025 10:52 AM EDT A Body Mass Index follow-up plan has been documented for the patient 07/23/2025 1:21 PM EDT documented as of this encounter Care Teams Archivist Political History Relationship Specialty Start Date End Date Edvin Rome MD PCP - General 08/31/23 documented as of this encounter
--- OUTSIDE RECORDS SUMMARY | 2025-08-27 09:01 | XMS_ITS | Clinical Summary ---
Author Organization Healthcare Address [address] [id number] Care Team Providers Care Channel Layer Name Role Phone Edvin Rome MD Primary Care Provider [phone] Allergies No known active allergies Medications atorvastatin [...] pain. 90 tablet 5 08/22/20 25 Active Problems Problem Noted Date Diagnosed Date Fall 06/21/2025 Fall from slip, trip, or stumble 06/20/2025 Assessment & Plan (06/20/2025 2:38 PM EDT): 06/15 while in [facility] Admit to SGT Tertiary 06/21 Assessment & Plan (06/20/2025 2:06 PM EDT): 06/15 while in [facility] Hypertension 06/20/2025 Assessment & Plan (06/20/2025 2:06 [...] Description 07/23/2025 10:40 AM EDT Office Visit [facility] [address], [address] [place] [address] Makayla Green, DIRECTOR LIFE Closed unstable burst fracture of tenth thoracic vertebra with routine healing, subsequent encounter (Primary Dx); Fall on same level from slipping, tripping or stumbling, subsequent encounter; Compression fracture of L4 vertebra with routine healing, subsequent encounter 07/23/2025 10:24 AM EDT - 07/23/2025 11:59 PM EDT Hospital Encounter [facility] [address], [address] [place] [address] Closed unstable burst fracture of tenth thoracic vertebra with routine healing, subsequent encounter Discharge Disposition: Home or Self Care 07/23/2025 Travel 07/22/2025 Travel 07/08/2025 Telephone [facility] [address], [address] [place] [address] Makayla Green, DIRECTOR LIFE HCN Clinical Concern/Question 06/20/2025 Travel 06/19/2025 10:20 PM EDT - 06/21/2025 6:20 PM EDT Hospital Encounter [facility] [address] [place] [address] Amy Pyle MD Dejohn, MD Felipa Perkins, Nury Willoughby MD Fall, initial encounter (Primary Dx); Acute midline low back pain without sciatica; Closed fracture of eleventh thoracic vertebra, unspecified fracture morphology, initial encounter (CMS/HCC); Other closed fracture of eleventh thoracic vertebra, initial encounter (CMS/[facility]); Other closed fracture of tenth thoracic vertebra, initial encounter (CMS/[facility]) Discharge Disposition: Home or Self Care 06/19/2025 Travel 06/19/2025 Orders Only External Location [address] [place] [id number] Paola Dow 06/19/2025 Orders Only External Location [address] [place] [address] Paola Dow from Last 3 Months Social [...] Visit [place] [facility] [address], [address] [place] [address] Canelo Gordon MD [address] [place] [address] Health Maintenance Due Date Last Done Comments [facility]-Depression Screening 1974 [facility]-Diabetes: Hemoglobin A1C 1974 [facility]-Infant/Child/Adol SDOH Screenings 1974 [id number] Vaccine (#1) 1979 Diabetes: Dental Exam 01/28/1984 [...] MD on 07/23/2025 12:27 PM Makayla Green DIRECTOR LIFE IMG XR PROCEDURES Final Re sult * [...] Comment 06/21/2025 4:45 PM EDT [facility] Nutrition Technician ID Micheline Deshpande 4:45 PM EDT HEALTHCARE LAB Device ID [id number] 06/21/2025 4:45 PM EDT HEALTHCARE LAB Specimen Type POC Capillary 06/21/2025 4:45 PM EDT [facility] Blood Capillary blood specimen / Unknown 06/21/2025 4:43 PM EDT 06/21/2025 4:45 PM EDT us Nury Leo MD LAB POINT OF CARE TE ST DOCKED DEVICE UNSOLICITED RESULTS Final Result Performing Organization Address [facility] Co de Phone Number [facility] [address] [place] [address] * Urinalysis Microscopic Examination (06/20/2025 6:40 AM EDT) Urine Urine specimen obtained by clean catch procedure / Unknown Non-blood Collection / Unknown 06/20/2025 6:40 AM EDT 06/20/2025 6:48 AM EDT us Jabari Zuleta MD LAB URINE ORDERABLES Final Resul t Performing Organization Address City/[facility]/ZIP Co de Phone Number [facility] [address] [place] [address] * (ABNORMAL) Urinalysis with reflex microscopic (Culture NOT Included) (06/20/2025 6:40 AM EDT) Pathologist [facility] Color, Urine Dark Yellow LAB URINALYSIS - AUTOMATED METHOD 06/20/2025 7:49 AM EDT [facility] Clarity, Urine Cloudy LAB URINALYSIS - AUTOMATED METHOD 06/20/2025 7:49 AM EDT [facility] Spec [place], Urine >1.030(H) 1.005 - 1.030 LAB URINALYSIS - AUTOMATED METHOD 06/20/2025 7:49 AM EDT [facility] pH, Urine 6.0 5.0 - 8.0 LAB URINALYSIS - AUTOMATED METHOD 06/20/2025 7:49 AM EDT [facility] Protein, Urine 30(A) Negative mg/dL LAB URINALYSIS - AUTOMATED METHOD 06/20/2025 7:49 AM EDT [facility] Glucose, Urine Negative Negative mg/dL LAB URINALYSIS - AUTOMATED METHOD 06/20/2025 7:49 AM EDT [facility] Ketones, Urine Trace(A) Negative mg/dL LAB URINALYSIS - AUTOMATED METHOD 06/20/2025 7:49 AM EDT [facility] Blood, Urine Negative Negative LAB URINALYSIS - AUTOMATED METHOD 06/20/2025 7:49 AM EDT [facility] Bilirubin, Urine Small(A) Negative LAB URINALYSIS - AUTOMATED METHOD 06/20/2025 7:49 AM EDT [facility] Urobilinogen, Urine 2.0(A) 0.2 to 1.0 mg/dL LAB URINALYSIS - AUTOMATED METHOD 06/20/2025 7:49 AM EDT [facility] Leukocytes, Urine Trace(A) Negative LAB URINALYSIS - AUTOMATED METHOD 06/20/2025 7:49 AM EDT [facility] Nitrite, Urine Negative Negative LAB URINALYSIS - AUTOMATED METHOD 06/20/2025 7:49 AM EDT [facility] RBC, Urine 1 0 to 3 /HPF 06/20/2025 7:49 AM EDT [facility] Comment:This result was prev iously suppressed from the chart. WBC, Urine 0 - 5 0 to 5 /HPF 06/20/2025 7:49 AM EDT [facility] Comment:This result was prev iously suppressed from the chart. Squamous Epithelial Cells 0 - 2 0 to 5 /HPF 06/20/2025 7:49 AM EDT [facility] Comment:This result was prev iously suppressed from the chart. Hyaline Casts 0 - 2 0 to 5 /LPF 06/20/2025 7:49 AM EDT [facility] Comment:This result was prev iously suppressed from the chart. Bacteria, Urine Negative Negative 06/20/2025 7:49 AM EDT [facility] Comment:This result was prev iously suppressed from the chart. Calcium Oxalate Crystals Present Absent 06/20/2025 7:49 AM EDT [facility] Comment:This result was prev iously suppressed from the chart. Mucus Present 06/20/2025 7:49 AM EDT [facility] Comment:This result was prev iously suppressed from the chart. Urine Urine specimen obtained by clean catch procedure / Unknown Non-blood Collection / Unknown 06/20/2025 6:40 AM EDT 06/20/2025 6:48 AM EDT Narrative [facility] - 06/20/2025 7:49 AM EDT Performed by manual method us Jabari Zuleta MD LAB URINE ORDERABLES Final Resul t [facility] [address] [place] [address] * MR Lumbar Spine wo IV Contrast [...] hypointensity within the superior portion of the B90fjcohwjaq body with edema that extends into the [...] to moderate spinal canal stenosis at T9-T10 [id number]. Minimal multilevel facet joint arthrosis without significantneural foraminal narrowing. Prevertebral and Paraspinal Soft Tissues: Heterogeneous stranding and STIRhyperintensity within the prevertebral and paravertebral space [id number]- T12 levels. Lumbar Spine: Diagnostic Quality: Adequate. [...] fracture of the inferior portion of the L76wjvxkwjb endplate. 2.Suspected injury of the anterior longitudinal [...] hypointensity within the superior portion of the X16abelcrrpd body with edema that extends into the [...] to moderate spinal canal stenosis at T9-T10 [id number]. Minimal multilevel facet joint arthrosis without significantneural foraminal narrowing. Prevertebral and Paraspinal Soft Tissues: Heterogeneous stranding and STIRhyperintensity within the prevertebral and paravertebral space [id number]- T12 levels. Lumbar Spine: Diagnostic Quality: Adequate. [...] fracture of the inferior portion of the W12owsimpzk endplate. 2.Suspected injury of the anterior longitudinal [...] Reactive Non Reactive 06/19/2025 11:44 PM EDT [facility] Comment:Screening for HIV 1 & 2 antibodies, and P24 antigen is NONREACTIVE. No confirmatory testing is required. Blood Venous blood specimen / Unknown Venipuncture / Unknown 06/19/2025 10:40 PM EDT 06/19/2025 11:02 PM EDT us Jabari Zuleta MD LAB BLOOD ORDERABLES Final Resul t Performing Organization Address City/[facility]/ZIP Co de Phone Number [facility] [address] [place] [address] * Morphology (06/19/2025 10:40 PM EDT) Pathologist [facility] RBC Morphology Slide Reviewed LAB HEMATOLOGY METHOD 06/19/2025 11:52 PM EDT [facility] Clumped Platelets Present LAB HEMATOLOGY METHOD 06/19/2025 11:52 PM EDT [facility] Blood Venous blood specimen / Unknown Venipuncture / Unknown 06/19/2025 10:40 PM EDT 06/19/2025 11:03 PM EDT us Jabari Zuleta MD LAB BLOOD ORDERABLES Final Resul t Performing Organization Address City/[facility]/ZIP Co de Phone Number [facility] [address] [place] [address] * Lactic acid, venous (06/19/2025 10:40 PM EDT) [facility] Lactate, Venous, Whole Blood 1.8 0.5 - 2.2 mmol/L LAB HEMATOLOGY METHOD 06/19/2025 10:55 PM EDT [facility] Blood Venous blood specimen / Unknown Venipuncture / Unknown 06/19/2025 10:40 PM EDT 06/19/2025 10:52 PM EDT Result Rosa Isela Zuleta MD LAB BLOOD ORDERABLES Final Resul t Performing Organization Address City/[facility]/ZIP Co de Phone Number [facility] [address] [place] [address] * Hepatitis C Antibody - ED (06/19/2025 10:40 PM EDT) Hepatitis C Antibody Negative Negative 06/19/2025 11:44 PM EDT [facility] Blood Venous blood specimen / Unknown Venipuncture / Unknown 06/19/2025 10:40 PM EDT 06/19/2025 11:03 PM EDT us Jabari Zuleta MD LAB BLOOD ORDERABLES Final Resul t Performing Organization Address [facility]/ZIP Co de Phone Number [facility] [address] [place] [address] * PT-INR (06/19/2025 10:40 PM EDT) Prothrombin Time 13.7 12.0 - 14.3 sec 06/19/2025 11:01 PM EDT [facility] INR 1.1 0.9 - 1.1 06/19/2025 11:01 PM EDT [facility] Blood Venous blood specimen / Unknown Venipuncture / Unknown 06/19/2025 10:40 PM EDT 06/19/2025 10:46 PM EDT Narrative [facility] - 06/19/2025 11:01 PM EDT OPTIMAL INR RANGES FOR PATIENT ON ORAL ANTICOAGULANT THERAPY Prevention of venous thromboembolism INR 2.0 to 3.0 In patients with heart disease: Atrial fibrillation INR 2.0 to 3.0 Valvular heart disease INR 2.0 to 3.0 Tissue heart valves INR 2.0 to 3.0 Mechanical prosthetic valves INR 2.5 to 3.5 Prevention of recurrent WA INR 2.5 to 3.5 us Jabari Zuleta MD LAB BLOOD ORDERABLES Final Resul t Performing Organization Address City/[facility]/ZIP Co de Phone Number [facility] [address] [place] [address] * (ABNORMAL) CBC w/diff (06/19/2025 10:40 PM EDT) WBC Count 9.12 3.70 - 10.30 10*3/uL LAB HEMATOLOGY METHOD 06/19/2025 11:52 PM EDT [facility] RBC Count 4.65 4.60 - 6.10 10*6/uL LAB HEMATOLOGY METHOD 06/19/2025 11:52 PM EDT [facility] HGB 13.0(L) 13.7 - 17.5 g/dL LAB HEMATOLOGY METHOD 06/19/2025 11:52 PM EDT [facility] HCT 39.6(L) 40.0 - 51.0 % LAB HEMATOLOGY METHOD 06/19/2025 11:52 PM EDT [facility] Platelet Count 151(L) 155 - 369 10*3/uL LAB HEMATOLOGY METHOD 06/19/2025 11:52 PM EDT [facility] MCV 85 79 - 98 fL LAB HEMATOLOGY METHOD 06/19/2025 11:52 PM EDT [facility] MCH 28.0 26.0 - 32.0 pg LAB HEMATOLOGY METHOD 06/19/2025 11:52 PM EDT [facility] MCHC 32.8 30.7 - 35.5 g/dL LAB HEMATOLOGY METHOD 06/19/2025 11:52 PM EDT [facility] RDW 14.6(H) 11.5 - 14.5 % LAB HEMATOLOGY METHOD 06/19/2025 11:52 PM EDT [facility] MPV LAB HEMATOLOGY METHOD 06/19/2025 11:52 PM EDT [facility] Comment:Not Measured nRBC 0.0 <=0.0 per 100 WBCs LAB HEMATOLOGY METHOD 06/19/2025 11:52 PM EDT [facility] Differential Type Automated LAB HEMATOLOGY METHOD 06/19/2025 11:52 PM EDT [facility] Neutrophils % 64 % LAB HEMATOLOGY METHOD 06/19/2025 11:52 PM EDT [facility] Lymphocytes % 23 % LAB HEMATOLOGY METHOD 06/19/2025 11:52 PM EDT [facility] Monocytes % 10 % LAB HEMATOLOGY METHOD 06/19/2025 11:52 PM EDT [facility] Eosinophils % 1 % LAB HEMATOLOGY METHOD 06/19/2025 11:52 PM EDT [facility] Basophils % 1 % LAB HEMATOLOGY METHOD 06/19/2025 11:52 PM EDT [facility] Immature Granulocytes % 1 % LAB HEMATOLOGY METHOD 06/19/2025 11:52 PM EDT [facility] Neutrophils Absolute 5.93 1.60 - 6.10 10*3/uL LAB HEMATOLOGY METHOD 06/19/2025 11:52 PM EDT [facility] Lymphocytes Absolute 2.08 1.20 - 3.90 10*3/uL LAB HEMATOLOGY METHOD 06/19/2025 11:52 PM EDT [facility] Monocytes Absolute 0.89 0.30 - 0.90 10*3/uL LAB HEMATOLOGY METHOD 06/19/2025 11:52 PM EDT [facility] Eosinophils Absolute 0.10 0.00 - 0.50 10*3/uL LAB HEMATOLOGY METHOD 06/19/2025 11:52 PM EDT [facility] Basophils Absolute 0.07 0.00 - 0.10 10*3/uL LAB HEMATOLOGY METHOD 06/19/2025 11:52 PM EDT [facility] Immature Granulocytes Absolute 0.05 0.00 - 0.06 10*3/uL LAB HEMATOLOGY METHOD 06/19/2025 11:52 PM EDT [facility] Blood Venous blood specimen / Unknown Venipuncture / Unknown 06/19/2025 10:40 PM EDT 06/19/2025 11:03 PM EDT Narrative [facility] - 06/19/2025 11:52 PM EDT Therapeutic decision making should be based on absolute values, rather than percentages. us Jabari Zuleta MD LAB BLOOD ORDERABLES Final Resul t Performing Organization Address City/State/[place] Co de Phone Number [facility] [address] [place] [address] * Type and screen (06/19/2025 10:40 PM [...] ORDERABLES F inal Result BLOOD BANK [address] * (ABNORMAL) Magnesium (06/19/2025 10:40 PM EDT) [facility] Magnesium, Plasma 1.6(L) 1.9 - 2.4 mg/dL 06/19/2025 11:08 PM EDT [facility] Blood Venous blood specimen / Unknown Venipuncture / Unknown 06/19/2025 10:40 PM EDT 06/19/2025 10:46 PM EDT Jabari Zuleta MD LAB BLOOD ORDERABLES Final Resul t [facility] [address] [place] [address] * (ABNORMAL) Blood gas panel, venous (06/19/2025 10:40 PM EDT) [facility] pH, Venous 7.51(H) 7.32 - 7.43 LAB HEMATOLOGY METHOD 06/19/2025 10:55 PM EDT [facility] pCO2, Venous 34(L) 40 - 55 mmHg LAB HEMATOLOGY METHOD 06/19/2025 10:55 PM EDT [facility] pO2, Venous 46(H) 25 - 40 mmHg LAB HEMATOLOGY METHOD 06/19/2025 10:55 PM EDT [facility] SO2, Measured, Venous 87(H) 65 - 80 % LAB HEMATOLOGY METHOD 06/19/2025 10:55 PM EDT [facility] Base Excess, Venous 3.7(H) -2.0 - 3.0 mmol/L LAB HEMATOLOGY METHOD 06/19/2025 10:55 PM EDT [facility] Bicarbonate, Calculated, Venous 27(H) 22 - 26 mmol/L LAB HEMATOLOGY METHOD 06/19/2025 10:55 PM EDT [facility] Hematocrit, Whole Blood 40.3 40.0 - 51.0 % LAB HEMATOLOGY METHOD 06/19/2025 10:55 PM EDT [facility] Sodium, Whole Blood 143 136 - 145 mmol/L LAB HEMATOLOGY METHOD 06/19/2025 10:55 PM EDT [facility] Potassium, Whole Blood 3.0(L) 3.6 - 4.9 mmol/L LAB HEMATOLOGY METHOD 06/19/2025 10:55 PM EDT [facility] Chloride, Whole Blood 106 97 - 107 mmol/L LAB HEMATOLOGY METHOD 06/19/2025 10:55 PM EDT [facility] Glucose, Whole Blood 71(L) 74 - 99 mg/dL LAB HEMATOLOGY METHOD 06/19/2025 10:55 PM EDT [facility] Lactate, Venous, Whole Blood 1.8 0.5 - 2.2 mmol/L LAB HEMATOLOGY METHOD 06/19/2025 10:55 PM EDT [facility] Ionized Calcium, Whole Blood 4.4(L) 4.6 - 5.1 mg/dL LAB HEMATOLOGY METHOD 06/19/2025 10:55 PM EDT [facility] Blood Venous blood specimen / Unknown Venipuncture / Unknown 06/19/2025 10:40 PM EDT 06/19/2025 10:52 PM EDT us Jabari Zuleta MD LAB BLOOD ORDERABLES Final Resul t [facility] [address] [place] [address] * (ABNORMAL) CMP (06/19/2025 10:40 PM EDT) Glucose, Plasma 72(L) 74 - 99 mg/dL 06/19/2025 11:08 PM EDT [facility] BUN, Plasma 9 7 - 21 mg/dL 06/19/2025 11:08 PM EDT [facility] Creatinine, Plasma 0.52(L) 0.70 - 1.20 mg/dL 06/19/2025 11:08 PM EDT [facility] BUN/Creatinine Ratio 17 06/19/2025 11:08 PM EDT [facility] Sodium, Plasma 140 136 - 145 mmol/L 06/19/2025 11:08 PM EDT [facility] Potassium, Plasma 3.1(L) 3.6 - 4.9 mmol/L 06/19/2025 11:08 PM EDT [facility] Chloride, Plasma 103 97 - 107 mmol/L 06/19/2025 11:08 PM EDT [facility] CO2, Plasma 25 22 - 29 mmol/L 06/19/2025 11:08 PM EDT [facility] Anion Gap 12 6 - 16 mmol/L 06/19/2025 11:08 PM EDT [facility] Total Calcium, Plasma 9.2 8.9 - 10.2 mg/dL 06/19/2025 11:08 PM EDT [facility] Total Protein 7.4 6.3 - 7.9 g/dL 06/19/2025 11:08 PM EDT [facility] Albumin, Plasma 3.9 3.5 - 5.2 g/dL 06/19/2025 11:08 PM EDT [facility] AST, Plasma 28 10 - 50 U/L 06/19/2025 11:08 PM EDT [facility] ALT, Plasma 30 10 - 50 U/L 06/19/2025 11:08 PM EDT [facility] Alkaline Phosphatase, Plasma 94 40 - 115 U/L 06/19/2025 11:08 PM EDT [facility] Total Bilirubin, Plasma 0.4 0.2 - 1.1 mg/dL 06/19/2025 11:08 PM EDT [facility] eGFRcr 122.0 mL/min/1.7 3m*2 06/19/2025 11:08 PM EDT [facility] Comment:Reported eGFRcr in m L/min/1.73m2 is based the CKD-EPI 2020 equation that does not use a race coefficient. Blood Venous blood specimen / Unknown Venipuncture / Unknown 06/19/2025 10:40 PM EDT 06/19/2025 10:46 PM EDT us Jabari Zuleta MD LAB BLOOD ORDERABLES Final Resul t [facility] [address] [place] [address] * XR Pelvis 1 or 2 Views [...] phy 06/19/2025 7:42 PM EDT Paola Dow IMG CT PROCEDURES Final Result * [...] updated to appropriate status: Yes Care Teams Channel Layer Relationship Specialty Start Date End Date Edvin Rome MD PCP - General 08/31/23
--- OUTSIDE RECORDS SUMMARY | 2025-08-27 09:01 | XMS_ITS | Patient Health Record ---
Author Organization [facility] Mart[facility]nez Address [address] [place] [address] Care Team Providers Care Corporate Logistics Manager Name Role Phone Luigi Howard Primary Care Provider [phone] Reason For Referral No Information Problems Problem Type SNOMED Code ICD Code Onset Dates Problem Status W/U Status Risk Notes Problem Cough (53209680) Cough (786.2) 2 Active confirmed Problem Benign essential hypertension (3795239) BENIGN ESSENTIAL HYPERTENSION (401.1) 2 Active confirmed Plan Of Treatment No Information Insurance Providers Payer Name Payer Address Payer Phone Subscriber Number Group Number Insured Name Patient Relationship to Insured Coverage Start Date Coverage End Date [facility] [address] [address] [place] [phone] [id number] HELDER ALTAMIRANO Self - patient is the insured
--- OUTSIDE RECORDS SUMMARY | 2025-08-27 09:01 | XMS_ITS | Encounter Summary ---
Author Organization Healthcare Address [address] [place] [address] Care Team Providers Care Supervisor Home Restoration Service Name Role Phone Edvin Rome MD Primary Care Provider [phone] Reason for Visit * Reason Onset Date Comments HCN Clinical Concern/Question 07/08/2025 Encounter Details Date Type Department Care Team (Late st Contact Info) Description 07/08/2025 [facility]phone [facility] [address] [place] [address] Makayla Green M, TER[facility]ON [address] [place] [address] [facility] Clinical Concern/Question Social History [...] encounter Miscellaneous Notes * Telephone Encounter - Church, Mohini F - 07/08/2025 1:46 PM EDT Clinical Concern/Question Reason for Call: Patient asking to talk to nurse about after care and xray questions Best contact number: [phone] (mobile) Optimal time of day to reach caller: ANYTIME Additional comments/information from caller: None Note: Please do not reply to this message. Follow-up communication and further actions as a result of this message need to be communicated with the patient directly, if the patient is not active onMyChart. If the patient is active on MyChart, they will receive notification of the communication/outcome via [employer]. documented in this encounter Plan of Treatment Upcoming Encounters Date Type Department Care Team (Late st Contact Info) Description 09/06/2025 8:20 AM EST Office Visit [place] [facility] [address] [place] [address] Canelo Gordon MD [address] [place] [address] documented as of this encounter Visit Diagnoses Not on filedocumented in this encounter Care Teams Supervisor Home Restoration Service Relationship Specialty Start Date End Date Edvin Rome MD PCP - General 08/31/23 documented as of this encounter
--- OUTSIDE RECORDS SUMMARY | 2025-08-27 09:01 | XMS_ITS | Encounter Summary ---
Author Organization Healthcare Address [address] [place] [address] Care Team Providers Care Coding Tech Name Role Phone Edvin Rome MD Primary Care Provider [phone] Encounter Details Date Type Department Care Team [...] Visit [place] [facility] [address] [place] [address] Canelo Gordon MD [address] [place] [address] documented as of this encounter Visit Diagnoses Not on filedocumented in this encounter Care Teams Coding Tech Relationship Specialty Start Date End Date Edvin Rome MD PCP - General 08/31/23 documented as of this encounter
--- OUTSIDE RECORDS SUMMARY | 2025-08-27 09:01 | XMS_ITS | Encounter Summary ---
Author Organization Healthcare Address [address] [place] [address] Care Team Providers Care [employer]ber Name Role Phone Edvin Rome MD Primary Care Provider [phone] Encounter Details Date Type Department Care Team [...] Visit [place] [facility] [address] [place] [address] Canelo Gordon MD [address] [place] [address] documented as of this encounter Visit Diagnoses Not on filedocumented in this encounter Additional Health Concerns Assessment Noted Time A fall risk assessment has been complete d for the patient 07/23/2025 10:52 AM EDT A Body Mass Index follow-up plan has been documented for the patient 07/23/2025 1:21 PM EDT documented as of this encounter Care Teams [employer] Relationship Specialty Start Date End Date Edvin Rome MD PCP - General 08/31/23 documented as of this encounter
--- OUTSIDE RECORDS SUMMARY | 2025-08-27 09:01 | XMS_ITS | Patient Health Record ---
Author Organization [place] [employer] [facility] Address [address] [place] [address] [place] [address] Care Team Providers Care Professional Nursing Tutor Name Role Phone Siddhartha Huddleston D.O. Primary Care Provider Unavail able Siddhartha Huddleston Unavailable Unavailable Reason For Referral No Information Social History Social History Additional Details Category Social Info Options Details MigClinicalInfo PHQ2 Desp - Patie nt Health Questionnaire, feeling down, depressed or hopeless; Date:04/10/2018 Value:- No [id number] Desp - Social De terminants of Health Domain 1 Question 1; Date:02/22/2018 Value:- No [id number] Desp - Social De terminants of Health Domain 1 Question 3; Date:02/22/2018 Value:- No [id number] Desp - Social De terminants of Health Domain 2 Question 1; Date:-02/22/2018 Value:- No [id number] Desp - Social De terminants of Health Domain 3 Question 1; Date:02/22/2018 Value:- Yes [id number] Desp - Social De terminants of Health Domain 4 Question 1; Date:02/22/2018 Value:- No [id number] Desp - Social De terminants of Health Domain 5 Question 1; Date:02/22/2018 Value:- No [id number] Desp - Social De terminants of Health Domain 8 Question 1; Date:02/22/2018 Value:- Yes [id number] Desp - Social De terminants of Health Domain 9 Question 1; Date:02/22/2018 Value:- Yes [id number] Desp - Social De terminants of Health Domain 10 Question 1; Date:02/22/2018 Value:- No [id number] Desp - Social De terminants of Health Domain 10 Question 3; Date:02/22/2018 Value:- No Migrated Social History Migrated Social History Weight Management Counseling Provided : Weight management addressed in action plan. Problems Problem Type SNOMED Code ICD Code Onset Dates Problem Status W/U Status Risk Notes Problem Type II diabetes mellitus without complication (121129483) Type 2 diabetes mellitus without complications (E11.9) 8 Active confirmed Problem Essential hypertension (85012035) Essential (primary) hypertension (I10) 8 Active confirmed Plan Of Treatment No Information
[2025-08-27 09:21] VITALS: BP 141/77; PULSE 48; RESP 17; O2SAT 98; BMI 35.2
[2025-08-27 09:35] VITALS: BP 150/86; PULSE 54; RESP 17; O2SAT 98
[2025-08-27] MEDS: NITROGLYCERIN 0.4MG SL TABLET SL (09:35)
[2025-08-27 09:37] VITALS: BP 140/87; PULSE 58; RESP 17; O2SAT 99
[2025-08-27 09:45] VITALS: BP 116/60; PULSE 60; RESP 18; O2SAT 99
[2025-08-27] MEDS: SODIUM CHLORIDE 0.9% 10ML SYR (RAD ONLY) 10 ML IV (09:46)
[2025-08-27] MEDS: 0.9 % SODIUM CHLORIDE 50 ML VIAL 40 ML IV (09:46)
[2025-08-27] MEDS: IOPAMIDOL-370 (76%);100ML BOTTLE 90 ML IV (09:46)
--- NOTE | 2025-08-27 10:00 | CT_ITS ---
APPROVED REPORT [employer]: CLINICAL INDICATION Chest Pain TECHNIQUE Image Acquisition: A 128 slice MDCT scanner ([employer] BU[employer] Network[employer] View) was used for data acquisition. A noncontrast coronary calcium scan was performed. A CT attenuation threshold of 130 Hounsfield units (HU) was used for the detection of calcium in contiguous voxels of 1 sq mm in area to be counted as individual lesions. Bolus tracking in the ascending aorta with a threshold of 180 HU was performed. Immediately afterwards, ECG synchronized cardiac CT was then performed from the cardiac base to apex using retrospective gating with ECG tube current modulation. A total of 85 mL of Isovue 370 mg/mL contrast medium was administered at 5 mL/sec followed by a saline flush using a biphasic injection protocol. A tube voltage of 120 KVp was used. The average heart rate at the time of acquisition was 58 bpm and regular. Image Reconstruction Transaxial images were reconstructed at 0.67 mm slide thickness. Data was reviewed interactively on an advanced workstation capable of 2 and 3-dimensional displays in all conventional reconstruction formats, including multiplanar reformations, maximum intensity projections, curved multiplanar reformations, and volume rendered reconstructions. When applicable, selected routine images describing the relevant coronary anatomy and pathology were saved and sent to PACS. Complications None Technical Quality Overall image quality was good. Coronary artery opacification was adequate. Total DLP (Dose-Length Product) is 2448.5 mGy-cm. The reported value represents the total of one or more individual components during the CT acquisition of this date and at this time, and as such, the same value may appear in more than one CT report depending on the interpreting/reporting physicians. COMPARISON None FINDINGS CT Coronary Calcium Scoring LMA (Left Main Artery) = 3 LAD (Left Anterior Descending) = 416 LCX (Left Coronary Circumflex) = 8 RCA (Right Coronary Artery) = 54 Total Calcium Score = 481 using the AJ-130 method. The observed calcium score of 481 is at 98th percentile for subjects of the same age, sex, and race/ethnicity. The interpretation of the calcium heart score is based on the following continuum*: 0 = no calcified plaque detected (risk of coronary artery disease is very low ??? less than 5%) 1-10 = calcium detected in extremely minimal levels (risk of coronary diseases is still low ??? less than 10%) 11-100 = mild levels of plaque detected with certainty (mild or minimal narrowing of heart arteries is likely) 101-400 = definite,at least moderate levels of plaque detected (relatively high risk of a heart attack within 3-5 years) >401-999 = extensive levels of plaque detected (high risk of heart attack, high levels of vascular disease are present, high likelihood of at least one significant coronary narrowing) *The calcium heart score quantifies the burden of coronary calcification/plaque in the coronary arteries. The calcium heart score is not able to evaluate the presence or burden of non-calcified (i.e. soft) plaque. There is no identifiable calcification in the aortic valve, mitral annulus or mitral valve, pericardium, or myocardium. Coronary CT Angiography The coronary arterial system is right dominant. Quantitative Stenosis Grading: Left Main (LM): The left main originates normally from the left sinus of Valsalva. The LM bifurcates into the left anterior descending artery and left circumflex artery. There is mixed calcified/noncalcified plaque in the proximal LM, with < 25% luminal stenosis. Left Anterior Descending (LAD) and Diagonal Branches: The LAD gives off 3 diagonal branch(es). There is mixed calcified/noncalcified plaque in the proximal and mid LAD segments, with up to 70-90% luminal stenosis. There is no evidence of LAD-myocardial bridge. Left Circumflex (LCX) and Obtuse Marginals (OM): The LCX gives off 1 Obtuse Marginal (OM) branch(es). There is mixed calcified/noncalcified plaque in the proximal and mid LCX segments, as well as OM1, with up to 50-70% luminal stenosis. Right Coronary Artery (RCA): The RCA originates normally from the right sinus of Valsalva. The RCA gives off a posterior descending artery (PDA) and posterolateral (PL) branches. There is mid chest pain/noncalcified plaque in the mid to distal RCA segments with up to 50 to 70% luminal stenosis. Non-Coronary Cardiac Findings: Analysis of the left ventricular (LV) structure and function was performed after 3-D reconstruction of the LV from axial images, with user-corrected automatic contouring for assessment of LV volumes and user-defined reconstruction from oblique planes for measurement of 3-D cardiac structure and function. -The left ventricle systolic function is normal. -There is no left atrial appendage filling defect. Two right pulmonary veins and two left pulmonary veins drain normally into the left atrium. -No pericardial thickening or calcification. -Central and branch pulmonary arteries in the ieyvf-kf-hjmv are unremarkable. -Thoracic aorta within the visualized thoracic aortic-branches in the epasl-cq-ybvu is unremarkable. Extracardiac Structures No significant extra-cardiac findings. Note, however, that this study is focused on the cardiac findings. IMPRESSION -Presence of coronary calcification with an Agatston score = 481 using the AJ-130 method. -The observed calcium score of 481 is at 98th percentile for subjects of the same age, sex, and race/ethnicity. -Multivessel, atherosclerotic coronary disease most likely evidence of significant flow-limiting atherosclerosis of the coronary arteries, particularly in the mid LAD segment. -CAD-RADS 4A. Management recommendations per ACC/AHA guidelines*, as clinically appropriate. *Recommendations: CAD RADS 0: Reassurance. Consider non-atherosclerotic causes of chest pain. CAD RADS 1: Consider non-atherosclerotic causes of chest pain. Consider preventive therapy and risk factor modification. CAD RADS 2: Consider non-atherosclerotic causes of chest pain. Consider preventive therapy and risk factor modification, particularly for patients with nonobstructive plaque in multiple segments. CAD RADS 3: Consider further functional testing. Consider symptom-guided anti-ischemic and preventive pharmacotherapy as well as risk factor modification per published guideline statements. CAD RADS 4A: Consider further functional testing or invasive coronary angiography with revascularization per published guideline statements. Consider symptom-guided anti-ischemic and preventive pharmacotherapy as well as risk factor modification per published guideline statements. CAD RADS 4B: Invasive coronary angiography recommended with revascularization per published guideline statements. Consider symptom-guided anti-ischemic and preventive pharmacotherapy as well as risk factor modification per published guideline statements. CAD RADS 5: Consider invasive angiography and/or viability assessment with revascularization per published guideline statements. Consider symptom-guided anti-ischemic and preventive pharmacotherapy as well as risk factor modification per published guideline statements. CRITICAL RESULT None COMMUNICATION Per this written report The coronary and cardiac findings of this CCTA were reviewed, reported, and signed by Omega Onofre MD (Middle School Counselor) Conclusion Electronically signed by : Lelia Onofre MD 09/04/2025 12:27:16
== END 2025-08-27 09:50 | disposition home or self-care (01) ==
PROVIDERS: PCP Family Medicine; Visit Provider Family Medicine
DX: I25.10 Atherosclerotic heart disease of native coronary artery without angina pectoris (principal)
CPT/HCPCS: 75574; Q9967

== ENCOUNTER 2025-09-10 08:20 | Day surgery (SDC) | payer BC, SELFPAY ==
[2025-09-10] VITALS (15 sets, daily range): BP systolic 116–183; BP diastolic 58–98; PULSE 53–88; RESP 18; O2SAT 93–96; BMI 35.6
--- NOTE | 2025-09-10 07:03 | IR_ITS ---
APPROVED REPORT Patient Location: Outpatient PROCEDURES Left heart catheterization Left ventriculogram Selective coronary angiogram INDICATION Abnormal Myoview Informed consent was obtained prior to the procedure. COMPLICATIONS NONE Estimated Blood Loss: LESS THAN 10 ML TECHNIQUE One percent lidocaine used to anesthetize the right anterior aspect of the wrist. The right radial artery was accessed via the Seldinger technique. A 6 Syriac sheath was placed in the right radial artery. 2.5 mg of Verapamil, 800 mcg of nitroglycerin, 1mg Lidocaine and 5000 U Heparin were given through the arterial sheath. The JL3 catheter was also used to perform left heart catheterization, left ventriculogram and selective coronary angiogram. At the end of the procedure the sheath was removed good hemostasis was achieved using Traclet band, patient was transferred to the postop holding area in stable condition. ANGIOGRAPHIC RESULTS The left main artery Has distal smooth 20% stenosis The left anterior descending artery Is a small caliber vessel with proximal 20% stenosis and mid vessel 30% smooth stenosis The circumflex artery Nondominant small caliber with diffuse 20 and 30% stenosis The right coronary artery Large-caliber and dominant with proximal 20% stenosis distal 10 to 20% stenosis The ADAMS ventriculogram reveals Normal 60% The left ventricular end-diastolic pressure Severely elevated at 30 mmHg IMPRESSION Small caliber left coronary artery system as described above with mild to moderate diffuse atherosclerotic plaque Large-caliber mildly diseased dominant right coronary artery Normal ejection fraction with severely elevated LVEDP PLAN 1. Aggressive risk factor modification 2. Cardiac rehabilitation 3. Treatment of HFpEF 4. Avoidance of tobacco products 5. Recommend sleep study Electronically signed by : Chandrakant Rivas MD 09/10/2025 15:03:01
[2025-09-10 08:48] LABS: Hematocrit 44.1 % (42.0-52.0); Hemoglobin 14.3 g/dL (14.1-18.0); Immature Granulocytes % 0.3 %; Mean Corpuscular HGB Conc 32.4 g/dL (31.8-35.4); Mean Corpuscular Hemoglobin 28.4 pg (27.0-31.2); Mean Corpuscular Volume 87.7 fl (80-94); Nucleated Red Blood Cells % 0 %; Platelet Count 218 K/mm3 (142-424); Red Blood Count 5.03 M/mm3 (4.60-6.20); Red Cell Distribution Width-SD 44.0 fL; White Blood Count 9.7 K/mm3 (4.8-10.8)
[2025-09-10 08:58] LABS: Anion Gap 14.6 mEq/L (5-15); Blood Urea Nitrogen 9 mg/dl (9-20); Calcium 9.2 mg/dl (8.4-10.2); Carbon Dioxide 27 mmol/L (22.0-30.0); Chloride 101 mmol/L (98-107); Creatinine Clearance Estimated 232 mL/min (50-200); Creatinine,Serum 0.60 mg/dl (0.66-1.25); Estimated Glomerular Filt Rate 142 ml/min (>60); GFR (African American) 172 ML/MIN (>60); Glucose 124 mg/dl (74-100); Potassium 3.6 mmoL/L (3.5-5.1); Sodium 139 mmol/L (136-145)
[2025-09-10] MEDS: LIDOCAINE 1% 10ML MDV 10 ML IJ (10:12)
[2025-09-10] MEDS: HEPARIN 1,000 UNITS/500ML NS (CATH LAB) 3000 UNIT IV (10:12)
[2025-09-10] MEDS: 0.9 % SODIUM CHLORIDE 500 ML 25 ML IV (10:13)
[2025-09-10] MEDS: MIDAZOLAM HCL 1MG/ML 5ML VIAL 1 MG IV (10:41)
[2025-09-10] MEDS: FENTANYL 100MCG/2ML VIAL 50 MCG IV (10:41)
== END 2025-09-10 13:59 | disposition home or self-care (01) ==
PROVIDERS: PCP Family Medicine; Visit Provider Internal Medicine
PROC: 4A023N7 Measurement of Cardiac Sampling and Pressure, Left Heart, Percutaneous Approach (ICD-10-PCS; CPT 93452; principal; 2025-09-10 12:00)
DX: I25.118 Atherosclerotic heart disease of native coronary artery with other forms of angina pectoris (principal); R93.1 Abnormal findings on diagnostic imaging of heart and coronary circulation; R94.31 Abnormal electrocardiogram [ECG] [EKG]; E11.9 Type 2 diabetes mellitus without complications; I10 Essential (primary) hypertension; E78.5 Hyperlipidemia, unspecified; R80.9 Proteinuria, unspecified; K21.9 Gastro-esophageal reflux disease without esophagitis; Z79.84 Long term (current) use of oral hypoglycemic drugs; Z79.82 Long term (current) use of aspirin; Z79.899 Other long term (current) drug therapy; Z82.49 Family history of ischemic heart disease and other diseases of the circulatory system
CPT/HCPCS: 80048; 85025; 93458; 99152; C1725; C1769; J1200; J1644; J3010; J7040; Q9967

== ENCOUNTER 2025-10-02 15:09 | Outpatient (CLI) | payer BC, SELFPAY ==
--- OUTSIDE RECORDS SUMMARY | 2025-09-06 08:28 | XMS_ITS | Encounter Summary ---
Author Organization Healthcare Address [address] [place] [address] Care Team Providers Care Kiln Placer Name Role Phone Edvin Rome MD Primary Care Provider [phone] Encounter Details Date Type Department Care Team (Latest Contact Info) Description 09/06/2025 8:28 AM EST - 09/06/2025 11:59 PM [facility] [address], [address] [place] [address] Closed unstable burst fracture of tenth thoracic vertebra with routine healing, subsequent encounter; Fall on same level from slipping, tripping or stumbling, subsequent encounter; Compression fracture of L4 vertebra with routine healing, subsequent encounter Discharge Disposition: Home or Self Care Social History Tobacco Use Types Packs/Day Years Used Date Smoking Tobacco: Never Smokeless Tobacco: Never Alcohol Use Standard Drinks/Week Comments Not Currently 0 (1 standard drink = 0.6 oz pur e alcohol) Sex and Gender Information Value Date Recorded [...] as of this encounter Plan of Treatment Not on file documented as of this encounter Procedures Procedure Name Priority Date/Time Associated Diagnosis Comments XR SCOLIOSIS ENTIRE SPINE 2 OR 3 VIEWS Routine 09/06/2025 8:51 AM EST Closed unstable burst fracture of tenth thoracic vertebra with routine healing, subsequent encounter Fall on same level from slipping, tripping or stumbling, subsequent encounter Compression fracture of L4 vertebra with routine healing, subsequent encounter documented in this encounter Results * XR Scoliosis Entire Spine 2 or 3 Views (09/06/2025 8:51 AM EST) Anatomical Region Laterality Modality Spine Digital Radiogra phy Impressions 09/06/2025 11:20 AM EST No evidence of hardware complication. Similar appearance of the L2 and L4 compression deformities without further interval height loss. CRITICAL RESULT: No. COMMUNICATION: Per this written report. Drafted by Sabrina Carr MD on 09/06/2025 11:18 AM Final report signed by Sabrina Carr MD on 09/06/2025 11:20 AM Narrative 09/06/2025 11:20 AM EST CLINICAL INDICATION: fractures TECHNIQUE: XR SCOLIOSIS ENTIRE SPINE 2 OR 3 VIEWS COMPARISON: Radiographs from 07/23/2025 FINDINGS: Similar appearance of the L2 and L4 compression deformities without further interval height loss. Similar alignment of the spine. Posterior fusion hardware spanning T8 and L1 S1. Plate and screw constructs of the right third, fourth and fifth rib fractures. Plate and screw fixation of the right clavicle. No evidence of hardware loosening or failure. No acute finding in the chest or abdomen. Procedure Note Sabrina Carr MD - 09/06/2025 CLINICAL INDICATION: fractures TECHNIQUE: XR SCOLIOSIS ENTIRE SPINE 2 OR 3 VIEWS COMPARISON: Radiographs from 07/23/2025 FINDINGS: Similar appearance of the L2 and L4 compression deformities withoutfurther interval height loss. Similar alignment of the spine. Posteriorfusion hardware spanning T8 and L1 S1. Plate and screw constructs of theright third, fourth and fifth rib fractures. Plate and screw fixation ofthe right clavicle. No evidence of hardware loosening or failure. No acutefinding in the chest or abdomen. IMPRESSION: No evidence of hardware complication. Similar appearance of the L2 and P2nffycnkjgrf deformities without further interval height loss. CRITICAL RESULT: No. COMMUNICATION: Per this written report. Drafted by Sabrina Carr MD on 09/06/2025 11:18 AM Final report signed by Sabrina Carr MD on 09/06/2025 11:20 AM us Makayla Geren RECEIVABLE CLERK IMG XR PROCEDURES Final Re sult documented in this encounter Visit Diagnoses Diagnosis Closed unstable burst fracture of tenth thoracic vertebra with routine healing, subsequent encounter Fall on same level from slipping, tripping or stumbling, subsequent encounter Compression fracture of L4 vertebra with routine healing, subsequent encounter documented in this encounter Additional Health Concerns Assessment Noted Time A fall risk assessment has been complete d for the patient 09/06/2025 9:15 AM EST A Body Mass Index follow-up plan has been documented for the patient 09/06/2025 9:56 AM EST documented as of this encounter Care Teams Kiln Placer Relationship Specialty Start Date End Date Edvin Rome MD PCP - General 08/31/23 documented as of this encounter
--- OUTSIDE RECORDS SUMMARY | 2025-09-06 08:40 | XMS_ITS | Encounter Summary ---
Author Organization Healthcare Address [address] [place] [address] Care Team Providers Care Wagon Winder Name Role Phone Edvin Rome MD Primary Care Provider [phone] Encounter Details Date Type Department Care Team (Late st Contact Info) Description 09/06/2025 8:40 AM EST Office Visit [place] [facility] [address] [place] [address] Canelo Gordon MD [address] [place] [address] Closed unstable burst fracture of tenth thoracic vertebra with routine healing, subsequent encounter (Primary Dx); Fall on same level from slipping, tripping or stumbling, subsequent encounter; Compression fracture of L4 vertebra with routine healing, subsequent encounter Social History Tobacco Use Types Packs/Day Years Used Date Smoking Tobacco: Never Smokeless Tobacco: Never Tobacco Cessation:Counseling Given: Not Answered Alcohol Use Standard Drinks/Week Comments Not Currently [...] Sign Reading Time Taken Comments Blood Pressure 160/110 09/06/2025 9:15 AM EST Pulse - - Temperature - - Respiratory Rate - - Oxygen Saturation - - Inhaled Oxygen Concentration - - Weight 111 kg (245 lb) 09/06/2025 9:15 AM EST Height - - Body Mass Index 35.15 07/23/2025 10:48 AM EDT documented in this encounter Plan of Treatment Not on file documented as of this encounter Results * [...] complication. Similar appearance of the L2 and G5jwrkmvhbixz deformities without further interval height loss. CRITICAL RESULT: No. COMMUNICATION: Per this written report. Drafted by Sabrina Carr MD on 09/06/2025 11:18 AM Final report signed by Sabrina Carr MD on 09/06/2025 11:20 AM Makayla Green DUCT CLEANER IMG XR PROCEDURES Final Re sult documented [...] documented as of this encounter Care Teams Wagon Winder Relationship Specialty Start Date End Date Edvin Rome MD PCP - General 08/31/23 documented as of this encounter
--- NOTE | 2025-10-02 15:15 | CA_ITS ---
APPROVED REPORT EXAM: Comprehensive 2D, Doppler, and color-flow Echocardiogram Lithop[employer] Operator: Rachele Klein RT(R) Ht: 5 ft 10 in Wt: 246lbs BSA: 2.28 BP: 118/83 mmHg Indications: dizziness, CAD, fatigue, hypertension. 2D Dimensions LA Volume 35.50 mL LA Volume Index 15.57 mL/m2 (M/F) 16-34 GL Strain -21.9 % M-Mode Dimensions RVDd 2.48 cm (0.9-2.6) LA Diam 3.75 cm (1.9-4.0) LVDd 5.32 cm (3.5-5.7) LVDs 3.92 cm (3.5-5.7) IVSd 0.84 cm (0.6-1.1) PWd 0.96 cm (0.6-1.1) EF (Teich) 51.10% FS 26.30% EDV (Teich) 136.50 mL ESV (Teich) 66.70 mL LV Diastology E Decel Time 167 (160-240 msec) E/A Ratio 1.4 Mitral Valve MV E Max Saravanan. 100.0 (40-130 cm/s) MV A Velocity 71.0 (40-130 cm/s) E/A Ratio 1.41 MV PHT 49.0 ms Left Ventricle The left ventricle is normal size. Left ventricular systolic function is normal. The left ventricular ejection fraction is within the normal range. There is normal left ventricular wall thickness. There is normal LV segmental wall motion. The left ventricular diastolic function is normal. LVEF is 55% Right Ventricle The right ventricle is normal size. The right ventricular systolic function is normal. Atria The left atrium size is normal. The right atrium size is normal. There is no color Doppler evidence of interatrial shunt. Aortic Valve The aortic valve opens well. There is no hemodynamically significant aortic valvular stenosis. No aortic regurgitation is present. Mitral Valve The mitral valve is normal in structure. No evidence of mitral valve stenosis. Trace mitral regurgitation is present. Tricuspid Valve The tricuspid valve leaflets are thin and pliable. Trace tricuspid regurgitation. There is insufficient TR jet to estimate RVSP. Pulmonic Valve The pulmonary valve is grossly normal in structure. Trace pulmonic valve regurgitation is present. Great Vessels The aortic root is normal in size. IVC is normal in size and collapses >50% with inspiration. Pericardium There is no pericardial effusion. Conclusion Normal biventricular systolic function. No significant valvular stenosis or regurgitation. Electronically signed by : Lelia Onofre MD 10/13/2025 13:22:52
--- OUTSIDE RECORDS SUMMARY | 2025-10-02 16:19 | XMS_ITS | Encounter Summary ---
Author Organization Healthcare Address [address] [place] [address] Care Team Providers Care Baker Helper Name Role Phone Edvin Rome MD Primary Care Provider Encounter Details Date Type Department Care Team (Latest Contact Info) Description 09/06/2025 Travel Social History Tobacco Use Types Packs/Day [...] on file documented as of this encounter Visit Diagnoses Not on filedocumented in this encounter Additional Health Concerns Assessment Noted Time A fall risk assessment has been complete d for the patient 09/06/2025 9:15 AM EST A Body Mass Index follow-up plan has been documented for the patient 09/06/2025 9:56 AM EST documented as of this encounter Care Teams Baker Helper Relationship Specialty Start Date End Date Edvin Rome MD PCP - General 08/31/23 documented as of this encounter
--- OUTSIDE RECORDS SUMMARY | 2025-10-02 16:20 | XMS_ITS | Patient Health Record ---
Author Organization [email or web address] [facility] Address [address] [place] [address] [place] [address] Care Team Providers Care Dredgemaster Name Role Phone Siddhartha Huddleston D.O. Primary Care Provider Unavail able Siddhartha Huddleston Unavailable Unavailable Reason For Referral No Information Social History Social History Additional Details Category Social Info Options Details MigClinicalInfo PHQ2 Desp - Patie nt Health Questionnaire, feeling down, depressed or hopeless; Date:-04/10/2018 Value:- No [id number] Desp - Social De terminants of Health Domain 1 Question 1; Date:02/22/2018 Value:- No [id number] Desp - Social De terminants of Health Domain 1 Question 3; Date:02/22/2018 Value:- No [id number] Desp - Social De terminants of Health Domain 2 Question 1; Date:-02/22/2018 Value:- No [id number] Desp - Social De terminants of Health Domain 3 Question 1; Date:02/22/2018 Value:- Yes [id number] Desp - Social De terminants of Health Domain 4 Question 1; Date:02/22/2018 Value:- No [id number] Desp - Social De terminants of Health Domain 5 Question 1; Date:02/22/2018 Value:- No [id number] Desp - Social De terminants of Health Domain 8 Question 1; Date:02/22/2018 Value:- Yes [id number] Desp - Social De terminants of Health Domain 9 Question 1; Date:02/22/2018 Value:- Yes [id number] Desp - Social De terminants of Health Domain 10 Question 1; Date:02/22/2018 Value:- No [id number] Desp - Social De terminants of Health Domain 10 Question 3; Date:02/22/2018 Value:- No Migrated Social History Migrated Social History Weight Management Counseling Provided : Weight management addressed in action plan. Problems Problem Type SNOMED Code ICD Code Onset Dates Problem Status W/U Status Risk Notes Problem Type II diabetes mellitus without complication (239183676) Type 2 diabetes mellitus without complications (E11.9) 8 Active confirmed Problem Essential hypertension (14969661) Essential (primary) hypertension (I10) 8 Active confirmed Plan Of Treatment No Information
--- OUTSIDE RECORDS SUMMARY | 2025-10-02 16:20 | XMS_ITS | Clinical Summary ---
Author Organization Healthcare Address [address] [id number] Care Team Providers Care Micrographics Services Supervisor Name Role Phone Edvin Rome MD Primary Care Provider [phone] Allergies No known active allergies Medications atorvastatin [...] mg Oral4 times daily PRN, Reported on 09/06/2025 Active Problems Problem Noted Date Diagnosed Date Fall 06/21/2025 Fall from slip, trip, or stumble 06/20/2025 Assessment & Plan (06/20/2025 2:38 PM EDT): 06/15 while in grass Admit to T Tertiary 06/21 Assessment & Plan (06/20/2025 2:06 PM EDT): 06/15 while in grass Hypertension 06/20/2025 Assessment & Plan (06/20/2025 2:06 [...] Encounters Date Type Department Care Team Description 09/06/2025 8:40 AM EST Office Visit [facility] [address], [address] [place] [phone] Canelo Gordon MD Closed unstable burst fracture of tenth thoracic vertebra with routine healing, subsequent encounter (Primary Dx); Fall on same level from slipping, tripping or stumbling, subsequent encounter; Compression fracture of L4 vertebra with routine healing, subsequent encounter 09/06/2025 8:28 AM EST - 09/06/2025 11:59 PM EST Hospital Encounter [facility] [address], [address] [place] [phone] Closed unstable burst fracture of tenth thoracic vertebra with routine healing, subsequent encounter; Fall on same level from slipping, tripping or stumbling, subsequent encounter; Compression fracture of L4 vertebra with routine healing, subsequent encounter Discharge Disposition: Home or Self Care 09/06/2025 Travel 09/05/2025 Travel 07/23/2025 10:40 AM EDT Office Visit [facility] [address], [address] [place] [phone] Makayla Green, KEANU Closed unstable burst fracture of tenth thoracic vertebra with routine healing, subsequent encounter (Primary Dx); Fall on same level from slipping, tripping or stumbling, subsequent encounter; Compression fracture of L4 vertebra with routine healing, subsequent encounter 07/23/2025 10:24 AM EDT - 07/23/2025 11:59 PM EDT Hospital Encounter [facility] [address], [address] [place] [address] Closed unstable burst fracture of tenth thoracic vertebra with routine healing, subsequent encounter Discharge Disposition: Home or Self Care 07/23/2025 Travel 07/22/2025 Travel 07/08/2025 Telephone [facility] [address], [address] [place] [address] Makayla Green, ANIMAL GROOMER [facility] Clinical Concern/Question from Last 3 Months Family History Medical History Relation Name Comments Heart disease Brother Umer Heart disease Father Ra Mental illness Father Ra COPD Mother Ary Dementia Mother Ary Diabetes Mother Ary Heart disease Mother Ary Stroke Mother Ary Relation Name Status Comments Brother Umer Alive Father Ra Alive Mother Ary Alive Social History Tobacco Use Types Packs/Day Years [...] Pressure 160/110 09/06/2025 9:15 AM EST Pulse 70 06/21/2025 3:43 PM EDT Temperature 36.3 C (97.4 F) 06/21/2025 3:43 PM EDT Respiratory Rate 17 06/21/2025 12:00 PM EDT Oxygen Saturation 96% 06/21/2025 3:43 PM EDT Inhaled Oxygen Concentration - - Weight 111 kg (245 lb) 09/06/2025 9:15 AM EST Height 177.8 cm (5' 10 ) 07/23/2025 10:48 AM EDT Body Mass Index 35.15 07/23/2025 10:48 AM EDT Plan of Treatment Health Maintenance Due Date Last Done Comments [facility]-Depression Screening 1974 [facility]-Diabetes: Hemoglobin A1C 1974 [facility]-/Child/Adol SDOH Screenings 1975 [id number] Vaccine (#1) 1974 Diabetes: Dental Exam 01/28/1984 [facility]- SDOH Screenings [...] C Screening Completed 06/19/2025 [facility]-Obesity Intervention Completed 025, 07/23/2025 HPV Vaccines (No Doses Required) Completed [facility]-HIB Vaccines Aged Out No longer e [...] L4 vertebra with routine healing, subsequent encounter XR SCOLIOSIS ENTIRE SPINE 2 OR 3 VIEWS Routine 07/23/2025 10:37 AM EDT Closed unstable burst fracture of tenth thoracic vertebra with routine healing, subsequent encounter HEPATITIS C ANTIBODY - ED W/REFLEX TO HCV QUANT PCR STAT 06/19/2025 10:40 PM EDT ED HIV 1/2 ANTIBODY/ANTIGEN SCREEN WITH REFLEX TO HIV I/II DIFFERENTIATION STAT 06/19/2025 10:40 PM EDT from Last 3 Months or Most Recently Relevant to Health Maintenance Results * XR Scoliosis Entire Spine 2 or 3 Views (09/06/2025 8:51 AM EST) Only the most recent of2 resultswithin the time period is included. Anatomical Region Laterality Modality Spine Digital Radiogra [...] complication. Similar appearance of the L2 and T1jodsbqyrypf deformities without further interval height loss. CRITICAL RESULT: No. COMMUNICATION: Per this written report. Drafted by Sabrina Carr MD on 09/06/2025 11:18 AM Final report signed by Sabrina Carr MD on 09/06/2025 11:20 AM Makayla Jacobo Norma ANIMAL GROOMER IMG XR PROCEDURES Final Re sult * ED HIV 1/2 Antibody/Antigen Screen w/Reflex to HIV 1/2 Differentiation (06/19/2025 10:40 PM EDT) HIV 1 & 2 Antibody/Antigen Screen Non Reactive Non Reactive 06/19/2025 11:44 PM EDT [facility] Comment:Screening for HIV 1 & 2 antibodies, and P24 antigen is NONREACTIVE. No confirmatory testing is required. Blood Venous blood specimen / Unknown Venipuncture / Unknown 06/19/2025 10:40 PM EDT 06/19/2025 11:02 PM EDT us Jabari Zuleta MD LAB BLOOD ORDERABLES Final Resul t Performing Organization Address City/[facility]/ZIP Co de Phone Number [facility] [address] [place] [address] * Hepatitis C Antibody - ED (06/19/2025 10:40 PM EDT) Hepatitis C Antibody Negative Negative 06/19/2025 11:44 PM EDT [facility] Blood Venous blood specimen / Unknown Venipuncture / Unknown 06/19/2025 10:40 PM EDT 06/19/2025 11:03 PM EDT us Jabari Zuleta MD LAB BLOOD ORDERABLES Final Resul t [facility] [address] [place] [address] from Last 3 Months or Most Recently Relevant to Health Maintenance Insurance [employer] Advance Directives * Full Code (Latest Code Status on File) Date Activated Date Inactivated Comments 06/20/2025 1:42 AM 06/21/2025 8:25 PM Question Answer Comments I have reviewed the capacity from the link above and, if needed, have updated to appropriate status: Yes Care Teams Micrographics Services Supervisor Relationship Specialty Start Date End Date Edvin Rome MD PCP - General 08/31/23
--- OUTSIDE RECORDS SUMMARY | 2025-10-02 16:20 | XMS_ITS | Patient Health Record ---
Author Organization [facility] Jet Martínez Address [address] [place] [address] Care Team Providers Care Keno Writer Name Role Phone Luigi Howard Primary Care Provider Reason For Referral No Information Problems Problem Type SNOMED Code ICD Code Onset Dates Problem Status W/U Status Risk Notes Problem Cough (78454508) Cough (786.2) 2 Active confirmed Problem Benign essential hypertension (6457105) BENIGN ESSENTIAL HYPERTENSION (401.1) 2 Active confirmed Plan Of Treatment No Information Insurance Providers Payer Name Payer Address Payer Phone Subscriber Number Group Number Insured Name Patient Relationship to Insured Coverage Start Date Coverage End Date [facility] [address] [address] [place] [id number] HELDER ALTAMIRANO Self - patient is the insured
--- OUTSIDE RECORDS SUMMARY | 2025-10-02 16:20 | XMS_ITS | Encounter Summary ---
Author Organization Healthcare Address [address] [place] [address] Care Team Providers Care Thermal Surfacing Machine Operator Name Role Phone Edvin Rome MD Primary Care Provider [phone] Encounter Details Date Type Department Care Team (Latest Contact Info) Description 09/05/2025 Travel Social History Tobacco Use Types Packs/Day [...] documented as of this encounter Care Teams Thermal Surfacing Machine Operator Relationship Specialty Start Date End Date Edvin Rome MD PCP - General 08/31/23 documented as of this encounter
--- OUTSIDE RECORDS SUMMARY | 2025-10-02 16:20 | XMS_ITS | Encounter Summary ---
Author Organization Healthcare Address [address] [place] [address] Care Team Providers Care [place] Apprentice Name Role Phone Edvin Rome MD Primary Care Provider [phone] Reason for Visit * Reason Onset Date Comments [facility] Clinical Concern/Question 07/08/2025 Encounter Details Date Type Department Care Team (Late st Contact Info) Description 07/08/2025 Telephone [facility] [address], [address] [place] [address] Makayla Green M, AIRCRAFT LOG CLERK [address] [place] [address] [facility] Clinical Concern/Question Social History [...] encounter Miscellaneous Notes * Telephone Encounter - Hindu, Mohini F - 07/08/2025 1:46 PM EDT Clinical Concern/Question Reason for Call: Patient asking to talk to nurse about after care and xray questions Best contact number: [phone] (mobile) Optimal time of day to reach caller: ANYTIME Additional comments/information from caller: None Note: Please do not reply to this message. Follow-up communication and further actions as a result of this message need to be communicated with the patient directly, if the patient is not active onMyChart. If the patient is active on MyChart, they will receive notification of the communication/outcome via [employer]. documented in this encounter Plan of Treatment Not on file documented as of this encounter Visit Diagnoses Not on filedocumented in this encounter Care Teams [place] Apprentice Relationship Specialty Start Date End Date Edvin Rome MD PCP - General 08/31/23 documented as of this encounter
== END 2025-10-02 23:59 | disposition home or self-care (01) ==
LOC: RT 15:10
PROVIDERS: PCP Family Medicine; Visit Provider Physician Assistant
DX: R94.30 Abnormal result of cardiovascular function study, unspecified (principal); R53.83 Other fatigue; R42 Dizziness and giddiness
CPT/HCPCS: 93306